=== PATIENT | female | born 1990 | race Caucasian/White ===

== ENCOUNTER 2016-10-30 08:34 | Inpatient (IN) ==
[2016-10-30] MEDS ORDERED: predniSONE 20 MG TABLET PO ONE (08:59)
[2016-10-30] MEDS ORDERED: 0.9 % Sodium Chloride 1,000 ML IVC ONE (09:00)
[2016-10-30] MEDS ORDERED: Ketorolac 15 MG/ML VIAL IVP ONE (09:00)
--- NOTE | 2016-10-30 09:17 | Emergency Department Note ---
START Narrative - START START: I examined this patient and my medical decision-making was reviewed with the FORGEMAN HELPER/PA/Advanced Practice Nurse/Resident Physician. I agree with the documented findings, disposition and treatment plan as described except to the extent set forth below. ED attending note: Patient seen with emergency medicine resident Dr. Salter. Please see a copy of his note for details of the H&P, evaluation, management and disposition of this patient. We independently had [id number] contact with the patient Briefly: 26 -year-old female presents with increasing shortness of breath and cough. 7 several days on Zithromax for upper respiratory tract infection/ bronchitis. Smoker no formal history of COPD but likely has a beginning of it. Patient will get repeat to oral steroids chest x-ray IV fluids. Disposition pending.
--- NOTE | 2016-10-30 09:20 | Emergency Department Note ---
Disposition Clinical Impression: Tobacco use, Necrotizing pneumonia Pneumonia Qualifiers: Pneumonia type: due to unspecified organism Laterality: right Lung location: lower lobe of lung Qualified Code(s): J18.1 - Lobar pneumonia, unspecified organism Leukocytosis Qualifiers: Leukocytosis type: unspecified Qualified Code(s): D72.829 - Elevated white blood cell count, unspecified Pulmonary abscess Qualifiers: Pulmonary abscess pneumonia presence: with pneumonia Laterality: right Lung location: lower lobe of lung Qualified Code(s): J85.1 - Abscess of lung with pneumonia Disposition: Admitted As Inpatient Condition: Good SOB HPI - General Chief Complaint: ED Shortness of Breath/Dyspnea Stated Complaint: pneumonia-worsening Time Seen by Provider: 10/30/16 08:43 Source: patient Mode of arrival: ambulatory Limitations: no limitations Nursing Notes Reviewed: Yes Vital Signs Reviewed: Yes - History of Present Illness 26-year-old female with a recent diagnosis of pneumonia presents for evaluation of pain and shortness of breath. Patient states that she was diagnosed with pneumonia by chest x-ray 2 days ago. Symptoms have started over the past 4 days. Notes to have a cough. Patient states that she has been taking her Zithromax as directed. States that she has 1 day left of pills. States it hurts symptoms have not improved. Patient has not taking any anti- inflammatories prior to arrival. Notes that she has right-sided chest pain. Patient denies history of PE or DVT. Patient denies any hemoptysis. Denies any recent long travel. No active cancers. Denies any oral contraceptive pills or exogenous estrogen. Denies any nausea or vomiting. No history of IV drug use - Related Data Previous Rx's Medication Instructions Recorded Azithromycin [Zithromax] 250 mg PO DAILY 4 Days 10/29/16 Allergies Allergy/AdvReac Type Severity Reaction Status Date / Time No Known Allergies Allergy Verified 10/29/16 03:52 All systems ED: reviewed and negative except as stated. Constitutional: Reports: as per HPI. Denies: fever Eyes: Reports: as per HPI ENT ED: Reports: as per HPI Cardiovascular: Reports: as per HPI, chest pain. Denies: palpitations Respiratory: Reports: as per HPI, dyspnea Gastrointestinal: Reports: as per HPI Genitourinary: Reports: as per HPI Musculoskeletal: Reports: as per HPI, back pain Integumentary: Reports: as per HPI Neurological: Reports: as per HPI Psychiatric: Reports: as per HPI Endocrine: Reports: as per HPI Hematological/Lymphatic: Reports: as per HPI Allergic/Immunologic: Reports: as per HPI Past Medical History - Past Medical History Medical history: Reports: no medical history Psychiatric history: Reports: anxiety, depression - Social History Smoking Status: Current every day smoker Alcohol use: Reports: none Drug use: Reports: none Physical Exam - General Limitations: no limitations General appearance: alert, in no apparent distress - Head Head exam: atraumatic, normocephalic - Eye Eye exam: Present: normal appearance, EOMI - ENT ENT exam: normal exam, mucous membranes moist - Neck Neck exam: Present: normal inspection, trachea midline - Chest Chest inspection: Present: normal inspection, symmetric chest wall rise - Respiratory Respiratory exam: Present: other (Decreased right-sided breath sounds). Absent : respiratory distress - Cardiovascular Cardiovascular exam: Present: regular rate, normal rhythm. Absent: systolic murmur - Abdominal Exam Abdominal exam: Present: soft, Non-Tender - Extremities Exam Extremities exam: Present: normal inspection. Absent: pedal edema - Back Exam Back exam: Present: normal inspection. Absent: CVA tenderness (R), CVA tenderness (L) - Neurological Exam Neurological exam: Present: alert, oriented X3 - Psychiatric Psychiatric exam: Present: normal affect, anxious - Skin Skin exam: Present: warm, dry, intact, normal color Course Course Narrative: Patient seen and examined upon arrival. Patient and later the treatment area. Patient does have recent sinus pneumonia. No recent auscultation. Likely community-acquired. Patient does not seem to be responding as expected to her outpatient therapy. Patient will get chest x-ray, EKG, lab work. Including a d -dimer as the patient does have a pruritic component to her chest pain. - Reevaluation(s) Reevaluation #1: Patient seen and examined. Patient subjectively feels short of breath. Patient 's vitals are stable. Patient is updated on plan of care. Time: 10:00 Reevaluation #2: Patient is updated on plan of care. Patient denies any needs at this time. Awaiting a CT of the chest to rule out pulmonary embolism. Time: 10:36 - Consultations Consultation #1: Spoke with pulmonary, Dr. Cruz who will evaluate the patient. Recommends that there is no abscess in the lung parenchyma no drainage is necessary. Time: 12:06 Vital Signs Temperature 97.6 F 10/30/16 08:38 Pulse Rate 89 10/30/16 08:38 Respiratory Rate 16 10/30/16 08:38 Blood Pressure 111/75 10/30/16 08:38 O2 Sat by Pulse Oximetry 97 10/30/16 08:38 Temperature 97.6 F 10/30/16 08:38 Pulse Rate 90 10/30/16 10:00 Respiratory Rate 16 10/30/16 10:00 Blood Pressure 109/54 10/30/16 10:00 O2 Sat by Pulse Oximetry 96 10/30/16 10:00 Oxygen Delivery Oxygen Delivery Room Air Shortness of Breath/Dyspnea - MDM Narrative Medical decision making narrative: 26-year-old female presents for evaluation of shortness of breath as well as pain. Patient was diagnosed with pneumonia 2 days ago by chest x-ray. Patient was taking azithromycin and had one day left. Patient noted symptoms of worsening. Reports subjective fever and chills. Patient does have a history of tobacco use but no diagnosis of reactive airway or COPD. Patient had a repeat chest x-ray which shows worsening pneumonia. Since the patient did fail azithromycin with worsening pneumonia. Patient will be treated with Levaquin. Patient also had a d-dimer which was elevated. Concerns of the patient's pain was pleuritic in nature and cannot completely rule out a pulmonary embolism without a scan. CT would allow better visualization of the pneumonia as well. Patient's lab work reviewed that show leukocytosis. Patient does not meet SIRS criteria with leukocytosis alone. Patient was treated with IV fluids as well as antibiotics. Patient received blood cultures. Patient does have a concerning CT finding. Patient does have necrotizing pneumonia with possible abscess formation. This was discussed with the patient as well as the engine generator assembler. Pulmonology recommends treatment with IV antibiotics. Formal consult initiated. Patient will be admitted to the hospital service for further evaluation and monitoring of her infectious pneumonia. Patient denies any history of IV drug abuse or states of immunocompromise. Patient is agreeable to plan of care. - Lab Data Lab results reviewed: Yes I reviewed the patient's lab results. Result diagrams: 10/30/16 09:28 10/30/16 09:28 Lab Results 10/30/16 10/30/16 10/30/16 Range/Units 09:28 09:28 09:28 WBC 18.8 H (4.3-11.1) K/mcL RBC 4.35 (3.82-4.97) M/mcL Hgb 12.6 (11.5-15.4) g/dL Hct 37.8 (35.3-44.9) % MCV 86.9 (83.0-100.0) fL MCH 29.0 (28.0-33.3) pg MCHC 33.3 (31.6-35.5) g/dL RDW 13.1 (11.5-14.5) % Plt Count 408 H (140-400) K/mcL MPV 9.3 L (9.4-12.4) fL Immature Gran % 0.6 (0-4) % Seg Neutrophils % 77.5 % Lymphocytes % 15.9 % Monocytes % 5.6 % Eosinophils % 0.3 % Basophils % 0.1 % Neutrophils # 14.6 H (1.6-8.9) K/mcL Lymphocytes # 3.0 (0.6-4.6) K/mcL Monocytes # 1.1 (0.0-1.3) K/mcL Eosinophils # 0.1 (0.0-0.6) K/mcL Basophils # 0.0 (0.0-0.2) K/mcL D-Dimer 1035 H (0-500) ng/mLFEU Sodium 139 (136-145) mEq/L Potassium 3.6 (3.5-4.5) mEq/L Chloride 106 (98-109) mEq/L Carbon Dioxide 22 (19-29) mEq/L BUN 14 (7-20) mg/dL Creatinine 0.88 (0.57-1.11) mg/dL Est GFR ( Amer) > 60 (> 60) Est GFR (Non-Af Amer) > 60 (> 60) BUN/Creatinine Ratio 16 (6-26) Glucose 93 (70-99) mg/dL Calculated Osmolality 288 (280-300) Calcium 9.6 (8.6-10.8) mg/dL Troponin I (0-0.03) ng/mL 10/30/16 Range/Units 10:31 WBC (4.3-11.1) K/mcL RBC (3.82-4.97) M/mcL Hgb (11.5-15.4) g/dL Hct (35.3-44.9) % MCV (83.0-100.0) fL MCH (28.0-33.3) pg MCHC (31.6-35.5) g/dL RDW (11.5-14.5) % Plt Count (140-400) K/mcL MPV (9.4-12.4) fL Immature Gran % (0-4) % Seg Neutrophils % % Lymphocytes % % Monocytes % % Eosinophils % % Basophils % % Neutrophils # (1.6-8.9) K/mcL Lymphocytes # (0.6-4.6) K/mcL Monocytes # (0.0-1.3) K/mcL Eosinophils # (0.0-0.6) K/mcL Basophils # (0.0-0.2) K/mcL D-Dimer (0-500) ng/mLFEU Sodium (136-145) mEq/L Potassium (3.5-4.5) mEq/L Chloride (98-109) mEq/L Carbon Dioxide (19-29) mEq/L BUN (7-20) mg/dL Creatinine (0.57-1.11) mg/dL Est GFR ( Amer) (> 60) Est GFR (Non-Af Amer) (> 60) BUN/Creatinine Ratio (6-26) Glucose (70-99) mg/dL Calculated Osmolality (280-300) Calcium (8.6-10.8) mg/dL Troponin I 0.00 (0-0.03) ng/mL - Radiology Data Radiology results reviewed: Yes I reviewed the patient's radiology results. Chest X-Ray 10/30/16 08:58 IMPRESSION: Worsening consolidative changes at the right lung base with small right pleural effusion. Findings are concerning for pneumonia. Follow-up recommended to assure resolution. D/ / 10/30/2016 09:34:33 Paul Murphy MD / [email or web address] Interpreting Provider: Paul Murphy MD Chest X-Ray 10/30/16 08:58 IMPRESSION: Worsening consolidative changes at the right lung base with small right pleural effusion. Findings are concerning for pneumonia. Follow-up recommended to assure resolution. D/ / 10/30/2016 09:34:33 Paul Murphy MD / [email or web address] Interpreting Provider: Paul Murphy MD Chest CTA 10/30/16 09:48 IMPRESSION: 1. No findings of pulmonary embolism. 2. 4.5 cm x 3.7 cm hypoenhancing area of collapsed right lower lobe with central cavitation, suspicious for necrotizing pneumonia with potential pulmonary abscess formation. 3. Trace right pleural effusion. 4. Minimal bronchial wall thickening with tracheal secretions, potentially related to bronchitis. 5. 0.5 cm x 0.3 cm solid nodule in the left upper lobe, most likely a sequela of an infectious or inflammatory process. Consider follow-up CT in 12 months per the Fleischner Society recommendations solid nodules as below. Of note, upper lobe location and indistinct margins are considered to be of increased risk. RECOMMENDATIONS: Fleischner Society guidelines for follow-up and management of incidentally detected pulmonary nodules: Single Solid Nodule: Nodule size less than 6 mm In a low-risk patient, no routine follow-up. In a high-risk patient, optional CT at 12 months. Radiology 2017 http://pubs.rsna.org/doi/full/10.1148/radiol.[email or web address] D/ / Abram Pretty MD / Abram Pretty MD Interpreting Provider: Abram Pretty MD - EKG Data EKG attestation: Yes I reviewed and interpreted this EKG. EKG shows normal: Reports: sinus rhythm Rate: Reports: normal Rhythm: Reports: NSR T wave inversions noted in: Reports: III (Flattening), v1, v2, v3 When compared to previous EKG there are: previous EKG unavailable Interpretation: Reports: nonspecific ST-T wave changes S.B.A.R. - S.B.A.RVaughn Situation: Demographics, MOA Background: Presenting Complaint Assessment: Vital Signs, Course and respsone to treatment, Patient/Family Expectation Recommendation: Barrier(s) to disposition, Recommendation based on pending studies, treatments, or consults S.B.AVaughnRVaughn Report Given to: Dr. Darren Ruiz Repor Time: 12:02
[2016-10-30] MEDS ORDERED: Ipratropium/Albuterol Neb 3 ML IH ONE (09:24)
[2016-10-30 09:35] LABS: Basophils % 0.1 %; Eosinophils # 0.1 K/mcL (0.0-0.6); Eosinophils % 0.3 %; Hematocrit 37.8 % (35.3-44.9); Hemoglobin 12.6 g/dL (11.5-15.4); Immature Granulocytes % 0.6 % (0-4); Lymphocytes % 15.9 %; Mean Corpuscular HGB Conc 33.3 g/dL (31.6-35.5); Mean Corpuscular Volume 86.9 fL (83.0-100.0); Mean Platelet Volume 9.3 fL (9.4-12.4); Monocytes # 1.1 K/mcL (0.0-1.3); Monocytes % 5.6 %; Neutrophils # 14.6 K/mcL (1.6-8.9); Platelet Count 408 K/mcL (140-400); Red Blood Count 4.35 M/mcL (3.82-4.97); Red Cell Distribution Width 13.1 % (11.5-14.5); Segmented Neutrophils % 77.5 %
[2016-10-30 09:47] LABS: BUN/Creatinine Ratio 16 (6-26); Blood Urea Nitrogen 14 mg/dL (7-20); Calcium 9.6 mg/dL (8.6-10.8); Carbon Dioxide 22 mEq/L (19-29); Chloride 106 mEq/L (98-109); Glucose 93 mg/dL (70-99); Osmolality,Calculated 288 (280-300); Potassium 3.6 mEq/L (3.5-4.5); Sodium 139 mEq/L (136-145); eGFR For African Americans > 60 (> 60); eGFR For Non-African Americans > 60 (> 60)
[2016-10-30] MEDS ORDERED: Levofloxacin 750 MG/150 ML 750 MG/150 ML BAG IVPB ONE (09:53)
[2016-10-30] MEDS ORDERED: Piperacillin/Tazobactam 4.5 GM in D5% in Water (Mini-Bag+) 100 ML IVPB ONE ×2 (11:56→12:45)
[2016-10-30] MEDS ORDERED: Vancomycin 1,750 MG in D5% in Water 250 ML IVPB ONE (11:56)
[2016-10-30] MEDS ORDERED: Vancomycin 1,750 MG in D5% in Water 500 ML IVPB ONE (12:09)
[2016-10-30] MEDS ORDERED: Naloxone 0.4 MG/ML INJ IVP PRN (12:15)
[2016-10-30] MEDS ORDERED: Piperacillin/Tazobactam 4.5 GM in D5% in Water (Mini-Bag+) 100 ML IVPB SCH (12:15)
--- NOTE | 2016-10-30 12:22 | Internal Med History&Physical ---
Date of Encounter: 10/30/16 Time of Encounter: 12:20 Assessment and Plan (1) Necrotizing pneumonia Current visit: Yes Status: Acute Right lower lobe necrotizing pneumonia with cavitation/pulmonary abscess Failed a Zithromax as outpatient Continue Zosyn IV, blood cultures, IV fluids Pulmonary consult Subcutaneous heparin for DVT prophylaxis. The patient will be admitted as inpatient. Full code. Time spent on this admission 40 minutes High risk due to necrotizing pneumonia (2) Leukocytosis Current visit: Yes Status: Acute Likely secondary to pneumonia Qualifiers: Leukocytosis type: unspecified Qualified Code(s): D72.829 - Elevated white blood cell count, unspecified (3) Tobacco use Current visit: Yes Status: Acute Smoking cessation counseling given for 5 min . Nicotine patch ordered (4) Pulmonary abscess Current visit: Yes Status: Acute No history of IV drug abuse Qualifiers: Pulmonary abscess pneumonia presence: with pneumonia Laterality: right Lung location: lower lobe of lung Qualified Code(s): J85.1 - Abscess of lung with pneumonia Internal Medicine - H&P: HPI Chief complaint: Failed outpatient treatment for pneumonia Admitted From: Emergency Dept History of present illness: Ms. Machado is a 26 year old female with past medical history of tobacco use who came to the emergency room complaining of shortness of breath. The patient was diagnosed with pneumonia a few days ago and was treated with Zithromax. Unfortunately her symptoms have not improved, she continues to have brownish phlegm in complaining of chest sharp pain 8 out of 10 intensity pleuritic type on the right base of the thorax. She says that she has been coughing for about 2 weeks and has been having chills at home. White blood cell count is 18.8 platelets 408 the d-dimer was elevated at 1035, chest x-ray showed worse right lower lobe infiltrates. CT angio the chest was performed and did not show any pulmonary emboli but showed a right lower lobe necrotizing possible pneumonia with abscess formation and cavitation. Trace pleural effusion, bronchitis in the left upper lobe nodule. The patient is very weak, somnolent. The pulmonary service was contacted by the ER physician and the recommendation to admit the patient on IV antibiotics was given. Down in the emergency room the patient was given vancomycin, Levaquin and Zosyn. Past Med Surg Social Fam HX - Past Medical History Medical history: no medical history, other (Tobacco use, depression and anxiety) Psychiatric history: anxiety, depression - Past Surgical History Surgical History: other (Tonsillectomy) - Social History Smoking Status: Current every day smoker Packs per day: Hospital pack per day Alcohol use: none Drug use: none - Additional Family History Additional family history: Father with hypertension Internal Medicine - H&P: Meds Azithromycin [Zithromax] 250 mg PO DAILY 4 Days 10/29/16 [Rx] Allergies No Known Allergies Allergy (Verified 10/29/16 03:52) All Systems PM: A 10-system review of systems was performed and is negative for pertinent findings except as documented above in the HPI. Review of systems: Right pleuritic pain, shortness of breath, weakness. Other systems out of the 10th reviewed were negative - Constitutional Vitals: Temp Pulse Resp BP Pulse Ox 97.6 F 90 16 109/54 96 10/30/16 08:38 10/30/16 10:00 10/30/16 10:00 10/30/16 10:00 10/30/16 10:00 General appearance: Present: A&O X 3, obese - Head Head exam: Present: atraumatic, normocephalic - Eye Eye exam: Present: PERRL, conjuntiva pink, sclera anicteric Pupils: Present: PERRL - Neck Neck exam general surgery: Present: supple, trachea midline. Absent: lymphadenopathy - Respiratory Respiratory exam: Present: decreased breath sounds (Blunted breath sounds on the right base), CTAB. Absent: accessory muscle use, rales, rhonchi, wheezes - Cardiovascular Cardiovascular exam: Present: RRR, +S1, +S2. Absent: diastolic murmur, gallop, rubs, systolic murmur - GI/Abdominal GI/Abdominal exam: Present: normal bowel sounds, soft, no peritoneal signs. Absent: distended, tenderness - Extremities Exam Extremities exam: Present: warm, radial pulses palpable and symetrical. Absent : calf tenderness, cyanotic, pedal edema - Neurological Exam Neurological exam: Present: CN II-XII intact, oriented X3, no focal deficits. Absent: pronater drift, facial droop, speech deficit - Skin Skin exam: Present: dry, intact Internal Med - H&P Results - Labs CBC & Chem 7: 10/30/16 09:28 10/30/16 09:28
[2016-10-30] MEDS: 0.9 % Sodium Chloride 1,000 ML IVC SCH ×2 (13:13→21:24)
--- NOTE | 2016-10-30 13:14 | Pre-Sedation Evaluation ---
Pre-sedation evaluation - Pre-sedation checklist Date of procedure: 10/30/16 Procedure: bronchoscopy Recent Vitals: Last Vital Signs Temp 98.3 F 10/30/16 12:53 Pulse 77 10/30/16 12:53 Resp 16 10/30/16 12:53 BP 106/69 10/30/16 12:53 Pulse Ox 98 10/30/16 12:53 H&P (including ROS) documented in medical record: Yes Previous reaction to sedatives/anesthetics: No Dietary Status: NPO after Midnight Airway Assessment: Patient can open mouth completely, TMJ function normal, Micrognathia (under-bite, receding chin) absent, Neck with adequate range of motion Dentition: No loose teeth or bridges Possible difficult airway: No ASA Classification *see protocol: CLASS II-Mild systemic disease
[2016-10-30] MEDS: Nicotine 21 MG PATCH.TD24 TD SCH (13:16)
[2016-10-30] MEDS: Ketorolac 30 MG/ML VIAL IVP PRN ×2 (13:17→19:57)
--- NOTE | 2016-10-30 13:20 | Pulmonology Consult Note ---
Date of Encounter: 10/30/16 Time of Encounter: 13:15 Assessment and Plan (1) Pneumonia Current Visit: No Status: Acute Right lower lobe cavitary pneumonia concerning for possible aspiration ( especially in light of recent IV drug abuse approximately one week ago). She is currently on broad-spectrum antibiotics with vancomycin and Zosyn. I have ordered MRSA nasal probe, Legionella and strep urinary antigens. Plan for bronchoscopy for further evaluation. Qualifiers: Pneumonia type: due to unspecified organism Laterality: right Lung location: lower lobe of lung Qualified Code(s): J18.1 - Lobar pneumonia, unspecified organism (2) Abnormal CT scan, chest Current Visit: Yes Status: Acute Right lower lobe cavitary lesion with a small associated pleural effusion. I suspect cavitary pneumonia and/or lung abscess. This is overall a unilateral process, which makes septic emboli unlikely. She does have a history of IV drug abuse and blood cultures are pending. Will need a prolonged course of antibiotics and serial imaging to ensure radiographic resolution. Radiologist notes a tiny left upper lobe nodule which is likely benign in etiology given her age and the appearance. (3) Pleuritic chest pain Current Visit: Yes Status: Acute Likely due to pleurisy from peripheral cavitary pneumonia. Small pleural effusion, which would be too small for chest tube placement or thoracentesis. This pain is typically inflammatory in etiology, and I have added a course of prednisone 40 mg by mouth for 5 days. This can also be helpful in the treatment of severe community acquired pneumonia. (4) Tobacco use Current Visit: Yes Status: Acute Discussed with patient, and recommended cessation. History of Present Illness Consult date: 10/30/16 Requesting physician: Michael Canchola Reason for consult: abnormal CXR/CT Chief complaint: Pneumonia History of present illness: 26-year-old obese female with a medical history significant for IV drug abuse and smoking who presented to the ER for further evaluation of shortness of breath and pleuritic chest pain. Recently been diagnosed with pneumonia and started on azithromycin as an outpatient. However, her symptoms of dyspnea, cough, and pleuritic chest pain worsened. She is brought to the emergency department for further evaluation. Workup revealed a cavitary lesion in the right lower lobe. Pulmonary was consult for further evaluation and management. Patient states that her symptoms initially started off with a cough approximately 4 days ago. She was given a "shot" for an antibiotic in [place]. Then she again sought medical care and received azithromycin approximate 3 days ago. The cough has been mostly nonproductive. She is developed pleuritic chest pain for the past 2 or 3 days. Nothing seems to make her symptoms better. She had an episode of nausea and vomiting about a week and a half ago, but denies any known aspiration event. She does admit to IV drug abuse approximately one week ago. She denies passing out or aspirating at the time. No sick contacts. She is an active smoker. Past Med Surg Social Fam HX - Past Medical History Medical history: no medical history Psychiatric history: anxiety, depression - Past Surgical History Surgical History: other - Social History Smoking Status: Current every day smoker Packs per day: 1 Smokeless Tobacco Status: No Alcohol use: none Drug use: none Medications and Allergies Azithromycin [Zithromax] 250 mg PO DAILY 4 Days 10/29/16 [Rx] Allergies No Known Allergies Allergy (Verified 10/29/16 03:52) All Systems: A 10-system review of systems was performed and is negative for pertinent findings except as documented above in the HPI. Physical Examination Vital Signs: Vital Signs, Last 4 Hours Temp Pulse Resp BP Pulse Ox 10/30/16 12:53 98.3 F 77 16 106/69 98 10/30/16 12:48 98 10/30/16 12:35 16 93/55 General: no acute distress Eyes: nonicteric ENT: oropharynx moist Neck: supple, no lymphadenopathy Lungs: Clear to auscultation bilaterally Cardiovascular: regular rate and rhythm Gastrointestinal: normoactive bowel sounds, soft, non-tender, non-distended Integumentary: normal Extremities: no cyanosis, no edema Musculoskeletal: no deformities Neuro: normal mental status, non-focal exam Psych: mood appropriate, affect normal Results - Laboratory Findings CBC and BMP: 10/30/16 09:28 10/30/16 09:28 PT/INR, D-dimer D-Dimer 1035 ng/mLFEU (0-500) H 10/30/16 09:28 Abnormal lab findings: Abnormal lab results WBC 18.8 K/mcL (4.3-11.1) H 10/30/16 09:28 Plt Count 408 K/mcL (140-400) H 10/30/16 09:28 MPV 9.3 fL (9.4-12.4) L 10/30/16 09:28 Neutrophils # 14.6 K/mcL (1.6-8.9) H 10/30/16 09:28 D-Dimer 1035 ng/mLFEU (0-500) H 10/30/16 09:28 - Clinical Findings Intake & Output: Intake & Output 10/29/16 10/30/16 10/30/16 23:59 07:59 15:59 Weight 114.759 kg Consult Discharge Plan - Plan Referrals: NO,PCP [Primary Care Provider] -
[2016-10-30] MEDS ORDERED: *HR* Midazolam HCl 5 MG/5 ML VIAL IVP ONE (13:31)
[2016-10-30] MEDS ORDERED: *HR* FentaNYL (PF) 100 MCG/2 ML VIAL ONE (13:32)
[2016-10-30] MEDS ORDERED: Lidocaine Viscous Oral Soln 15 ML SOLUTION MM ONE (13:34)
[2016-10-30] MEDS ORDERED: Tetracaine/Benzocaine/Butamben 200MG/SPRAY (100SPY/BOT) MM ONE (13:34)
[2016-10-30] MEDS ORDERED: Lidocaine Viscous Oral Soln 15 ML SOLUTION ONE (13:35)
[2016-10-30] MEDS: *HR* FentaNYL (PF) 100 MCG/2 ML VIAL IVP PRN ×3 (13:54→13:58)
[2016-10-30] MEDS: *HR* Midazolam HCl 5 MG/5 ML VIAL IVP PRN ×3 (13:54→13:58)
[2016-10-30] MEDS ORDERED: Albuterol 2.5 MG/3 ML NEBULIZER ONE (14:03)
[2016-10-30] MEDS: *HR* Heparin 5,000 UNIT/ML VIAL SQ SCH ×2 (14:59→22:43)
[2016-10-30] MEDS ORDERED: *HR* Heparin 5,000 UNIT/ML VIAL SQ SCH (16:00)
[2016-10-30] MEDS: Piperacillin/Tazobactam 3.375 GM in D5% in Water (Mini-Bag+) 100 ML IVPB SCH (18:21)
[2016-10-30] MEDS ORDERED: Piperacillin/Tazobactam 3.375 GM in D5% in Water (Mini-Bag+) 100 ML IVPB SCH (19:00)
[2016-10-31] MEDS: Piperacillin/Tazobactam 3.375 GM in D5% in Water (Mini-Bag+) 100 ML IVPB SCH ×4 (01:27→18:39)
[2016-10-31] MEDS: Ketorolac 30 MG/ML VIAL IVP PRN ×3 (03:27→18:39)
[2016-10-31] MEDS: 0.9 % Sodium Chloride 1,000 ML IVC SCH ×3 (03:53→22:21)
[2016-10-31 04:03] LABS: Basophils % 0.1 %; Eosinophils % 0.1 %; Hematocrit 28.5 % (35.3-44.9); Immature Granulocytes % 0.4 % (0-4); Lymphocytes # 2.5 K/mcL (0.6-4.6); Lymphocytes % 18.5 %; Mean Corpuscular HGB Conc 33.7 g/dL (31.6-35.5); Mean Corpuscular Hemoglobin 29.9 pg (28.0-33.3); Mean Corpuscular Volume 88.8 fL (83.0-100.0); Mean Platelet Volume 9.9 fL (9.4-12.4); Monocytes # 0.9 K/mcL (0.0-1.3); Monocytes % 6.3 %; Neutrophils # 10.2 K/mcL (1.6-8.9); Platelet Count 293 K/mcL (140-400); Red Blood Count 3.21 M/mcL (3.82-4.97); Red Cell Distribution Width 13.2 % (11.5-14.5); Segmented Neutrophils % 74.6 %
[2016-10-31 04:11] LABS: Hemoglobin 9.6 g/dL (11.5-15.4)
[2016-10-31 04:12] LABS: BUN/Creatinine Ratio 18 (6-26); Blood Urea Nitrogen 14 mg/dL (7-20); Calcium 8.6 mg/dL (8.6-10.8); Carbon Dioxide 21 mEq/L (19-29); Chloride 114 mEq/L (98-109); Glucose 94 mg/dL (70-99); Osmolality,Calculated 290 (280-300); Sodium 140 mEq/L (136-145); eGFR For African Americans > 60 (> 60); eGFR For Non-African Americans > 60 (> 60)
[2016-10-31] MEDS ORDERED: GuaiFENesin Liq 200 MG/10 ML UDC PO ONE (06:20)
[2016-10-31] MEDS: *HR* Heparin 5,000 UNIT/ML VIAL SQ SCH ×3 (06:40→22:21)
[2016-10-31] MEDS: predniSONE 20 MG TABLET PO SCH (08:19)
[2016-10-31] MEDS: Nicotine 21 MG PATCH.TD24 TD SCH (08:19)
[2016-10-31] MEDS: Acetaminophen 325 MG TABLET PO PRN (08:23)
--- NOTE | 2016-10-31 08:34 | Internal Med Progress Note ---
Date of Encounter: 11/09/16 Time of Encounter: 08:31 - Assessment and plan (1) Necrotizing pneumonia Current Visit: Yes Status: Acute Assessment and plan: background history of IV drug abuse. was recently treated with Azithromycin for CAP. She did not complete the course. she started getting worse inspite being on antibiotics. repeat Imaging suggestive of pulmonary abscess. started on broad spectrum after blood culture. pulmonary on board .underwent bronchoscopy. plan will get 2 D Echo to rule out IE cont abx. cont present treatment. (2) Leukocytosis Current Visit: Yes Status: Acute Assessment and plan: getting better. Qualifiers: Leukocytosis type: unspecified Qualified Code(s): D72.829 - Elevated white blood cell count, unspecified (3) Tobacco use Current Visit: Yes Status: Chronic - Subjective Interval history: Seen and examined. Chart reviewed. Patient is still complaining of occasional right-sided chest pain. Patient denies nausea, vomiting, diarrhea, dizziness and headache. - Constitutional Vitals: Temp Pulse Resp BP Pulse Ox 98.6 F 84 16 100/65 96 10/31/16 07:11 10/31/16 07:11 10/31/16 07:11 10/31/16 07:11 10/31/16 07:11 General appearance: Present: A&O X 3, obese - Head Head exam: Present: atraumatic, normocephalic - Eye Eye exam: Present: PERRL, conjuntiva pink, sclera anicteric Pupils: Present: PERRL - Neck Neck exam general surgery: Present: supple, trachea midline. Absent: lymphadenopathy - Respiratory Respiratory exam: Present: CTAB. Absent: accessory muscle use, rales, rhonchi, wheezes - Cardiovascular Cardiovascular exam: Present: RRR, +S1, +S2. Absent: diastolic murmur, gallop, rubs, systolic murmur - GI/Abdominal GI/Abdominal exam: Present: normal bowel sounds, soft, no peritoneal signs. Absent: distended, tenderness - Extremities Exam Extremities exam: Present: warm, radial pulses palpable and symetrical. Absent : calf tenderness, cyanotic, pedal edema - Neurological Exam Neurological exam: Present: CN II-XII intact, oriented X3, no focal deficits. Absent: pronater drift, facial droop, speech deficit - Skin Skin exam: Present: dry, intact Internal Medicine: Result - Labs CBC & Chem 7: 11/09/16 14:19 11/07/16 03:52 Labs: Short CBC 10/31/16 Range/Units 03:41 WBC 13.7 H (4.3-11.1) K/mcL Hgb 9.6 L D (11.5-15.4) g/dL Hct 28.5 L (35.3-44.9) % Plt Count 293 (140-400) K/mcL Neutrophils # 10.2 H (1.6-8.9) K/mcL BMP 10/31/16 03:41 Sodium 140 Potassium 4.0 Chloride 114 H Carbon Dioxide 21 BUN 14 Creatinine 0.79 Glucose 94 Calcium 8.6 - ABG Interpretation ABG results: PT/INR, D-dimer D-Dimer 1035 ng/mLFEU (0-500) H 10/30/16 09:28 Consult Discharge Plan - Plan Instructions: Oxycodone/Acetaminophen (By mouth), Cefazolin (Injection), Sepsis (DC), Pneumonia (DC), Cigarette Smoking and Your Health, Auto Body Repairer (GEN) Additional Instructions: Patient has been advised to quit smoking. Patient has been advised to discontinue IV drug use. Patient will need to strictly follow antibiotic regimen to allow recovery from pneumonia. Referrals: NO,PCP [Primary Care Provider] - Prescriptions: Cefazolin Sodium/D5w [Cefazolin 2 G/50 ml-D5w Bag] 2 gm IV Q8H #39 piggyback Oxycodone HCl/Acetaminophen [Percocet 5-325 mg Tablet] 1 each PO Q6H #30 tablet
--- NOTE | 2016-10-31 08:42 | Pulmonology Progress Note ---
Date of Encounter: 10/31/16 Time of Encounter: 08:39 Assessment and Plan (1) Pneumonia Current Visit: No Status: Acute Right lower lobe cavitary pneumonia concerning for possible aspiration ( especially in light of recent IV drug abuse approximately one week ago). She is currently on broad-spectrum antibiotics with Zosyn. I have ordered MRSA nasal probe, Legionella and strep urinary antigens. She is status post bronchoscopy on 10/30/2016, which revealed purulent secretions in the right lower lobe. Cultures from bronchoscopy are pending. Qualifiers: Pneumonia type: due to unspecified organism Laterality: right Lung location: lower lobe of lung Qualified Code(s): J18.1 - Lobar pneumonia, unspecified organism (2) Abnormal CT scan, chest Current Visit: Yes Status: Acute Right lower lobe cavitary lesion with a small associated pleural effusion. I suspect cavitary pneumonia and/or lung abscess. This is overall a unilateral process, which makes septic emboli unlikely. She does have a history of IV drug abuse and blood cultures are pending. Will need a prolonged course of antibiotics and serial imaging to ensure radiographic resolution. Radiologist notes a tiny left upper lobe nodule which is likely benign in etiology given her age and the appearance. (3) Pleuritic chest pain Current Visit: Yes Status: Acute Likely due to pleurisy from peripheral cavitary pneumonia. Small pleural effusion, which is too small for chest tube placement or thoracentesis. This pain is typically inflammatory in etiology, and I have added a course of prednisone 40 mg by mouth for 5 days. This can also be helpful in the treatment of severe community acquired pneumonia. (4) Tobacco use Current Visit: Yes Status: Acute Discussed with patient, and recommended cessation. Subjective Principal diagnosis: Pneumonia Interval history: Patient denies fever/chills. Nonproductive cough persists. No dyspnea at rest. No hemoptysis. Objective PUL Vital signs: Last Vital Signs Temp 98.6 F 10/31/16 07:11 Pulse 84 10/31/16 07:11 Resp 16 10/31/16 07:11 BP 100/65 10/31/16 07:11 Pulse Ox 96 10/31/16 07:11 General: Obese young female who is in no acute distress Eyes: nonicteric ENT: oropharynx moist Neck: supple, no lymphadenopathy Lungs: Clear to auscultation bilaterally Cardiovascular: regular rate and rhythm Gastrointestinal: normoactive bowel sounds, soft, non-tender, non-distended Integumentary: normal Extremities: no cyanosis, no edema Musculoskeletal: no deformities Neuro: normal mental status, non-focal exam Psych: mood appropriate, affect normal Results - Laboratory Findings CBC and BMP: 10/31/16 03:41 10/31/16 03:41 PT/INR, D-dimer D-Dimer 1035 ng/mLFEU (0-500) H 10/30/16 09:28 Abnormal lab findings: Abnormal lab results WBC 13.7 K/mcL (4.3-11.1) H 10/31/16 03:41 RBC 3.21 M/mcL (3.82-4.97) L 10/31/16 03:41 Hgb 9.6 g/dL (11.5-15.4) L D 10/31/16 03:41 Hct 28.5 % (35.3-44.9) L 10/31/16 03:41 Neutrophils # 10.2 K/mcL (1.6-8.9) H 10/31/16 03:41 D-Dimer 1035 ng/mLFEU (0-500) H 10/30/16 09:28 Chloride 114 mEq/L (98-109) H 10/31/16 03:41 - Microbiology Findings Microbiology Findings: Microbiology, Last 48 Hours 10/30/16 23:00 Legionella Antigen - Final Urine,Clean Catch Streptococcus pneumoniae Antigen (M - Final - Clinical Findings Intake & Output: Intake & Output 10/30/16 10/31/16 10/31/16 23:59 07:59 15:59 Intake Total 1340 / 1340 1100 / 1100 Balance 1340 / 1340 1100 / 1100 Weight 120.021 kg Consult Discharge Plan - Plan Referrals: NO,PCP [Primary Care Provider] -
[2016-10-31] MEDS: *HR* Morphine 2 MG/ML SYRINGE IVP PRN ×3 (11:51→20:45)
[2016-10-31] MEDS ORDERED: Vancomycin 2,000 MG in D5% in Water 500 ML IVPB ONE (13:00)
[2016-10-31] MEDS: Ipratropium/Albuterol Neb 3 ML IH PRN (22:07)
[2016-11-01] MEDS ORDERED: Vancomycin 1,500 MG in D5% in Water 500 ML IVPB SCH (01:00)
[2016-11-01] MEDS: *HR* Morphine 2 MG/ML SYRINGE IVP PRN ×5 (01:16→23:57)
[2016-11-01] MEDS: Piperacillin/Tazobactam 3.375 GM in D5% in Water (Mini-Bag+) 100 ML IVPB SCH ×4 (01:18→22:41)
[2016-11-01] MEDS: Vancomycin 1,500 MG in D5% in Water 250 ML IVPB SCH ×2 (01:27→15:00)
[2016-11-01] MEDS: Ketorolac 30 MG/ML VIAL IVP PRN ×3 (04:15→18:35)
[2016-11-01] MEDS: Ipratropium/Albuterol Neb 3 ML IH PRN ×4 (04:22→21:59)
[2016-11-01] MEDS: *HR* Heparin 5,000 UNIT/ML VIAL SQ SCH ×3 (06:43→21:55)
[2016-11-01] MEDS: Nicotine 21 MG PATCH.TD24 TD SCH (09:25)
[2016-11-01] MEDS: predniSONE 20 MG TABLET PO SCH (09:26)
[2016-11-01] MEDS: 0.9 % Sodium Chloride 1,000 ML IVC SCH ×4 (09:27→23:51)
--- NOTE | 2016-11-01 11:46 | Pulmonology Progress Note ---
Date of Encounter: 11/01/16 Time of Encounter: 11:42 Assessment and Plan (1) Pneumonia Current Visit: No Status: Acute Right lower lobe cavitary pneumonia concerning for possible aspiration ( especially in light of recent IV drug abuse approximately one week ago). She is currently on broad-spectrum antibiotics with Vancomycin & Zosyn. Legionella and strep urinary antigens are negative. She is status post bronchoscopy on , which revealed purulent secretions in the right lower lobe. Cultures from bronchoscopy are pending, but the Gram stain appears polymicrobial ( consistent with aspiration) and reveals gram-negative rods and gram-positive cocci. Qualifiers: Pneumonia type: due to unspecified organism Laterality: right Lung location: lower lobe of lung Qualified Code(s): J18.1 - Lobar pneumonia, unspecified organism (2) Abnormal CT scan, chest Current Visit: Yes Status: Acute Right lower lobe cavitary lesion with a small associated pleural effusion. I suspect cavitary pneumonia and/or lung abscess. This is overall a unilateral process, which makes septic emboli unlikely. She does have a history of IV drug abuse and blood cultures are NGTD. TTE without vegetations. Will need a prolonged course of antibiotics and serial imaging to ensure radiographic resolution. Radiologist notes a tiny left upper lobe nodule which is likely benign in etiology given her age and the appearance. (3) Pleuritic chest pain Current Visit: Yes Status: Acute Likely due to pleurisy from peripheral cavitary pneumonia. Small pleural effusion, which is too small for chest tube placement or thoracentesis. This pain is typically inflammatory in etiology, and I have added a course of prednisone 40 mg by mouth for 5 days. This can also be helpful in the treatment of severe community acquired pneumonia. (4) Tobacco use Current Visit: Yes Status: Acute Discussed with patient, and recommended cessation. We will continue to follow. Subjective Principal diagnosis: Pneumonia Interval history: Patient denies fever/chills. Patient reports mobilization of secretions and cough is now productive. No dyspnea at rest. No hemoptysis. Pleuritic chest pain persists. Of note, patient is sleepy and falling asleep during our interview. All other systems reviewed and otherwise negative. Objective PUL Vital signs: Last Vital Signs Temp 98.7 F 11/01/16 11:12 Pulse 108 11/01/16 11:12 Resp 16 11/01/16 11:12 BP 122/75 05/28/17 11:12 Pulse Ox 93 11/01/16 11:12 General: Obese young female who is in no acute distress Eyes: nonicteric ENT: oropharynx moist Neck: supple, no lymphadenopathy Lungs: Clear to auscultation bilaterally Cardiovascular: regular rate and rhythm Gastrointestinal: normoactive bowel sounds, soft, non-tender, non-distended Integumentary: normal Extremities: no cyanosis, no edema Musculoskeletal: no deformities Neuro: normal mental status, non-focal exam Psych: mood appropriate, affect normal Results - Laboratory Findings CBC and BMP: 10/31/16 03:41 10/31/16 03:41 PT/INR, D-dimer D-Dimer 1035 ng/mLFEU (0-500) H 10/30/16 09:28 Abnormal lab findings: Abnormal lab results WBC 13.7 K/mcL (4.3-11.1) H 10/31/16 03:41 RBC 3.21 M/mcL (3.82-4.97) L 10/31/16 03:41 Hgb 9.6 g/dL (11.5-15.4) L D 10/31/16 03:41 Hct 28.5 % (35.3-44.9) L 10/31/16 03:41 Neutrophils # 10.2 K/mcL (1.6-8.9) H 10/31/16 03:41 D-Dimer 1035 ng/mLFEU (0-500) H 10/30/16 09:28 Chloride 114 mEq/L (98-109) H 10/31/16 03:41 - Microbiology Findings Microbiology Findings: Microbiology, Last 48 Hours 10/30/16 15:26 Respiratory Culture - Preliminary Right Lower Lobe Lung Gram Negative Camacho Gram Positive Cocci 10/31/16 12:10 Sputum Culture - Preliminary Sputum 10/30/16 15:26 Acid Fast Stain - Final Right Lower Lobe Lung 10/30/16 23:00 Legionella Antigen - Final Urine,Clean Catch Streptococcus pneumoniae Antigen (M - Final - Clinical Findings Intake & Output: Intake & Output 10/31/16 11/01/16 11/01/16 23:59 07:59 15:59 Intake Total 1440 / 1440 1350 / 1350 120 / 120 Output Total 1650 / 1650 650 / 650 Balance -210 / -210 700 / 700 120 / 120 Weight 126.354 kg Consult Discharge Plan - Plan Referrals: NO,PCP [Primary Care Provider] -
--- NOTE | 2016-11-01 16:24 | Internal Med Progress Note ---
Date of Encounter: 11/09/16 Time of Encounter: 16:21 - Assessment and plan (1) Necrotizing pneumonia Current Visit: Yes Status: Acute Assessment and plan: 27/ background history of IV drug abuse. was recently treated with Azithromycin for CAP. She did not complete the course. she started getting worse inspite being on antibiotics. repeat Imaging suggestive of pulmonary abscess. started on broad spectrum after blood culture. pulmonary on board .underwent bronchoscopy. plan will get 2 D Echo to rule out IE cont abx. cont present treatment. 11/01/2016 Noted that patient's blood culture is negative so far. Respiratory culture is growing gram-positive cocci/gram-negative rods. This is likely a sample from bronchoalveolar lavage. Sputum culture is negative so far. Patient is presently on vancomycin/Zosyn. We will continue same treatment at this point (2) Leukocytosis Current Visit: Yes Status: Acute Assessment and plan: getting better. Qualifiers: Leukocytosis type: unspecified Qualified Code(s): D72.829 - Elevated white blood cell count, unspecified (3) Tobacco use Current Visit: Yes Status: Chronic - Subjective Interval history: Seen and examined. Chart reviewed. Patient is still complaining of occasional right-sided chest pain. Patient denies nausea, vomiting, diarrhea, dizziness and headache. 11/01/2016 Seen and examined. Next uncharted. Patient is still complaining of shortness of breath. Patient has sputum production which is purulent in nature. Patient denies chest pain, abdominal pain diarrhea or dizziness. - Constitutional Vitals: Temp Pulse Resp BP Pulse Ox 97.7 F 104 16 113/67 96 11/01/16 15:14 11/01/16 15:14 11/01/16 15:14 11/01/16 15:14 11/01/16 15:14 General appearance: Present: A&O X 3, obese - Head Head exam: Present: atraumatic, normocephalic - Eye Eye exam: Present: PERRL, conjuntiva pink, sclera anicteric Pupils: Present: PERRL - Neck Neck exam general surgery: Present: supple, trachea midline. Absent: lymphadenopathy - Respiratory Respiratory exam: Present: CTAB. Absent: accessory muscle use, rales, rhonchi, wheezes - Cardiovascular Cardiovascular exam: Present: RRR, +S1, +S2. Absent: diastolic murmur, gallop, rubs, systolic murmur - GI/Abdominal GI/Abdominal exam: Present: normal bowel sounds, soft, no peritoneal signs. Absent: distended, tenderness - Extremities Exam Extremities exam: Present: warm, radial pulses palpable and symetrical. Absent : calf tenderness, cyanotic, pedal edema - Neurological Exam Neurological exam: Present: CN II-XII intact, oriented X3, no focal deficits. Absent: pronater drift, facial droop, speech deficit - Skin Skin exam: Present: dry, intact Internal Medicine: Result - Labs CBC & Chem 7: 11/09/16 14:19 11/07/16 03:52 - ABG Interpretation ABG results: PT/INR, D-dimer D-Dimer 1035 ng/mLFEU (0-500) H 10/30/16 09:28 Consult Discharge Plan - Plan Instructions: Oxycodone/Acetaminophen (By mouth), Cefazolin (Injection), Sepsis (DC), Pneumonia (DC), Cigarette Smoking and Your Health, Assembly Inspector Helper (GEN) Additional Instructions: Patient has been advised to quit smoking. Patient has been advised to discontinue IV drug use. Patient will need to strictly follow antibiotic regimen to allow recovery from pneumonia. Referrals: NO,PCP [Primary Care Provider] - Prescriptions: Cefazolin Sodium/D5w [Cefazolin 2 G/50 ml-D5w Bag] 2 gm IV Q8H #39 piggyback Oxycodone HCl/Acetaminophen [Percocet 5-325 mg Tablet] 1 each PO Q6H #30 tablet
[2016-11-01 16:51] LABS: Basophils % 0.1 %; Eosinophils % 0.1 %; Hematocrit 30.9 % (35.3-44.9); Hemoglobin 10.1 g/dL (11.5-15.4); Immature Granulocytes % 0.7 % (0-4); Lymphocytes # 0.8 K/mcL (0.6-4.6); Lymphocytes % 6.3 %; Mean Corpuscular HGB Conc 32.7 g/dL (31.6-35.5); Mean Corpuscular Hemoglobin 28.9 pg (28.0-33.3); Mean Corpuscular Volume 88.3 fL (83.0-100.0); Mean Platelet Volume 9.8 fL (9.4-12.4); Monocytes # 0.4 K/mcL (0.0-1.3); Neutrophils # 10.9 K/mcL (1.6-8.9); Platelet Count 348 K/mcL (140-400); Segmented Neutrophils % 89.8 %
[2016-11-01 17:07] LABS: Alanine Aminotransferase 62 Units/L (0-55); Albumin 2.1 g/dL (3.5-5.0); Albumin/Globulin Ratio 0.5 (1.1-2.2); Alkaline Phosphatase 74 Units/L (38-126); Aspartate Amino Transferase 20 Units/L (5-34); BUN/Creatinine Ratio 9 (6-26); Bilirubin,Total 0.3 mg/dL (0.2-1.2); Blood Urea Nitrogen 8 mg/dL (7-20); Calcium 8.8 mg/dL (8.6-10.8); Carbon Dioxide 22 mEq/L (19-29); Chloride 108 mEq/L (98-109); Globulin 4.5 g/dL (2.4-3.5); Glucose 268 mg/dL (70-99); Osmolality,Calculated 292 (280-300); Potassium 3.5 mEq/L (3.5-4.5); Sodium 137 mEq/L (136-145); Total Protein 6.6 g/dL (6.0-8.3); eGFR For African Americans > 60 (> 60); eGFR For Non-African Americans > 60 (> 60)
[2016-11-02] MEDS: *HR* Morphine 2 MG/ML SYRINGE IVP PRN ×3 (02:20→10:19)
[2016-11-02] MEDS: Vancomycin 1,500 MG in D5% in Water 250 ML IVPB SCH ×3 (02:20→22:42)
[2016-11-02] MEDS: *HR* Heparin 5,000 UNIT/ML VIAL SQ SCH ×3 (05:29→22:44)
[2016-11-02] MEDS: Piperacillin/Tazobactam 3.375 GM in D5% in Water (Mini-Bag+) 100 ML IVPB SCH ×3 (05:30→22:42)
[2016-11-02] MEDS: predniSONE 20 MG TABLET PO SCH (08:14)
[2016-11-02] MEDS: Nicotine 21 MG PATCH.TD24 TD SCH (08:14)
[2016-11-02] MEDS: Ketorolac 30 MG/ML VIAL IVP PRN (08:14)
--- NOTE | 2016-11-02 09:16 | Internal Med Progress Note ---
Date of Encounter: 11/09/16 Time of Encounter: 09:11 - Assessment and plan (1) Necrotizing pneumonia Current Visit: Yes Status: Acute Assessment and plan: 27/ background history of IV drug abuse. was recently treated with Azithromycin for CAP. She did not complete the course. she started getting worse inspite being on antibiotics. repeat Imaging suggestive of pulmonary abscess. started on broad spectrum after blood culture. pulmonary on board .underwent bronchoscopy. plan will get 2 D Echo to rule out IE cont abx. cont present treatment. 11/01/2016 Noted that patient's blood culture is negative so far. Respiratory culture is growing gram-positive cocci/gram-negative rods. This is likely a sample from bronchoalveolar lavage. Sputum culture is negative so far. Patient is presently on vancomycin/Zosyn. We will continue same treatment at this point 11/02/2016 Bronchoalveolar lavage: Right lower lobe: Klebsiella pneumonia: Pansensitive organism Gram-positive cocci. Day 4: Zosyn Day 3: Vancomycin Blood cultures negative so far ( one set from 10/30 and another set from 10/31) Noted patient had a spike fever: MAXIMUM TEMPERATURE 100.5 Patient meets 3 minor criteria from modified [place] criteria for infective endocarditis. Possible septic emboli, fever more than 100.4, history of intravenous drug using in the recent past Plan: Will continue same treatment for now. Will order serum rheumatoid factor. We will get transesophageal echocardiogram. (2) Leukocytosis Current Visit: Yes Status: Acute Assessment and plan: getting better. Qualifiers: Leukocytosis type: unspecified Qualified Code(s): D72.829 - Elevated white blood cell count, unspecified (3) Tobacco use Current Visit: Yes Status: Chronic - Subjective Interval history: Seen and examined. Chart reviewed. Patient is still complaining of occasional right-sided chest pain. Patient denies nausea, vomiting, diarrhea, dizziness and headache. 11/01/2016 Seen and examined. Next uncharted. Patient is still complaining of shortness of breath. Patient has sputum production which is purulent in nature. Patient denies chest pain, abdominal pain diarrhea or dizziness. 11/02/2016 Patient seen and examined. Chart reviewed. Patient is seen coughing mucopurulent expectoration. She feels little better as compared to last couple of days. - Constitutional Vitals: Temp Pulse Resp BP Pulse Ox 98.2 F 91 17 120/75 94 11/02/16 07:49 11/02/16 07:49 11/02/16 07:49 11/02/16 07:49 11/02/16 07:49 General appearance: Present: A&O X 3, obese - Head Head exam: Present: atraumatic, normocephalic - Eye Eye exam: Present: PERRL, conjuntiva pink, sclera anicteric Pupils: Present: PERRL - Neck Neck exam general surgery: Present: supple, trachea midline. Absent: lymphadenopathy - Respiratory Respiratory exam: Present: CTAB. Absent: accessory muscle use, rales, rhonchi, wheezes - Cardiovascular Cardiovascular exam: Present: RRR, +S1, +S2. Absent: diastolic murmur, gallop, rubs, systolic murmur - GI/Abdominal GI/Abdominal exam: Present: normal bowel sounds, soft, no peritoneal signs. Absent: distended, tenderness - Extremities Exam Extremities exam: Present: warm, radial pulses palpable and symetrical. Absent : calf tenderness, cyanotic, pedal edema - Neurological Exam Neurological exam: Present: CN II-XII intact, oriented X3, no focal deficits. Absent: pronater drift, facial droop, speech deficit - Skin Skin exam: Present: dry, intact Internal Medicine: Result - Labs CBC & Chem 7: 11/09/16 14:19 11/07/16 03:52 Labs: Short CBC 11/01/16 Range/Units 16:27 WBC 12.1 H (4.3-11.1) K/mcL Hgb 10.1 L (11.5-15.4) g/dL Hct 30.9 L (35.3-44.9) % Plt Count 348 (140-400) K/mcL Neutrophils # 10.9 H (1.6-8.9) K/mcL BMP 11/01/16 16:27 Sodium 137 Potassium 3.5 Chloride 108 Carbon Dioxide 22 BUN 8 Creatinine 0.86 Glucose 268 H Calcium 8.8 Liver Function 11/01/16 Range/Units 16:27 Total Bilirubin 0.3 (0.2-1.2) mg/dL AST 20 (5-34) Units/L ALT 62 H (0-55) Units/L Alkaline Phosphatase 74 (38-126) Units/L Albumin 2.1 L (3.5-5.0) g/dL - ABG Interpretation ABG results: PT/INR, D-dimer D-Dimer 1035 ng/mLFEU (0-500) H 10/30/16 09:28 Consult Discharge Plan - Plan Instructions: Oxycodone/Acetaminophen (By mouth), Cefazolin (Injection), Sepsis (DC), Pneumonia (DC), Cigarette Smoking and Your Health, Manager Customs (GEN) Additional Instructions: Patient has been advised to quit smoking. Patient has been advised to discontinue IV drug use. Patient will need to strictly follow antibiotic regimen to allow recovery from pneumonia. Referrals: NO,PCP [Primary Care Provider] - Prescriptions: Cefazolin Sodium/D5w [Cefazolin 2 G/50 ml-D5w Bag] 2 gm IV Q8H #39 piggyback Oxycodone HCl/Acetaminophen [Percocet 5-325 mg Tablet] 1 each PO Q6H #30 tablet
[2016-11-02] MEDS: Ipratropium/Albuterol Neb 3 ML IH PRN ×2 (09:17→19:36)
[2016-11-02 09:47] LABS: Basophils % 0.2 %; Eosinophils # 0.1 K/mcL (0.0-0.6); Eosinophils % 0.9 %; Hematocrit 28.4 % (35.3-44.9); Hemoglobin 9.7 g/dL (11.5-15.4); Immature Granulocytes % 0.6 % (0-4); Lymphocytes # 2.6 K/mcL (0.6-4.6); Lymphocytes % 20.5 %; Mean Corpuscular HGB Conc 34.2 g/dL (31.6-35.5); Mean Corpuscular Hemoglobin 30.1 pg (28.0-33.3); Mean Corpuscular Volume 88.2 fL (83.0-100.0); Mean Platelet Volume 10.1 fL (9.4-12.4); Monocytes # 0.5 K/mcL (0.0-1.3); Monocytes % 4.2 %; Neutrophils # 9.3 K/mcL (1.6-8.9); Platelet Count 328 K/mcL (140-400); Red Blood Count 3.22 M/mcL (3.82-4.97); Segmented Neutrophils % 73.6 %
[2016-11-02 09:56] LABS: Alanine Aminotransferase 59 Units/L (0-55); Albumin/Globulin Ratio 0.5 (1.1-2.2); Alkaline Phosphatase 74 Units/L (38-126); Aspartate Amino Transferase 22 Units/L (5-34); BUN/Creatinine Ratio 8 (6-26); Bilirubin,Total 0.4 mg/dL (0.2-1.2); Blood Urea Nitrogen 6 mg/dL (7-20); Calcium 8.7 mg/dL (8.6-10.8); Carbon Dioxide 20 mEq/L (19-29); Chloride 107 mEq/L (98-109); Globulin 4.3 g/dL (2.4-3.5); Glucose 155 mg/dL (70-99); Osmolality,Calculated 289 (280-300); Potassium 2.8 mEq/L (3.5-4.5); Sodium 139 mEq/L (136-145); Total Protein 6.3 g/dL (6.0-8.3); eGFR For African Americans > 60 (> 60); eGFR For Non-African Americans > 60 (> 60)
--- NOTE | 2016-11-02 09:57 | Pulmonology Progress Note ---
Date of Encounter: 11/02/16 Time of Encounter: 08:50 Assessment and Plan (1) Klebsiella pneumoniae pneumonia Current Visit: Yes Status: Acute Patient is on appropriate antibiotics and when gram-positive cocci is finalized then antibiotics can be changed to be suitable for outpatient treatment such as Levaquin. I have explained to patient this process will take few weeks for the lungs to improve. Qualifiers: Laterality: right Lung location: lower lobe of lung Qualified Code(s): J15.0 - Pneumonia due to Klebsiella pneumoniae (2) Tobacco use Current Visit: Yes Status: Chronic Advised patient to quit smoking and continue bronchodilator since she feels some improvement (3) Pleuritic chest pain Current Visit: Yes Status: Acute This is inflammatory and patient on prednisone and antiinflammatory medication. Subjective Principal diagnosis: Pneumonia Interval history: Patient continued to have productive cough as well as right-sided pleuritic chest pain Objective PUL Vital signs: Last Vital Signs Temp 98.2 F 11/02/16 07:49 Pulse 91 11/02/16 07:49 Resp 17 11/02/16 07:49 BP 120/75 11/02/16 07:49 Pulse Ox 94 11/02/16 07:49 General appearance: appears uncomfortable Eyes: nonicteric ENT: oropharynx moist Neck: supple, no lymphadenopathy Effort: normal Auscultation: left: clear, right: diminished breath sounds Percussion: left: not dull, right: dull Cardiovascular: regular rate and rhythm Gastrointestinal: normoactive bowel sounds, non-distended Extremities: no cyanosis normal mental status, non-focal exam mood appropriate Results - Laboratory Findings CBC and BMP: 11/02/16 09:14 11/01/16 16:27 PT/INR, D-dimer D-Dimer 1035 ng/mLFEU (0-500) H 10/30/16 09:28 Abnormal lab findings: Abnormal lab results WBC 12.6 K/mcL (4.3-11.1) H 11/02/16 09:14 RBC 3.22 M/mcL (3.82-4.97) L 11/02/16 09:14 Hgb 9.7 g/dL (11.5-15.4) L 11/02/16 09:14 Hct 28.4 % (35.3-44.9) L 11/02/16 09:14 Neutrophils # 9.3 K/mcL (1.6-8.9) H 11/02/16 09:14 D-Dimer 1035 ng/mLFEU (0-500) H 10/30/16 09:28 Glucose 268 mg/dL (70-99) H 11/01/16 16:27 ALT 62 Units/L (0-55) H 11/01/16 16:27 Albumin 2.1 g/dL (3.5-5.0) L 11/01/16 16:27 Globulin 4.5 g/dL (2.4-3.5) H 11/01/16 16:27 Albumin/Globulin Ratio 0.5 (1.1-2.2) L 11/01/16 16:27 - Microbiology Findings Microbiology Findings: Microbiology, Last 48 Hours 10/31/16 17:08 Blood Culture - Preliminary Peripheral Venipuncture No growth. 10/31/16 17:08 Blood Culture - Preliminary Peripheral Venipuncture No growth. 10/30/16 15:26 Acid Fast Stain - Final Right Lower Lobe Lung 10/30/16 15:26 Respiratory Culture - Preliminary Right Lower Lobe Lung Klebsiella pneumoniae Gram Positive Cocci 10/31/16 12:10 Sputum Culture - Preliminary Sputum - Clinical Findings Intake & Output: Intake & Output 11/01/16 11/02/16 11/02/16 23:59 07:59 15:59 Intake Total 1750 / 1750 100 / 100 480 / 480 Output Total 1600 / 1600 400 / 400 Balance 150 / 150 -300 / -300 480 / 480 Weight 126.099 kg Consult Discharge Plan - Plan Referrals: NO,PCP [Primary Care Provider] -
[2016-11-02] MEDS: 0.9 % Sodium Chloride 1,000 ML IVC SCH (10:20)
[2016-11-02] MEDS: *HR* HYDROmorphone (PF) 1 MG/ML SYRINGE IVP PRN ×3 (14:00→20:36)
[2016-11-03] MEDS: *HR* HYDROmorphone (PF) 1 MG/ML SYRINGE IVP PRN ×9 (00:17→22:35)
[2016-11-03] MEDS: Ipratropium/Albuterol Neb 3 ML IH PRN ×4 (03:24→21:00)
[2016-11-03] MEDS: 0.9 % Sodium Chloride 1,000 ML IVC SCH ×3 (05:16→07:53)
[2016-11-03] MEDS: Piperacillin/Tazobactam 3.375 GM in D5% in Water (Mini-Bag+) 100 ML IVPB SCH ×3 (06:26→20:20)
[2016-11-03] MEDS: *HR* Heparin 5,000 UNIT/ML VIAL SQ SCH ×3 (06:26→20:20)
[2016-11-03] MEDS: Vancomycin 1,500 MG in D5% in Water 250 ML IVPB SCH ×3 (06:35→20:20)
[2016-11-03] MEDS: Nicotine 21 MG PATCH.TD24 TD SCH (08:02)
[2016-11-03] MEDS: Ketorolac 30 MG/ML VIAL IVP PRN ×2 (08:02→13:55)
[2016-11-03] MEDS: predniSONE 20 MG TABLET PO SCH (08:03)
[2016-11-03] MEDS ORDERED: Potassium Chloride 40 MEQ, Lidocaine 1% 2 ML in D5% in Water 500 ML IVPB ONE (08:13)
[2016-11-03 08:55] LABS: Basophils % 0.1 %; Eosinophils # 0.2 K/mcL (0.0-0.6); Eosinophils % 1.2 %; Hematocrit 29.3 % (35.3-44.9); Hemoglobin 9.6 g/dL (11.5-15.4); Immature Granulocytes % 0.7 % (0-4); Lymphocytes # 3.3 K/mcL (0.6-4.6); Lymphocytes % 23.8 %; Mean Corpuscular HGB Conc 32.8 g/dL (31.6-35.5); Mean Corpuscular Hemoglobin 29.4 pg (28.0-33.3); Mean Corpuscular Volume 89.6 fL (83.0-100.0); Mean Platelet Volume 9.3 fL (9.4-12.4); Monocytes # 0.9 K/mcL (0.0-1.3); Monocytes % 6.4 %; Neutrophils # 9.3 K/mcL (1.6-8.9); Platelet Count 352 K/mcL (140-400); Red Blood Count 3.27 M/mcL (3.82-4.97); Segmented Neutrophils % 67.8 %
[2016-11-03 09:08] LABS: BUN/Creatinine Ratio 7 (6-26); Blood Urea Nitrogen 5 mg/dL (7-20); Calcium 8.7 mg/dL (8.6-10.8); Carbon Dioxide 28 mEq/L (19-29); Chloride 105 mEq/L (98-109); Glucose 90 mg/dL (70-99); Magnesium 1.5 mg/dL (1.6-2.6); Osmolality,Calculated 289 (280-300); Potassium 3.4 mEq/L (3.5-4.5); Sodium 141 mEq/L (136-145); eGFR For African Americans > 60 (> 60); eGFR For Non-African Americans > 60 (> 60)
[2016-11-03] MEDS ORDERED: Tetracaine/Benzocaine/Butamben 200MG/SPRAY (100SPY/BOT) MM ONE (09:41)
[2016-11-03] MEDS ORDERED: 0.9 % Sodium Chloride 500 ML IVC ONE (09:41)
[2016-11-03] MEDS: *HR* Midazolam HCl 5 MG/5 ML VIAL IVP PRN ×2 (10:30→10:35)
[2016-11-03] MEDS: *HR* FentaNYL (PF) 100 MCG/2 ML VIAL IVP PRN ×2 (10:30→10:35)
[2016-11-03] MEDS: Magnesium Oxide 400 MG TABLET PO SCH ×2 (12:51→20:20)
--- NOTE | 2016-11-03 14:42 | Internal Med Progress Note ---
<Jaya Mazariegos - Last Filed: 11/03/16 16:27> Date of Encounter: 11/03/16 Time of Encounter: 14:40 - Assessment and plan (1) Necrotizing pneumonia Current Visit: Yes Status: Acute Assessment and plan: 26 F hx of IVD, tobacco abuse presented with cc of sob and right pleuritic CP. Patient was treated for CAP outpatient and was on azithromycin and did not complete the course. CXR shows left cavitary necrotizing pneumonia in RLL. Patient underwent broncoscopy. BAL resulted in klebsiella pneumonia and staph aureus. Sputum culture also grew staph aureus. Patient is on zosyn day 5 and vancomycin day 4. -wbc trending up to 13.7 from 12.6. will continue current antibiotic regimen. -will need IV abx outpatient: EPIV ON RIGHT UPPER ARM Requiring 2L O2 will trend down with SPO2 goal >90% Last day of prednisone. afebrile, continues to have decreased breath sounds in right lung and right pleuritic CP. (2) IVDU (intravenous drug user) Current Visit: Yes Status: Acute Assessment and plan: hx of IVD use with last use one week before admission. Patient met 3 dukes criteria: IVDU, fever, septic emboli, BEKA negative for endocarditis, Blood cultures negative. program services assistant consulted. (3) DVT prophylaxis Current Visit: Yes Status: Acute Assessment and plan: continue heparin (4) Tobacco use Current Visit: Yes Status: Chronic Assessment and plan: Patient is a current every day smoker. She understand the risks of smoking. - Subjective Interval history: Patient had no acute events over night. She is NPO this morning for BEKA. States she continues to have right pluretic cp and productive cough. - Constitutional Vitals: Temp Pulse Resp BP Pulse Ox 98.7 F 91 16 131/77 95 11/03/16 11:27 11/03/16 11:27 11/03/16 11:27 11/03/16 11:27 11/03/16 11:27 General appearance: Present: A&O X 3, obese - Respiratory Respiratory exam: Present: decreased breath sounds (on right upper and lower lobe. ). Absent: accessory muscle use, rales, rhonchi, wheezes - Cardiovascular Cardiovascular exam: Present: RRR, +S1, +S2. Absent: diastolic murmur, gallop, rubs, systolic murmur - GI/Abdominal GI/Abdominal exam: Present: normal bowel sounds, soft, no peritoneal signs. Absent: distended, tenderness - Extremities Exam Extremities exam: Present: warm, radial pulses palpable and symetrical. Absent : calf tenderness, cyanotic, pedal edema - Skin Skin exam: Present: dry, intact Internal Medicine: Result - Labs CBC & Chem 7: 11/03/16 08:48 11/03/16 08:48 Labs: Short CBC 11/03/16 Range/Units 08:48 WBC 13.7 H (4.3-11.1) K/mcL Hgb 9.6 L (11.5-15.4) g/dL Hct 29.3 L (35.3-44.9) % Plt Count 352 (140-400) K/mcL Neutrophils # 9.3 H (1.6-8.9) K/mcL BMP 11/03/16 08:48 Sodium 141 Potassium 3.4 L Chloride 105 Carbon Dioxide 28 BUN 5 L Creatinine 0.71 Glucose 90 Calcium 8.7 - ABG Interpretation ABG results: PT/INR, D-dimer D-Dimer 1035 ng/mLFEU (0-500) H 10/30/16 09:28 Consult Discharge Plan - Plan Referrals: NO,PCP [Primary Care Provider] - <Artis Rajput P - Last Filed: 11/03/16 17:14> Date of Encounter: 11/03/16 - Assessment and plan (1) Necrotizing pneumonia Current Visit: Yes Status: Acute (2) Leukocytosis Current Visit: Yes Status: Acute Qualifiers: Leukocytosis type: unspecified Qualified Code(s): D72.829 - Elevated white blood cell count, unspecified (3) Tobacco use Current Visit: Yes Status: Chronic - Constitutional Vitals: Temp Pulse Resp BP Pulse Ox 98 F 66 14 123/67 96 11/03/16 15:15 11/03/16 15:15 11/03/16 16:07 11/03/16 15:15 11/03/16 16:07 Internal Medicine: Result - Labs CBC & Chem 7: 11/03/16 08:48 11/03/16 08:48 Labs: Short CBC 11/03/16 Range/Units 08:48 WBC 13.7 H (4.3-11.1) K/mcL Hgb 9.6 L (11.5-15.4) g/dL Hct 29.3 L (35.3-44.9) % Plt Count 352 (140-400) K/mcL Neutrophils # 9.3 H (1.6-8.9) K/mcL BMP 11/03/16 08:48 Sodium 141 Potassium 3.4 L Chloride 105 Carbon Dioxide 28 BUN 5 L Creatinine 0.71 Glucose 90 Calcium 8.7 - ABG Interpretation ABG results: PT/INR, D-dimer D-Dimer 1035 ng/mLFEU (0-500) H 10/30/16 09:28 - Attending Attestation I examined this patient and my medical decision-making was reviewed with the MACHINE BUNCH MAKER/PA/Advanced Practice Nurse/Resident Physician. I agree with the documented findings, disposition and treatment plan as described except to the extent set forth below. ID opinion tomorrow reason for ID consult : 1. Appropriate choice of antibiotics which can cover both organisms isolated from bronchoalveolar lavage. 2. Route of antibiotics intravenous/oral: Possibility of development of empyema from lung abscess if we switch to oral.
--- NOTE | 2016-11-03 16:31 | Electrocardiograph Report ---
[place] [id number] Test Date: 2016-10-30 Pat Name: Marie Machado Department: 104 Room: [facility] Gender: F Houseperson: : 1990 Requested By: Romel Salter Order Number: [id number] Reading MD: Aicha Cruz Measurements Intervals [place] Rate: 85 P: 28 LA: 147 QRS: 37 QRSD: 85 T: 29 QT: 345 QTc: 388 Interpretive Statements SINUS RHYTHM NONSPECIFIC T-WAVE ABNORMALITY Electronically Signed On 11-03-2016 16:29:36 EDT by Aicha Cruz
[2016-11-04] MEDS: *HR* HYDROmorphone (PF) 1 MG/ML SYRINGE IVP PRN ×9 (01:43→22:22)
[2016-11-04] MEDS: Ketorolac 30 MG/ML VIAL IVP PRN (03:24)
[2016-11-04 03:40] LABS: Basophils % 0.2 %; Eosinophils # 0.2 K/mcL (0.0-0.6); Eosinophils % 0.9 %; Hematocrit 29.2 % (35.3-44.9); Hemoglobin 9.8 g/dL (11.5-15.4); Immature Granulocytes % 0.6 % (0-4); Immature Platelets 1.6 % (1.1-6.1); Lymphocytes # 3.4 K/mcL (0.6-4.6); Lymphocytes % 21.3 %; Mean Corpuscular HGB Conc 33.6 g/dL (31.6-35.5); Mean Corpuscular Hemoglobin 29.3 pg (28.0-33.3); Mean Corpuscular Volume 87.4 fL (83.0-100.0); Mean Platelet Volume 9.2 fL (9.4-12.4); Monocytes # 0.9 K/mcL (0.0-1.3); Monocytes % 5.8 %; Neutrophils # 11.2 K/mcL (1.6-8.9); Platelet Count 429 K/mcL (140-400); Red Blood Count 3.34 M/mcL (3.82-4.97); Red Cell Distribution Width 12.8 % (11.5-14.5); Segmented Neutrophils % 71.2 %
[2016-11-04 03:50] LABS: BUN/Creatinine Ratio 11 (6-26); Blood Urea Nitrogen 8 mg/dL (7-20); Calcium 8.9 mg/dL (8.6-10.8); Carbon Dioxide 27 mEq/L (19-29); Chloride 103 mEq/L (98-109); Glucose 83 mg/dL (70-99); Magnesium 1.7 mg/dL (1.6-2.6); Osmolality,Calculated 283 (280-300); Potassium 3.7 mEq/L (3.5-4.5); Sodium 138 mEq/L (136-145); eGFR For African Americans > 60 (> 60); eGFR For Non-African Americans > 60 (> 60)
[2016-11-04] MEDS: Ipratropium/Albuterol Neb 3 ML IH PRN ×3 (04:28→22:08)
[2016-11-04] MEDS: Piperacillin/Tazobactam 3.375 GM in D5% in Water (Mini-Bag+) 100 ML IVPB SCH ×2 (04:42→14:42)
[2016-11-04] MEDS: *HR* Heparin 5,000 UNIT/ML VIAL SQ SCH ×3 (04:43→20:19)
[2016-11-04] MEDS: Vancomycin 1,500 MG in D5% in Water 250 ML IVPB SCH ×2 (05:02→14:42)
[2016-11-04] MEDS: Menthol 9.1 MG LOZENGE PO PRN ×4 (06:40→20:22)
[2016-11-04] MEDS ORDERED: Aminoglycoside Consult 1 EACH MC ONE (07:08)
[2016-11-04] MEDS: Magnesium Oxide 400 MG TABLET PO SCH ×2 (08:49→20:19)
[2016-11-04] MEDS: Nicotine 21 MG PATCH.TD24 TD SCH (08:49)
[2016-11-04] MEDS: predniSONE 20 MG TABLET PO SCH (08:49)
--- NOTE | 2016-11-04 09:13 | Internal Med Progress Note ---
<Jaya Mazariegos - Last Filed: 11/04/16 17:24> Date of Encounter: 11/04/16 Time of Encounter: 17:24 - Assessment and plan (1) Necrotizing pneumonia Current Visit: Yes Status: Acute Assessment and plan: 26 F hx of IVD, tobacco abuse presented with cc of sob and right pleuritic CP. Patient was treated for CAP outpatient and was on azithromycin and did not complete the course. CXR shows left cavitary necrotizing pneumonia in RLL. Patient underwent broncoscopy. BAL resulted in klebsiella pneumonia and staph aureus. Sputum culture also grew staph aureus. Treated with zosyn 5 days and vancomycin four days. -ID consutled recommend 2 weeks IV antibiotics and 2 weeks oral thereafter -d/c vanc and zosyn and started on cefazolin and flagyl. -wbc trending up -will need IV abx outpatient: EPIV ON RIGHT UPPER ARM Requiring 2L O2 will trend down with SPO2 goal >90% Last day of prednisone. afebrile, continues to have decreased breath sounds in right lung, states right pleuritic CP resolved. (2) IVDU (intravenous drug user) Current Visit: Yes Status: Acute Assessment and plan: hx of IVD use, heroin, with last use one week before admission. Patient met 3 dukes criteria: IVDU, fever, septic emboli, EBKA negative for endocarditis, Blood cultures negative. environmental services supervisor consulted. (3) DVT prophylaxis Current Visit: Yes Status: Acute Assessment and plan: continue heparin (4) Tobacco use Current Visit: Yes Status: Chronic Assessment and plan: Patient is a current every day smoker. She understand the risks of smoking. - Subjective Interval history: Patient had no acute events over night. She is NPO this morning for BEKA. States she continues to have right pluretic cp and productive cough. - Constitutional Vitals: Temp Pulse Resp BP Pulse Ox 98.6 F 69 18 114/64 95 11/04/16 07:47 11/04/16 07:47 11/04/16 09:12 11/04/16 07:47 11/04/16 09:12 General appearance: Present: A&O X 3, obese - Respiratory Additional comments: decreased breath sounds on right with mild crackles on the RLL. LLL clear to auscultation. - Cardiovascular Cardiovascular exam: Present: RRR, +S1, +S2. Absent: diastolic murmur, gallop, rubs, systolic murmur - GI/Abdominal GI/Abdominal exam: Present: normal bowel sounds, soft, no peritoneal signs. Absent: distended, tenderness - Extremities Exam Extremities exam: Present: warm, radial pulses palpable and symetrical. Absent : calf tenderness, cyanotic, pedal edema Internal Medicine: Result - Labs CBC & Chem 7: 11/04/16 03:21 11/04/16 03:21 Labs: Short CBC 11/04/16 Range/Units 03:21 WBC 15.8 H (4.3-11.1) K/mcL Hgb 9.8 L (11.5-15.4) g/dL Hct 29.2 L (35.3-44.9) % Plt Count 429 H (140-400) K/mcL Neutrophils # 11.2 H (1.6-8.9) K/mcL BMP 11/04/16 03:21 Sodium 138 Potassium 3.7 Chloride 103 Carbon Dioxide 27 BUN 8 Creatinine 0.71 Glucose 83 Calcium 8.9 - ABG Interpretation ABG results: PT/INR, D-dimer D-Dimer 1035 ng/mLFEU (0-500) H 10/30/16 09:28 Consult Discharge Plan - Plan Referrals: NO,PCP [Primary Care Provider] - <Artis Rajput P - Last Filed: 11/04/16 17:34> Date of Encounter: 11/04/16 - Assessment and plan (1) Necrotizing pneumonia Current Visit: Yes Status: Acute (2) Leukocytosis Current Visit: Yes Status: Acute Qualifiers: Leukocytosis type: unspecified Qualified Code(s): D72.829 - Elevated white blood cell count, unspecified (3) Tobacco use Current Visit: Yes Status: Chronic - Constitutional Vitals: Temp Pulse Resp BP Pulse Ox 98.6 F 69 18 117/60 95 11/04/16 07:47 11/04/16 07:47 11/04/16 09:12 11/04/16 13:16 11/04/16 09:12 Internal Medicine: Result - Labs CBC & Chem 7: 11/04/16 03:21 11/04/16 03:21 Labs: Short CBC 11/04/16 Range/Units 03:21 WBC 15.8 H (4.3-11.1) K/mcL Hgb 9.8 L (11.5-15.4) g/dL Hct 29.2 L (35.3-44.9) % Plt Count 429 H (140-400) K/mcL Neutrophils # 11.2 H (1.6-8.9) K/mcL BMP 11/04/16 03:21 Sodium 138 Potassium 3.7 Chloride 103 Carbon Dioxide 27 BUN 8 Creatinine 0.71 Glucose 83 Calcium 8.9 - ABG Interpretation ABG results: PT/INR, D-dimer D-Dimer 1035 ng/mLFEU (0-500) H 10/30/16 09:28 - Attending Attestation I examined this patient and my medical decision-making was reviewed with the ONION TIER/PA/Advanced Practice Nurse/Resident Physician. I agree with the documented findings, disposition and treatment plan as described except to the extent set forth below. pulmonary input appreciated. await ID opinion regarding Abx management.
--- NOTE | 2016-11-04 11:45 | Pulmonology Progress Note ---
<Roman Simeon - Last Filed: 11/04/16 11:43> Date of Encounter: 11/04/16 Time of Encounter: 11:43 Assessment and Plan (1) Lung abscess Current Visit: Yes Status: Acute Patient appears to be improving clinically. She is on Room air and afebrile. However her Leukocytosis is trending up. BAL from 10/30/16 reveals Klebsiella and Staph Aureas resistant to Clindamycin. Sputum culture from 10/31/16 Is positive for GPC. I spoke with microbiology. Initial sensitivity was indeterminate for Vancomycin. They are running the sensitivities again. BEAK was negative for Endocarditis. Recommendations: Await final cultures. Clinically patient appears to be improving. However WBC trending up. Would recommend looking for other sources of infection. If clinically she worsens may consider changing to zyvox as Vacnomycin was indeterminate. May consider deescalating Zosyn to a less broad spectrum antibiotic as there has been no pseudomonas. Will need to eventually swithc to PO antibiotics. Will need follow up imaging. Duration will depend on clinical course. (2) Klebsiella pneumonia Current Visit: Yes Status: Acute as stated above. (3) Leukocytosis Current Visit: Yes Status: Acute trending up (4) IVDU (intravenous drug user) Current Visit: Yes Status: Acute (5) Tobacco abuse Current Visit: Yes Status: Acute advise cessation. continue nicotine patch Subjective Principal diagnosis: Pneumonia Interval history: No major events over [facility]. This AM patient states that she is feeling better. She states that She still has a productive cough that is "yellow with black flecks and sometimes clear". She states that her pleuritic chest pain is better.She denies any subjective fever of malaise. She denies wheeze and hemoptysis. She has no further complaints or concerns at this time. Objective PUL Vital signs: Last Vital Signs Temp 98.6 F 11/04/16 07:47 Pulse 69 11/04/16 07:47 Resp 18 11/04/16 09:12 BP 114/64 11/04/16 07:47 Pulse Ox 95 11/04/16 09:12 General appearance: no acute distress Eyes: nonicteric ENT: oropharynx moist Neck: supple, no lymphadenopathy, no JVD Auscultation: right: other (corse lung sounds at right base. otherwise clear. ) Cardiovascular: regular rate and rhythm Gastrointestinal: normoactive bowel sounds, soft, non-tender, other (obese) Integumentary: normal Extremities: no cyanosis, no edema, no clubbing Musculoskeletal: no deformities Results - Laboratory Findings CBC and BMP: 11/04/16 03:21 11/04/16 03:21 PT/INR, D-dimer D-Dimer 1035 ng/mLFEU (0-500) H 10/30/16 09:28 Abnormal lab findings: Abnormal lab results WBC 15.8 K/mcL (4.3-11.1) H 11/04/16 03:21 RBC 3.34 M/mcL (3.82-4.97) L 11/04/16 03:21 Hgb 9.8 g/dL (11.5-15.4) L 11/04/16 03:21 Hct 29.2 % (35.3-44.9) L 11/04/16 03:21 Plt Count 429 K/mcL (140-400) H 11/04/16 03:21 MPV 9.2 fL (9.4-12.4) L 11/04/16 03:21 Neutrophils # 11.2 K/mcL (1.6-8.9) H 11/04/16 03:21 D-Dimer 1035 ng/mLFEU (0-500) H 10/30/16 09:28 ALT 59 Units/L (0-55) H 11/02/16 09:14 Albumin 2.0 g/dL (3.5-5.0) L 11/02/16 09:14 Globulin 4.3 g/dL (2.4-3.5) H 11/02/16 09:14 Albumin/Globulin Ratio 0.5 (1.1-2.2) L 11/02/16 09:14 - Microbiology Findings Microbiology Findings: Microbiology, Last 48 Hours 10/31/16 12:10 Sputum Culture - Preliminary Sputum Gram Positive Cocci 10/30/16 15:26 Respiratory Culture - Final Right Lower Lobe Lung Klebsiella pneumoniae Staphylococcus aureus 10/31/16 17:08 Blood Culture - Preliminary Peripheral Venipuncture No growth. 10/31/16 17:08 Blood Culture - Preliminary Peripheral Venipuncture No growth. - Clinical Findings Intake & Output: Intake & Output 11/03/16 11/04/1617 23:59 07:59 15:59 Intake Total 2147 / 2147 500 / 500 240 / 240 Output Total 300 / 300 0 / 0 Balance 1847 / 1847 500 / 500 240 / 240 Weight 122.6 kg Consult Discharge Plan - Plan Referrals: NO,PCP [Primary Care Provider] - <Rodney House - Last Filed: 11/04/16 12:25> Date of Encounter: 11/04/16 Assessment and Plan (1) Klebsiella pneumoniae pneumonia Current Visit: Yes Status: Acute Qualifiers: Laterality: right Lung location: lower lobe of lung Qualified Code(s): J15.0 - Pneumonia due to Klebsiella pneumoniae (2) Tobacco use Current Visit: Yes Status: Chronic (3) Pleuritic chest pain Current Visit: Yes Status: Acute Objective PUL Vital signs: Last Vital Signs Temp 98.6 F 11/04/16 07:47 Pulse 69 11/04/16 07:47 Resp 18 11/04/16 09:12 BP 114/64 11/04/16 07:47 Pulse Ox 95 11/04/16 09:12 Results - Laboratory Findings CBC and BMP: 11/04/16 03:21 11/04/16 03:21 PT/INR, D-dimer D-Dimer 1035 ng/mLFEU (0-500) H 10/30/16 09:28 Abnormal lab findings: Abnormal lab results WBC 15.8 K/mcL (4.3-11.1) H 11/04/16 03:21 RBC 3.34 M/mcL (3.82-4.97) L 11/04/16 03:21 Hgb 9.8 g/dL (11.5-15.4) L 11/04/16 03:21 Hct 29.2 % (35.3-44.9) L 11/04/16 03:21 Plt Count 429 K/mcL (140-400) H 11/04/16 03:21 MPV 9.2 fL (9.4-12.4) L 11/04/16 03:21 Neutrophils # 11.2 K/mcL (1.6-8.9) H 11/04/16 03:21 D-Dimer 1035 ng/mLFEU (0-500) H 10/30/16 09:28 ALT 59 Units/L (0-55) H 11/02/16 09:14 Albumin 2.0 g/dL (3.5-5.0) L 11/02/16 09:14 Globulin 4.3 g/dL (2.4-3.5) H 11/02/16 09:14 Albumin/Globulin Ratio 0.5 (1.1-2.2) L 11/02/16 09:14 - Microbiology Findings Microbiology Findings: Microbiology, Last 48 Hours 10/31/16 12:10 Sputum Culture - Preliminary Sputum Gram Positive Cocci 10/30/16 15:26 Respiratory Culture - Final Right Lower Lobe Lung Klebsiella pneumoniae Staphylococcus aureus 10/31/16 17:08 Blood Culture - Preliminary Peripheral Venipuncture No growth. 10/31/16 17:08 Blood Culture - Preliminary Peripheral Venipuncture No growth. - Clinical Findings Intake & Output: Intake & Output 11/03/16 11/04/16 11/04/16 23:59 07:59 15:59 Intake Total 2147 / 2147 500 / 500 240 / 240 Output Total 300 / 300 0 / 0 Balance 1847 / 1847 500 / 500 240 / 240 Weight 122.6 kg - Attending Attestation I examined this patient and my medical decision-making was reviewed with the RAIL TRACTOR OPERATOR/PA/Advanced Practice Nurse/Resident Physician. I agree with the documented findings, disposition and treatment plan as described except to the extent set forth below. Patient seen and examined. Labs, radiology, chart personally reviewed. Agree with resident's history and physical, assessment, plan with following comments: GLASS BLOCK BENDER: Patient follows commands, Pulmonary: Acceptable oxygenation and ventilation Cardiovascular: stable GI: Nutrition per dietary and GI prophylaxis per routine Heme: DVT prophylaxis per routine ID: Continue antibiotics and plan to de-escalation. Since patient is improving clinically, continue current antibiotics, however if increased WBC in next 24 hours then will recommend to change to Zyvox.
[2016-11-04] MEDS ORDERED: *HR* OxyCODONE/APAP 10/325 TABLET PO PRN (14:27)
[2016-11-04] MEDS ORDERED: *HR* HYDROmorphone (PF) 1 MG/ML SYRINGE IVP PRN (14:28)
--- NOTE | 2016-11-04 14:43 | Infectious Disease Consult ---
Date of Encounter: 11/04/16 Time of Encounter: 14:14 Assessment and Plan (1) Sepsis Status: Acute Assessment and plan: The patient had fever, leukocytosis, and tachycardia. Likely secondary to cavitary pneumonia. Improved. The patient has been afebrile >24 hours. Tachycardia has resolved. The patient has persistent leukocytosis. Blood cultures drawn 10/30/16 x 2 sets are negative. Qualifiers: Sepsis type: methicillin susceptible Staphylococcus aureus Qualified Code(s ): A41.01 - Sepsis due to Methicillin susceptible Staphylococcus aureus (2) Leukocytosis Status: Acute Assessment and plan: WBC 18.8 on admission, but despite clinical improvement she has continued leukocytosis. Likely secondary to the patient being on 40mg of PO prednisone since admission. Prednisone discontinued today by the primary team. Qualifiers: Leukocytosis type: unspecified Qualified Code(s): D72.829 - Elevated white blood cell count, unspecified (3) Cavitary pneumonia Status: Acute Assessment and plan: Location: Right lower lobe. Causative organism: MSSA and K. pneumoniae. CXR completed 10/30/16 showed worsening consolidative changes in the right lung base. CTA of the chest completed 10/30/16 was negative for PE, but showed 4.5cm x 3.7cm hypoenhancing area of collapsed RLL with central cavitation suspicious for necrotizing PNA with potential pulmonary abscess. There were also findings consistent with bronchitis and a 0.5cm x 0.3cm VENESSA nodule. Pulmonology consulted and following. Status post bronchoscopy 10/30/16 that showed mucopurulent secretions in the RLL. Bronch washings sent for culture, AFB, and fungal. Culture came back positive for MSSA and K. pneumoniae. Clinically, the patient has improved. Discontinue Vanc and Zosyn. Start cefazolin 2 grams IV Q8H. Start flagyl 500mg PO TID. Duration of treatment depends on the clinical picture, but likely 2 weeks of IV antibiotics plus two weeks of orals. business services sales representative has been consulted and is following. I advised the patient that due to her history of IVDU, she will likely need placed in a rehab facility to complete her IV antibiotics if therapy is not complete prior to discharge. She verbalizes understanding and states she would like to be able to get back home to [place] and get placed somewhere there. EPIV placed to the RUE 11/03/16. Additionally, if the patient is placed somewhere in [place], she will also need to establish care with an infectious disease provider there so that they can manage her IV antibiotics and follow her throughout her course of treatment. If the patient does get placed somewhere here, we will be glad to follow up with the patient after discharge to manage her antibiotics. Monitor renal function and dose-adjust antibiotics. We will continue to follow. (4) IVDU (intravenous drug user) Status: Acute Assessment and plan: The patient reports IV heroin use several times per week prior to admission. Reports that she sometimes shares needles. Check HIV and Hepatitis profile. (5) Tobacco abuse Status: Acute Infectious Disease HPI - Data of Consult Patient: new to practice Consult date: 11/04/16 Requesting Physician: Robina Soto CNP Primary Care Provider: PCP NO - Consult Narrative Reason for consult: Cavitary pneumonia History of present illness: Ms. Machado is a 26 year old female with a past medical history of anxiety, depression, and bipolar disorder. The patient was admitted to the hospital October 30 for necrotizing pneumonia and pulmonary abscess. We are consulted November 04 for antibiotic recommendations regarding cavitary pneumonia. The patient's 26-year-old female with past medical history as stated above. The patient states that she began to have a cough approximately 2 weeks ago. She states her symptoms progressed and she started having right sided chest pain. She states she was seen at Urgent Care and given a prescription for medication, but her insurance would not cover it and she could not afford it. She states her symptoms progressed and she was seen in the ED. CXR showed PNA and she was started on oral Zithromax x 5 days and her symptoms continued to progress. She re-presented to the ED for further evaluation. On arrival, the patient was afebrile and hemodynamically stable. Labs revealed a leukocytosis. CXR showed worsening consolidative changes in the right lung base. CTA of the chest was negative for PE, but showed a 4.5cm x 3.7cm hypoenhancing area of collapsed RLL with central cavitation suspicious for necrotizing PNA with potential pulmonary abscess. There were also findings consistent with bronchitis and a 0.5cm x 0.3cm VENESSA nodule. The patient was started on empiric antibiotics and was admitted for further evaluation. On admission, pulmonary service was consulted and saw the patient. The patient underwent bronchoscopy that showed mucopurulent secretions in the RLL. BAL culture grew K. pneumoniae and MSSA. She has been on IV Vancomycin and Zosyn since admission, as well as oral steroids. TTE was completed that was negative for vegetations. BEKA was also completed that showed no evidence of valvular vegetations. The patient has continued to have leukocytosis, but clinically the patient has improved. Blood cultures drawn 10/30/16 are negative x 2 sets. The patient did have one episode of fever with a Tmax of 100.5, but has not had a fever since than. During my exam today, the patient endorses the history as stated above. She states that overall she feels improved since being here. She reports some subjective fevers prior to admission and states she continues to get "hot flashes." She denies any headache, neck pain or dizziness. She denies any congestion, earache, or nasal drainage. She does report that her throat is sore from coughing. She reports right sided chest and right upper back pain, reproducible and worse with movement or with deep inspiration/cough. She states the chest pain has improved, but she still has right upper back pain. She reports a persistent, dry cough prior to admission and states she is now coughing up yellow sputum with some black flecks in it. She reports dyspnea on exertion that improves with rest. She denies any nausea or vomiting or diarrhea or abdominal pain. She states her appetite comes and goes. She denies pain except as mentioned previously. She denies any oral thrush or skin lesions. The patient lives here in town with her girlfriend. She reports a history of IV heroine use 2-3 times per week with last use 2 weeks ago. She denies ETOH use, but does report that she smokes about a half a pack of cigarettes per day. She denies any recent illness prior to this episode. She denies any infections such as HIV or Hep C. CC: Robina Soto, EMILIA Past Med Surg Social Fam HX - Past Medical History Attestation: Yes The following information was validated with the patient. Source: patient, old records reviewed, nursing notes reviewed Medical history: no medical history Psychiatric history: no psych history, anxiety, depression - Past Surgical History Surgical History: other (Tonsillectomy/Adenoidectomy) - Social History Smoking Status: Current every day smoker Packs per day: 1 Smokeless Tobacco Status: No Alcohol use: none Drug use: IVDU (IV Heroin) Occupational status: unemployed Current living situation: Home - Independent Activity Level: Independent ambulation Recent Out of Country Travel Within the Last 8 Weeks: No Exposure or Possible Exposure to Illness During Travel: No Infectious Disease-CN:Meds Acetaminophen [Tylenol] 650 mg PO Q6HR PRN #0 tablet 11/05/16 [Rx] Cefazolin Sodium/D5w [Cefazolin 2 G/50 ml-D5w Bag] 2 gm IV Q8H #39 piggyback 06/23 [Rx] Ipratropium/Albuterol Neb [Duoneb] 3 ml IH [id number] PRN #0 inhsol 11/05/16 [Rx] Ketorolac [Toradol] 30 mg IVP Q6HR PRN #0 vial 11/05/16 [Rx] Magnesium Oxide [Mag-Ox] 400 mg PO BID tablet 11/05/16 [Rx] Nicotine Patch [Nicoderm] 21 mg TD DAILY #30 patch.td24 11/05/16 [Rx] Oxycodone HCl/Acetaminophen [Percocet 5-325 mg Tablet] 1 each PO Q6H #30 tablet 11/05/16 [Rx] metroNIDAZOLE [Flagyl] 500 mg PO TID #90 tablet 11/05/16 [Rx] Allergies No Known Allergies Allergy (Verified 10/29/16 03:52) All systems: reviewed and no additional remarkable complaints except as stated Exam - Constitutional Vitals: Temp Pulse Resp BP Pulse Ox 98.6 F 69 18 117/60 95 11/04/16 07:47 11/04/16 07:47 11/04/16 09:12 11/04/16 13:16 11/04/16 09:12 General appearance: cooperative, morbidly obese, no acute distress - Head Head exam: Present: atraumatic, normal inspection, normocephalic - Eye Eye exam: Present: EOMI, normal appearance, PERRL Pupils: Present: normal accommodation - ENT ENT exam: Present: mucous membranes moist - Neck Neck exam: Present: normal inspection - Respiratory Respiratory exam: Present: rales (Right posterior base). Absent: respiratory distress, rhonchi, wheezes - Cardiovascular Cardiovascular exam: Present: RRR, +S1, +S2 - GI/Abdominal GI/Abdominal exam: Present: distended (obese), normal bowel sounds, soft. Absent: tenderness - Extremities Exam Extremities exam: Present: normal capillary refill, normal inspection. Absent: pedal edema, tenderness Additional comments: No endocarditis stigmata noted on exam. - Back Exam Back exam: Present: normal inspection. Absent: paraspinal tenderness, vertebral tenderness - Neurological Exam Neurological exam: Present: alert, oriented X3, no focal deficits - Psychiatric Psychiatric exam: Present: normal affect, normal mood - Skin Skin exam: Present: dry, intact, normal color, warm Additional comments: No endocarditis stigmata noted. Infectious Disease CN: Results - Labs CBC & Chem 7: 11/05/16 03:47 11/04/16 03:21 Cultures: Cultures 10/31/16 12:10 Sputum Culture - Preliminary Sputum Gram Positive Cocci 10/30/16 15:26 Respiratory Culture - Final Right Lower Lobe Lung Klebsiella pneumoniae Staphylococcus aureus 10/31/16 17:08 Blood Culture - Preliminary Peripheral Venipuncture No growth. 10/31/16 17:08 Blood Culture - Preliminary Peripheral Venipuncture No growth. 10/30/16 15:26 Acid Fast Stain - Final Right Lower Lobe Lung 10/30/16 23:00 Legionella Antigen - Final Urine,Clean Catch Streptococcus pneumoniae Antigen (M - Final Serology: Serology 10/31/16 Range/Units 06:50 Nasal Screen MRSA (PCR) Negative (Negative) Consult Discharge Plan - Plan Additional Instructions: Patient has been advised to quit smoking. Patient has been advised to discontinue IV drug use. Patient will need to strictly follow antibiotic regimen to allow recovery from pneumonia. Referrals: NO,PCP [Primary Care Provider] - Prescriptions: Cefazolin Sodium/D5w [Cefazolin 2 G/50 ml-D5w Bag] 2 gm IV Q8H #39 piggyback Oxycodone HCl/Acetaminophen [Percocet 5-325 mg Tablet] 1 each PO Q6H #30 tablet - Attending Attestation I examined this patient and my medical decision-making was reviewed with the RETAIL CLIENT SOLUTIONS ANALYST/PA/Advanced Practice Nurse/Resident Physician. I agree with the documented findings, disposition and treatment plan as described except to the extent set forth below. An addendum to original report dictated by Zora Benson CNP. Please refer to Zora's note for full detail. Patient is a 26-year-old woman with history of IV drug use and morbid obesity with a BMI of 45 came in with chest pain shortness of breath and fever. Patient was worked up and was noted to have a cavitary lung lesion with surrounding consolidation on the right lower lung. Patient underwent a bronchoscopy and there was significant mucosal purulent drainage in the bronchial tree. Cultures grew Klebsiella pneumoniae and MSSA. We were asked to evaluate the patient's make further recommendations. Today patient still having some pleuritic chest pain and she is emotional and was crying earlier but otherwise she is hemodynamically stable. Patient does not appear toxic. Physical exam is unremarkable for endocarditis stigmata was or positive Forest criteria. At this point based on the culture results answers using cefazolin that should cover both the Klebsiella pneumoniae and the MSSA in the lung. Also check HIV and hepatitis status Duration of treatment probably 4 weeks based on clinical picture minute 2 weeks worth of IV followed by 2 weeks to orals. Monitor labs on for drug toxicity.
[2016-11-04] MEDS ORDERED: MOM Conc 10 ML UD.LIQ PO ONE (16:02)
[2016-11-04] MEDS: ceFAZolin 2,000 MG in D5% in Water 100 ML IVPB SCH (18:03)
[2016-11-05] MEDS: ceFAZolin 2,000 MG in D5% in Water 100 ML IVPB SCH ×3 (00:52→16:21)
[2016-11-05] MEDS: *HR* HYDROmorphone (PF) 1 MG/ML SYRINGE IVP PRN ×9 (00:53→21:26)
[2016-11-05 04:44] LABS: Basophils % 0.2 %; Eosinophils # 0.1 K/mcL (0.0-0.6); Hematocrit 31.4 % (35.3-44.9); Hemoglobin 10.3 g/dL (11.5-15.4); Immature Granulocytes % 1.5 % (0-4); Lymphocytes # 3.2 K/mcL (0.6-4.6); Lymphocytes % 21.9 %; Mean Corpuscular HGB Conc 32.8 g/dL (31.6-35.5); Mean Corpuscular Volume 88.5 fL (83.0-100.0); Mean Platelet Volume 9.4 fL (9.4-12.4); Monocytes # 0.9 K/mcL (0.0-1.3); Monocytes % 6.3 %; Neutrophils # 10.2 K/mcL (1.6-8.9); Platelet Count 452 K/mcL (140-400); Red Blood Count 3.55 M/mcL (3.82-4.97); Red Cell Distribution Width 12.8 % (11.5-14.5); Segmented Neutrophils % 69.1 %
[2016-11-05 05:16] LABS: HIV-1&2 Antibody & p24 Ag Nonreactive (Nonreactive); Hepatitis A Antibody IgM Nonreactive (Nonreactive); Hepatitis B Core IgM Nonreactive (Nonreactive); Hepatitis C Virus Antibody Nonreactive (Nonreactive)
[2016-11-05] MEDS: *HR* Heparin 5,000 UNIT/ML VIAL SQ SCH ×3 (05:30→21:18)
[2016-11-05 06:30] LABS: Hepatitis B Surface Antigen Reactive (Nonreactive)
[2016-11-05] MEDS: Ipratropium/Albuterol Neb 3 ML IH PRN ×3 (07:41→21:01)
[2016-11-05] MEDS: Magnesium Oxide 400 MG TABLET PO SCH ×2 (08:22→21:18)
[2016-11-05] MEDS: Nicotine 21 MG PATCH.TD24 TD SCH (08:22)
[2016-11-05] MEDS: Menthol 9.1 MG LOZENGE PO PRN ×3 (08:23→18:55)
--- NOTE | 2016-11-05 08:35 | Pulmonology Progress Note ---
<Roman Simeon - Last Filed: 11/05/16 08:41> Date of Encounter: 11/05/16 Time of Encounter: 08:34 Assessment and Plan (1) Lung abscess Current Visit: Yes Status: Acute Patient appears to be improving clinically. She is on Room air and afebrile. BAL from 10/30/16 reveals Klebsiella and Staph Aureas resistant to Clindamycin. Sputum culture from 10/31/16 Has staph aureas that is resistant to Erythromycin and I for vancomycin. WBC trending down. BEKA was negative for Endocarditis. Recommendations: Currently on Ancef which both Klebsiela and staph aureus species grown are sensitive to. Switch to PO Antibiotics in 2 weeks per ID. Will need follow up imaging. Duration will depend on clinical course. (2) Klebsiella pneumonia Current Visit: Yes Status: Acute as stated above. (3) Leukocytosis Current Visit: Yes Status: Acute trending down (4) IVDU (intravenous drug user) Current Visit: Yes Status: Acute (5) Pleuritic chest pain Current Visit: Yes Status: Acute secondary to pulmmnary issues. With history would recommend avoiding Narcotics if possible. I will add a lidoderm patch. (6) Tobacco abuse Current Visit: Yes Status: Acute advise cessation. continue nicotine patch Subjective Principal diagnosis: Pneumonia Interval history: No major events overnight. Patient states she is feeling better. She still has a productive cough. She denies she denies dyspnea, wheeze, hemoptysis. She denies diarrhea. Complains of constipation for 3 days. Was given MOM yesterday but not effective. she complains of continued pleuritic chest pain. However this is decreasing. She has no further complaints or concerns at this time. Objective PUL Vital signs: Last Vital Signs Temp 97.7 F 11/05/16 06:33 Pulse 86 11/05/16 06:33 Resp 16 11/05/16 07:41 BP 130/85 11/05/16 06:33 Pulse Ox 96 11/05/16 07:41 General appearance: no acute distress Eyes: nonicteric ENT: oropharynx moist Neck: supple Effort: normal Auscultation: bilateral: clear, other (mild course breath sounds RLL) Percussion: bilateral: not dull Tactile fremitus: bilateral: normal Cardiovascular: regular rate and rhythm Gastrointestinal: normoactive bowel sounds, non-distended Integumentary: normal Extremities: no cyanosis, no edema, no clubbing Musculoskeletal: no deformities, ROM normal normal mental status mood appropriate, affect normal Results - Laboratory Findings CBC and BMP: 11/05/16 03:47 11/04/16 03:21 PT/INR, D-dimer D-Dimer 1035 ng/mLFEU (0-500) H 10/30/16 09:28 Abnormal lab findings: Abnormal lab results WBC 14.7 K/mcL (4.3-11.1) H 11/05/16 03:47 RBC 3.55 M/mcL (3.82-4.97) L 11/05/16 03:47 Hgb 10.3 g/dL (11.5-15.4) L 11/05/16 03:47 Hct 31.4 % (35.3-44.9) L 11/05/16 03:47 Plt Count 452 K/mcL (140-400) H 11/05/16 03:47 Neutrophils # 10.2 K/mcL (1.6-8.9) H 11/05/16 03:47 D-Dimer 1035 ng/mLFEU (0-500) H 10/30/16 09:28 ALT 59 Units/L (0-55) H 11/02/16 09:14 Albumin 2.0 g/dL (3.5-5.0) L 11/02/16 09:14 Globulin 4.3 g/dL (2.4-3.5) H 11/02/16 09:14 Albumin/Globulin Ratio 0.5 (1.1-2.2) L 11/02/16 09:14 Hep Bs Antigen Reactive (Nonreactive) H 11/05/16 03:47 - Microbiology Findings Microbiology Findings: Microbiology, Last 48 Hours 10/31/16 12:10 Sputum Culture - Final Sputum Staphylococcus aureus 10/30/16 15:26 Respiratory Culture - Final Right Lower Lobe Lung Klebsiella pneumoniae Staphylococcus aureus - Clinical Findings Intake & Output: Intake & Output 11/04/16 11/05/16 11/05/16 23:59 07:59 15:59 Intake Total 340 / 340 100 / 100 Output Total 1250 / 1250 300 / 300 Balance -910 / -910 -200 / -200 Weight 122.5 kg Consult Discharge Plan - Plan Referrals: NO,PCP [Primary Care Provider] - <Rodney House M - Last Filed: 11/05/16 12:43> Date of Encounter: 11/05/16 Assessment and Plan (1) Klebsiella pneumoniae pneumonia Current Visit: Yes Status: Acute Qualifiers: Laterality: right Lung location: lower lobe of lung Qualified Code(s): J15.0 - Pneumonia due to Klebsiella pneumoniae (2) Tobacco use Current Visit: Yes Status: Chronic (3) Pleuritic chest pain Current Visit: Yes Status: Acute Objective PUL Vital signs: Last Vital Signs Temp 98.5 F 11/05/16 11:02 Pulse 53 11/05/16 11:02 Resp 16 11/05/16 11:02 BP 121/75 11/05/16 11:02 Pulse Ox 97 11/05/16 11:02 Results - Laboratory Findings CBC and BMP: 11/05/16 03:47 11/04/16 03:21 PT/INR, D-dimer D-Dimer 1035 ng/mLFEU (0-500) H 10/30/16 09:28 Abnormal lab findings: Abnormal lab results WBC 14.7 K/mcL (4.3-11.1) H 11/05/16 03:47 RBC 3.55 M/mcL (3.82-4.97) L 11/05/16 03:47 Hgb 10.3 g/dL (11.5-15.4) L 11/05/16 03:47 Hct 31.4 % (35.3-44.9) L 11/05/16 03:47 Plt Count 452 K/mcL (140-400) H 11/05/16 03:47 Neutrophils # 10.2 K/mcL (1.6-8.9) H 11/05/16 03:47 D-Dimer 1035 ng/mLFEU (0-500) H 10/30/16 09:28 ALT 59 Units/L (0-55) H 11/02/16 09:14 Albumin 2.0 g/dL (3.5-5.0) L 11/02/16 09:14 Globulin 4.3 g/dL (2.4-3.5) H 11/02/16 09:14 Albumin/Globulin Ratio 0.5 (1.1-2.2) L 11/02/16 09:14 Hep Bs Antigen Reactive (Nonreactive) H 11/05/16 03:47 - Microbiology Findings Microbiology Findings: Microbiology, Last 48 Hours 10/31/16 12:10 Sputum Culture - Final Sputum Staphylococcus aureus 10/30/16 15:26 Respiratory Culture - Final Right Lower Lobe Lung Klebsiella pneumoniae Staphylococcus aureus - Clinical Findings Intake & Output: Intake & Output 11/04/16 11/05/16 11/05/16 23:59 07:59 15:59 Intake Total 340 / 340 100 / 100 360 / 360 Output Total 1250 / 1250 300 / 300 Balance -910 / -910 -200 / -200 360 / 360 Weight 122.5 kg - Attending Attestation I examined this patient and my medical decision-making was reviewed with the EDUCATION ADMINISTRATOR/PA/Advanced Practice Nurse/Resident Physician. I agree with the documented findings, disposition and treatment plan as described except to the extent set forth below. Patient seen and examined. Labs, radiology, chart personally reviewed. Agree with resident's history and physical, assessment, plan with following comments: ENGINE HEAD REPAIRER: Patient follows commands, Pulmonary: Acceptable oxygenation and ventilation. Agree with the current antibiotic plan. Patient needs repeat CT chest as outpatient in 2-3 months and then she can follow up after the CT in the clinic. We will follow-up when necessary please call for any questions.
[2016-11-05] MEDS: Sennosides/Docusate Sodium TABLET PO SCH ×2 (09:24→21:18)
--- NOTE | 2016-11-05 10:29 | Discharge Summary ---
<Jaya Mazariegos - Last Filed: 11/05/16 15:18> Date of Encounter: 11/05/16 Time of Encounter: 14:56 - Discharge Diagnosis (1) Necrotizing pneumonia Priority: Primary Status: Acute (2) IVDU (intravenous drug user) Priority: Secondary Status: Acute (3) DVT prophylaxis Priority: Secondary Status: Acute (4) Tobacco use Priority: Secondary Status: Chronic - Discharge Medications Prescriptions: Cefazolin Sodium/D5w [Cefazolin 2 G/50 ml-D5w Bag] 2 gm IV Q8H #39 piggyback Oxycodone HCl/Acetaminophen [Percocet 5-325 mg Tablet] 1 each PO Q6H #30 tablet Home Medications: Acetaminophen [Tylenol] 650 mg PO Q6HR PRN #0 tablet 11/05/16 [Rx] Cefazolin Sodium/D5w [Cefazolin 2 G/50 ml-D5w Bag] 2 gm IV Q8H #39 piggyback 06/23 [Rx] Ipratropium/Albuterol Neb [Duoneb] 3 ml IH [id number] PRN #0 inhsol 11/05/16 [Rx] Ketorolac [Toradol] 30 mg IVP Q6HR PRN #0 vial 11/05/16 [Rx] Magnesium Oxide [Mag-Ox] 400 mg PO BID tablet 11/05/16 [Rx] Nicotine Patch [Nicoderm] 21 mg TD DAILY #30 patch.td24 11/05/16 [Rx] Oxycodone HCl/Acetaminophen [Percocet 5-325 mg Tablet] 1 each PO Q6H #30 tablet 11/05/16 [Rx] metroNIDAZOLE [Flagyl] 500 mg PO TID #90 tablet 11/05/16 [Rx] Allergies/Adverse Reactions: Allergies No Known Allergies Allergy (Verified 10/29/16 03:52) Procedures/tests Complete & Pending: Procedures Performed prior 72 hours Category Date Time Status EV BEKA transesophageal echo Routine Y 11/03/16 11:28 Completed Date of admission: 10/30/16 12:16 Primary care physician: PCP NO Consults: 11/03/16 08:15 Consult to Telecommunication Engineer [CONS] Routine Reason for SW Consult: discharge assistance, financial assistance 11/03/16 11:25 Consult to PICC team [Consult to Invasive Line Access Team] [CONS] Routine Reason for Consult: limited access/ need half-way ATB Line Type: EPIV 11/04/16 09:11 Consult to Infectious Diseases [CONS] Routine Consulting Provider: Infectious Disease Yolie Reason for Consult: antibiotic management. Call Completed: Yes Discharging clinician: Jaya Mazariegos Anticipated date of discharge: 11/05/16 - Patient Status Disposition: Transfer Inpatient Rehab Fac Condition: Good Functional capacity at discharge: independent ambulation Overall status at discharge: patient is progressing back to baseline - Discharge Instructions Follow Up With: NO,PCP [Primary Care Provider] - Additional Instructions: Patient has been advised to quit smoking. Patient has been advised to discontinue IV drug use. Patient will need to strictly follow antibiotic regimen to allow recovery from pneumonia. - Diet and Activity Activity: resume usual activities as tolerated Diet: advance to your usual diet Interval History: [age] by mouth history of IV drug use (heroin), and tobacco abuse presents with chief complaint of shortness of breath and right upper chest pain. Before presentation patient was treated for recurrent pneumonia with azithromycin and did not complete the course. Chest x-ray found left cavitary necrotizing pneumonia in right lower lobe. On admission her white blood cell count is 18 d- dimer is 1035. CT angios negative for PE and showed right lower lobe necrotizing pneumonia with abscess formation and cavitation. Furthermore there is trace pleural effusion and bronchitis in the left upper lobe. On presentation patient was weak and somnolent. She was started on Zosyn and vancomycin. Blood cultures were ordered and IV fluids were administered. Hospital course: Pulmonology was consulted and patient underwent bronchoscopy. BAL culture resulted in findings of Klebsiella pneumonia and staph aureus. Sputum culture also grew staph aureus. Initially patient was continued on Vanco and Zosyn and her vital signs, decreased to 12. Patient also stated her right pleuritic chest pain, chest congestion and shortness breath improved. Patient received 5 days of Zosyn and 4 days of vancomycin. On day 4 patient's white blood cell count was seen to be trending up. She had a temperature of 100.5. Due to this patient underwent TTE for evaluation of endocarditis as she has history of IV drug use. This was negative. Patient had 3 Flores's criteria: Fever, IV drug use , septic emboli to lungs. Patient underwent BEKA which was negative for vegetations. ID was consulted for further recommendations for antibiotics. ID recommended 2 weeks of IV antibiotics and started patient on Cefazolin 2 g every 8 H on. Patient was also started on Flagyl 500 mg 3 times a day. Patient had a PPI IV inserted and the right upper arm. After starting cefazolin and Flagyl patient' s white blood cell count started to trend down. Patient has complicated social situation. She is a resident of [facility] and [facility] her home. 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 Patient has a history of IV drug use, specifically heroin. HIV profile was negative. Patient's Route reactive to hepatitis B surface antigen. Currently heb B core, surface ab pending. Plan: Continue cefazolin for 2 weeks. Continue Flagyl for 4 weeks. Patient will need ID to follow up with at [facility]. An antibiotic course will depend on clinical picture. Patient is advised to quit smoking as this may help improve her currently. Pending labs: Hepatitis B core, surface antibody. Patient will need to follow up with PCP/ID for pending pathology results from BAL. - Time Spent with Patient Total time spent providing and/or coordinating discharge services: - Constitutional Vitals: Temp Pulse Resp BP Pulse Ox 97.7 F 86 16 130/85 96 11/05/16 06:33 11/05/16 06:33 11/05/16 07:41 11/05/16 06:33 11/05/16 07:41 General appearance: Present: A&O X 3, obese - Head Head exam: Present: atraumatic, normocephalic - Eye Eye exam: Present: PERRL, conjuntiva pink, sclera anicteric - Neck Neck exam general surgery: Present: supple, trachea midline. Absent: lymphadenopathy - Respiratory Respiratory exam: Present: CTAB. Absent: accessory muscle use, rales, rhonchi, wheezes - Cardiovascular Cardiovascular exam: Present: RRR, +S1, +S2. Absent: diastolic murmur, gallop, rubs, systolic murmur - GI/Abdominal GI/Abdominal exam: Present: normal bowel sounds, soft, no peritoneal signs. Absent: distended, tenderness - Extremities Exam Extremities exam: Present: warm, radial pulses palpable and symetrical. Absent : calf tenderness, cyanotic, pedal edema - Neurological Exam Neurological exam: Present: CN II-XII intact, oriented X3, no focal deficits. Absent: pronater drift, facial droop, speech deficit - Skin Skin exam: Present: dry, intact <Atiya,Artis P - Last Filed: 11/05/16 17:29> Date of Encounter: 11/05/16 - Discharge Diagnosis (1) Necrotizing pneumonia Status: Acute (2) Leukocytosis Status: Acute Qualifiers: Leukocytosis type: unspecified Qualified Code(s): D72.829 - Elevated white blood cell count, unspecified (3) Tobacco use Status: Chronic Procedures/tests Complete & Pending: Procedures Performed prior 72 hours Category Date Time Status EV BEKA transesophageal echo Routine Y 11/03/16 11:28 Completed Date of admission: 10/30/16 12:16 Primary care physician: PCP NO Consults: 11/03/16 08:15 Consult to Telecommunication Engineer [CONS] Routine Reason for SW Consult: discharge assistance, financial assistance 11/03/16 11:25 Consult to PICC team [Consult to Invasive Line Access Team] [CONS] Routine Reason for Consult: limited access/ need half-way ATB Line Type: EPIV 11/04/16 09:11 Consult to Infectious Diseases [CONS] Routine Consulting Provider: Infectious Disease [place] Reason for Consult: antibiotic management. Call Completed: Yes Hospital course: Ms. Machado is a 26 year old female - Time Spent with Patient Total time spent providing and/or coordinating discharge services: - Constitutional Vitals: Temp Pulse Resp BP Pulse Ox 98.7 F 104 16 132/79 98 11/05/16 15:22 11/05/16 15:22 11/05/16 15:22 11/05/16 15:22 11/05/16 15:22 - Attending Attestation I examined this patient and my medical decision-making was reviewed with the [employer]/PA/Advanced Practice Nurse/Resident Physician. I agree with the documented findings, disposition and treatment plan as described except to the extent set forth below. Patient is medically clear, awaiting placement
--- NOTE | 2016-11-05 11:49 | Infectious Disease Progress No ---
Date of Encounter: 11/05/16 Time of Encounter: 11:47 - Assessment and Plan (1) Sepsis Current Visit: Yes Status: Acute The patient had fever, leukocytosis, and tachycardia. Likely secondary to cavitary pneumonia. Improved. The patient has been afebrile >24 hours. Tachycardia has resolved. The patient has persistent leukocytosis, likely from steroids. Clinically, the patient is improved. Blood cultures drawn 10/30/16 x 2 sets are negative. Qualifiers: Sepsis type: methicillin susceptible Staphylococcus aureus Qualified Code(s ): A41.01 - Sepsis due to Methicillin susceptible Staphylococcus aureus (2) Leukocytosis Current Visit: Yes Status: Acute WBC 18.8 on admission, but despite clinical improvement she has continued leukocytosis. Likely secondary to the patient being on 40mg of PO prednisone since admission. Prednisone discontinued today by the primary team. WBC marginally improved this morning. Continue to trend. Qualifiers: Leukocytosis type: unspecified Qualified Code(s): D72.829 - Elevated white blood cell count, unspecified (3) Cavitary pneumonia Current Visit: Yes Status: Acute Location: Right lower lobe. Causative organism: MSSA and K. pneumoniae. CXR completed 10/30/16 showed worsening consolidative changes in the right lung base. CTA of the chest completed 10/30/16 was negative for PE, but showed 4.5cm x 3.7cm hypoenhancing area of collapsed RLL with central cavitation suspicious for necrotizing PNA with potential pulmonary abscess. There were also findings consistent with bronchitis and a 0.5cm x 0.3cm VENESSA nodule. Pulmonology consulted and following. Status post bronchoscopy 10/30/16 that showed mucopurulent secretions in the RLL. Bronch washings sent for culture, AFB, and fungal. Culture came back positive for MSSA and K. pneumoniae. Clinically, the patient has improved. Continue cefazolin 2 grams IV Q8H. Continue flagyl 500mg PO TID. Duration of treatment depends on the clinical picture, but likely 2 weeks of IV antibiotics plus two weeks of orals. health services information specialist has been consulted and is following. I advised the patient that due to her history of IVDU, she will likely need placed in a rehab facility to complete her IV antibiotics if therapy is not complete prior to discharge. She verbalizes understanding and states she would like to be able to get back home to [place] and get placed somewhere there. EPIV placed to the RUE 11/03/16. Additionally, if the patient is placed somewhere in [place], she will also need to establish care with an infectious disease provider there so that they can manage her IV antibiotics and follow her throughout her course of treatment. If the patient does get placed somewhere here, we will be glad to follow up with the patient after discharge to manage her antibiotics. Monitor renal function and dose-adjust antibiotics. (4) IVDU (intravenous drug user) Current Visit: Yes Status: Acute The patient reports IV heroin use several times per week prior to admission. Reports that she sometimes shares needles. HIV negative. hepatitis BsAg reactive. Check anti-HBc, IgM anti-HBc, and anti-HBs. (5) Tobacco abuse Current Visit: Yes Status: Acute - Subjective Interval history: Patient seen and examined. No acute events noted overnight. Patient states she feels okay today, but still has pain in her right upper back and side. Denies fevers, chills, or rigors. Continues to report some SANON and cough productive of yellow sputum. Denies nausea, vomiting, or diarrhea, but states he stomach is "rumbling" because they gave her something to help her have a BM. Reports only one BM since being admitted to the hospital. Denies urinary complaints. Denies oral thrush or skin lesions. Infect Dis PN-Objective Data - Labs CBC & Chem 7: 11/05/16 03:47 11/04/16 03:21 Labs: Laboratory Results - last 24 hr 11/05/16 11/05/16 03:47 03:47 WBC 14.7 H RBC 3.55 L Hgb 10.3 L Hct 31.4 L MCV 88.5 MCH 29.0 MCHC 32.8 RDW 12.8 Plt Count 452 H MPV 9.4 Immature Gran % 1.5 Seg Neutrophils % 69.1 Lymphocytes % 21.9 Monocytes % 6.3 Eosinophils % 1.0 Basophils % 0.2 Neutrophils # 10.2 H Lymphocytes # 3.2 Monocytes # 0.9 Eosinophils # 0.1 Basophils # 0.0 Hepatitis A IgM Ab Nonreactive Hep Bs Antigen Reactive H Hep B Core IgM Ab Nonreactive Hepatitis C Ab Screen Nonreactive HIV Ag/Ab Combo Qual Nonreactive Cultures: Cultures 10/31/16 12:10 Sputum Culture - Final Sputum Staphylococcus aureus 10/30/16 15:26 Respiratory Culture - Final Right Lower Lobe Lung Klebsiella pneumoniae Staphylococcus aureus 10/31/16 17:08 Blood Culture - Preliminary Peripheral Venipuncture No growth. 10/31/16 17:08 Blood Culture - Preliminary Peripheral Venipuncture No growth. 10/30/16 15:26 Acid Fast Stain - Final Right Lower Lobe Lung 10/30/16 23:00 Legionella Antigen - Final Urine,Clean Catch Streptococcus pneumoniae Antigen (M - Final Serology 11/05/16 10/31/16 Range/Units 03:47 06:50 Nasal Screen MRSA (PCR) Negative (Negative) Hepatitis A IgM Ab Nonreactive (Nonreactive) Hep Bs Antigen Reactive H (Nonreactive) Hep B Core IgM Ab Nonreactive (Nonreactive) Hepatitis C Ab Screen Nonreactive (Nonreactive) HIV Ag/Ab Combo Qual Nonreactive (Nonreactive) Exam - Constitutional Vitals: Temp Pulse Resp BP Pulse Ox 98.5 F 53 16 121/75 97 11/05/16 11:02 11/05/16 11:02 11/05/16 11:02 11/05/16 11:02 11/05/16 11:02 General appearance: cooperative, no acute distress, obese - Head Head exam: Present: atraumatic, normal inspection, normocephalic - Eye Eye exam: Present: EOMI, normal appearance, PERRL Pupils: Present: normal accommodation Additional comments: No subconjunctival hemorrhage noted. - ENT ENT exam: Present: mucous membranes moist - Neck Neck exam: Present: normal inspection - Respiratory Respiratory exam: Present: CTAB. Absent: rales, respiratory distress, rhonchi, wheezes - Cardiovascular Cardiovascular exam: Present: RRR, +S1, +S2 - GI/Abdominal GI/Abdominal exam: Present: distended (obese), normal bowel sounds, soft. Absent: tenderness - Extremities Exam Extremities exam: Present: normal inspection. Absent: joint swelling, pedal edema, tenderness Additional comments: No endocarditis stigmata noted. - Neurological Exam Neurological exam: Present: alert, oriented X3, no focal deficits - Psychiatric Psychiatric exam: Present: normal affect, normal mood - Skin Skin exam: Present: dry, intact, normal color, warm - Additional findings Additional findings: EPIV noted to the RUE with transparent dressing C/D/I. Consult Discharge Plan - Plan Additional Instructions: Patient has been advised to quit smoking. Patient has been advised to discontinue IV drug use. Patient will need to strictly follow antibiotic regimen to allow recovery from pneumonia. Referrals: NO,PCP [Primary Care Provider] - Prescriptions: Cefazolin Sodium/D5w [Cefazolin 2 G/50 ml-D5w Bag] 2 gm IV Q8H #39 piggyback Oxycodone HCl/Acetaminophen [Percocet 5-325 mg Tablet] 1 each PO Q6H #30 tablet - Attending Attestation I examined this patient and my medical decision-making was reviewed with the [employer]/PA/Advanced Practice Nurse/Resident Physician. I agree with the documented findings, disposition and treatment plan as described except to the extent set forth below.
[2016-11-05] MEDS: metroNIDAZOLE 500 MG TABLET PO SCH ×3 (12:08→21:18)
--- NOTE | 2016-11-05 15:21 | Physician Discharge Referral ---
<Jaya Mazariegos - Last Filed: 11/05/16 15:21> ExtendedCare Referral Info Transfer To: [facility] Provider in Charge: Dr. Rajput Provider in Charge after Transfer: PCP Institutional Level of Care: [facility] - Diagnosis (1) Necrotizing pneumonia Priority: Primary Status: Acute (2) IVDU (intravenous drug user) Priority: Secondary Status: Acute (3) DVT prophylaxis Priority: Secondary Status: Acute (4) Tobacco use Priority: Secondary Status: Chronic Expected Duration of Placement: 2 weeks Prognosis: Fair Aware of Diagnosis: Patient Aware of Prognosis: Patient - Transfer Medications Prescriptions: Cefazolin Sodium/D5w [Cefazolin 2 G/50 ml-D5w Bag] 2 gm IV Q8H #39 piggyback Oxycodone HCl/Acetaminophen [Percocet 5-325 mg Tablet] 1 each PO Q6H #30 tablet Home Medications: Acetaminophen [Tylenol] 650 mg PO Q6HR PRN #0 tablet 11/05/16 [Rx] Cefazolin Sodium/D5w [Cefazolin 2 G/50 ml-D5w Bag] 2 gm IV Q8H #39 piggyback 06/23 [Rx] Ipratropium/Albuterol Neb [Duoneb] 3 ml IH [id number] PRN #0 inhsol 11/05/16 [Rx] Ketorolac [Toradol] 30 mg IVP Q6HR PRN #0 vial 11/05/16 [Rx] Magnesium Oxide [Mag-Ox] 400 mg PO BID tablet 11/05/16 [Rx] Nicotine Patch [Nicoderm] 21 mg TD DAILY #30 patch.td24 11/05/16 [Rx] Oxycodone HCl/Acetaminophen [Percocet 5-325 mg Tablet] 1 each PO Q6H #30 tablet 11/05/16 [Rx] metroNIDAZOLE [Flagyl] 500 mg PO TID #90 tablet 11/05/16 [Rx] Allergies/Adverse Reactions: Allergies No Known Allergies Allergy (Verified 10/29/16 03:52) - Respiratory Orders Smoking Cessation: Smoking cessation has been advised. For more information, call the [place] Tobacco Quit Line at 1-236-EVVE-NOW. - Advance Directives Code Status: Full Code - Mobility Orders Ambulate - Rehabiliation Orders Rehab Potential: Good - Diet Orders Regular CERTIFICATION: I certify that the transfer of the above named patient to an Extended Care Facility is necessary for the continuing treatment of the diagnosis listed. The above information is true and accurate reflection of patient's current condition. Confidential - Redisclosure prohibited without a patient's written consent. <Artis Rajput P - Last Filed: 11/05/16 17:29> - Diagnosis (1) Necrotizing pneumonia Status: Acute (2) Leukocytosis Status: Acute (3) Tobacco use Status: Chronic - Respiratory Orders Smoking Cessation: Smoking cessation has been advised. For more information, call the [place] Tobacco Quit Line at 4-397-UZBRNOW. CERTIFICATION: I certify that the transfer of the above named patient to an Extended Care Facility is necessary for the continuing treatment of the diagnosis listed. The above information is true and accurate reflection of patient's current condition. Confidential - Redisclosure prohibited without a patient's written consent.
[2016-11-05] MEDS ORDERED: SODIUM CHLORIDE/NAHCO3/KCL/PEG 4,000 ML SOLN.RECON PO ONE (19:13)
[2016-11-05] MEDS: Ondansetron 4 MG/2 ML VIAL IVP PRN (22:52)
[2016-11-06] MEDS: ceFAZolin 2,000 MG in D5% in Water 100 ML IVPB SCH ×3 (02:50→15:57)
[2016-11-06] MEDS: *HR* Heparin 5,000 UNIT/ML VIAL SQ SCH ×3 (06:16→20:13)
[2016-11-06] MEDS: Sennosides/Docusate Sodium TABLET PO SCH ×2 (08:25→20:13)
[2016-11-06] MEDS: Ketorolac 30 MG/ML VIAL IVP PRN (08:25)
[2016-11-06] MEDS: Magnesium Oxide 400 MG TABLET PO SCH ×2 (08:25→20:13)
[2016-11-06] MEDS: metroNIDAZOLE 500 MG TABLET PO SCH ×3 (08:26→20:13)
[2016-11-06] MEDS: Nicotine 21 MG PATCH.TD24 TD SCH (08:27)
--- NOTE | 2016-11-06 09:07 | Event Note ---
<Jaya Mazariegos - Last Filed: 11/06/16 15:04> Date of Encounter: 11/06/16 Time of Encounter: 09:07 Patient had no problems overnight. Awaiting placement. As Per ID: Will need 6 days of IV antibiotics from today with repeat CT chest with contrast to assess improvement in penumonia. If patient has improvement can transition to 14 days oral antibiotics. If patient does not have improvement will need additional 14 days of IV antibiotics. Will need to be followed by ID closely. <Artis Rajput - Last Filed: 11/07/16 13:36> Date of Encounter: 11/07/16 I examined this patient and my medical decision-making was reviewed with the [employer]/PA/Advanced Practice Nurse/Resident Physician. I agree with the documented findings, disposition and treatment plan as described except to the extent set forth below.
--- NOTE | 2016-11-06 10:57 | Infectious Disease Progress No ---
Date of Encounter: 11/06/16 Time of Encounter: 10:55 - Assessment and Plan (1) Sepsis Current Visit: Yes Status: Acute The patient had fever, leukocytosis, and tachycardia. Likely secondary to cavitary pneumonia. Improved. The patient has been afebrile >24 hours. Tachycardia has resolved. The patient has persistent leukocytosis, likely from steroids. Clinically, the patient is improved. Repeat CBC in the AM. Blood cultures drawn 10/30/16 x 2 sets are negative. Qualifiers: Sepsis type: methicillin susceptible Staphylococcus aureus Qualified Code(s ): A41.01 - Sepsis due to Methicillin susceptible Staphylococcus aureus (2) Leukocytosis Current Visit: Yes Status: Acute WBC 18.8 on admission, but despite clinical improvement she has continued leukocytosis. Likely secondary to the patient being on 40mg of PO prednisone since admission. Prednisone discontinued Wednesday by the primary team. Repeat CBC in the AM. Qualifiers: Leukocytosis type: unspecified Qualified Code(s): D72.829 - Elevated white blood cell count, unspecified (3) Cavitary pneumonia Current Visit: Yes Status: Acute Location: Right lower lobe. Causative organism: MSSA and K. pneumoniae. CXR completed 10/30/16 showed worsening consolidative changes in the right lung base. CTA of the chest completed 10/30/16 was negative for PE, but showed 4.5cm x 3.7cm hypoenhancing area of collapsed RLL with central cavitation suspicious for necrotizing PNA with potential pulmonary abscess. There were also findings consistent with bronchitis and a 0.5cm x 0.3cm VENESSA nodule. Pulmonology consulted and following. Status post bronchoscopy 10/30/16 that showed mucopurulent secretions in the RLL. Bronch washings sent for culture, AFB, and fungal. Culture came back positive for MSSA and K. pneumoniae. Clinically, the patient has improved. Continue cefazolin 2 grams IV Q8H. Continue flagyl 500mg PO TID. Duration of treatment depends on the clinical picture, but likely 2 weeks of IV antibiotics plus two weeks of orals. veterans services specialist has been consulted and is following. I advised the patient that due to her history of IVDU, she will likely need placed in a rehab facility to complete her IV antibiotics if therapy is not complete prior to discharge. She verbalizes understanding and states she would like to be able to get back home to [place] and get placed somewhere there. EPIV placed to the RUE 11/03/16. Additionally, if the patient is placed somewhere in [place], she will also need to establish care with an infectious disease provider there so that they can manage her IV antibiotics and follow her throughout her course of treatment. If the patient does get placed somewhere here, we will be glad to follow up with the patient after discharge to manage her antibiotics. Monitor renal function and dose-adjust antibiotics. (4) IVDU (intravenous drug user) Current Visit: Yes Status: Acute The patient reports IV heroin use several times per week prior to admission. Reports that she sometimes shares needles. HIV negative. hepatitis BsAg reactive. Check anti-HBc, IgM anti-HBc, and anti-HBs.--> pending. (5) Tobacco abuse Current Visit: Yes Status: Acute (6) Hepatitis B antibody positive in blood Current Visit: Yes Status: Acute Further serologies pending. - Subjective Interval history: Patient seen and examined. No acute events noted overnight. Patient states she feels okay today, but still has pain in her right upper back and side. Denies fevers, chills, or rigors. States her breathing is okay, but she continues to report some cough productive of yellow sputum. Denies nausea, vomiting, or diarrhea, but reports abdominal discomfort from the laxative regimen she is receiving. Reports last BM three days ago. Denies urinary complaints. Denies oral thrush or skin lesions. Infect Dis PN-Objective Data - Labs CBC & Chem 7: 11/05/16 03:47 11/04/16 03:21 Cultures: Cultures 10/31/16 17:08 Blood Culture - Final Peripheral Venipuncture No growth. 10/31/16 17:08 Blood Culture - Final Peripheral Venipuncture No growth. 10/31/16 12:10 Sputum Culture - Final Sputum Staphylococcus aureus 10/30/16 15:26 Respiratory Culture - Final Right Lower Lobe Lung Klebsiella pneumoniae Staphylococcus aureus 10/30/16 15:26 Acid Fast Stain - Final Right Lower Lobe Lung 10/30/16 23:00 Legionella Antigen - Final Urine,Clean Catch Streptococcus pneumoniae Antigen (M - Final Serology 11/05/16 10/31/16 Range/Units 03:47 06:50 Nasal Screen MRSA (PCR) Negative (Negative) Hepatitis A IgM Ab Nonreactive (Nonreactive) Hep Bs Antigen Reactive H (Nonreactive) Hep B Core IgM Ab Nonreactive (Nonreactive) Hepatitis C Ab Screen Nonreactive (Nonreactive) HIV Ag/Ab Combo Qual Nonreactive (Nonreactive) Exam - Constitutional Vitals: Temp Pulse Resp BP Pulse Ox 97.6 F 88 16 110/66 97 11/06/16 07:00 11/06/16 07:00 11/06/16 07:00 11/06/16 07:00 11/06/16 07:00 General appearance: cooperative, no acute distress, obese - Head Head exam: Present: atraumatic, normal inspection, normocephalic - Eye Eye exam: Present: EOMI, normal appearance, PERRL Pupils: Present: normal accommodation - ENT ENT exam: Present: mucous membranes moist - Neck Neck exam: Present: normal inspection - Respiratory Respiratory exam: Present: CTAB. Absent: rales, respiratory distress, rhonchi, wheezes - Cardiovascular Cardiovascular exam: Present: RRR, +S1, +S2 - GI/Abdominal GI/Abdominal exam: Present: distended (obese), normal bowel sounds, soft. Absent: tenderness - Extremities Exam Extremities exam: Present: normal inspection. Absent: joint swelling, pedal edema, tenderness - Neurological Exam Neurological exam: Present: alert, oriented X3, no focal deficits - Psychiatric Psychiatric exam: Present: normal affect, normal mood - Skin Skin exam: Present: dry, intact, normal color, warm - Additional findings Additional findings: EPIV noted to the RUE with transparent dressing C/D/I. Consult Discharge Plan - Plan Instructions: Oxycodone/Acetaminophen (By mouth), Cefazolin (Injection), Sepsis (DC), Pneumonia (DC), Cigarette Smoking and Your Health, Us Administrative Law Judge (GEN) Additional Instructions: Patient has been advised to quit smoking. Patient has been advised to discontinue IV drug use. Patient will need to strictly follow antibiotic regimen to allow recovery from pneumonia. Referrals: NO,PCP [Primary Care Provider] - Prescriptions: Cefazolin Sodium/D5w [Cefazolin 2 G/50 ml-D5w Bag] 2 gm IV Q8H #39 piggyback Oxycodone HCl/Acetaminophen [Percocet 5-325 mg Tablet] 1 each PO Q6H #30 tablet
[2016-11-06 11:28] LABS: Hepatitis B Core IgM Nonreactive (Nonreactive)
[2016-11-06] MEDS: *HR* HYDROmorphone (PF) 1 MG/ML SYRINGE IVP PRN ×5 (13:31→22:31)
[2016-11-06] MEDS: Ipratropium/Albuterol Neb 3 ML IH PRN (17:01)
[2016-11-07] MEDS: ceFAZolin 2,000 MG in D5% in Water 100 ML IVPB SCH ×3 (00:32→18:09)
[2016-11-07] MEDS: *HR* HYDROmorphone (PF) 1 MG/ML SYRINGE IVP PRN ×8 (00:32→23:25)
[2016-11-07] MEDS: Ipratropium/Albuterol Neb 3 ML IH PRN ×4 (00:54→23:55)
[2016-11-07] MEDS: Menthol 9.1 MG LOZENGE PO PRN ×2 (02:42→05:15)
[2016-11-07 04:23] LABS: Basophils # 0.1 K/mcL (0.0-0.2); Basophils % 0.4 %; Eosinophils # 0.2 K/mcL (0.0-0.6); Eosinophils % 0.8 %; Hematocrit 35.2 % (35.3-44.9); Hemoglobin 11.6 g/dL (11.5-15.4); Immature Granulocytes % 3.7 % (0-4); Mean Corpuscular Hemoglobin 29.5 pg (28.0-33.3); Mean Corpuscular Volume 89.6 fL (83.0-100.0); Mean Platelet Volume 9.4 fL (9.4-12.4); Monocytes # 1.3 K/mcL (0.0-1.3); Monocytes % 6.2 %; Neutrophils # 14.5 K/mcL (1.6-8.9); Platelet Count 519 K/mcL (140-400); Red Blood Count 3.93 M/mcL (3.82-4.97); Red Cell Distribution Width 13.1 % (11.5-14.5); Segmented Neutrophils % 69.9 %
[2016-11-07 04:27] LABS: BUN/Creatinine Ratio 16 (6-26); Blood Urea Nitrogen 13 mg/dL (7-20); Calcium 9.1 mg/dL (8.6-10.8); Carbon Dioxide 26 mEq/L (19-29); Chloride 98 mEq/L (98-109); Glucose 98 mg/dL (70-99); Osmolality,Calculated 276 (280-300); Potassium 4.3 mEq/L (3.5-4.5); Sodium 133 mEq/L (136-145); eGFR For African Americans > 60 (> 60); eGFR For Non-African Americans > 60 (> 60)
[2016-11-07] MEDS: *HR* Heparin 5,000 UNIT/ML VIAL SQ SCH ×3 (05:09→22:09)
[2016-11-07] MEDS: metroNIDAZOLE 500 MG TABLET PO SCH ×3 (09:57→20:28)
[2016-11-07] MEDS: Sennosides/Docusate Sodium TABLET PO SCH ×2 (09:57→20:29)
[2016-11-07] MEDS: Magnesium Oxide 400 MG TABLET PO SCH ×2 (09:57→20:29)
[2016-11-07] MEDS: Nicotine 21 MG PATCH.TD24 TD SCH (09:57)
--- NOTE | 2016-11-07 11:37 | Event Note ---
<Jaya Mazariegos - Last Filed: 11/07/16 11:36> Date of Encounter: 11/07/16 Time of Encounter: 11:36 Patient is awaiting placement. Medically cleared. <Artis Rajput - Last Filed: 11/07/16 13:37> Date of Encounter: 11/07/16 I examined this patient and my medical decision-making was reviewed with the REGIONAL DRIVER/PA/Advanced Practice Nurse/Resident Physician. I agree with the documented findings, disposition and treatment plan as described except to the extent set forth below.
[2016-11-07] MEDS: Ketorolac 30 MG/ML VIAL IVP PRN (15:03)
[2016-11-07] MEDS: Acetaminophen 325 MG TABLET PO PRN (23:34)
[2016-11-08] MEDS: ceFAZolin 2,000 MG in D5% in Water 100 ML IVPB SCH ×4 (00:59→23:00)
[2016-11-08] MEDS: Ondansetron 4 MG/2 ML VIAL IVP PRN ×2 (01:45→17:39)
[2016-11-08] MEDS: *HR* HYDROmorphone (PF) 1 MG/ML SYRINGE IVP PRN ×9 (01:48→22:59)
[2016-11-08] MEDS: *HR* Heparin 5,000 UNIT/ML VIAL SQ SCH ×3 (05:22→20:10)
--- NOTE | 2016-11-08 08:15 | Event Note ---
<Jaya Mazariegos - Last Filed: 11/08/16 08:15> Date of Encounter: 11/08/16 Time of Encounter: 08:14 No acute events overnight. Medically cleared awaiting placement <Artis Rajput - Last Filed: 11/08/16 11:30> Date of Encounter: 11/08/16 I examined this patient and my medical decision-making was reviewed with the SALES PROJECT ADMINISTRATOR/PA/Advanced Practice Nurse/Resident Physician. I agree with the documented findings, disposition and treatment plan as described except to the extent set forth below.
[2016-11-08] MEDS: Magnesium Oxide 400 MG TABLET PO SCH ×2 (08:24→20:12)
[2016-11-08] MEDS: Sennosides/Docusate Sodium TABLET PO SCH ×2 (08:25→20:12)
[2016-11-08] MEDS: Nicotine 21 MG PATCH.TD24 TD SCH (08:25)
[2016-11-08] MEDS: metroNIDAZOLE 500 MG TABLET PO SCH ×3 (08:25→20:12)
[2016-11-08] MEDS: Ipratropium/Albuterol Neb 3 ML IH PRN ×2 (08:52→21:38)
[2016-11-08] MEDS: Ketorolac 30 MG/ML VIAL IVP PRN (11:51)
[2016-11-08] MEDS: Acetaminophen 325 MG TABLET PO PRN ×2 (17:42→23:00)
[2016-11-09] MEDS: *HR* HYDROmorphone (PF) 1 MG/ML SYRINGE IVP PRN ×8 (01:17→22:02)
[2016-11-09] MEDS: Menthol 9.1 MG LOZENGE PO PRN ×3 (03:36→11:27)
[2016-11-09] MEDS: Ondansetron 4 MG/2 ML VIAL IVP PRN (03:58)
[2016-11-09] MEDS: *HR* Heparin 5,000 UNIT/ML VIAL SQ SCH ×3 (06:40→21:17)
[2016-11-09] MEDS: Nicotine 21 MG PATCH.TD24 TD SCH (07:49)
[2016-11-09] MEDS: ceFAZolin 2,000 MG in D5% in Water 100 ML IVPB SCH ×2 (07:50→15:08)
[2016-11-09] MEDS: metroNIDAZOLE 500 MG TABLET PO SCH ×3 (07:50→21:09)
[2016-11-09] MEDS: Sennosides/Docusate Sodium TABLET PO SCH ×2 (07:50→21:09)
[2016-11-09] MEDS: Magnesium Oxide 400 MG TABLET PO SCH ×2 (07:50→21:09)
[2016-11-09] MEDS: Ipratropium/Albuterol Neb 3 ML IH PRN (09:59)
--- NOTE | 2016-11-09 10:24 | Event Note ---
<Keke Ovalles - Last Filed: 11/09/16 10:23> Date of Encounter: 11/09/16 Time of Encounter: 10:23 pt requiring pen[facility]iary IV abx therapy awaiting placement for D/c <Artis Rajput - Last Filed: 11/09/16 17:32> Date of Encounter: 11/09/16 I examined this patient and my medical decision-making was reviewed with the INVESTIGATIVE SHOPPER/PA/Advanced Practice Nurse/Resident Physician. I agree with the documented findings, disposition and treatment plan as described except to the extent set forth below.
--- NOTE | 2016-11-09 12:18 | Infectious Disease Progress No ---
Date of Encounter: 11/09/16 Time of Encounter: 12:12 - Assessment and Plan (1) Sepsis Current Visit: Yes Status: Acute The patient had fever, leukocytosis, and tachycardia. Likely secondary to cavitary pneumonia. Improved. The patient has been afebrile >24 hours. She did have a low-grade fever of 100.5 on 11/07/16. Tachycardia has resolved. The patient has persistent leukocytosis and her WBC is 20 today. Etiology unclear. Blood cultures drawn 10/30/16 x 2 sets are negative. Qualifiers: Sepsis type: methicillin susceptible Staphylococcus aureus Qualified Code(s ): A41.01 - Sepsis due to Methicillin susceptible Staphylococcus aureus (2) Leukocytosis Current Visit: Yes Status: Acute WBC 18.8 on admission, but despite clinical improvement she has continued leukocytosis. Repeat labs 11/07/16 show a WBC of 20.8. Differential normal. Etiology unclear. Steroids were stopped 5 days ago. Repeat CBC now. Qualifiers: Leukocytosis type: unspecified Qualified Code(s): D72.829 - Elevated white blood cell count, unspecified (3) Cavitary pneumonia Current Visit: Yes Status: Acute Location: Right lower lobe. Causative organism: MSSA and K. pneumoniae. CXR completed 10/30/16 showed worsening consolidative changes in the right lung base. CTA of the chest completed 10/30/16 was negative for PE, but showed 4.5cm x 3.7cm hypoenhancing area of collapsed RLL with central cavitation suspicious for necrotizing PNA with potential pulmonary abscess. There were also findings consistent with bronchitis and a 0.5cm x 0.3cm VENESSA nodule. Pulmonology consulted and following. Status post bronchoscopy 10/30/16 that showed mucopurulent secretions in the RLL. Bronch washings sent for culture, AFB, and fungal. Culture came back positive for MSSA and K. pneumoniae. Clinically, the patient has improved, but she continues to complain of right side/back pain and shortness of breath. Consider repeating imaging. Request pulmonary to re-evaluate and see if re- imaging would be yielding in this patient's case. The patient has been on IV antibiotics for 10 days since bronchoscopy. Continue cefazolin 2 grams IV Q8H. Continue flagyl 500mg PO TID. Duration of treatment depends on the clinical picture, but likely 2 weeks of IV antibiotics plus two weeks of orals. director of career services has been consulted and is working on placement for the patient on discharge. EPIV placed to the RUE 11/03/16. Monitor renal function and dose-adjust antibiotics. (4) IVDU (intravenous drug user) Current Visit: Yes Status: Acute The patient reports IV heroin use several times per week prior to admission. Reports that she sometimes shares needles. HIV negative. Hepatitis BsAg reactive. (5) Tobacco abuse Current Visit: Yes Status: Acute (6) Hepatitis B antibody positive in blood Current Visit: Yes Status: Acute Hep Bs antibody 0.00. Hep B core total antibody negative. Hep B core IgM antibody non-reactive. Unclear diagnosis given the lab results. Repeat labs in 4 weeks. (7) Pain of left calf Current Visit: Yes Status: Acute Etiology unclear. No warmth, tenderness, or nodule noted. Negative Hayley's sign. Given that the patient has been relatively immobile since admission, recommend doppler study to rule out DVT. - Subjective Interval history: Patient seen and examined. Weekend notes reviewed. No acute events noted overnight. Patient states she feels poorly today, but still has pain in her right upper back and side. Denies fevers, chills, or rigors. States her breathing is okay, but she continues to report some cough productive of white/ yellow sputum. Denies vomiting, or diarrhea, but does complain of some nausea. She reports positive results from laxative regimen over the weekend. Denies urinary complaints. Denies oral thrush or skin lesions. Reports new-onset of pain to the left calf. Infect Dis PN-Objective Data - Labs CBC & Chem 7: 11/07/16 03:52 11/07/16 03:52 Labs: Laboratory Results - last 24 hr 11/06/16 04:48 Hep B Core Total Ab NEGATIVE Cultures: Cultures 10/31/16 17:08 Blood Culture - Final Peripheral Venipuncture No growth. 10/31/16 17:08 Blood Culture - Final Peripheral Venipuncture No growth. 10/31/16 12:10 Sputum Culture - Final Sputum Staphylococcus aureus 10/30/16 15:26 Respiratory Culture - Final Right Lower Lobe Lung Klebsiella pneumoniae Staphylococcus aureus 10/30/16 15:26 Acid Fast Stain - Final Right Lower Lobe Lung 10/30/16 23:00 Legionella Antigen - Final Urine,Clean Catch Streptococcus pneumoniae Antigen (M - Final Serology 11/06/16 11/06/16 11/05/16 Range/Units 04:48 04:48 03:47 Nasal Screen MRSA (PCR) (Negative) Hepatitis A IgM Ab (Nonreactive) Hep Bs Antigen (Nonreactive) Hep Bs Ag Confirmation POSITIVE A (Non Confirmed) Hep Bs Antibody 0.00 mIU/mL Hep B Core Total Ab NEGATIVE (Negative) Hep B Core IgM Ab Nonreactive (Nonreactive) Hepatitis C Ab Screen (Nonreactive) HIV Ag/Ab Combo Qual (Nonreactive) 11/05/16 10/31/16 Range/Units 03:47 06:50 Nasal Screen MRSA (PCR) Negative (Negative) Hepatitis A IgM Ab Nonreactive (Nonreactive) Hep Bs Antigen Reactive H (Nonreactive) Hep Bs Ag Confirmation (Non Confirmed) Hep Bs Antibody mIU/mL Hep B Core Total Ab (Negative) Hep B Core IgM Ab Nonreactive (Nonreactive) Hepatitis C Ab Screen Nonreactive (Nonreactive) HIV Ag/Ab Combo Qual Nonreactive (Nonreactive) Exam - Constitutional Vitals: Temp Pulse Resp BP Pulse Ox 99.5 F 109 16 129/80 94 11/09/16 11:21 11/09/16 11:21 11/09/16 09:59 11/09/16 11:21 11/09/16 09:59 General appearance: cooperative, no acute distress, obese - Head Head exam: Present: atraumatic, normal inspection, normocephalic - Eye Eye exam: Present: EOMI, normal appearance, PERRL Pupils: Present: normal accommodation - ENT ENT exam: Present: mucous membranes moist - Neck Neck exam: Present: normal inspection - Respiratory Respiratory exam: Present: CTAB. Absent: rales, respiratory distress, rhonchi, wheezes - Cardiovascular Cardiovascular exam: Present: RRR, +S1, +S2 - GI/Abdominal GI/Abdominal exam: Present: distended (obese), normal bowel sounds, soft. Absent: tenderness - Extremities Exam Extremities exam: Present: normal inspection. Absent: calf tenderness (Left calf non-tender to palpation without warmth. Negative Hayley's sign.), joint swelling, pedal edema, tenderness - Neurological Exam Neurological exam: Present: alert, oriented X3, no focal deficits - Psychiatric Psychiatric exam: Present: normal affect, normal mood - Skin Skin exam: Present: dry, intact, normal color, warm Consult Discharge Plan - Plan Instructions: Oxycodone/Acetaminophen (By mouth), Cefazolin (Injection), Sepsis (DC), Pneumonia (DC), Cigarette Smoking and Your Health, Profiler (GEN) Additional Instructions: Patient has been advised to quit smoking. Patient has been advised to discontinue IV drug use. Patient will need to strictly follow antibiotic regimen to allow recovery from pneumonia. Referrals: NO,PCP [Primary Care Provider] - Prescriptions: Cefazolin Sodium/D5w [Cefazolin 2 G/50 ml-D5w Bag] 2 gm IV Q8H #39 piggyback Oxycodone HCl/Acetaminophen [Percocet 5-325 mg Tablet] 1 each PO Q6H #30 tablet - Attending Attestation I examined this patient and my medical decision-making was reviewed with the BARREL CUTTER/PA/Advanced Practice Nurse/Resident Physician. I agree with the documented findings, disposition and treatment plan as described except to the extent set forth below.
[2016-11-09 14:34] LABS: Basophils # 0.1 K/mcL (0.0-0.2); Basophils % 0.3 %; Eosinophils # 0.1 K/mcL (0.0-0.6); Eosinophils % 0.3 %; Hematocrit 31.5 % (35.3-44.9); Hemoglobin 10.2 g/dL (11.5-15.4); Immature Granulocytes % 2.3 % (0-4); Lymphocytes # 2.4 K/mcL (0.6-4.6); Lymphocytes % 12.1 %; Mean Corpuscular HGB Conc 32.4 g/dL (31.6-35.5); Mean Corpuscular Hemoglobin 29.1 pg (28.0-33.3); Mean Corpuscular Volume 89.7 fL (83.0-100.0); Mean Platelet Volume 8.8 fL (9.4-12.4); Monocytes % 5.2 %; Platelet Count 437 K/mcL (140-400); Red Blood Count 3.51 M/mcL (3.82-4.97); Red Cell Distribution Width 13.2 % (11.5-14.5); Segmented Neutrophils % 79.8 %
[2016-11-09] MEDS: Acetaminophen 325 MG TABLET PO PRN ×2 (15:09→21:22)
[2016-11-09] MEDS: traMADol 50 MG TABLET PO PRN (15:53)
[2016-11-10] MEDS: ceFAZolin 2,000 MG in D5% in Water 100 ML IVPB SCH ×3 (00:11→16:01)
[2016-11-10] MEDS: *HR* HYDROmorphone (PF) 1 MG/ML SYRINGE IVP PRN ×4 (02:12→21:12)
[2016-11-10] MEDS: Ipratropium/Albuterol Neb 3 ML IH PRN ×2 (02:15→09:35)
[2016-11-10] MEDS: Ondansetron 4 MG/2 ML VIAL IVP PRN ×2 (02:15→17:37)
[2016-11-10] MEDS: *HR* Heparin 5,000 UNIT/ML VIAL SQ SCH ×3 (06:33→21:12)
[2016-11-10] MEDS: Sennosides/Docusate Sodium TABLET PO SCH ×2 (08:05→21:11)
[2016-11-10] MEDS: metroNIDAZOLE 500 MG TABLET PO SCH ×2 (08:05→16:01)
[2016-11-10] MEDS: Nicotine 21 MG PATCH.TD24 TD SCH (08:05)
[2016-11-10] MEDS: Magnesium Oxide 400 MG TABLET PO SCH ×2 (08:11→21:11)
--- NOTE | 2016-11-10 09:03 | Event Note ---
Date of Encounter: 11/10/16 Time of Encounter: 09:01 day 12 abx of 14 IV, ID consulted for outpt abx therapy elevated WBC, last imaging on 10/30, repeat CXR
[2016-11-10] MEDS: traMADol 50 MG TABLET PO PRN ×2 (10:12→23:11)
--- NOTE | 2016-11-10 11:07 | Infectious Disease Progress No ---
Date of Encounter: 11/10/16 Time of Encounter: 11:05 - Assessment and Plan (1) Sepsis Current Visit: Yes Status: Acute The patient had fever, leukocytosis, and tachycardia. Likely secondary to cavitary pneumonia. The patient spiked a fever yesterday of 100.7. She continues to have some intermittent tachycardia. The patient has persistent leukocytosis and her WBC is 20 today. Etiology unclear. Blood cultures drawn 10/30/16 x 2 sets are negative. Qualifiers: Sepsis type: methicillin susceptible Staphylococcus aureus Qualified Code(s ): A41.01 - Sepsis due to Methicillin susceptible Staphylococcus aureus (2) Leukocytosis Current Visit: Yes Status: Acute WBC 18.8 on admission, but despite clinical improvement she has continued leukocytosis. Repeat labs 11/07/16 show a WBC of 20.8. Differential normal. Repeat WBC this morning again shows a WBC of 20. Etiology unclear. Steroids were stopped last Wednesday Repeat CBC in the AM. Qualifiers: Leukocytosis type: unspecified Qualified Code(s): D72.829 - Elevated white blood cell count, unspecified (3) Cavitary pneumonia Current Visit: Yes Status: Acute Location: Right lower lobe. Causative organism: MSSA and K. pneumoniae. CXR completed 10/30/16 showed worsening consolidative changes in the right lung base. CTA of the chest completed 10/30/16 was negative for PE, but showed 4.5cm x 3.7cm hypoenhancing area of collapsed RLL with central cavitation suspicious for necrotizing PNA with potential pulmonary abscess. There were also findings consistent with bronchitis and a 0.5cm x 0.3cm VENESSA nodule. Pulmonology consulted and following. Status post bronchoscopy 10/30/16 that showed mucopurulent secretions in the RLL. Bronch washings sent for culture, AFB, and fungal. Culture came back positive for MSSA and K. pneumoniae. The patient spiked another fever yesterday. Repeat blood cultures were obtained x 2 sets and are pending. Repeat CXR this morning shows persistent RLL pneumonia with an increased right effusion. The patient has been on IV antibiotics for 11 days since bronchoscopy. Continue cefazolin 2 grams IV Q8H. Continue flagyl 500mg PO TID. Duration of treatment depends on the clinical picture, but likely 2 weeks of IV antibiotics plus two weeks of orals, but given that the patient's clinical status has started to worsen, we may need to consider prolonging the course of IV antibiotics. family services specialist has been consulted and is working on placement for the patient on discharge. Monitor renal function and dose-adjust antibiotics. (4) IVDU (intravenous drug user) Current Visit: Yes Status: Acute The patient reports IV heroin use several times per week prior to admission. Reports that she sometimes shares needles. HIV negative. Hepatitis BsAg reactive. (5) Tobacco abuse Current Visit: Yes Status: Acute (6) Hepatitis B antibody positive in blood Current Visit: Yes Status: Acute Hep Bs antibody 0.00. Hep B core total antibody negative. Hep B core IgM antibody non-reactive. Unclear diagnosis given the lab results. Repeat labs in 4 weeks. (7) Pain of left calf Current Visit: Yes Status: Resolved Etiology unclear. No warmth, tenderness, or nodule noted. Negative Hayley's sign. Patient reports pain has resolved. (8) Pleural effusion Current Visit: Yes Status: Acute Repeat CXR 11/10/16 shows increased right effusion. Request pulmonary to see the patient again. Await their recommendations. - Subjective Interval history: Patient seen and examined. No acute events noted overnight. Patient had fever with Tmax 100.7 overnight. Patient states she still feels poorly today, but still has pain in her right upper back and side with new pain in her right breast region. Denies fevers, chills, or rigors. States she is no longer short of breath, but the pain makes it difficult to take a deep breath and she continues to report some cough productive of white/yellow sputum. Denies vomiting, or diarrhea, but does complain of some intermittent nausea. She reports she was able to eat breakfast. She reports positive results from laxative regimen over the weekend. Denies urinary complaints. Denies oral thrush or skin lesions. Reports left calf pain has resolved. Infect Dis PN-Objective Data - Labs CBC & Chem 7: 11/09/16 14:19 11/07/16 03:52 Labs: Laboratory Results - last 24 hr 11/09/16 14:19 WBC 20.0 H RBC 3.51 L Hgb 10.2 L Hct 31.5 L MCV 89.7 MCH 29.1 MCHC 32.4 RDW 13.2 Plt Count 437 H MPV 8.8 L Immature Gran % 2.3 Seg Neutrophils % 79.8 Lymphocytes % 12.1 Monocytes % 5.2 Eosinophils % 0.3 Basophils % 0.3 Neutrophils # 16.0 H Lymphocytes # 2.4 Monocytes # 1.0 Eosinophils # 0.1 Basophils # 0.1 Cultures: Cultures 10/31/16 17:08 Blood Culture - Final Peripheral Venipuncture No growth. 10/31/16 17:08 Blood Culture - Final Peripheral Venipuncture No growth. 10/31/16 12:10 Sputum Culture - Final Sputum Staphylococcus aureus 10/30/16 15:26 Respiratory Culture - Final Right Lower Lobe Lung Klebsiella pneumoniae Staphylococcus aureus 10/30/16 15:26 Acid Fast Stain - Final Right Lower Lobe Lung 10/30/16 23:00 Legionella Antigen - Final Urine,Clean Catch Streptococcus pneumoniae Antigen (M - Final Serology 11/06/16 11/06/16 11/05/16 Range/Units 04:48 04:48 03:47 Nasal Screen MRSA (PCR) (Negative) Hepatitis A IgM Ab (Nonreactive) Hep Bs Antigen (Nonreactive) Hep Bs Ag Confirmation POSITIVE A (Non Confirmed) Hep Bs Antibody 0.00 mIU/mL Hep B Core Total Ab NEGATIVE (Negative) Hep B Core IgM Ab Nonreactive (Nonreactive) Hepatitis C Ab Screen (Nonreactive) HIV Ag/Ab Combo Qual (Nonreactive) 11/05/16 10/31/16 Range/Units 03:47 06:50 Nasal Screen MRSA (PCR) Negative (Negative) Hepatitis A IgM Ab Nonreactive (Nonreactive) Hep Bs Antigen Reactive H (Nonreactive) Hep Bs Ag Confirmation (Non Confirmed) Hep Bs Antibody mIU/mL Hep B Core Total Ab (Negative) Hep B Core IgM Ab Nonreactive (Nonreactive) Hepatitis C Ab Screen Nonreactive (Nonreactive) HIV Ag/Ab Combo Qual Nonreactive (Nonreactive) - Impressions Impressions Chest X-Ray 11/10/16 09:07 IMPRESSION: Right lower lobe pneumonia with increased right effusion D/ / Clint Corbin MD / Clint Corbin MD Interpreting Provider: Clint Corbin MD Exam - Constitutional Vitals: Temp Pulse Resp BP Pulse Ox 98.8 F 103 16 116/77 97 11/10/16 07:20 11/10/16 07:20 11/10/16 09:36 11/10/16 07:20 11/10/16 09:36 General appearance: cooperative, morbidly obese, no acute distress - Head Head exam: Present: atraumatic, normal inspection, normocephalic - Eye Eye exam: Present: EOMI, normal appearance, PERRL Pupils: Present: normal accommodation - ENT ENT exam: Present: mucous membranes moist - Neck Neck exam: Present: normal inspection - Respiratory Respiratory exam: Present: CTAB. Absent: rales, respiratory distress, rhonchi, wheezes - Cardiovascular Cardiovascular exam: Present: RRR, +S1, +S2 - GI/Abdominal GI/Abdominal exam: Present: distended (obese), normal bowel sounds. Absent: tenderness - Extremities Exam Extremities exam: Present: normal inspection. Absent: joint swelling, pedal edema, tenderness - Neurological Exam Neurological exam: Present: alert, oriented X3, no focal deficits - Psychiatric Psychiatric exam: Present: normal affect, normal mood - Skin Skin exam: Present: dry, intact, normal color, warm Consult Discharge Plan - Plan Instructions: Oxycodone/Acetaminophen (By mouth), Cefazolin (Injection), Sepsis (DC), Pneumonia (DC), Cigarette Smoking and Your Health, Senior Accountant (GEN) Additional Instructions: Patient has been advised to quit smoking. Patient has been advised to discontinue IV drug use. Patient will need to strictly follow antibiotic regimen to allow recovery from pneumonia. Referrals: NO,PCP [Primary Care Provider] - Prescriptions: Cefazolin Sodium/D5w [Cefazolin 2 G/50 ml-D5w Bag] 2 gm IV Q8H #39 piggyback Oxycodone HCl/Acetaminophen [Percocet 5-325 mg Tablet] 1 each PO Q6H #30 tablet - Attending Attestation I examined this patient and my medical decision-making was reviewed with the RESEARCH CONTRACTS SUPERVISOR/PA/Advanced Practice Nurse/Resident Physician. I agree with the documented findings, disposition and treatment plan as described except to the extent set forth below. Spiked another fever last night instead. WBC continues to be elevated. There is concern for empyema. We'll ask pulmonary to reevaluate and see if they need to do a thoracotomy upper chest to or just aspirate. We'll discuss with them and follow the recommendations. In the meantime continue with the Unasyn
--- NOTE | 2016-11-10 13:56 | Internal Med Progress Note ---
<Keke Ovalles Priscila - Last Filed: 11/10/16 15:43> Date of Encounter: 11/10/16 Time of Encounter: 13:53 - Assessment and plan (1) Necrotizing pneumonia Current Visit: Yes Status: Acute Assessment and plan: 26/ background history of IV drug abuse. was recently treated with Azithromycin for CAP. She did not complete the course. she started getting worse inspite being on antibiotics. repeat Imaging suggestive of pulmonary abscess. started on broad spectrum after blood culture. pulmonary on board .underwent bronchoscopy. plan will get 2 D Echo to rule out IE cont abx. cont present treatment. 11/01/2016 Noted that patient's blood culture is negative so far. Respiratory culture is growing gram-positive cocci/gram-negative rods. This is likely a sample from bronchoalveolar lavage. Sputum culture is negative so far. Patient is presently on vancomycin/Zosyn. We will continue same treatment at this point 11/02/2016 Bronchoalveolar lavage: Right lower lobe: Klebsiella pneumonia: Pansensitive organism Gram-positive cocci. Day 4: Zosyn Day 3: Vancomycin Blood cultures negative so far ( one set from 10/30 and another set from 10/31) Noted patient had a spike fever: MAXIMUM TEMPERATURE 100.5 Patient meets 3 minor criteria from modified [place] criteria for infective endocarditis. Possible septic emboli, fever more than 100.4, history of intravenous drug using in the recent past Plan: Will continue same treatment for now. Will order serum rheumatoid factor. We will get transesophageal echocardiogram. 11/10 day 12 of 14 IV abx ID following, will follow their recommendations for abx therapy will need POoutpt abx therapy in addition to IV abx increased WBC count despite multiple days of antibiotics last chest imaging was 10/30, will repeat imaging with CXR and possibly follow up CT scan (2) Cavitary pneumonia Current Visit: Yes Status: Acute (3) IVDU (intravenous drug user) Current Visit: Yes Status: Acute Assessment and plan: hx of IVD use, heroin, with last use one week before admission. Patient met 3 dukes criteria: IVDU, fever, septic emboli, BEKA negative for endocarditis, Blood cultures negative. greeter guest services following (4) Klebsiella pneumoniae pneumonia Current Visit: Yes Status: Acute Qualifiers: Laterality: right Lung location: lower lobe of lung Qualified Code(s): J15.0 - Pneumonia due to Klebsiella pneumoniae (5) Pleural effusion Current Visit: Yes Status: Acute Assessment and plan: previous chest imaging with pleural effusion repeat CXR today with worsening pleural effusion further imaging with CT scan, rule out empyema continue abx (6) Sepsis Current Visit: Yes Status: Acute Assessment and plan: likely pulmonary origin leukocytosis worsening hypertension, tachycardia and low grade temp improving +MSSA + Klebsiella ctx continue cefazolin and flagell follow ID recommendation Qualifiers: Sepsis type: methicillin susceptible Staphylococcus aureus Qualified Code(s ): A41.01 - Sepsis due to Methicillin susceptible Staphylococcus aureus (7) DVT prophylaxis Current Visit: Yes Status: Acute Assessment and plan: SQ heparin scd - Subjective Interval history: 26 yo IVDU with necrotizing pneumonia, MSSA +, Klebsiella + on day 12 of 14 IV abx with cefazolin and PO flagell. Pt states she has severe pain all over her body, has had subjective fever sweating and diarrhea. She states her dyspnea and coughing has improved compared to admission, but is having worsened dyspnea with deep breathing and feels like her breath is being "cut off" and is having pain with deep inspiration. denies chest pain, LE edema - Constitutional Vitals: Temp Pulse Resp BP Pulse Ox 98.8 F 103 16 116/77 97 11/10/16 07:20 11/10/16 07:20 11/10/16 09:36 11/10/16 07:20 11/10/16 09:36 General appearance: Present: A&O X 3, obese - Head Head exam: Present: atraumatic, normocephalic - Eye Eye exam: Present: PERRL, conjuntiva pink, sclera anicteric Pupils: Present: PERRL - Neck Neck exam general surgery: Present: supple, trachea midline. Absent: lymphadenopathy - Respiratory Respiratory exam: Present: CTAB. Absent: accessory muscle use, rales, rhonchi, wheezes - Cardiovascular Cardiovascular exam: Present: RRR, +S1, +S2. Absent: diastolic murmur, gallop, rubs, systolic murmur - GI/Abdominal GI/Abdominal exam: Present: normal bowel sounds, soft, no peritoneal signs. Absent: distended, tenderness - Extremities Exam Extremities exam: Present: warm, radial pulses palpable and symetrical. Absent : calf tenderness, cyanotic, pedal edema, tenderness - Neurological Exam Neurological exam: Present: CN II-XII intact, oriented X3, no focal deficits. Absent: pronater drift, facial droop, speech deficit - Skin Skin exam: Present: dry, intact Internal Medicine: Result - Labs CBC & Chem 7: 11/09/16 14:19 11/07/16 03:52 Labs: Short CBC 11/09/16 Range/Units 14:19 WBC 20.0 H (4.3-11.1) K/mcL Hgb 10.2 L (11.5-15.4) g/dL Hct 31.5 L (35.3-44.9) % Plt Count 437 H (140-400) K/mcL Neutrophils # 16.0 H (1.6-8.9) K/mcL - ABG Interpretation ABG results: PT/INR, D-dimer D-Dimer 1035 ng/mLFEU (0-500) H 10/30/16 09:28 - Impressions Impressions Chest X-Ray 11/10/16 09:07 IMPRESSION: Right lower lobe pneumonia with increased right effusion D/ / Clint Corbin MD / Clint Corbin MD Interpreting Provider: Clint Corbin MD Consult Discharge Plan - Plan Instructions: Oxycodone/Acetaminophen (By mouth), Cefazolin (Injection), Sepsis (DC), Pneumonia (DC), Cigarette Smoking and Your Health, Palliative Care Physician (GEN) Additional Instructions: Patient has been advised to quit smoking. Patient has been advised to discontinue IV drug use. Patient will need to strictly follow antibiotic regimen to allow recovery from pneumonia. Referrals: NO,PCP [Primary Care Provider] - Prescriptions: Cefazolin Sodium/D5w [Cefazolin 2 G/50 ml-D5w Bag] 2 gm IV Q8H #39 piggyback Oxycodone HCl/Acetaminophen [Percocet 5-325 mg Tablet] 1 each PO Q6H #30 tablet <Arun De La Cruz - Last Filed: 11/10/16 19:02> Date of Encounter: 11/10/16 - Assessment and plan (1) Pulmonary abscess Current Visit: Yes Status: Acute Qualifiers: Pulmonary abscess pneumonia presence: with pneumonia Laterality: right Lung location: lower lobe of lung Qualified Code(s): J85.1 - Abscess of lung with pneumonia (2) Empyema lung Current Visit: Yes Status: Acute (3) IVDU (intravenous drug user) Current Visit: Yes Status: Acute (4) Tobacco use Current Visit: Yes Status: Chronic (5) Hepatitis B antibody positive in blood Current Visit: Yes Status: Acute (6) Pleuritic chest pain Current Visit: Yes Status: Acute (7) Cavitary pneumonia Current Visit: Yes Status: Acute - Constitutional Vitals: Temp Pulse Resp BP Pulse Ox 99.0 F 106 16 125/83 96 11/10/16 15:51 11/10/16 15:51 11/10/16 15:51 11/10/16 15:51 11/10/16 15:51 Internal Medicine: Result - Labs CBC & Chem 7: 11/09/16 14:19 11/07/16 03:52 - ABG Interpretation ABG results: PT/INR, D-dimer D-Dimer 1035 ng/mLFEU (0-500) H 10/30/16 09:28 - Impressions Impressions Chest X-Ray 11/10/16 09:07 IMPRESSION: Right lower lobe pneumonia with increased right effusion D/ / Clint Corbin MD / Clint Corbin MD Interpreting Provider: Clint Corbin MD Chest CT 11/10/16 13:30 IMPRESSION: Increased size of right pleural effusion as compared to prior exam dated 10/30/2016, now large in size and loculated. Right lower lobe collapse with 8 mm focus of peripheral hypodensity and air, suspicious for necrosis or intrapulmonary abscess. Partial atelectasis or pneumonia of the right middle and upper lobes. Patchy left lower lobe atelectasis with trace left pleural effusion. Enlarging mediastinal lymph nodes, likely reactive. D/ / Cornelius Ferrera MD / Cornelius Ferrera MD Interpreting Provider: Cornelius Ferrera MD - Attending Attestation I examined this patient and my medical decision-making was reviewed with the Resident Physician on 11/10/16. I agree with the documented findings, disposition and treatment plan as described except to the extent set forth below. Ms. Machado is currently admitted for acute R side pneumonia. She is high risk due to persistent symptoms and leukocytosis. Ms. Machado continues to have pain. No hypoxia or fever at this time. WBC remains elevated. CT shows presumptive empyema. Exam Alert. Tearful Heart tachy and regular Lungs diminished on R No edema I/P 1. Pneumona with presumed empyema - appreciate CT surg eval. For thoracotomy tomorrow 2. IVDU Further diagnoses and plan as above.
--- NOTE | 2016-11-10 16:31 | Cardiothoracic Consult Note ---
Date of Encounter: 11/10/16 Time of Encounter: 16:31 Assessment and Plan (1) Empyema lung Current Visit: Yes Status: Acute The patient has a right thoracic empyema which developed during the course of her right lower lobe pneumonia. The chest CT performed today shows a large, loculated right pleural effusion. The loculated pleural effusion will need to be drained by a right thoracotomy and decortication. Tentatively procedure is scheduled for tomorrow afternoon. The assessment and plan as outlined above was discussed with the patient and/or family members who expressed understanding and agreement. All questions were answered. - History of Present Illness Consult date: 11/10/16 Requesting physician: Keke Ovalles Consult reason: Right thoracic empyema. Chief complaint: Cough, right-sided chest pain History of present illness: Ms. Machado is a 26 year old lady with history of IV drug abuse who developed a nonproductive cough approximately 1 month ago. She had a cough for approximately 2 weeks prior to seeking echo evaluation at [facility]. At that time she was diagnosed pneumonia and given an intramuscular antibiotic injection. She had no improvement in her symptoms, and in fact the cough became productive. She also developed right lateral chest pain. She was evaluated at [facility] emergency department on October 30, 2016. A chest CT performed at that time showed a 4.5 cm x 3.7 cm hypoenhancing area of collapse in the right lower lobe consistent with necrotizing pneumonia with potential pulmonary abscess formation. A trace right pleural effusion was also noted. and admitted for IV antibiotic therapy. The patient was admitted for IV antibiotic therapy. During her hospitalization patient has had progression of her pulmonary complaints. She has a persistent productive cough and the cultures grown both Klebsiella pneumonia and methicillin sensitive Staphylococcus aureus. She has had persistent right lateral chest pain and an increasing white count. A chest CT performed today revealed a large loculated right pleural effusion. I have been asked to evaluate the patient for right thoracotomy and decortication. Past Med Surg Social Fam HX - Past Medical History Medical history: no medical history Psychiatric history: no psych history, anxiety, depression - Past Surgical History Surgical History: other (Tonsillectomy/Adenoidectomy) - Social History Smoking Status: Current every day smoker Packs per day: 1ppd X 10 years Smokeless Tobacco Status: No Alcohol use: none Drug use: IVDU (IV Heroin) Occupational status: unemployed Current living situation: Homeless Activity Level: Independent ambulation Recent Out of Country Travel Within the Last 8 Weeks: No Exposure or Possible Exposure to Illness During Travel: No Medications and Allergies Acetaminophen [Tylenol] 650 mg PO Q6HR PRN #0 tablet 11/05/16 [Rx] Cefazolin Sodium/D5w [Cefazolin 2 G/50 ml-D5w Bag] 2 gm IV Q8H #39 piggyback 06/23 [Rx] Ipratropium/Albuterol Neb [Duoneb] 3 ml IH [id number] PRN #0 inhsol 11/05/16 [Rx] Ketorolac [Toradol] 30 mg IVP Q6HR PRN #0 vial 11/05/16 [Rx] Magnesium Oxide [Mag-Ox] 400 mg PO BID tablet 11/05/16 [Rx] Nicotine Patch [Nicoderm] 21 mg TD DAILY #30 patch.td24 11/05/16 [Rx] Oxycodone HCl/Acetaminophen [Percocet 5-325 mg Tablet] 1 each PO Q6H #30 tablet 11/05/16 [Rx] metroNIDAZOLE [Flagyl] 500 mg PO TID #90 tablet 11/05/16 [Rx] Allergies No Known Allergies Allergy (Verified 10/29/16 03:52) All Systems Review: A 10-system review of systems was performed and is negative for pertinent findings except as documented above in the HPI. Physical Examination Vital Signs, Last 4 Hours Temp Pulse Resp BP Pulse Ox 11/10/16 15:51 99.0 F 106 16 125/83 96 General: Conversant, No Apparent Distress Neck: No JVD, Normal carotid pulses Cardiac: Reg Rate and Rhythm, Normal S1 and S2, No Murmur Lungs: Normal Breath Sounds (Left lung hidalgo.), Decreased breath sounds (Right lung hidalgo.) Neuro: Alert and responsive, No focal deficits noted, Motor nerves intact, Sensory nerves intact Vascular: Normal capillary refill Abdomen: Soft, Non-tender Skin: No rashes noted on visualized skin Extremities: No Clubbing, No Cyanosis, No Edema, Normal Pulses Results 11/09/16 14:19 11/07/16 03:52 - Imaging Chest Xray: image reviewed (Right lower lobe pneumonia. Increased right pleural effusion.) Consult Discharge Plan - Plan Instructions: Oxycodone/Acetaminophen (By mouth), Cefazolin (Injection), Sepsis (DC), Pneumonia (DC), Cigarette Smoking and Your Health, Flaking Roll Operator (GEN) Additional Instructions: Patient has been advised to quit smoking. Patient has been advised to discontinue IV drug use. Patient will need to strictly follow antibiotic regimen to allow recovery from pneumonia. Referrals: NO,PCP [Primary Care Provider] - Prescriptions: Cefazolin Sodium/D5w [Cefazolin 2 G/50 ml-D5w Bag] 2 gm IV Q8H #39 piggyback Oxycodone HCl/Acetaminophen [Percocet 5-325 mg Tablet] 1 each PO Q6H #30 tablet
[2016-11-10] MEDS ORDERED: Vancomycin 1,500 MG in D5% in Water 250 ML IVPB SCH (18:00)
[2016-11-10] MEDS ORDERED: Vancomycin 1,750 MG in D5% in Water 250 ML IVPB SCH (18:00)
[2016-11-10] MEDS: Piperacillin/Tazobactam 3.375 GM in D5% in Water (Mini-Bag+) 100 ML IVPB SCH (20:58)
[2016-11-10] MEDS: Vancomycin 1,500 MG in D5% in Water 250 ML IVPB SCH (20:59)
[2016-11-10] MEDS: Acetaminophen 325 MG TABLET PO PRN (22:56)
[2016-11-10] MEDS: *HR* LORazepam 2 MG/ML VIAL IVP PRN (22:57)
[2016-11-10] MEDS ORDERED: Acetaminophen 325 MG TABLET PO PRN (23:05)
[2016-11-11] MEDS: *HR* HYDROmorphone (PF) 1 MG/ML SYRINGE IVP PRN ×4 (03:16→20:56)
[2016-11-11] MEDS: Piperacillin/Tazobactam 3.375 GM in D5% in Water (Mini-Bag+) 100 ML IVPB SCH ×3 (03:17→20:34)
[2016-11-11] MEDS: Vancomycin 1,500 MG in D5% in Water 250 ML IVPB SCH (03:17)
[2016-11-11] MEDS: traMADol 50 MG TABLET PO PRN (05:38)
[2016-11-11] MEDS: *HR* LORazepam 2 MG/ML VIAL IVP PRN (05:42)
[2016-11-11] MEDS: *HR* Heparin 5,000 UNIT/ML VIAL SQ SCH ×3 (05:42→20:38)
[2016-11-11 06:13] LABS: Hematocrit 31.5 % (35.3-44.9); Hemoglobin 10.3 g/dL (11.5-15.4); Mean Corpuscular HGB Conc 32.7 g/dL (31.6-35.5); Mean Corpuscular Hemoglobin 28.9 pg (28.0-33.3); Mean Corpuscular Volume 88.5 fL (83.0-100.0); Platelet Count 429 K/mcL (140-400); Red Blood Count 3.56 M/mcL (3.82-4.97); Red Cell Distribution Width 13.2 % (11.5-14.5)
[2016-11-11 06:29] LABS: Alanine Aminotransferase 12 Units/L (0-55); Albumin 2.1 g/dL (3.5-5.0); Albumin/Globulin Ratio 0.4 (1.1-2.2); Alkaline Phosphatase 91 Units/L (38-126); Aspartate Amino Transferase 7 Units/L (5-34); BUN/Creatinine Ratio 9 (6-26); Bilirubin,Direct 0.2 mg/dL (0.0-0.5); Bilirubin,Indirect 0.1 mg/dL (0.0-1.2); Bilirubin,Total 0.3 mg/dL (0.2-1.2); Blood Urea Nitrogen 8 mg/dL (7-20); Calcium 9.1 mg/dL (8.6-10.8); Carbon Dioxide 26 mEq/L (19-29); Chloride 98 mEq/L (98-109); Globulin 5.2 g/dL (2.4-3.5); Glucose 137 mg/dL (70-99); Osmolality,Calculated 274 (280-300); Potassium 3.7 mEq/L (3.5-4.5); Sodium 132 mEq/L (136-145); Total Protein 7.3 g/dL (6.0-8.3); eGFR For African Americans > 60 (> 60); eGFR For Non-African Americans > 60 (> 60)
--- NOTE | 2016-11-11 08:42 | Anesthesia Evaluation PreOp ---
Date of Encounter: 11/11/16 Time of Encounter: 12:15 - Past History Planned Operation: right thoracotomy with decortication Cardiac History: Denies any Significant Hx Pulmonary History: Smoker, Pack/yr (1ppd x 10yrs) HEEL FINISHER History: Denies Any Significant HX Other Medical History: Other (iv drug abuse) Anesthesia History: No Prior Anesthetic Complications, Past Anesthesia (T&A) : No Test: Negative (on 11/02) Alcohol Use: none Drug use: IVDU (IV Heroin) Medications and Allergies Acetaminophen [Tylenol] 650 mg PO Q6HR PRN #0 tablet 11/05/16 [Rx] Cefazolin Sodium/D5w [Cefazolin 2 G/50 ml-D5w Bag] 2 gm IV Q8H #39 piggyback 06/23 [Rx] Ipratropium/Albuterol Neb [Duoneb] 3 ml IH [id number] PRN #0 inhsol 11/05/16 [Rx] Ketorolac [Toradol] 30 mg IVP Q6HR PRN #0 vial 11/05/16 [Rx] Magnesium Oxide [Mag-Ox] 400 mg PO BID tablet 11/05/16 [Rx] Nicotine Patch [Nicoderm] 21 mg TD DAILY #30 patch.td24 11/05/16 [Rx] Oxycodone HCl/Acetaminophen [Percocet 5-325 mg Tablet] 1 each PO Q6H #30 tablet 11/05/16 [Rx] metroNIDAZOLE [Flagyl] 500 mg PO TID #90 tablet 11/05/16 [Rx] Allergies No Known Allergies Allergy (Verified 10/29/16 03:52) - Meds/Allergy Pre-op Review Medications Reviewed: Yes Allergies Reviewed: Yes Beta Blockers on Current Med List: No Anesthesia Results - Labs 11/11/16 05:24 11/11/16 05:24 - Imaging Chest x-ray: report reviewed Anesthesia Exam Selected Entries 11/11/16 07:00 Temperature 97.8 F Pulse Rate 94 Respiratory Rate 17 Blood Pressure 107/68 O2 Sat by Pulse Oximetry 96 Weight: 121kg NPO (# of Hours): 8 - HEENT Pupil (Motor): EOMI Mallampati: II Teeth: Normal Oral Opening: Greater than 3 - HEEL FINISHER LOC: Oriented HEEL FINISHER Motor: Normal RUE, Normal LUE, Normal RLE, Normal LLE, Normal Face HEEL FINISHER Sensory: Normal: RUE, LUE, RLE, LLE, Face - Cardiac Rhythm: Regular Murmur: None - Pulmonary Breath Sounds: left Clear, right Rhonchi (decreased sounds) Respiratory Effort: Symmetrical Anesthesia Assess/Plan ASA Score: 3 Modified [place] Scale for Level of Consciousness: Cooperative, oriented, and tranquil Anesthetic Plan: General Monitoring Plan: Standard Monitors, A-Line Recovery Plan: ICU (discussed risks of GA and a-line. Will not do epidural due to infection and patient size. Agrees to proceed)
[2016-11-11] MEDS: Nicotine 21 MG PATCH.TD24 TD SCH (09:12)
[2016-11-11] MEDS: Sennosides/Docusate Sodium TABLET PO SCH ×2 (09:13→20:34)
[2016-11-11] MEDS: Magnesium Oxide 400 MG TABLET PO SCH ×2 (09:13→20:34)
--- NOTE | 2016-11-11 09:46 | Internal Med Progress Note ---
<Keke Ovalles Priscila - Last Filed: 11/11/16 09:43> Date of Encounter: 11/11/16 Time of Encounter: 09:44 - Assessment and plan (1) Necrotizing pneumonia Current Visit: Yes Status: Acute Assessment and plan: 26/ background history of IV drug abuse. was recently treated with Azithromycin for CAP. She did not complete the course. she started getting worse inspite being on antibiotics. repeat Imaging suggestive of pulmonary abscess. started on broad spectrum after blood culture. pulmonary on board .underwent bronchoscopy. plan will get 2 D Echo to rule out IE cont abx. cont present treatment. 11/01/2016 Noted that patient's blood culture is negative so far. Respiratory culture is growing gram-positive cocci/gram-negative rods. This is likely a sample from bronchoalveolar lavage. Sputum culture is negative so far. Patient is presently on vancomycin/Zosyn. We will continue same treatment at this point 11/02/2016 Bronchoalveolar lavage: Right lower lobe: Klebsiella pneumonia: Pansensitive organism Gram-positive cocci. Day 4: Zosyn Day 3: Vancomycin Blood cultures negative so far ( one set from 10/30 and another set from 10/31) Noted patient had a spike fever: MAXIMUM TEMPERATURE 100.5 Patient meets 3 minor criteria from modified [place] criteria for infective endocarditis. Possible septic emboli, fever more than 100.4, history of intravenous drug using in the recent past Plan: Will continue same treatment for now. Will order serum rheumatoid factor. We will get transesophageal echocardiogram. 11/10 day 12 of 14 IV abx ID following, will follow their recommendations for abx therapy will need POoutpt abx therapy in addition to IV abx increased WBC count despite multiple days of antibiotics last chest imaging was 10/30, will repeat imaging with CXR and possibly follow up CT scan 11/11/16 days 13 IV abx follow ID recommendation CT scan with large loculated effusion CTsurgery consulted plan for thoracotomy and decortication this afternoon (2) Cavitary pneumonia Current Visit: Yes Status: Acute (3) IVDU (intravenous drug user) Current Visit: Yes Status: Acute Assessment and plan: hx of IVD use, heroin, with last use one week before admission. Patient met 3 dukes criteria: IVDU, fever, septic emboli, BEKA negative for endocarditis, Blood cultures negative. application services manager following (4) Klebsiella pneumoniae pneumonia Current Visit: Yes Status: Acute Qualifiers: Laterality: right Lung location: lower lobe of lung Qualified Code(s): J15.0 - Pneumonia due to Klebsiella pneumoniae (5) Pleural effusion Current Visit: Yes Status: Acute Assessment and plan: previous chest imaging with pleural effusion repeat CXR today with worsening pleural effusion CT scan with worsened, large loculated effussion CT surgery plan for thoracotomy and decortication this afternoon (6) Sepsis Current Visit: Yes Status: Acute Assessment and plan: likely pulmonary origin leukocytosis worsening hypertension, tachycardia and low grade temp improving +MSSA + Klebsiella ctx continue cefazolin and flagell follow ID recommendation Qualifiers: Sepsis type: methicillin susceptible Staphylococcus aureus Qualified Code(s ): A41.01 - Sepsis due to Methicillin susceptible Staphylococcus aureus (7) DVT prophylaxis Current Visit: Yes Status: Acute Assessment and plan: SQ heparin scd (8) Empyema lung Current Visit: Yes Status: Acute Assessment and plan: CT scan with large loculated effusion CT surgery on board - Subjective Interval history: 26 yo IVDU with necrotizing pneumonia, MSSA +, Klebsiella + on day 12 of 14 IV abx with cefazolin and PO flagell. Pt states she has severe pain with deep breathing She states her dyspnea and coughing has improved compared to admission , but is having worsened dyspnea with deep breathing and feels like her breath is being "cut off" and is having pain with deep inspiration. denies chest pain, LE edema - Constitutional Vitals: Temp Pulse Resp BP Pulse Ox 97.8 F 94 17 107/68 96 11/11/16 07:00 11/11/16 07:00 11/11/16 07:00 11/11/16 07:00 11/11/16 07:00 General appearance: Present: A&O X 3, obese - Head Head exam: Present: atraumatic, normocephalic - Eye Eye exam: Present: PERRL, conjuntiva pink, sclera anicteric Pupils: Present: PERRL - Neck Neck exam general surgery: Present: supple, trachea midline. Absent: lymphadenopathy - Respiratory Respiratory exam: Present: decreased breath sounds (on right). Absent: accessory muscle use, rales, rhonchi, wheezes - Cardiovascular Cardiovascular exam: Present: RRR, +S1, +S2. Absent: diastolic murmur, gallop, rubs, systolic murmur - GI/Abdominal GI/Abdominal exam: Present: normal bowel sounds, soft, no peritoneal signs. Absent: distended, tenderness - Extremities Exam Extremities exam: Present: warm, radial pulses palpable and symetrical. Absent : calf tenderness, cyanotic, pedal edema - Neurological Exam Neurological exam: Present: CN II-XII intact, oriented X3, no focal deficits. Absent: pronater drift, facial droop, speech deficit - Skin Skin exam: Present: dry, intact Internal Medicine: Result - Labs CBC & Chem 7: 11/11/16 05:24 11/11/16 05:24 Labs: Short CBC 11/11/16 Range/Units 05:24 WBC 16.1 H (4.3-11.1) K/mcL Hgb 10.3 L (11.5-15.4) g/dL Hct 31.5 L (35.3-44.9) % Plt Count 429 H (140-400) K/mcL BMP 11/11/16 05:24 Sodium 132 L Potassium 3.7 Chloride 98 Carbon Dioxide 26 BUN 8 Creatinine 0.85 Glucose 137 H Calcium 9.1 Liver Function 11/11/16 Range/Units 05:24 Total Bilirubin 0.3 (0.2-1.2) mg/dL Direct Bilirubin 0.2 (0.0-0.5) mg/dL AST 7 (5-34) Units/L ALT 12 (0-55) Units/L Alkaline Phosphatase 91 (38-126) Units/L Albumin 2.1 L (3.5-5.0) g/dL - ABG Interpretation ABG results: PT/INR, D-dimer D-Dimer 1035 ng/mLFEU (0-500) H 10/30/16 09:28 - Impressions Impressions Chest X-Ray 11/10/16 09:07 IMPRESSION: Right lower lobe pneumonia with increased right effusion D/ / Clint Corbin MD / Clint Corbin MD Interpreting Provider: Clint Corbin MD Chest CT 11/10/16 13:30 IMPRESSION: Increased size of right pleural effusion as compared to prior exam dated 10/30/2016, now large in size and loculated. Right lower lobe collapse with 8 mm focus of peripheral hypodensity and air, suspicious for necrosis or intrapulmonary abscess. Partial atelectasis or pneumonia of the right middle and upper lobes. Patchy left lower lobe atelectasis with trace left pleural effusion. Enlarging mediastinal lymph nodes, likely reactive. D/ / Cornelius Ferrera MD / Cornelius Ferrera MD Interpreting Provider: Cornelius Ferrera MD Consult Discharge Plan - Plan Instructions: Oxycodone/Acetaminophen (By mouth), Cefazolin (Injection), Sepsis (DC), Pneumonia (DC), Cigarette Smoking and Your Health, Nuclear Control Operator (GEN) Additional Instructions: Patient has been advised to quit smoking. Patient has been advised to discontinue IV drug use. Patient will need to strictly follow antibiotic regimen to allow recovery from pneumonia. Referrals: NO,PCP [Primary Care Provider] - Prescriptions: Cefazolin Sodium/D5w [Cefazolin 2 G/50 ml-D5w Bag] 2 gm IV Q8H #39 piggyback Oxycodone HCl/Acetaminophen [Percocet 5-325 mg Tablet] 1 each PO Q6H #30 tablet <Arun De La Cruz - Last Filed: 11/11/16 17:43> Date of Encounter: 11/11/16 - Assessment and plan (1) Pulmonary abscess Current Visit: Yes Status: Acute Qualifiers: Pulmonary abscess pneumonia presence: with pneumonia Laterality: right Lung location: lower lobe of lung Qualified Code(s): J85.1 - Abscess of lung with pneumonia (2) Empyema lung Current Visit: Yes Status: Acute (3) IVDU (intravenous drug user) Current Visit: Yes Status: Acute (4) Tobacco use Current Visit: Yes Status: Chronic (5) Hepatitis B antibody positive in blood Current Visit: Yes Status: Acute (6) Pleuritic chest pain Current Visit: Yes Status: Acute (7) Cavitary pneumonia Current Visit: Yes Status: Acute - Constitutional Vitals: Temp Pulse Resp BP Pulse Ox 97.5 F L 116 9 115/66 92 11/11/16 16:30 11/11/16 16:30 11/11/16 17:09 11/11/16 16:30 11/11/16 17:09 Internal Medicine: Result - Labs CBC & Chem 7: 11/11/16 16:20 11/11/16 16:20 Labs: Short CBC 11/11/16 11/11/16 Range/Units 05:24 16:20 WBC 16.1 H 39.1 H* D (4.3-11.1) K/mcL Hgb 10.3 L 10.8 L (11.5-15.4) g/dL Hct 31.5 L 32.5 L (35.3-44.9) % Plt Count 429 H 569 H (140-400) K/mcL Neutrophils # 36.8 H (1.6-8.9) K/mcL BMP 11/11/16 11/11/16 05:24 16:20 Sodium 132 L 133 L Potassium 3.7 4.6 H Chloride 98 100 Carbon Dioxide 26 26 BUN 8 10 Creatinine 0.85 0.77 Glucose 137 H 150 H Calcium 9.1 8.6 Liver Function 11/11/16 Range/Units 05:24 Total Bilirubin 0.3 (0.2-1.2) mg/dL Direct Bilirubin 0.2 (0.0-0.5) mg/dL AST 7 (5-34) Units/L ALT 12 (0-55) Units/L Alkaline Phosphatase 91 (38-126) Units/L Albumin 2.1 L (3.5-5.0) g/dL - ABG Interpretation ABG results: PT/INR, D-dimer D-Dimer 1035 ng/mLFEU (0-500) H 10/30/16 09:28 - Impressions Impressions Chest X-Ray 11/11/16 15:43 IMPRESSION: Chest tube in good position. No pneumothorax. Significantly decreased right pleural effusion, [id number] residual appears present Diffuse right-sided airspace disease, atelectasis versus edema. D/ / Gamal Hooker MD / Gamal Hooker MD Interpreting Provider: Gamal Hooker MD - Attending Attestation I examined this patient and my medical decision-making was reviewed with the Resident Physician on 11/11/16. I agree with the documented findings, disposition and treatment plan as described except to the extent set forth below. Ms. Machado is currently admitted for acute pneumonia with associated empyema and abscess. She is high risk due to potential for worsening respiratory status. Ms. Machado is going to OR today. She is still having a lot of pain. No fever. No GI symptoms. Exam Alert. Moderate distress due to pain Heart reg Lungs diminished I/P 1. Pneumonia with empyema and abscess 2. IVDU For OR today and then to ICU.
--- NOTE | 2016-11-11 10:43 | Infectious Disease Progress No ---
Date of Encounter: 11/11/16 Time of Encounter: 10:41 - Assessment and Plan (1) Sepsis Current Visit: Yes Status: Acute The patient had fever, leukocytosis, and tachycardia. Likely secondary to cavitary pneumonia and empyema. The patient has been afebrile overnight. She continues to have some intermittent tachycardia. The patient has persistent leukocytosis. Blood cultures drawn 10/30/16 x 2 sets are negative. Additional blood cultures drawn 10/31/16 are negative x 2 sets. Repeat blood cultures drawn 11/09/16 are NGTD x 2 sets. Qualifiers: Sepsis type: methicillin susceptible Staphylococcus aureus Qualified Code(s ): A41.01 - Sepsis due to Methicillin susceptible Staphylococcus aureus (2) Leukocytosis Current Visit: Yes Status: Acute WBC 16 this morning. Likely secondary to empyema. Continue to trend. Qualifiers: Leukocytosis type: unspecified Qualified Code(s): D72.829 - Elevated white blood cell count, unspecified (3) Cavitary pneumonia Current Visit: Yes Status: Acute Location: Right lower lobe. Causative organism: MSSA and K. pneumoniae. CXR completed 10/30/16 showed worsening consolidative changes in the right lung base. CTA of the chest completed 10/30/16 was negative for PE, but showed 4.5cm x 3.7cm hypoenhancing area of collapsed RLL with central cavitation suspicious for necrotizing PNA with potential pulmonary abscess. There were also findings consistent with bronchitis and a 0.5cm x 0.3cm VENESSA nodule. Pulmonology consulted and following. Status post bronchoscopy 10/30/16 that showed mucopurulent secretions in the RLL. Bronch washings sent for culture, AFB, and fungal. Culture came back positive for MSSA and K. pneumoniae. Repeat CXR this morning shows persistent RLL pneumonia with an increased right effusion. CT scan of the chest shows a loculated pleural effusion. CTS consulted. The patient has been on IV antibiotics for 12 days since bronchoscopy. Continue cefazolin 2 grams IV Q8H. Continue flagyl 500mg PO TID. Duration of treatment depends on the clinical picture. business services analyst has been consulted and is working on placement for the patient on discharge. Monitor renal function and dose-adjust antibiotics. (4) IVDU (intravenous drug user) Current Visit: Yes Status: Acute The patient reports IV heroin use several times per week prior to admission. Reports that she sometimes shares needles. HIV negative. Hepatitis BsAg reactive. (5) Tobacco abuse Current Visit: Yes Status: Acute (6) Hepatitis B antibody positive in blood Current Visit: Yes Status: Acute Hep Bs antibody 0.00. Hep B core total antibody negative. Hep B core IgM antibody non-reactive. Unclear diagnosis given the lab results. Repeat labs in 4 weeks. (7) Pain of left calf Current Visit: Yes Status: Resolved Etiology unclear. No warmth, tenderness, or nodule noted. Negative Hayley's sign. Patient reports pain has resolved. (8) Pleural effusion Current Visit: Yes Status: Acute Repeat CXR 11/10/16 shows increased right effusion. CT scan shows increased size of the right pleural effusion as compared to prior exam dated 10/30/16, now large in size and loculated. There is also right lower lobe collapse with 8mm focus of peripheral hypodensity and air, suspicious for necrosis or intrapulmonary abscess. CTS consulted. Plan for thoracotomy today. - Subjective Interval history: Patient seen and examined. No acute events noted overnight. Patient states she still feels poorly today and continues to have pain in her right lateral, posterior, and anterior chest wall. Denies fevers, chills, or rigors. States she is no longer short of breath, but the pain makes it difficult to take a deep breath and she continues to report some cough productive of white/yellow sputum but states it is better. Denies vomiting, or diarrhea, but does complain of some intermittent nausea. She is NPO for surgery later today. Denies urinary complaints. Denies oral thrush or skin lesions. Infect Dis PN-Objective Data - Labs CBC & Chem 7: 11/11/16 05:24 11/11/16 05:24 Labs: Laboratory Results - last 24 hr 11/10/16 11/11/16 11/11/16 20:08 05:24 05:24 WBC 16.1 H RBC 3.56 L Hgb 10.3 L Hct 31.5 L MCV 88.5 MCH 28.9 MCHC 32.7 RDW 13.2 Plt Count 429 H MPV 9.0 L Sodium 132 L Potassium 3.7 Chloride 98 Carbon Dioxide 26 BUN 8 Creatinine 0.85 Est GFR ( Amer) > 60 Est GFR (Non-Af Amer) > 60 BUN/Creatinine Ratio 9 Glucose 137 H Calculated Osmolality 274 L Calcium 9.1 Total Bilirubin 0.3 Direct Bilirubin 0.2 Indirect Bilirubin 0.1 AST 7 ALT 12 Alkaline Phosphatase 91 Serum Total Protein 7.3 Albumin 2.1 L Globulin 5.2 H Albumin/Globulin Ratio 0.4 L Blood Type A POSITIVE Antibody Screen NEGATIVE Cultures: Cultures 11/09/16 15:45 Blood Culture - Preliminary Peripheral Venipuncture No growth. 11/09/16 15:40 Blood Culture - Preliminary Peripheral Venipuncture No growth. 10/31/16 17:08 Blood Culture - Final Peripheral Venipuncture No growth. 10/31/16 17:08 Blood Culture - Final Peripheral Venipuncture No growth. 10/31/16 12:10 Sputum Culture - Final Sputum Staphylococcus aureus 10/30/16 15:26 Respiratory Culture - Final Right Lower Lobe Lung Klebsiella pneumoniae Staphylococcus aureus 10/30/16 15:26 Acid Fast Stain - Final Right Lower Lobe Lung 10/30/16 23:00 Legionella Antigen - Final Urine,Clean Catch Streptococcus pneumoniae Antigen (M - Final Serology 11/06/16 11/06/16 11/05/16 Range/Units 04:48 04:48 03:47 Nasal Screen MRSA (PCR) (Negative) Hepatitis A IgM Ab (Nonreactive) Hep Bs Antigen (Nonreactive) Hep Bs Ag Confirmation POSITIVE A (Non Confirmed) Hep Bs Antibody 0.00 mIU/mL Hep B Core Total Ab NEGATIVE (Negative) Hep B Core IgM Ab Nonreactive (Nonreactive) Hepatitis C Ab Screen (Nonreactive) HIV Ag/Ab Combo Qual (Nonreactive) 11/05/16 10/31/16 Range/Units 03:47 06:50 Nasal Screen MRSA (PCR) Negative (Negative) Hepatitis A IgM Ab Nonreactive (Nonreactive) Hep Bs Antigen Reactive H (Nonreactive) Hep Bs Ag Confirmation (Non Confirmed) Hep Bs Antibody mIU/mL Hep B Core Total Ab (Negative) Hep B Core IgM Ab Nonreactive (Nonreactive) Hepatitis C Ab Screen Nonreactive (Nonreactive) HIV Ag/Ab Combo Qual Nonreactive (Nonreactive) - Impressions Impressions Chest CT 11/10/16 13:30 IMPRESSION: Increased size of right pleural effusion as compared to prior exam dated 10/30/2016, now large in size and loculated. Right lower lobe collapse with 8 mm focus of peripheral hypodensity and air, suspicious for necrosis or intrapulmonary abscess. Partial atelectasis or pneumonia of the right middle and upper lobes. Patchy left lower lobe atelectasis with trace left pleural effusion. Enlarging mediastinal lymph nodes, likely reactive. D/ / Cornelius Ferrera MD / Cornelius Ferrera MD Interpreting Provider: Cornelius Ferrera MD Exam - Constitutional Vitals: Temp Pulse Resp BP Pulse Ox 97.8 F 94 17 107/68 96 11/11/16 07:00 11/11/16 07:00 11/11/16 07:00 11/11/16 07:00 11/11/16 07:00 General appearance: cooperative, morbidly obese, no acute distress - Head Head exam: Present: atraumatic, normal inspection, normocephalic - Eye Eye exam: Present: EOMI, normal appearance, PERRL Pupils: Present: normal accommodation - ENT ENT exam: Present: mucous membranes moist - Neck Neck exam: Present: normal inspection - Respiratory Respiratory exam: Present: CTAB. Absent: rales, respiratory distress, rhonchi, wheezes - Cardiovascular Cardiovascular exam: Present: RRR, +S1, +S2 - GI/Abdominal GI/Abdominal exam: Present: distended (obese), normal bowel sounds, soft. Absent: tenderness - Extremities Exam Extremities exam: Present: normal inspection. Absent: joint swelling, pedal edema, tenderness - Neurological Exam Neurological exam: Present: alert, oriented X3, no focal deficits - Psychiatric Psychiatric exam: Present: normal affect, normal mood - Skin Skin exam: Present: dry, intact, normal color, warm Consult Discharge Plan - Plan Instructions: Oxycodone/Acetaminophen (By mouth), Cefazolin (Injection), Sepsis (DC), Pneumonia (DC), Cigarette Smoking and Your Health, Sock Turner (GEN) Additional Instructions: Patient has been advised to quit smoking. Patient has been advised to discontinue IV drug use. Patient will need to strictly follow antibiotic regimen to allow recovery from pneumonia. Referrals: NO,PCP [Primary Care Provider] - Prescriptions: Cefazolin Sodium/D5w [Cefazolin 2 G/50 ml-D5w Bag] 2 gm IV Q8H #39 piggyback Oxycodone HCl/Acetaminophen [Percocet 5-325 mg Tablet] 1 each PO Q6H #30 tablet - Attending Attestation I examined this patient and my medical decision-making was reviewed with the ZOO CARETAKER/PA/Advanced Practice Nurse/Resident Physician. I agree with the documented findings, disposition and treatment plan as described except to the extent set forth below.
[2016-11-11] MEDS ORDERED: ceFAZolin 2,000 MG in D5% in Water (Mini-Bag+) 100 ML IVPB ONE (12:00)
[2016-11-11] MEDS ORDERED: *HR* Phenylephrine 10 MG/ML VIAL ONE (12:13)
[2016-11-11] MEDS ORDERED: *HR* Rocuronium Bromide 50 MG/5 ML VIAL ONE ×4 (12:13→14:28)
[2016-11-11] MEDS ORDERED: *HR* Midazolam HCl 5 MG/5 ML VIAL IVP ONE (12:15)
[2016-11-11] MEDS ORDERED: *HR* FentaNYL (PF) 250 MCG/5 ML VIAL ONE (12:15)
[2016-11-11] MEDS ORDERED: *HR* Propofol 200 MG/20 ML VIAL IVP ONE (12:15)
[2016-11-11] MEDS ORDERED: Heparin 1,000 UNITS/500 mL NS 500 ML ONE (12:22)
[2016-11-11] MEDS ORDERED: *HR* Morphine 10 MG/ML VIAL ONE ×2 (13:54→14:42)
[2016-11-11] MEDS ORDERED: Ondansetron 4 MG/2 ML VIAL ONE (14:28)
[2016-11-11] MEDS ORDERED: Dexamethasone 4 MG/ML VIAL ONE (14:28)
[2016-11-11] MEDS ORDERED: *HR* OxyCODONE/APAP 5/325 TABLET PO PRN (15:42)
[2016-11-11] MEDS ORDERED: *HR* Morphine 2 MG/ML SYRINGE IVP PRN (15:42)
--- NOTE | 2016-11-11 15:42 | Operative Note ---
Date of procedure: 11/11/16 Pre-op diagnosis: Right thoracic empyema. Post-op diagnosis: same Procedure: 1. Right posterolateral thoracotomy. 2. Decortication, complete. Implants: None. Complications: None. Anesthesia: JASON Surgeon: Vandana Amaya [employer] Relay Tester: Sushant Lee Specimen: 1. Right pleural fluid (for culture) 2. Right pleural peel Condition: stable Disposition: ICU Procedure in Detail: INDICATIONS FOR OPERATION: The patient is a 26 year old lady with history of IV drug abuse who developed a nonproductive cough approximately 1 month ago. She had a cough for approximately 2 weeks prior to seeking echo evaluation at [facility]. At that time she was diagnosed pneumonia and given an intramuscular antibiotic injection. She had no improvement in her symptoms, and in fact the cough became productive. She also developed right lateral chest pain. She was evaluated at [facility] emergency department on October 30, 2016. A chest CT performed at that time showed a 4.5 cm x 3.7 cm hypoenhancing area of collapse in the right lower lobe consistent with necrotizing pneumonia with potential pulmonary abscess formation. A trace right pleural effusion was also noted. and admitted for IV antibiotic therapy. The patient was admitted for IV antibiotic therapy. During her hospitalization patient has had progression of her pulmonary complaints. She has a persistent productive cough and the cultures grown both Klebsiella pneumonia and methicillin sensitive Staphylococcus aureus. She has had persistent right lateral chest pain and an increasing white count. A chest CT performed today revealed a large loculated right pleural effusion. I have been asked to evaluate the patient for right thoracotomy and decortication. FINDINGS AT OPERATION: The patient had a 5-6 mm thick parietal peel. There were multiple loculated fluid and involving the right lower lobe and right middle lobe. The pleural fluid was yellow and turbid. An area of perforation from a pulmonary abscess was noted in the right lower lobe, lateral segment. DESCRIPTION OF OPERATION: After obtaining informed consent from the patient, she was taken to the operative versus satisfactory general endotracheal anesthetic was induced. Appropriate monitoring lines were placed, and a double-lumen endotracheal tube was inserted. The patient was turned in the left lateral decubitus position and her right lateral chest was prepped and draped in a sterile fashion. A posterior lateral thoracotomy incision was made through the skin and subcutaneous tissue. The latissimus dorsi muscle group was divided and the serratus anterior muscle group reflected medially. The fifth intercostal space was entered. The ribs were with difficulty due to the depth of the incision. At this point it was decided to divide the serratus anterior muscle group to facilitate general thoracic exploration. Upon entering the chest a large amount of yellow turbid loculated fluid was noted, prickly involving the right lower lobe and the right middle lobe. These loculations were taken down and the fluid removed. The pleural fluid was altered and sent for aerobic, anaerobic, fungal, and TB cultures. A 5-6 mm thick parietal peel was then removed from the chest wall and a thinner , 1-2 mm thick visceral peel was removed from the right lower lobe and right middle lobe. There was little involvement of the right upper lobe. An area of perforation was noted in the lateral portion of the right lower lobe, probably from a pulmonary abscess. The chest was then irrigated with 5 L of saline solution. Two 32 Albanian chest tubes were placed, one anteriorly and one posteriorly. The ribs reapproximated using #1 Vicryl suture. The serratus anterior muscle group, latissimus dorsi muscle group, subcutaneous tissue, and skin edges reapproximated using running Vicryl sutures. Sterile dressings were applied. The patient was transferred to the ICU in satisfactory postoperative condition. There were no intraoperative complications, and the instrument, needle, and sponge count were corrected and of operation.
[2016-11-11] MEDS ORDERED: 0.9 % Sodium Chloride w KCl 20 MEQ/1,000 ML MLS IVC SCH (15:45)
[2016-11-11] MEDS ORDERED: *HR* HYDROmorphone 20 MG/20 ML PCA IVC PRN (15:46)
[2016-11-11] MEDS: ceFAZolin 3,000 MG in D5% in Water 100 ML IVPB SCH ×2 (16:28→23:26)
[2016-11-11 16:48] LABS: Hemoglobin 10.8 g/dL (11.5-15.4); Red Cell Distribution Width 13.2 % (11.5-14.5)
[2016-11-11 16:49] LABS: Hematocrit 32.5 % (35.3-44.9); Mean Corpuscular HGB Conc 33.2 g/dL (31.6-35.5); Mean Corpuscular Hemoglobin 29.7 pg (28.0-33.3); Mean Corpuscular Volume 89.3 fL (83.0-100.0); Mean Platelet Volume 9.2 fL (9.4-12.4); Platelet Count 569 K/mcL (140-400); Red Blood Count 3.64 M/mcL (3.82-4.97)
[2016-11-11 16:59] LABS: BUN/Creatinine Ratio 13 (6-26); Blood Urea Nitrogen 10 mg/dL (7-20); Calcium 8.6 mg/dL (8.6-10.8); Carbon Dioxide 26 mEq/L (19-29); Chloride 100 mEq/L (98-109); Glucose 150 mg/dL (70-99); Osmolality,Calculated 278 (280-300); Potassium 4.6 mEq/L (3.5-4.5); Sodium 133 mEq/L (136-145); eGFR For African Americans > 60 (> 60); eGFR For Non-African Americans > 60 (> 60)
[2016-11-11] MEDS: Albuterol 2.5 MG/3 ML NEBULIZER IH SCH ×3 (17:08→23:48)
[2016-11-11] MEDS: Ketorolac 15 MG/ML VIAL IVP SCH ×2 (17:22→23:26)
[2016-11-11 17:33] LABS: Basophils # 0.8 K/mcL (0.0-0.2); Lymphocytes # 0.8 K/mcL (0.6-4.6); Monocytes # 0.8 K/mcL (0.0-1.3); Neutrophils # 36.8 K/mcL (1.6-8.9)
[2016-11-11 17:34] LABS: Platelet Estimate Increased (Normal)
[2016-11-11] MEDS: Vancomycin 2,000 MG in D5% in Water 500 ML IVPB SCH (18:57)
[2016-11-12] MEDS: *HR* LORazepam 2 MG/ML VIAL IVP PRN ×3 (00:39→14:06)
[2016-11-12] MEDS: Vancomycin 2,000 MG in D5% in Water 500 ML IVPB SCH ×2 (01:31→13:35)
[2016-11-12 03:38] LABS: Basophils % 0.2 %; Hematocrit 28.4 % (35.3-44.9); Hemoglobin 9.3 g/dL (11.5-15.4); Immature Granulocytes % 1.4 % (0-4); Lymphocytes # 1.4 K/mcL (0.6-4.6); Lymphocytes % 5.5 %; Mean Corpuscular HGB Conc 32.7 g/dL (31.6-35.5); Mean Corpuscular Hemoglobin 28.6 pg (28.0-33.3); Mean Corpuscular Volume 87.4 fL (83.0-100.0); Mean Platelet Volume 8.6 fL (9.4-12.4); Monocytes # 0.7 K/mcL (0.0-1.3); Monocytes % 2.7 %; Platelet Count 437 K/mcL (140-400); Red Blood Count 3.25 M/mcL (3.82-4.97); Red Cell Distribution Width 12.9 % (11.5-14.5); Segmented Neutrophils % 90.2 %
[2016-11-12] MEDS: Piperacillin/Tazobactam 3.375 GM in D5% in Water (Mini-Bag+) 100 ML IVPB SCH ×3 (03:38→18:22)
[2016-11-12 03:40] LABS: Basophils # 0.1 K/mcL (0.0-0.2); Neutrophils # 22.6 K/mcL (1.6-8.9)
[2016-11-12 03:53] LABS: BUN/Creatinine Ratio 12 (6-26); Blood Urea Nitrogen 10 mg/dL (7-20); Calcium 8.6 mg/dL (8.6-10.8); Carbon Dioxide 24 mEq/L (19-29); Chloride 97 mEq/L (98-109); Glucose 289 mg/dL (70-99); Osmolality,Calculated 278 (280-300); Potassium 4.5 mEq/L (3.5-4.5); Sodium 129 mEq/L (136-145); eGFR For African Americans > 60 (> 60); eGFR For Non-African Americans > 60 (> 60)
[2016-11-12] MEDS: Albuterol 2.5 MG/3 ML NEBULIZER IH SCH ×5 (03:54→19:44)
[2016-11-12 04:03] LABS: Platelet Estimate Increased (Normal)
[2016-11-12 04:39] LABS: ABG Base Excess 1.5 mEq/L (-2.0 to 3.0); ABG HCO3 25.9 mEQ/L (21-27); ABG Oxygen Saturation 94 % (95-98); ABG PCO2 39 mmHg (35-45); ABG PH 7.43 pH Units (7.32-7.45); ABG PO2 69 mmHg (85-104); ABG TCO2 27.1 mEq/L (20-26)
[2016-11-12 04:40] LABS: Blood Gas FiO2 28 %
[2016-11-12] MEDS: Ketorolac 15 MG/ML VIAL IVP SCH ×3 (05:30→17:44)
[2016-11-12] MEDS: *HR* Heparin 5,000 UNIT/ML VIAL SQ SCH ×3 (05:31→21:49)
--- NOTE | 2016-11-12 06:20 | Cardiothoracic Progress Note ---
Date of Encounter: 11/12/16 Time of Encounter: 06:18 - Assessment and plan (1) Empyema lung Current Visit: Yes Status: Acute The patient is recovering well from her right thoracotomy and decortication. She has remained hemodynamically stable. She is extubated and breathing comfortably. Her postoperative pain is well controlled with a Dilaudid GAS PIT WORKER. She will be transferred to the stepdown unit later today. The assessment and plan as outlined above was discussed with the patient and/or family members who expressed understanding and agreement. All questions were answered. - Subjective Procedure(s) Performed: POD#1 S/P Right thoracotomy with decortication Interval history: The patient remained hemodynamically stable overnight. She is extubated and sitting in a chair. Her postoperative pain is well controlled with the Dilaudid GAS PIT WORKER. Vital Signs, Last 4 Hours Temp Pulse Resp BP Pulse Ox 11/12/16 06:00 94 16 119/69 97 11/12/16 05:00 95 16 118/63 96 11/12/16 04:00 97.5 F L 85 16 117/62 97 11/12/16 03:55 16 96 11/12/16 03:45 86 11/12/16 03:00 88 16 108/62 98 Oxgyen Flow Rate Oxygen Flow Rate (LPM) 2 Clinical Data, last 8 Hours Output, Chest Tube Drainage 30 Amount [Right Lateral Chest #1 ] Output, Chest Tube Drainage 30 Amount [Right Lateral Chest #1 ] Output, Chest Tube Drainage 30 Amount [Right Lateral Chest #1 ] Output, Chest Tube Drainage 30 Amount [Right Lateral Chest #1 ] Output, Chest Tube Drainage 12 Amount [Right Mid-Axillary Chest #2] Output, Chest Tube Drainage 12 Amount [Right Mid-Axillary Chest #2] Output, Chest Tube Drainage 6 Amount [Right Mid-Axillary Chest #2] Output, Chest Tube Drainage 6 Amount [Right Mid-Axillary Chest #2] Output, Urine Amount 300 Weight 11/10/16 11/11/16 11/12/16 23:59 23:59 23:59 Weight 121.2 kg 117.9 kg - Physical Examination General: Conversant, No Apparent Distress Neck: No JVD, Normal carotid pulses Cardiac: Reg Rate and Rhythm, Normal S1 and S2, No Murmur Incision: No signs of infection, Dry/intact dressing Sternum: Stable Chest tubes: Minimal drainage, Other (No air leak.) Lungs: Normal Breath Sounds (Left lung hidalgo.), Decreased breath sounds (Right lung hidalgo, but improved from yesterday.) Neuro: Alert and responsive, No focal deficits noted Vascular: Normal capillary refill Extremities: No Clubbing, No Cyanosis, No Edema, Normal Pulses - Labs 11/12/16 03:30 11/12/16 03:30 Lab Results, Last 24 hours 11/11/16 11/11/16 11/11/16 05:24 16:20 16:20 WBC 39.1 H* D Hgb 10.8 L Hct 32.5 L Plt Count 569 H Sodium 132 L 133 L Potassium 3.7 4.6 H Chloride 98 100 Carbon Dioxide 26 26 BUN 8 10 Creatinine 0.85 0.77 Glucose 137 H 150 H Calcium 9.1 8.6 Total Bilirubin 0.3 AST 7 ALT 12 Alkaline Phosphatase 91 11/12/16 11/12/16 03:30 03:30 WBC 25.1 H Hgb 9.3 L D Hct 28.4 L Plt Count 437 H Sodium 129 L Potassium 4.5 Chloride 97 L Carbon Dioxide 24 BUN 10 Creatinine 0.84 Glucose 289 H Calcium 8.6 Total Bilirubin AST ALT Alkaline Phosphatase - Imaging Chest Xray: image reviewed (No pneumothorax. Improved aeration in the right lung hidalgo.) Consult Discharge Plan - Plan Instructions: Oxycodone/Acetaminophen (By mouth), Cefazolin (Injection), Sepsis (DC), Pneumonia (DC), Cigarette Smoking and Your Health, Supervisor Education (GEN) Additional Instructions: Patient has been advised to quit smoking. Patient has been advised to discontinue IV drug use. Patient will need to strictly follow antibiotic regimen to allow recovery from pneumonia. Referrals: NO,PCP [Primary Care Provider] - Prescriptions: Cefazolin Sodium/D5w [Cefazolin 2 G/50 ml-D5w Bag] 2 gm IV Q8H #39 piggyback Oxycodone HCl/Acetaminophen [Percocet 5-325 mg Tablet] 1 each PO Q6H #30 tablet
[2016-11-12] MEDS: Sennosides/Docusate Sodium TABLET PO SCH ×3 (07:25→21:50)
[2016-11-12] MEDS: Nicotine 21 MG PATCH.TD24 TD SCH ×2 (07:25→09:10)
[2016-11-12] MEDS: Magnesium Oxide 400 MG TABLET PO SCH ×3 (07:26→21:50)
[2016-11-12] MEDS: *HR* HYDROmorphone (PF) 1 MG/ML SYRINGE IVP PRN ×4 (07:26→23:00)
[2016-11-12] MEDS ORDERED: Ipratropium/Albuterol Neb 3 ML IH PRN (08:01)
[2016-11-12] MEDS ORDERED: Naloxone 0.4 MG/ML INJ IVP PRN (08:01)
[2016-11-12] MEDS ORDERED: Menthol 9.1 MG LOZENGE PO PRN (08:01)
[2016-11-12] MEDS: *HR* HYDROmorphone 20 MG/20 ML PCA IVC PRN ×2 (09:00→21:39)
[2016-11-12] MEDS ORDERED: Aminoglycoside Consult 1 EACH MC ONE (12:00)
[2016-11-12] MEDS: 0.9 % Sodium Chloride w KCl 20 MEQ/1,000 ML MLS IVC SCH (13:33)
--- NOTE | 2016-11-12 13:37 | Infectious Disease Progress No ---
Date of Encounter: 11/12/16 Time of Encounter: 13:35 - Assessment and Plan (1) Sepsis Current Visit: Yes Status: Acute The patient had fever, leukocytosis, and tachycardia. Likely secondary to cavitary pneumonia and empyema. The patient has been afebrile overnight. She continues to have some intermittent tachycardia. The patient has persistent leukocytosis. WBC 35 immediately after surgery, likely reactive. WBC down to 25 this morning. Blood cultures drawn 10/30/16 x 2 sets are negative. Additional blood cultures drawn 10/31/16 are negative x 2 sets. Repeat blood cultures drawn 11/09/16 are NGTD x 2 sets. Qualifiers: Sepsis type: methicillin susceptible Staphylococcus aureus Qualified Code(s ): A41.01 - Sepsis due to Methicillin susceptible Staphylococcus aureus (2) Leukocytosis Current Visit: Yes Status: Acute WBC 25 this morning. Likely secondary to empyema status post surgery. Continue to trend. Qualifiers: Leukocytosis type: unspecified Qualified Code(s): D72.829 - Elevated white blood cell count, unspecified (3) Pleural effusion Current Visit: Yes Status: Acute Repeat CXR 11/10/16 shows increased right effusion. CT scan shows increased size of the right pleural effusion as compared to prior exam dated 10/30/16, now large in size and loculated. There is also right lower lobe collapse with 8mm focus of peripheral hypodensity and air, suspicious for necrosis or intrapulmonary abscess. CTS consulted. Status post right thoracotomy with complete decortication 11/11/[address] Amaya. Operative note reviewed. Intra-operative cultures obtained and are pending. (4) Cavitary pneumonia Current Visit: Yes Status: Acute Location: Right lower lobe. Causative organism: MSSA and K. pneumoniae. CXR completed 10/30/16 showed worsening consolidative changes in the right lung base. CTA of the chest completed 10/30/16 was negative for PE, but showed 4.5cm x 3.7cm hypoenhancing area of collapsed RLL with central cavitation suspicious for necrotizing PNA with potential pulmonary abscess. There were also findings consistent with bronchitis and a 0.5cm x 0.3cm VENESSA nodule. Pulmonology consulted and following. Status post bronchoscopy 10/30/16 that showed mucopurulent secretions in the RLL. Bronch washings sent for culture, AFB, and fungal. Culture came back positive for MSSA and K. pneumoniae. Continue cefazolin 2 grams IV Q8H. Continue flagyl 500mg PO TID. Duration of treatment depends on the clinical picture. construction services technician has been consulted and is working on placement for the patient on discharge. Monitor renal function and dose-adjust antibiotics. 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 Reports that she sometimes shares needles. HIV negative. Hepatitis BsAg reactive. (6) Tobacco abuse Current Visit: Yes Status: Acute (7) Hepatitis B antibody positive in blood Current Visit: Yes Status: Acute Hep Bs antibody 0.00. Hep B core total antibody negative. Hep B core IgM antibody non-reactive. Unclear diagnosis given the lab results. Repeat labs in 4 weeks. (8) Pain of left calf Current Visit: Yes Status: Resolved Etiology unclear. No warmth, tenderness, or nodule noted. Negative Hayley's sign. Patient reports pain has resolved. - Subjective Interval history: Patient seen and examined. Status post thoracotomy with complete decortication by Dr. Amaya. Patient states she still has pain in the right upper back, but it is different pain and seems to be more tolerable. Denies fevers, chills, or rigors. States she is no longer short of breath, but the pain makes it difficult to take a deep breath and she continues to report some cough productive of white/yellow sputum but states it is better. Denies vomiting, or diarrhea, but does complain of some intermittent nausea. She was able to eat breakfast this morning. Denies urinary complaints. Denies oral thrush or skin lesions. Infect Dis PN-Objective Data - Labs CBC & Chem 7: 11/12/16 03:30 11/12/16 03:30 Labs: Laboratory Results - last 24 hr 11/11/16 11/11/16 11/12/16 16:20 16:20 03:30 WBC 39.1 H* D 25.1 H RBC 3.64 L 3.25 L Hgb 10.8 L 9.3 L D Hct 32.5 L 28.4 L MCV 89.3 87.4 MCH 29.7 28.6 MCHC 33.2 32.7 RDW 13.2 12.9 Plt Count 569 H 437 H MPV 9.2 L 8.6 L Immature Gran % 1.4 Seg Neutrophils % 88.0 90.2 Band Neutrophils % 6.0 H Lymphocytes % 2.0 5.5 Monocytes % 2.0 2.7 Eosinophils % 0.0 Basophils % 2.0 0.2 Neutrophils # 36.8 H 22.6 H Lymphocytes # 0.8 1.4 Monocytes # 0.8 0.7 Eosinophils # 0.0 Basophils # 0.8 H 0.1 Platelet Estimate Increased H Increased H ABG pH ABG pCO2 ABG pO2 ABG HCO3 ABG Total CO2 ABG O2 Saturation ABG Base Excess Blood Gas Modality Inspired O2 Sodium 133 L Potassium 4.6 H Chloride 100 Carbon Dioxide 26 BUN 10 Creatinine 0.77 Est GFR ( Amer) > 60 Est GFR (Non-Af Amer) > 60 BUN/Creatinine Ratio 13 Glucose 150 H Calculated Osmolality 278 L Calcium 8.6 11/12/16 11/12/16 03:30 04:32 WBC RBC Hgb Hct MCV MCH MCHC RDW Plt Count MPV Immature Gran % Seg Neutrophils % Band Neutrophils % Lymphocytes % Monocytes % Eosinophils % Basophils % Neutrophils # Lymphocytes # Monocytes # Eosinophils # Basophils # Platelet Estimate ABG pH 7.43 ABG pCO2 39 ABG pO2 69 L ABG HCO3 25.9 ABG Total CO2 27.1 H ABG O2 Saturation 94 L ABG Base Excess 1.5 Blood Gas Modality NC Inspired O2 28 Sodium 129 L Potassium 4.5 Chloride 97 L Carbon Dioxide 24 BUN 10 Creatinine 0.84 Est GFR ( Amer) > 60 Est GFR (Non-Af Amer) > 60 BUN/Creatinine Ratio 12 Glucose 289 H Calculated Osmolality 278 L Calcium 8.6 Cultures: Cultures 11/11/16 13:48 Acid Fast Stain - Final Pleural Fluid 11/11/16 13:48 Body Fluid Culture - Preliminary Pleural Fluid 11/09/16 15:45 Blood Culture - Preliminary Peripheral Venipuncture No growth. 11/09/16 15:40 Blood Culture - Preliminary Peripheral Venipuncture No growth. 10/31/16 17:08 Blood Culture - Final Peripheral Venipuncture No growth. 10/31/16 17:08 Blood Culture - Final Peripheral Venipuncture No growth. 10/31/16 12:10 Sputum Culture - Final Sputum Staphylococcus aureus 10/30/16 15:26 Respiratory Culture - Final Right Lower Lobe Lung Klebsiella pneumoniae Staphylococcus aureus 10/30/16 15:26 Acid Fast Stain - Final Right Lower Lobe Lung 10/30/16 23:00 Legionella Antigen - Final Urine,Clean Catch Streptococcus pneumoniae Antigen (M - Final Serology 11/06/16 11/06/16 11/05/16 Range/Units 04:48 04:48 03:47 Nasal Screen MRSA (PCR) (Negative) Hepatitis A IgM Ab (Nonreactive) Hep Bs Antigen (Nonreactive) Hep Bs Ag Confirmation POSITIVE A (Non Confirmed) Hep Bs Antibody 0.00 mIU/mL Hep B Core Total Ab NEGATIVE (Negative) Hep B Core IgM Ab Nonreactive (Nonreactive) Hepatitis C Ab Screen (Nonreactive) HIV Ag/Ab Combo Qual (Nonreactive) 11/05/16 10/31/16 Range/Units 03:47 06:50 Nasal Screen MRSA (PCR) Negative (Negative) Hepatitis A IgM Ab Nonreactive (Nonreactive) Hep Bs Antigen Reactive H (Nonreactive) Hep Bs Ag Confirmation (Non Confirmed) Hep Bs Antibody mIU/mL Hep B Core Total Ab (Negative) Hep B Core IgM Ab Nonreactive (Nonreactive) Hepatitis C Ab Screen Nonreactive (Nonreactive) HIV Ag/Ab Combo Qual Nonreactive (Nonreactive) - Impressions Impressions Chest X-Ray 11/11/16 15:43 IMPRESSION: Chest tube in good position. No pneumothorax. Significantly decreased right pleural effusion, [id number] residual appears present Diffuse right-sided airspace disease, atelectasis versus edema. D/ / Gamal Hooker MD / Gamal Hooker MD Interpreting Provider: Gamal Hooker MD Chest X-Ray 11/12/16 06:00 IMPRESSION: Grossly stable chest with persistent right airspace opacities and pleural effusion. No pneumothorax. D/ / Katerine Jimenez MD / Katerine Jimenez MD Interpreting Provider: Katerine Jimenez MD Exam - Constitutional Vitals: Temp Pulse Resp BP Pulse Ox 98.3 F 95 16 122/72 97 11/12/16 12:00 11/12/16 12:00 11/12/16 12:00 11/12/16 12:00 11/12/16 11:35 General appearance: cooperative, morbidly obese, no acute distress - Head Head exam: Present: atraumatic, normal inspection, normocephalic - Eye Eye exam: Present: EOMI, normal appearance, PERRL Pupils: Present: normal accommodation - ENT ENT exam: Present: mucous membranes moist - Neck Neck exam: Present: normal inspection - Respiratory Respiratory exam: Present: CTAB. Absent: rales, respiratory distress, rhonchi, wheezes Additional comments: CT x 2 noted to the right lateral chest wall with moderate amount of sero- sanguinous drainage noted. No crepitus noted. No air leak noted. - Cardiovascular Cardiovascular exam: Present: RRR, +S1, +S2 - GI/Abdominal GI/Abdominal exam: Present: distended (obese), normal bowel sounds, soft. Absent: tenderness - Extremities Exam Extremities exam: Present: normal inspection. Absent: joint swelling, pedal edema, tenderness - Neurological Exam Neurological exam: Present: alert, oriented X3, no focal deficits - Psychiatric Psychiatric exam: Present: normal affect, normal mood - Skin Skin exam: Present: dry, intact, normal color, warm Consult Discharge Plan - Plan Instructions: Oxycodone/Acetaminophen (By mouth), Cefazolin (Injection), Sepsis (DC), Pneumonia (DC), Cigarette Smoking and Your Health, Rubber And Plastics Worker (GEN) Additional Instructions: Patient has been advised to quit smoking. Patient has been advised to discontinue IV drug use. Patient will need to strictly follow antibiotic regimen to allow recovery from pneumonia. Referrals: NO,PCP [Primary Care Provider] - Prescriptions: Cefazolin Sodium/D5w [Cefazolin 2 G/50 ml-D5w Bag] 2 gm IV Q8H #39 piggyback Oxycodone HCl/Acetaminophen [Percocet 5-325 mg Tablet] 1 each PO Q6H #30 tablet - Attending Attestation I examined this patient and my medical decision-making was reviewed with the EMAIL OPERATIONS MANAGER/PA/Advanced Practice Nurse/Resident Physician. I agree with the documented findings, disposition and treatment plan as described except to the extent set forth below.
--- NOTE | 2016-11-12 13:51 | Anesthesia Evaluation Post Op ---
Date of Encounter: 11/12/16 Time of Encounter: 12:30 - Vital Signs Vital Signs: Selected Entries 11/12/16 11:35 11/12/16 12:00 Temperature 98.3 F Pulse Rate 95 Respiratory Rate 16 Blood Pressure 122/72 O2 Sat by Pulse Oximetry 97 Oxygen Flow Rate (LPM) 2 - Lungs Lungs: Clear Ascult./Percussion - Airway Airway: Non-obstructed - Cardiovascular Regular Rate - Mental Status Mental Status: Alert & Oriented, Answers Appropriately - Pain Pain Scale: 4 Pain Scale used: Numeric (1 - 10) - Nausea Vomiting Nausea Vomiting: Not Present - Hydration Hydration: Tolerates oral liquids, Able to void - Discharge PostOp Status: Transfer Patient to floor
[2016-11-13] MEDS: Ketorolac 15 MG/ML VIAL IVP SCH ×4 (00:33→17:25)
[2016-11-13] MEDS: *HR* LORazepam 2 MG/ML VIAL IVP PRN ×4 (00:34→23:30)
[2016-11-13] MEDS: Vancomycin 2,000 MG in D5% in Water 500 ML IVPB SCH (01:19)
[2016-11-13] MEDS: *HR* HYDROmorphone (PF) 1 MG/ML SYRINGE IVP PRN ×4 (03:10→23:30)
[2016-11-13 03:33] LABS: Basophils % 0.2 %; Eosinophils # 0.1 K/mcL (0.0-0.6); Eosinophils % 0.9 %; Hematocrit 22.6 % (35.3-44.9); Immature Granulocytes % 1.3 % (0-4); Lymphocytes # 2.4 K/mcL (0.6-4.6); Lymphocytes % 16.8 %; Mean Corpuscular HGB Conc 32.3 g/dL (31.6-35.5); Mean Corpuscular Volume 89.7 fL (83.0-100.0); Mean Platelet Volume 9.1 fL (9.4-12.4); Monocytes # 0.8 K/mcL (0.0-1.3); Monocytes % 5.6 %; Neutrophils # 10.6 K/mcL (1.6-8.9); Platelet Count 358 K/mcL (140-400); Red Blood Count 2.52 M/mcL (3.82-4.97); Red Cell Distribution Width 13.1 % (11.5-14.5); Segmented Neutrophils % 75.2 %
[2016-11-13 03:35] LABS: Hemoglobin 7.3 g/dL (11.5-15.4)
[2016-11-13 03:38] LABS: BUN/Creatinine Ratio 12 (6-26); Blood Urea Nitrogen 9 mg/dL (7-20); Calcium 8.3 mg/dL (8.6-10.8); Carbon Dioxide 28 mEq/L (19-29); Chloride 101 mEq/L (98-109); Glucose 153 mg/dL (70-99); Osmolality,Calculated 282 (280-300); Potassium 3.8 mEq/L (3.5-4.5); Sodium 135 mEq/L (136-145); eGFR For African Americans > 60 (> 60); eGFR For Non-African Americans > 60 (> 60)
[2016-11-13] MEDS: Albuterol 2.5 MG/3 ML NEBULIZER IH SCH ×6 (03:39→20:30)
[2016-11-13] MEDS: Piperacillin/Tazobactam 3.375 GM in D5% in Water (Mini-Bag+) 100 ML IVPB SCH ×2 (04:13→11:03)
[2016-11-13] MEDS: 0.9 % Sodium Chloride w KCl 20 MEQ/1,000 ML MLS IVC SCH ×2 (04:28→10:07)
[2016-11-13] MEDS: *HR* Heparin 5,000 UNIT/ML VIAL SQ SCH ×3 (05:32→20:02)
--- NOTE | 2016-11-13 07:54 | Cardiothoracic Progress Note ---
Date of Encounter: 11/13/16 Time of Encounter: 07:51 - Assessment and plan (1) Empyema lung Current Visit: Yes Status: Acute The patient is recovering well from her right thoracotomy and decortication. She has remained hemodynamically stable. She is breathing comfortably. Her postoperative pain is well controlled with a Dilaudid CREATIVE PERFUMER. She will be transferred to the stepdown unit later today. The assessment and plan as outlined above was discussed with the patient and/or family members who expressed understanding and agreement. All questions were answered. - Subjective Procedure(s) Performed: POD#2 S/P Right thoracotomy with decortication Interval history: The patient remained hemodynamically stable overnight. She is extubated and sitting in a chair. Her postoperative pain is well controlled with the Dilaudid CREATIVE PERFUMER. Vital Signs, Last 4 Hours Temp Pulse Resp BP Pulse Ox 11/13/16 06:00 96 12 113/66 98 11/13/16 04:48 98.0 F 11/13/16 04:00 98 F 99 13 90/56 100 Oxgyen Flow Rate Oxygen Flow Rate (LPM) 2 Clinical Data, last 8 Hours Output, Chest Tube Drainage 30 Amount [Right Lateral Chest #1 ] Output, Chest Tube Drainage 10 Amount [Right Lateral Chest #1 ] Output, Chest Tube Drainage 20 Amount [Right Mid-Axillary Chest #2] Output, Chest Tube Drainage 14 Amount [Right Mid-Axillary Chest #2] Output, Urine Amount 350 Output, Urine Amount 300 Weight 11/11/16 11/12/16 11/13/16 23:59 23:59 23:59 Weight 117.9 kg 122.4 kg - Physical Examination General: Conversant, No Apparent Distress Neck: No JVD, Normal carotid pulses Cardiac: Reg Rate and Rhythm, Normal S1 and S2, No Murmur Incision: No signs of infection, Dry/intact dressing Sternum: Stable Chest tubes: Minimal drainage, Other (No air leak.) Lungs: Normal Breath Sounds, No Wheeze, Rales, Rhonchi Neuro: Alert and responsive, No focal deficits noted Vascular: Normal capillary refill Extremities: No Clubbing, No Cyanosis, No Edema, Normal Pulses - Labs 11/13/16 03:14 11/13/16 03:14 Lab Results, Last 24 hours 11/13/16 11/13/16 03:14 03:14 WBC 14.1 H Hgb 7.3 L D Hct 22.6 L Plt Count 358 Sodium 135 L Potassium 3.8 Chloride 101 Carbon Dioxide 28 BUN 9 Creatinine 0.76 Glucose 153 H Calcium 8.3 L - Imaging Chest Xray: image reviewed (Trace right apical pneumothorax. Small right pleural effusion and right lower lobe atelectasis.) - VTE Documentation of Mechanical Device: Intermittent pneumatic compression device Consult Discharge Plan - Plan Instructions: Oxycodone/Acetaminophen (By mouth), Cefazolin (Injection), Sepsis (DC), Pneumonia (DC), Cigarette Smoking and Your Health, Founding Partner (GEN) Additional Instructions: Patient has been advised to quit smoking. Patient has been advised to discontinue IV drug use. Patient will need to strictly follow antibiotic regimen to allow recovery from pneumonia. Referrals: NO,PCP [Primary Care Provider] - Prescriptions: Cefazolin Sodium/D5w [Cefazolin 2 G/50 ml-D5w Bag] 2 gm IV Q8H #39 piggyback Oxycodone HCl/Acetaminophen [Percocet 5-325 mg Tablet] 1 each PO Q6H #30 tablet
[2016-11-13 08:06] LABS: Hepatitis Be Antibody NEGATIVE (Negative); Hepatitis Be Antigen NEGATIVE (Negative)
[2016-11-13] MEDS: Sennosides/Docusate Sodium TABLET PO SCH ×2 (08:17→20:02)
[2016-11-13] MEDS: Magnesium Oxide 400 MG TABLET PO SCH ×2 (08:17→20:02)
[2016-11-13] MEDS: Nicotine 21 MG PATCH.TD24 TD SCH (08:17)
--- NOTE | 2016-11-13 12:06 | Infectious Disease Progress No ---
Date of Encounter: 11/13/16 Time of Encounter: 12:05 - Assessment and Plan (1) Sepsis Current Visit: Yes Status: Acute The patient had fever, leukocytosis, and tachycardia. Likely secondary to cavitary pneumonia and empyema. The patient has been afebrile overnight. Tachycardia has resolved. The patient has persistent leukocytosis, but this improved. WBC 35 immediately after surgery , likely reactive. WBC down to 14 this morning. Blood cultures drawn 10/30/16 x 2 sets are negative. Additional blood cultures drawn 10/31/16 are negative x 2 sets. Repeat blood cultures drawn 11/09/16 are NGTD x 2 sets. Qualifiers: Sepsis type: methicillin susceptible Staphylococcus aureus Qualified Code(s ): A41.01 - Sepsis due to Methicillin susceptible Staphylococcus aureus (2) Leukocytosis Current Visit: Yes Status: Acute WBC 14 this morning. Likely secondary to empyema status post surgery. Continue to trend. Qualifiers: Leukocytosis type: unspecified Qualified Code(s): D72.829 - Elevated white blood cell count, unspecified (3) Pleural effusion Current Visit: Yes Status: Acute Repeat CXR 11/10/16 shows increased right effusion. CT scan shows increased size of the right pleural effusion as compared to prior exam dated 10/30/16, now large in size and loculated. There is also right lower lobe collapse with 8mm focus of peripheral hypodensity and air, suspicious for necrosis or intrapulmonary abscess. CTS consulted. Status post right thoracotomy with complete decortication 11/11/[address] Amaya. Operative note reviewed. Intra-operative cultures obtained and are negative. Antibiotics as below. (4) Cavitary pneumonia Current Visit: Yes Status: Acute Location: Right lower lobe. Causative organism: MSSA and K. pneumoniae. CXR completed 10/30/16 showed worsening consolidative changes in the right lung base. CTA of the chest completed 10/30/16 was negative for PE, but showed 4.5cm x 3.7cm hypoenhancing area of collapsed RLL with central cavitation suspicious for necrotizing PNA with potential pulmonary abscess. There were also findings consistent with bronchitis and a 0.5cm x 0.3cm VENESSA nodule. Pulmonology consulted and following. Status post bronchoscopy 10/30/16 that showed mucopurulent secretions in the RLL. Bronch washings sent for culture, AFB, and fungal. Culture came back positive for MSSA and K. pneumoniae. Continue cefazolin 2 grams IV Q8H. Continue flagyl 500mg PO TID. Duration of treatment depends on the clinical picture. visitor services assistant has been consulted and is working on placement for the patient on discharge. Monitor renal function and dose-adjust antibiotics. 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 Reports that she sometimes shares needles. HIV negative. Hepatitis BsAg reactive. (6) Tobacco abuse Current Visit: Yes Status: Acute (7) Hepatitis B antibody positive in blood Current Visit: Yes Status: Acute Hep Bs antibody 0.00. Hep B core total antibody negative. Hep B core IgM antibody non-reactive. Unclear diagnosis given the lab results. Repeat labs in 4 weeks. (8) Pain of left calf Current Visit: Yes Status: Resolved Etiology unclear. No warmth, tenderness, or nodule noted. Negative Hayley's sign. Patient reports pain has resolved. - Subjective Interval history: Patient seen and examined. Status post thoracotomy with complete decortication by Dr. Amaya. Patient very drowsy on exam. Patient states she still has pain in the right upper back, but it is a little better today. Denies fevers, chills, or rigors. States she is no longer short of breath, but the pain makes it difficult to take a deep breath and she continues to report some cough productive of white/yellow sputum but states it is better. Denies vomiting, or diarrhea, but does complain of some intermittent nausea. Denies urinary complaints. Denies oral thrush or skin lesions. Infect Dis PN-Objective Data - Labs CBC & Chem 7: 11/13/16 03:14 11/13/16 03:14 Labs: Laboratory Results - last 24 hr 11/10/16 11/13/16 11/13/16 20:08 03:14 03:14 WBC 14.1 H RBC 2.52 L Hgb 7.3 L D Hct 22.6 L MCV 89.7 MCH 29.0 MCHC 32.3 RDW 13.1 Plt Count 358 MPV 9.1 L Immature Gran % 1.3 Seg Neutrophils % 75.2 Lymphocytes % 16.8 Monocytes % 5.6 Eosinophils % 0.9 Basophils % 0.2 Neutrophils # 10.6 H Lymphocytes # 2.4 Monocytes # 0.8 Eosinophils # 0.1 Basophils # 0.0 Sodium 135 L Potassium 3.8 Chloride 101 Carbon Dioxide 28 BUN 9 Creatinine 0.76 Est GFR ( Amer) > 60 Est GFR (Non-Af Amer) > 60 BUN/Creatinine Ratio 12 Glucose 153 H Calculated Osmolality 282 Calcium 8.3 L Hepatitis Be Antibody NEGATIVE Hepatitis Be Antigen NEGATIVE Cultures: Cultures 11/11/16 13:48 Body Fluid Culture - Preliminary Pleural Fluid 11/11/16 13:48 Acid Fast Stain - Final Pleural Fluid 11/09/16 15:45 Blood Culture - Preliminary Peripheral Venipuncture No growth. 11/09/16 15:40 Blood Culture - Preliminary Peripheral Venipuncture No growth. 10/31/16 17:08 Blood Culture - Final Peripheral Venipuncture No growth. 10/31/16 17:08 Blood Culture - Final Peripheral Venipuncture No growth. 10/31/16 12:10 Sputum Culture - Final Sputum Staphylococcus aureus 10/30/16 15:26 Respiratory Culture - Final Right Lower Lobe Lung Klebsiella pneumoniae Staphylococcus aureus 10/30/16 15:26 Acid Fast Stain - Final Right Lower Lobe Lung 10/30/16 23:00 Legionella Antigen - Final Urine,Clean Catch Streptococcus pneumoniae Antigen (M - Final Serology 11/10/16 11/06/16 11/06/16 Range/Units 20:08 04:48 04:48 Nasal Screen MRSA (PCR) (Negative) Hepatitis A IgM Ab (Nonreactive) Hep Bs Antigen (Nonreactive) Hep Bs Ag Confirmation (Non Confirmed) Hep Bs Antibody 0.00 mIU/mL Hep B Core Total Ab NEGATIVE (Negative) Hep B Core IgM Ab Nonreactive (Nonreactive) Hepatitis Be Antibody NEGATIVE (Negative) Hepatitis Be Antigen NEGATIVE (Negative) Hepatitis C Ab Screen (Nonreactive) HIV Ag/Ab Combo Qual (Nonreactive) 11/05/16 11/05/16 10/31/16 Range/Units 03:47 03:47 06:50 Nasal Screen MRSA (PCR) Negative (Negative) Hepatitis A IgM Ab Nonreactive (Nonreactive) Hep Bs Antigen Reactive H (Nonreactive) Hep Bs Ag Confirmation POSITIVE A (Non Confirmed) Hep Bs Antibody mIU/mL Hep B Core Total Ab (Negative) Hep B Core IgM Ab Nonreactive (Nonreactive) Hepatitis Be Antibody (Negative) Hepatitis Be Antigen (Negative) Hepatitis C Ab Screen Nonreactive (Nonreactive) HIV Ag/Ab Combo Qual Nonreactive (Nonreactive) - Impressions Impressions Chest X-Ray 11/13/16 06:00 IMPRESSION: Trace right apical pneumothorax measuring 3 mm. Stable right chest tube. Small right pleural effusion with right basilar atelectasis and volume loss in the right hemithorax. D/ / 11/13/2016 09:08:25 Tamir Denny MD / grazyna Interpreting Provider: Tamir Denny MD Exam - Constitutional Vitals: Temp Pulse Resp BP Pulse Ox 98.2 F 93 14 106/63 98 11/13/16 07:59 11/13/16 11:00 11/13/16 11:00 11/13/16 09:10 11/13/16 11:00 General appearance: cooperative, morbidly obese, no acute distress - Head Head exam: Present: atraumatic, normal inspection, normocephalic - Eye Eye exam: Present: EOMI, normal appearance, PERRL Pupils: Present: normal accommodation - ENT ENT exam: Present: mucous membranes moist - Neck Neck exam: Present: normal inspection - Respiratory Respiratory exam: Present: CTAB. Absent: rales, respiratory distress, rhonchi, wheezes Additional comments: CT x 2 to the right lateral chest wall with dressing C/D/I. No crepitus noted. No air leak noted. - Cardiovascular Cardiovascular exam: Present: RRR, +S1, +S2 - GI/Abdominal GI/Abdominal exam: Present: distended (obese), normal bowel sounds, soft. Absent: tenderness - Extremities Exam Extremities exam: Present: normal inspection. Absent: joint swelling, pedal edema, tenderness - Neurological Exam Neurological exam: Present: alert, oriented X3, no focal deficits - Psychiatric Psychiatric exam: Present: normal affect, normal mood - Skin Skin exam: Present: dry, intact, normal color, warm - VTE Documentation of Mechanical Device: Intermittent pneumatic compression device Consult Discharge Plan - Plan Instructions: Oxycodone/Acetaminophen (By mouth), Cefazolin (Injection), Sepsis (DC), Pneumonia (DC), Cigarette Smoking and Your Health, Brine Tank Operator (GEN) Additional Instructions: Patient has been advised to quit smoking. Patient has been advised to discontinue IV drug use. Patient will need to strictly follow antibiotic regimen to allow recovery from pneumonia. Referrals: NO,PCP [Primary Care Provider] - Prescriptions: Cefazolin Sodium/D5w [Cefazolin 2 G/50 ml-D5w Bag] 2 gm IV Q8H #39 piggyback Oxycodone HCl/Acetaminophen [Percocet 5-325 mg Tablet] 1 each PO Q6H #30 tablet - Attending Attestation I examined this patient and my medical decision-making was reviewed with the IMAGING AIDE/PA/Advanced Practice Nurse/Resident Physician. I agree with the documented findings, disposition and treatment plan as described except to the extent set forth below.
[2016-11-13] MEDS: *HR* HYDROmorphone 20 MG/20 ML PCA IVC PRN ×2 (12:23→23:37)
[2016-11-13] MEDS: metroNIDAZOLE 500 MG TABLET PO SCH ×2 (14:16→20:02)
[2016-11-13] MEDS: ceFAZolin 2,000 MG in D5% in Water 100 ML IVPB SCH (16:01)
[2016-11-13] MEDS: Triamcinolone Acet Dentl Paste 5 GM TUBE TP SCH (20:21)
[2016-11-14] MEDS: 0.9 % Sodium Chloride w KCl 20 MEQ/1,000 ML MLS IVC SCH (00:06)
[2016-11-14] MEDS: Albuterol 2.5 MG/3 ML NEBULIZER IH SCH ×8 (00:09→23:47)
[2016-11-14 02:57] LABS: Basophils # 0.1 K/mcL (0.0-0.2); Basophils % 0.4 %; Eosinophils # 0.2 K/mcL (0.0-0.6); Eosinophils % 1.8 %; Hematocrit 28.5 % (35.3-44.9); Immature Granulocytes % 1.9 % (0-4); Lymphocytes # 2.3 K/mcL (0.6-4.6); Lymphocytes % 19.9 %; Mean Corpuscular HGB Conc 31.6 g/dL (31.6-35.5); Mean Corpuscular Hemoglobin 29.1 pg (28.0-33.3); Mean Corpuscular Volume 92.2 fL (83.0-100.0); Monocytes # 0.7 K/mcL (0.0-1.3); Monocytes % 5.8 %; Neutrophils # 8.2 K/mcL (1.6-8.9); Platelet Count 502 K/mcL (140-400); Red Blood Count 3.09 M/mcL (3.82-4.97); Red Cell Distribution Width 13.2 % (11.5-14.5); Segmented Neutrophils % 70.2 %
[2016-11-14 03:13] LABS: BUN/Creatinine Ratio 9 (6-26); Blood Urea Nitrogen 9 mg/dL (7-20); Calcium 9.5 mg/dL (8.6-10.8); Carbon Dioxide 27 mEq/L (19-29); Chloride 103 mEq/L (98-109); Glucose 93 mg/dL (70-99); Osmolality,Calculated 288 (280-300); Potassium 4.6 mEq/L (3.5-4.5); Sodium 140 mEq/L (136-145); eGFR For African Americans > 60 (> 60); eGFR For Non-African Americans > 60 (> 60)
[2016-11-14] MEDS: *HR* HYDROmorphone (PF) 1 MG/ML SYRINGE IVP PRN ×5 (04:19→23:02)
[2016-11-14] MEDS: *HR* Heparin 5,000 UNIT/ML VIAL SQ SCH ×3 (04:25→20:47)
[2016-11-14] MEDS: metroNIDAZOLE 500 MG TABLET PO SCH ×3 (09:08→20:46)
[2016-11-14] MEDS: Nicotine 21 MG PATCH.TD24 TD SCH (09:08)
[2016-11-14] MEDS: Sennosides/Docusate Sodium TABLET PO SCH ×2 (09:08→20:46)
[2016-11-14] MEDS: Magnesium Oxide 400 MG TABLET PO SCH ×2 (09:08→20:46)
[2016-11-14] MEDS: ceFAZolin 2,000 MG in D5% in Water 100 ML IVPB SCH ×3 (09:10→16:19)
[2016-11-14] MEDS: *HR* LORazepam 2 MG/ML VIAL IVP PRN ×2 (09:20→16:20)
[2016-11-14] MEDS: Triamcinolone Acet Dentl Paste 5 GM TUBE TP SCH (09:29)
--- NOTE | 2016-11-14 09:42 | Cardiothoracic Progress Note ---
Date of Encounter: 11/14/16 Time of Encounter: 09:40 - Assessment and plan (1) Pulmonary abscess Current Visit: Yes Status: Acute The assessment and plan as outlined above was discussed with the patient and/or family members who expressed understanding and agreement. All questions were answered. We will discontinue the chest tube suction and check a chest x-ray tomorrow morning. Hopefully, we can remove the chest tubes in 1-2 days. She has transfer orders and is awaiting a floor bed. Qualifiers: Pulmonary abscess pneumonia presence: with pneumonia Laterality: right Lung location: lower lobe of lung Qualified Code(s): J85.1 - Abscess of lung with pneumonia - Subjective Interval history: The patient is mildly sleepy. She has no complaints. Vital Signs, Last 4 Hours Temp Pulse Resp BP Pulse Ox 11/14/16 08:48 101 12 123/67 98 11/14/16 08:25 98.6 F 11/14/16 07:34 12 100 Oxgyen Flow Rate Oxygen Flow Rate (LPM) 2 Clinical Data, last 8 Hours Output, Chest Tube Drainage 0 Amount [Right Lateral Chest #1 ] Output, Chest Tube Drainage 0 Amount [Right Mid-Axillary Chest #2] Output, Urine Amount 1,000 Output, Urine Amount 200 Weight 11/12/16 11/13/16 11/14/16 23:59 23:59 23:59 Weight 117.9 kg 123.5 kg Lungs are clear to percussion and auscultation. Heart is in a normal sinus rhythm. Her incision is healing well without signs of infection. Chest tube drainage is minimal and there is no air leak. - Labs 11/14/16 02:33 11/14/16 02:33 Lab Results, Last 24 hours 11/14/16 11/14/16 02:33 02:33 WBC 11.7 H Hgb 9.0 L D Hct 28.5 L Plt Count 502 H Sodium 140 Potassium 4.6 H Chloride 103 Carbon Dioxide 27 BUN 9 Creatinine 0.99 Glucose 93 Calcium 9.5 - VTE Documentation of Mechanical Device: Intermittent pneumatic compression device Consult Discharge Plan - Plan Instructions: Oxycodone/Acetaminophen (By mouth), Cefazolin (Injection), Sepsis (DC), Pneumonia (DC), Cigarette Smoking and Your Health, Sports Broadcasting Internship (GEN) Additional Instructions: Patient has been advised to quit smoking. Patient has been advised to discontinue IV drug use. Patient will need to strictly follow antibiotic regimen to allow recovery from pneumonia. Referrals: NO,PCP [Primary Care Provider] - Prescriptions: Cefazolin Sodium/D5w [Cefazolin 2 G/50 ml-D5w Bag] 2 gm IV Q8H #39 piggyback Oxycodone HCl/Acetaminophen [Percocet 5-325 mg Tablet] 1 each PO Q6H #30 tablet
[2016-11-14] MEDS: *HR* HYDROmorphone 20 MG/20 ML PCA IVC PRN (16:51)
[2016-11-14] MEDS: Ondansetron 4 MG/2 ML VIAL IVP PRN (23:02)
[2016-11-15] MEDS: ceFAZolin 2,000 MG in D5% in Water 100 ML IVPB SCH ×4 (00:42→23:48)
[2016-11-15] MEDS: *HR* LORazepam 2 MG/ML VIAL IVP PRN ×4 (00:43→19:59)
[2016-11-15] MEDS: 0.9 % Sodium Chloride w KCl 20 MEQ/1,000 ML MLS IVC SCH ×3 (01:33→19:48)
[2016-11-15] MEDS: Triamcinolone Acet Dentl Paste 5 GM TUBE TP SCH ×3 (01:33→19:49)
[2016-11-15] MEDS: *HR* HYDROmorphone (PF) 1 MG/ML SYRINGE IVP PRN ×4 (04:35→22:08)
[2016-11-15] MEDS: Albuterol 2.5 MG/3 ML NEBULIZER IH SCH ×6 (04:44→23:25)
[2016-11-15] MEDS: *HR* Heparin 5,000 UNIT/ML VIAL SQ SCH ×3 (05:58→22:09)
[2016-11-15] MEDS: *HR* HYDROmorphone 20 MG/20 ML PCA IVC PRN ×2 (05:59→19:39)
[2016-11-15] MEDS: metroNIDAZOLE 500 MG TABLET PO SCH ×3 (08:45→19:38)
[2016-11-15] MEDS: Nicotine 21 MG PATCH.TD24 TD SCH (08:45)
[2016-11-15] MEDS: Sennosides/Docusate Sodium TABLET PO SCH ×2 (08:45→19:39)
[2016-11-15] MEDS: Magnesium Oxide 400 MG TABLET PO SCH ×2 (08:45→19:38)
--- NOTE | 2016-11-15 09:06 | Cardiothoracic Progress Note ---
Date of Encounter: 11/15/16 Time of Encounter: 09:05 - Assessment and plan (1) Pulmonary abscess Current Visit: Yes Status: Acute Hopefully, we can remove the chest tubes in 1-2 days. Qualifiers: Pulmonary abscess pneumonia presence: with pneumonia Laterality: right Lung location: lower lobe of lung Qualified Code(s): J85.1 - Abscess of lung with pneumonia - Subjective Interval history: The patient complains of mild postoperative pain. She is on a BUCKLE COVERER pump. Vital Signs, Last 4 Hours Temp Pulse Resp BP Pulse Ox 11/15/16 08:17 18 93 11/15/16 07:09 99.4 F 108 18 106/62 93 Oxgyen Flow Rate Oxygen Flow Rate (LPM) 2 Clinical Data, last 8 Hours Output, Urine Amount 900 Weight 11/13/16 11/14/16 11/15/16 23:59 23:59 23:59 Weight 123.5 kg 123.831 kg Lungs are clear to percussion and auscultation. Heart is in a normal sinus rhythm. Her incisions are healing well without signs of infection. Chest tubes are to water seal. There is minimal drainage and no air leak. Chest x-ray done on water seal reveals no pneumothorax. - Labs 11/14/16 02:33 11/14/16 02:33 - VTE Documentation of Mechanical Device: Intermittent pneumatic compression device Consult Discharge Plan - Plan Instructions: Oxycodone/Acetaminophen (By mouth), Cefazolin (Injection), Sepsis (DC), Pneumonia (DC), Cigarette Smoking and Your Health, Model Set Artist (GEN) Additional Instructions: Patient has been advised to quit smoking. Patient has been advised to discontinue IV drug use. Patient will need to strictly follow antibiotic regimen to allow recovery from pneumonia. Referrals: NO,PCP [Primary Care Provider] - Prescriptions: Cefazolin Sodium/D5w [Cefazolin 2 G/50 ml-D5w Bag] 2 gm IV Q8H #39 piggyback Oxycodone HCl/Acetaminophen [Percocet 5-325 mg Tablet] 1 each PO Q6H #30 tablet
--- NOTE | 2016-11-15 11:37 | Internal Med Progress Note ---
<Tai Borden - Last Filed: 11/15/16 12:35> Date of Encounter: 11/15/16 Time of Encounter: 08:45 - Assessment and plan (1) Sepsis Current Visit: Yes Status: Acute Assessment and plan: Patient's sepsis due to her cavitary pneumonia and empyema. Causative organism appears to be MSSA and Klebsiella pneumoniae. Patient underwent thoracotomy with decortication of empyema on 11/12/16, since then her white blood cell count has been improving daily and patient is afebrile. We will continue antibiotics of cefazolin and metronidazole Infectious disease following and appreciate recommendations for continued management/care Continue to monitor white blood cell count, telemetry, pulse oximetry Supplemental oxygen as needed, wean as tolerated Continue breathing treatments and cough suppression n Qualifiers: Sepsis type: methicillin susceptible Staphylococcus aureus Qualified Code(s ): A41.01 - Sepsis due to Methicillin susceptible Staphylococcus aureus (2) Empyema lung Current Visit: Yes Status: Acute Assessment and plan: Pulmonary abscess identified on CTA of patient chest. 3 sputum culture and bronchoscopy MSSA and Klebsiella pneumoniae were identified as causative organisms of the lesion seen. She underwent thoracotomy with decortication of the pulmonary abscess on 11/12/16. He had received both Zosyn (5 days) and vancomycin (4 days), These are both stopped on 11/04/16 and she was started on Cefazolin and and Flagyl. Infectious disease has been following and appreciate recommendations for continuing management/care Patient has bilateral chest tubes in place currently with likely removal early next week per cardiothoracic surgery Continue antibiotics Continue breathing treatment Continue pain control Encourage incentive spirometry (3) Cavitary pneumonia Current Visit: Yes Status: Acute Assessment and plan: Plan as above (4) IVDU (intravenous drug user) Current Visit: Yes Status: Acute Assessment and plan: hx of IVD use, heroin, with last use one week prior to admission. BEKA showed no endocarditis and blood cultures negative nursing services manager following (5) DVT prophylaxis Current Visit: Yes Status: Acute Assessment and plan: 5000 units heparin subcutaneous 3 times a day - Subjective Interval history: Patient reports having some numbness in the lateral aspect of her right breast, she reports tenderness in her right chest that is worsened with movement. She also reports some difficulty in using her right shoulder. She reports some occasional shortness of breath when speaking for extended periods of time. She is occasionally coughing up purulent appearing sputum. Overall she reports she feels improved from previously. - Constitutional Vitals: Temp Pulse Resp BP Pulse Ox 99.4 F 108 18 106/62 93 11/15/16 08:40 11/15/16 08:40 11/15/16 08:40 11/15/16 08:40 11/15/16 08:40 General appearance: Present: A&O X 3, obese Exam: General: Cooperative, pleasant, no acute distress, alert and oriented 3, answers questions appropriately HEENT: Normocephalic, atraumatic, neck supple, trachea midline, Conjunctiva pink , sclera anicteric Respiratory: No accessory muscle usage, slight bibasilar Rales auscultated, bilateral bandages/directions place posterior chest wall Cardiovascular: Regular rate and rhythm, S1 and S2 present, no murmurs/rubs/ gallops/clicks appreciated GI/abdominal: Nondistended, mild tenderness to palpation, soft, normal bowel sounds, no peritoneal signs Extremities: No calf tenderness, noncyanotic, slight pretibial edema appreciated , warm, lower extremity pulses palpable and symmetrical Neurological: Alert and oriented 3, no facial droop, no focal deficits Skin: Dry, intact, normal color Internal Medicine: Result - Labs CBC & Chem 7: 11/14/16 02:33 11/14/16 02:33 - ABG Interpretation ABG results: ABG ABG pH 7.43 pH Units (7.32-7.45) 11/12/16 04:32 ABG pCO2 39 mmHg (35-45) 11/12/16 04:32 ABG pO2 69 mmHg (85-104) L 11/12/16 04:32 ABG O2 Saturation 94 % (95-98) L 11/12/16 04:32 PT/INR, D-dimer D-Dimer 1035 ng/mLFEU (0-500) H 10/30/16 09:28 - Impressions Impressions Chest X-Ray 11/15/16 00:01 IMPRESSION: 1. Right-sided chest tube appears unchanged in position. 2. No convincing evidence of a pneumothorax. 3. There is a small right pleural effusion. 4. There is prominence of the pulmonary vasculature bilaterally with bibasilar atelectasis. D/ / Alfie Salazar MD / Alfie Salazar MD Interpreting Provider: Alfie Salazar MD - VTE Documentation of Mechanical Device: Intermittent pneumatic compression device Consult Discharge Plan - Plan Instructions: Oxycodone/Acetaminophen (By mouth), Cefazolin (Injection), Sepsis (DC), Pneumonia (DC), Cigarette Smoking and Your Health, Tank Car Loader (GEN) Additional Instructions: Patient has been advised to quit smoking. Patient has been advised to discontinue IV drug use. Patient will need to strictly follow antibiotic regimen to allow recovery from pneumonia. Referrals: NO,PCP [Primary Care Provider] - Prescriptions: Cefazolin Sodium/D5w [Cefazolin 2 G/50 ml-D5w Bag] 2 gm IV Q8H #39 piggyback Oxycodone HCl/Acetaminophen [Percocet 5-325 mg Tablet] 1 each PO Q6H #30 tablet <Selwyn Saravia - Last Filed: 11/15/16 13:36> Date of Encounter: 11/15/16 - Constitutional Vitals: Temp Pulse Resp BP Pulse Ox 99.3 F 93 16 106/66 95 11/15/16 12:45 11/15/16 12:45 11/15/16 12:45 11/15/16 12:45 11/15/16 12:45 Internal Medicine: Result - Labs CBC & Chem 7: 11/14/16 02:33 11/14/16 02:33 - ABG Interpretation ABG results: ABG ABG pH 7.43 pH Units (7.32-7.45) 11/12/16 04:32 ABG pCO2 39 mmHg (35-45) 11/12/16 04:32 ABG pO2 69 mmHg (85-104) L 11/12/16 04:32 ABG O2 Saturation 94 % (95-98) L 11/12/16 04:32 PT/INR, D-dimer D-Dimer 1035 ng/mLFEU (0-500) H 10/30/16 09:28 - Impressions Impressions Chest X-Ray 11/15/16 00:01 IMPRESSION: 1. Right-sided chest tube appears unchanged in position. 2. No convincing evidence of a pneumothorax. 3. There is a small right pleural effusion. 4. There is prominence of the pulmonary vasculature bilaterally with bibasilar atelectasis. D/ / Alfie Salazar MD / Alfie Salazar MD Interpreting Provider: Alfie Salazar MD - Attending Attestation I examined this patient and my medical decision-making was reviewed with the WATER TREATMENT TECHNICIAN/PA/Advanced Practice Nurse/Resident Physician. I agree with the documented findings, disposition and treatment plan as described except to the extent set forth below. Chest tubes management as per CTS. Continue with iv antibiotics.
[2016-11-16] MEDS: *HR* HYDROmorphone (PF) 1 MG/ML SYRINGE IVP PRN ×5 (02:01→21:37)
[2016-11-16] MEDS: *HR* LORazepam 2 MG/ML VIAL IVP PRN ×3 (02:01→21:38)
[2016-11-16] MEDS: Albuterol 2.5 MG/3 ML NEBULIZER IH SCH ×5 (04:46→20:08)
[2016-11-16 04:51] LABS: Basophils % 0.3 %; Eosinophils # 0.2 K/mcL (0.0-0.6); Hematocrit 27.4 % (35.3-44.9); Hemoglobin 8.6 g/dL (11.5-15.4); Immature Granulocytes % 1.9 % (0-4); Lymphocytes # 1.9 K/mcL (0.6-4.6); Lymphocytes % 19.8 %; Mean Corpuscular HGB Conc 31.4 g/dL (31.6-35.5); Mean Corpuscular Hemoglobin 28.5 pg (28.0-33.3); Mean Corpuscular Volume 90.7 fL (83.0-100.0); Mean Platelet Volume 8.4 fL (9.4-12.4); Monocytes # 0.6 K/mcL (0.0-1.3); Neutrophils # 6.8 K/mcL (1.6-8.9); Platelet Count 488 K/mcL (140-400); Red Blood Count 3.02 M/mcL (3.82-4.97); Red Cell Distribution Width 13.1 % (11.5-14.5)
[2016-11-16 05:12] LABS: BUN/Creatinine Ratio 12 (6-26); Blood Urea Nitrogen 11 mg/dL (7-20); Calcium 9.2 mg/dL (8.6-10.8); Carbon Dioxide 30 mEq/L (19-29); Chloride 100 mEq/L (98-109); Glucose 93 mg/dL (70-99); Osmolality,Calculated 281 (280-300); Potassium 4.5 mEq/L (3.5-4.5); Sodium 136 mEq/L (136-145); eGFR For African Americans > 60 (> 60); eGFR For Non-African Americans > 60 (> 60)
[2016-11-16] MEDS: *HR* Heparin 5,000 UNIT/ML VIAL SQ SCH ×3 (05:41→21:37)
[2016-11-16 08:06] LABS: HBV Quant Interpretation DETECTED (Not Detected); HBV Quant Log by PCR 4.3 log IU
[2016-11-16] MEDS: Acetaminophen 325 MG TABLET PO PRN (08:29)
[2016-11-16] MEDS: Triamcinolone Acet Dentl Paste 5 GM TUBE TP SCH ×2 (08:29→21:00)
[2016-11-16] MEDS: metroNIDAZOLE 500 MG TABLET PO SCH ×3 (08:29→21:37)
[2016-11-16] MEDS: Nicotine 21 MG PATCH.TD24 TD SCH (08:29)
[2016-11-16] MEDS: Sennosides/Docusate Sodium TABLET PO SCH ×2 (08:29→21:36)
[2016-11-16] MEDS: ceFAZolin 2,000 MG in D5% in Water 100 ML IVPB SCH ×2 (08:30→15:12)
[2016-11-16] MEDS: Magnesium Oxide 400 MG TABLET PO SCH ×2 (08:30→21:37)
--- NOTE | 2016-11-16 10:34 | Infectious Disease Progress No ---
Date of Encounter: 11/16/16 Time of Encounter: 10:31 - Assessment and Plan (1) Sepsis Current Visit: Yes Status: Acute The patient had fever, leukocytosis, and tachycardia. Likely secondary to cavitary pneumonia and empyema. The patient has been afebrile. She continues to have some intermittent tachycardia. WBC normal. Blood cultures drawn 10/30/16 x 2 sets are negative. Additional blood cultures drawn 10/31/16 are negative x 2 sets. Repeat blood cultures drawn 11/09/16 are negative x 2 sets. Qualifiers: Sepsis type: methicillin susceptible Staphylococcus aureus Qualified Code(s ): A41.01 - Sepsis due to Methicillin susceptible Staphylococcus aureus (2) Leukocytosis Current Visit: Yes Status: Resolved Resolved. Continue to trend. Qualifiers: Leukocytosis type: unspecified Qualified Code(s): D72.829 - Elevated white blood cell count, unspecified (3) Pleural effusion Current Visit: Yes Status: Acute Repeat CXR 11/10/16 shows increased right effusion. CT scan shows increased size of the right pleural effusion as compared to prior exam dated 10/30/16, now large in size and loculated. There is also right lower lobe collapse with 8mm focus of peripheral hypodensity and air, suspicious for necrosis or intrapulmonary abscess. CTS consulted. Status post right thoracotomy with complete decortication 11/11/[address] Amaya. Operative note reviewed. Intra-operative cultures obtained and are negative. Antibiotics as below. Repeat CXR 11/15/16 shows pneumothorax has resolved and a small right pleural effusion as well as bibasilar atelectasis. (4) Cavitary pneumonia Current Visit: Yes Status: Acute Location: Right lower lobe. Causative organism: MSSA and K. pneumoniae. CXR completed 10/30/16 showed worsening consolidative changes in the right lung base. CTA of the chest completed 10/30/16 was negative for PE, but showed 4.5cm x 3.7cm hypoenhancing area of collapsed RLL with central cavitation suspicious for necrotizing PNA with potential pulmonary abscess. There were also findings consistent with bronchitis and a 0.5cm x 0.3cm VENESSA nodule. Pulmonology consulted and following. Status post bronchoscopy 10/30/16 that showed mucopurulent secretions in the RLL. Bronch washings sent for culture, AFB, and fungal. Culture came back positive for MSSA and K. pneumoniae. Continue cefazolin 2 grams IV Q8H. Continue flagyl 500mg PO TID. Duration of treatment depends on the clinical picture, but would recommend 4 weeks from the patient's surgery date. manager social services has been consulted and is working on placement for the patient on discharge. Monitor renal function and dose-adjust antibiotics. 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 Reports that she sometimes shares needles. HIV negative. Hepatitis BsAg reactive. (6) Tobacco abuse Current Visit: Yes Status: Acute (7) Hepatitis B antibody positive in blood Current Visit: Yes Status: Acute Hep Bs antibody 0.00. Hep B core total antibody negative. Hep B core IgM antibody non-reactive. Unclear diagnosis given the lab results. Repeat labs in 4 weeks. (8) Pain of left calf Current Visit: Yes Status: Inactive Etiology unclear. No warmth, tenderness, or nodule noted. Negative Hayley's sign. Patient reports pain has resolved. - Subjective Interval history: Patient seen and examined. Weekend notes reviewed. No acute events noted. Status post thoracotomy with complete decortication 11/11/[address] Amaya. Patient states she feels better today. Patient states she still has pain in the right upper back and right lateral chest wall, but it is tolerable with the current medication regimen. Reports new pain to the midsternal area with cough or deep inspiration. Denies fevers, chills, or rigors. Denies shortness of breath or productive cough. Denies vomiting, or diarrhea, but does complain of some intermittent nausea. States she has not had a BM since surgery. Denies urinary complaints. Denies oral thrush or skin lesions. Infect Dis PN-Objective Data - Labs CBC & Chem 7: 11/16/16 04:41 11/16/16 04:41 Labs: Laboratory Results - last 24 hr 11/10/16 11/16/16 11/16/16 20:08 04:41 04:41 WBC 9.6 RBC 3.02 L Hgb 8.6 L Hct 27.4 L MCV 90.7 MCH 28.5 MCHC 31.4 L RDW 13.1 Plt Count 488 H MPV 8.4 L Immature Gran % 1.9 Seg Neutrophils % 70.0 Lymphocytes % 19.8 Monocytes % 6.0 Eosinophils % 2.0 Basophils % 0.3 Neutrophils # 6.8 Lymphocytes # 1.9 Monocytes # 0.6 Eosinophils # 0.2 Basophils # 0.0 Sodium 136 Potassium 4.5 Chloride 100 Carbon Dioxide 30 H BUN 11 Creatinine 0.95 Est GFR ( Amer) > 60 Est GFR (Non-Af Amer) > 60 BUN/Creatinine Ratio 12 Glucose 93 Calculated Osmolality 281 Calcium 9.2 Hep B DNA Quant (PCR) 18,000 Hep B DNA Qnt log IU/mL 4.3 Hepatitis B Interp DETECTED A Cultures: Cultures 11/09/16 15:45 Blood Culture - Final Peripheral Venipuncture No growth. 11/09/16 15:40 Blood Culture - Final Peripheral Venipuncture No growth. 11/11/16 13:48 Anaerobic Culture - Preliminary Pleural Fluid At this time, no anaerobic growth is present. The culture will be finalized after 5 days of incubation. 11/11/16 13:48 Body Fluid Culture - Final Pleural Fluid 11/11/16 13:48 Acid Fast Stain - Final Pleural Fluid 10/31/16 17:08 Blood Culture - Final Peripheral Venipuncture No growth. 10/31/16 17:08 Blood Culture - Final Peripheral Venipuncture No growth. 10/31/16 12:10 Sputum Culture - Final Sputum Staphylococcus aureus 10/30/16 15:26 Respiratory Culture - Final Right Lower Lobe Lung Klebsiella pneumoniae Staphylococcus aureus 10/30/16 15:26 Acid Fast Stain - Final Right Lower Lobe Lung 10/30/16 23:00 Legionella Antigen - Final Urine,Clean Catch Streptococcus pneumoniae Antigen (M - Final Serology 11/10/16 11/06/16 11/06/16 Range/Units 20:08 04:48 04:48 Nasal Screen MRSA (PCR) (Negative) Hepatitis A IgM Ab (Nonreactive) Hep Bs Antigen (Nonreactive) Hep Bs Ag Confirmation (Non Confirmed) Hep Bs Antibody 0.00 mIU/mL Hep B Core Total Ab NEGATIVE (Negative) Hep B Core IgM Ab Nonreactive (Nonreactive) Hep B DNA Quant (PCR) 18,000 IU/mL Hep B DNA Qnt log IU/mL 4.3 log IU Hepatitis Be Antibody NEGATIVE (Negative) Hepatitis Be Antigen NEGATIVE (Negative) Hepatitis B Interp DETECTED A (Not Detected) Hepatitis C Ab Screen (Nonreactive) HIV Ag/Ab Combo Qual (Nonreactive) 11/05/16 11/05/16 10/31/16 Range/Units 03:47 03:47 06:50 Nasal Screen MRSA (PCR) Negative (Negative) Hepatitis A IgM Ab Nonreactive (Nonreactive) Hep Bs Antigen Reactive H (Nonreactive) Hep Bs Ag Confirmation POSITIVE A (Non Confirmed) Hep Bs Antibody mIU/mL Hep B Core Total Ab (Negative) Hep B Core IgM Ab Nonreactive (Nonreactive) Hep B DNA Quant (PCR) IU/mL Hep B DNA Qnt log IU/mL log IU Hepatitis Be Antibody (Negative) Hepatitis Be Antigen (Negative) Hepatitis B Interp (Not Detected) Hepatitis C Ab Screen Nonreactive (Nonreactive) HIV Ag/Ab Combo Qual Nonreactive (Nonreactive) Exam - Constitutional Vitals: Temp Pulse Resp BP Pulse Ox 98.2 F 101 20 105/66 99 11/16/16 07:55 11/16/16 07:55 11/16/16 07:55 11/16/16 07:55 11/16/16 07:55 General appearance: cooperative, morbidly obese, no acute distress - Head Head exam: Present: atraumatic, normal inspection, normocephalic - Eye Eye exam: Present: EOMI, normal appearance, PERRL Pupils: Present: normal accommodation - ENT ENT exam: Present: mucous membranes moist - Neck Neck exam: Present: normal inspection - Respiratory Respiratory exam: Present: CTAB. Absent: rales, respiratory distress, rhonchi, wheezes Additional comments: Chest tubes x 2 to the right lateral chest wall with dressing intact. Dressing to the right posterior/lateral chest wall C/D/I. - Cardiovascular Cardiovascular exam: Present: RRR, +S1, +S2 - GI/Abdominal GI/Abdominal exam: Present: distended (obese), normal bowel sounds, soft. Absent: tenderness - Extremities Exam Extremities exam: Present: normal inspection. Absent: joint swelling, pedal edema, tenderness - Neurological Exam Neurological exam: Present: alert, oriented X3, no focal deficits - Psychiatric Psychiatric exam: Present: normal affect, normal mood - Skin Skin exam: Present: dry, intact, normal color, warm - VTE Documentation of Mechanical Device: Intermittent pneumatic compression device Consult Discharge Plan - Plan Instructions: Oxycodone/Acetaminophen (By mouth), Cefazolin (Injection), Sepsis (DC), Pneumonia (DC), Cigarette Smoking and Your Health, Legal Investigator (GEN) Additional Instructions: Patient has been advised to quit smoking. Patient has been advised to discontinue IV drug use. Patient will need to strictly follow antibiotic regimen to allow recovery from pneumonia. Referrals: Vandana Amaya MD [Partnered Physician] - 12/24/16 1:20 pm NO,PCP [Primary Care Provider] - (PATIENT IS GOING TO [facility] NO PCP APPOINTMENT NEEDED) Prescriptions: Cefazolin Sodium/D5w [Cefazolin 2 G/50 ml-D5w Bag] 2 gm IV Q8H #39 piggyback Oxycodone HCl/Acetaminophen [Percocet 5-325 mg Tablet] 1 each PO Q6H #30 tablet - Attending Attestation I examined this patient and my medical decision-making was reviewed with the POLE FRAMER/PA/Advanced Practice Nurse/Resident Physician. I agree with the documented findings, disposition and treatment plan as described except to the extent set forth below.
--- NOTE | 2016-11-16 10:52 | Internal Med Progress Note ---
<Tai Borden - Last Filed: 11/16/16 12:55> Date of Encounter: 11/16/16 Time of Encounter: 09:15 - Assessment and plan (1) Sepsis Current Visit: Yes Status: Acute Assessment and plan: Patient's sepsis due to her cavitary pneumonia and empyema. Causative organism appears to be MSSA and Klebsiella pneumoniae. Patient underwent thoracotomy with decortication of empyema on 11/12/16, since then her white blood cell count has been improving daily, with return to normal WBC today. Patient has been having a low grade fever with Tmax of 99.7. Increased temperature could be from atelectasis given recent surgery. We will continue antibiotics of cefazolin and metronidazole Infectious disease following and appreciate recommendations for continued management/care Continue to monitor white blood cell count, telemetry, pulse oximetry Supplemental oxygen as needed, wean as tolerated Continue breathing treatments and cough suppression Encourage incentive spirometry Qualifiers: Sepsis type: methicillin susceptible Staphylococcus aureus Qualified Code(s ): A41.01 - Sepsis due to Methicillin susceptible Staphylococcus aureus (2) Empyema lung Current Visit: Yes Status: Acute Assessment and plan: Pulmonary abscess identified on CTA of patient chest. 3 sputum culture and bronchoscopy MSSA and Klebsiella pneumoniae were identified as causative organisms. She underwent thoracotomy with decortication of the pulmonary abscess on 11/12/16. She had received both Zosyn (5 days) and vancomycin (4 days) , These are both stopped on 11/04/16 and she was started on Cefazolin and and Flagyl. Infectious disease has been following and appreciate recommendations for continuing management/care Patient has bilateral chest tubes in place currently with likely removal early next week per cardiothoracic surgery Continue antibiotics as above Continue breathing treatment Continue pain control Encourage incentive spirometry (3) Cavitary pneumonia Current Visit: Yes Status: Acute Assessment and plan: Plan as above (4) IVDU (intravenous drug user) Current Visit: Yes Status: Acute Assessment and plan: hx of IVD use, heroin, with last use one week prior to admission. BEKA showed no endocarditis and blood cultures negative ancillary services manager therapy following (5) DVT prophylaxis Current Visit: Yes Status: Acute Assessment and plan: 5000 units heparin subcutaneous 3 times a day - Subjective Interval history: Patient reports having some continued sharp pain in the center of her chest that she states is worse when she hiccups. The numbness in the lateral aspect of her right breast is improved, but she reports some pain there now instead. She also reports having some continued weakness in her right shoulder. She reports that she feels like she is having a subjective fever with diaphoresis periodically. She denies cough, shortness of breath, other chest pain. - Constitutional Vitals: Temp Pulse Resp BP Pulse Ox 98.2 F 101 20 105/66 99 11/16/16 07:55 11/16/16 07:55 11/16/16 07:55 11/16/16 07:55 11/16/16 07:55 General appearance: Present: A&O X 3, obese Exam: General: Cooperative, pleasant, no acute distress, alert and oriented 3, answers questions appropriately HEENT: Normocephalic, atraumatic, neck supple, trachea midline, Conjunctiva pink , sclera anicteric Respiratory: No accessory muscle usage, slight bibasilar Rales auscultated R>L, bilateral bandages/directions place posterior chest wall Cardiovascular: Regular rate and rhythm, S1 and S2 present, no murmurs/rubs/ gallops/clicks appreciated GI/abdominal: Nondistended, mild tenderness to palpation, soft, normal bowel sounds, no peritoneal signs Extremities: No calf tenderness, noncyanotic, slight pretibial edema appreciated , warm, lower extremity pulses palpable and symmetrical, limited range of motion of right shoulder Neurological: Alert and oriented 3, no facial droop, no focal deficits Skin: Dry, intact, normal color Internal Medicine: Result - Labs CBC & Chem 7: 11/16/16 04:41 11/16/16 04:41 Labs: Short CBC 11/16/16 Range/Units 04:41 WBC 9.6 (4.3-11.1) K/mcL Hgb 8.6 L (11.5-15.4) g/dL Hct 27.4 L (35.3-44.9) % Plt Count 488 H (140-400) K/mcL Neutrophils # 6.8 (1.6-8.9) K/mcL BMP 11/16/16 04:41 Sodium 136 Potassium 4.5 Chloride 100 Carbon Dioxide 30 H BUN 11 Creatinine 0.95 Glucose 93 Calcium 9.2 - ABG Interpretation ABG results: ABG ABG pH 7.43 pH Units (7.32-7.45) 11/12/16 04:32 ABG pCO2 39 mmHg (35-45) 11/12/16 04:32 ABG pO2 69 mmHg (85-104) L 11/12/16 04:32 ABG O2 Saturation 94 % (95-98) L 11/12/16 04:32 PT/INR, D-dimer D-Dimer 1035 ng/mLFEU (0-500) H 10/30/16 09:28 - VTE Documentation of Mechanical Device: Intermittent pneumatic compression device Consult Discharge Plan - Plan Instructions: Oxycodone/Acetaminophen (By mouth), Cefazolin (Injection), Sepsis (DC), Pneumonia (DC), Cigarette Smoking and Your Health, Insole Taper (GEN) Additional Instructions: Patient has been advised to quit smoking. Patient has been advised to discontinue IV drug use. Patient will need to strictly follow antibiotic regimen to allow recovery from pneumonia. Referrals: Vandana Amaya MD [Partnered Physician] - 12/24/16 1:20 pm NO,PCP [Primary Care Provider] - (PATIENT IS GOING TO [facility] NO PCP APPOINTMENT NEEDED) Prescriptions: Cefazolin Sodium/D5w [Cefazolin 2 G/50 ml-D5w Bag] 2 gm IV Q8H #39 piggyback Oxycodone HCl/Acetaminophen [Percocet 5-325 mg Tablet] 1 each PO Q6H #30 tablet <Selwyn Saravia - Last Filed: 11/16/16 14:49> Date of Encounter: 11/16/16 - Constitutional Vitals: Temp Pulse Resp BP Pulse Ox 98.1 F 87 18 99/52 95 11/16/16 11:54 11/16/16 11:54 11/16/16 11:54 11/16/16 11:54 11/16/16 11:54 Internal Medicine: Result - Labs CBC & Chem 7: 11/16/16 04:41 11/16/16 04:41 Labs: Short CBC 11/16/16 Range/Units 04:41 WBC 9.6 (4.3-11.1) K/mcL Hgb 8.6 L (11.5-15.4) g/dL Hct 27.4 L (35.3-44.9) % Plt Count 488 H (140-400) K/mcL Neutrophils # 6.8 (1.6-8.9) K/mcL BMP 11/16/16 04:41 Sodium 136 Potassium 4.5 Chloride 100 Carbon Dioxide 30 H BUN 11 Creatinine 0.95 Glucose 93 Calcium 9.2 - ABG Interpretation ABG results: ABG ABG pH 7.43 pH Units (7.32-7.45) 11/12/16 04:32 ABG pCO2 39 mmHg (35-45) 11/12/16 04:32 ABG pO2 69 mmHg (85-104) L 11/12/16 04:32 ABG O2 Saturation 94 % (95-98) L 11/12/16 04:32 PT/INR, D-dimer D-Dimer 1035 ng/mLFEU (0-500) H 10/30/16 09:28 - Attending Attestation I examined this patient and my medical decision-making was reviewed with the CRIMINALIST/PA/Advanced Practice Nurse/Resident Physician. I agree with the documented findings, disposition and treatment plan as described except to the extent set forth below. Continue with pain control medication. Currently on IV Ancef according to recommendations by infectious disease. Possible removal of chest tubes in 1-[address] surgery recommendations.
[2016-11-16] MEDS: *HR* HYDROmorphone 20 MG/20 ML PCA IVC PRN (12:47)
--- NOTE | 2016-11-16 14:27 | Cardiothoracic Progress Note ---
Date of Encounter: 11/16/16 Time of Encounter: 14:25 - Assessment and plan (1) Pulmonary abscess Current Visit: Yes Status: Acute Hopefully, the chest tubes can be removed in 1-2 days. Qualifiers: Pulmonary abscess pneumonia presence: with pneumonia Laterality: right Lung location: lower lobe of lung Qualified Code(s): J85.1 - Abscess of lung with pneumonia - Subjective Interval history: The patient complains of continued postoperative pain, which is being controlled by a PRODUCTION POTTER pump. Vital Signs, Last 4 Hours Temp Pulse Resp BP Pulse Ox 11/16/16 11:54 98.1 F 87 18 99/52 95 11/16/16 10:56 12 92 Oxgyen Flow Rate Oxygen Flow Rate (LPM) 0 Clinical Data, last 8 Hours Output, Chest Tube Drainage 10 Amount [Right Lateral Chest #1 ] Output, Chest Tube Drainage 10 Amount [Right Mid-Axillary Chest #2] Output, Chest Tube Drainage 20 Amount [Right Mid-Axillary Chest #2] Weight 11/14/16 11/15/16 11/16/16 23:59 23:59 23:59 Weight 123.831 kg Lungs are clear to percussion and auscultation. The heart is in a normal sinus rhythm. Her chest tubes had minimal drainage and no air leak. - Labs 11/16/16 04:41 11/16/16 04:41 Lab Results, Last 24 hours 11/16/16 11/16/16 04:41 04:41 WBC 9.6 Hgb 8.6 L Hct 27.4 L Plt Count 488 H Sodium 136 Potassium 4.5 Chloride 100 Carbon Dioxide 30 H BUN 11 Creatinine 0.95 Glucose 93 Calcium 9.2 - VTE Documentation of Mechanical Device: Intermittent pneumatic compression device Consult Discharge Plan - Plan Instructions: Oxycodone/Acetaminophen (By mouth), Cefazolin (Injection), Sepsis (DC), Pneumonia (DC), Cigarette Smoking and Your Health, Transmitter Engineer In Charge (GEN) Additional Instructions: Patient has been advised to quit smoking. Patient has been advised to discontinue IV drug use. Patient will need to strictly follow antibiotic regimen to allow recovery from pneumonia. Referrals: Vandana Amaya MD [Partnered Physician] - 12/24/16 1:20 pm NO,PCP [Primary Care Provider] - (PATIENT IS GOING TO [facility] NO PCP APPOINTMENT NEEDED) Prescriptions: Cefazolin Sodium/D5w [Cefazolin 2 G/50 ml-D5w Bag] 2 gm IV Q8H #39 piggyback Oxycodone HCl/Acetaminophen [Percocet 5-325 mg Tablet] 1 each PO Q6H #30 tablet
[2016-11-16] MEDS: Pantoprazole 40 MG VIAL IVP SCH (14:29)
[2016-11-16] MEDS: Ondansetron 4 MG/2 ML VIAL IVP PRN (14:29)
[2016-11-17] MEDS: Albuterol 2.5 MG/3 ML NEBULIZER IH SCH ×7 (00:06→23:51)
[2016-11-17] MEDS: *HR* HYDROmorphone 20 MG/20 ML PCA IVC PRN (00:19)
[2016-11-17] MEDS: ceFAZolin 2,000 MG in D5% in Water 100 ML IVPB SCH ×4 (00:24→23:19)
[2016-11-17] MEDS: 0.9 % Sodium Chloride w KCl 20 MEQ/1,000 ML MLS IVC SCH (03:20)
[2016-11-17] MEDS: *HR* HYDROmorphone (PF) 1 MG/ML SYRINGE IVP PRN (03:42)
[2016-11-17 04:39] LABS: Basophils % 0.4 %; Eosinophils # 0.3 K/mcL (0.0-0.6); Eosinophils % 2.3 %; Hemoglobin 9.2 g/dL (11.5-15.4); Immature Granulocytes % 2.4 % (0-4); Lymphocytes # 2.4 K/mcL (0.6-4.6); Lymphocytes % 21.9 %; Mean Corpuscular HGB Conc 31.7 g/dL (31.6-35.5); Mean Corpuscular Hemoglobin 28.4 pg (28.0-33.3); Mean Corpuscular Volume 89.5 fL (83.0-100.0); Mean Platelet Volume 8.5 fL (9.4-12.4); Monocytes # 0.6 K/mcL (0.0-1.3); Monocytes % 5.8 %; Neutrophils # 7.3 K/mcL (1.6-8.9); Platelet Count 573 K/mcL (140-400); Red Blood Count 3.24 M/mcL (3.82-4.97); Red Cell Distribution Width 13.2 % (11.5-14.5); Segmented Neutrophils % 67.2 %
[2016-11-17 04:49] LABS: BUN/Creatinine Ratio 11 (6-26); Blood Urea Nitrogen 11 mg/dL (7-20); Calcium 9.5 mg/dL (8.6-10.8); Carbon Dioxide 32 mEq/L (19-29); Chloride 98 mEq/L (98-109); Glucose 91 mg/dL (70-99); Osmolality,Calculated 281 (280-300); Potassium 4.5 mEq/L (3.5-4.5); Sodium 136 mEq/L (136-145); eGFR For African Americans > 60 (> 60); eGFR For Non-African Americans > 60 (> 60)
[2016-11-17] MEDS: *HR* Heparin 5,000 UNIT/ML VIAL SQ SCH ×3 (05:41→20:45)
--- NOTE | 2016-11-17 07:32 | Cardiothoracic Progress Note ---
Date of Encounter: 11/17/16 Time of Encounter: 07:31 - Assessment and plan (1) Pulmonary abscess Current Visit: Yes Status: Acute The chest tubes were removed. We will check a stat portable chest x-ray. We will discontinue the DIGITAL MEDIA REPRESENTATIVE pump and place her on by mouth narcotics. Qualifiers: Pulmonary abscess pneumonia presence: with pneumonia Laterality: right Lung location: lower lobe of lung Qualified Code(s): J85.1 - Abscess of lung with pneumonia - Subjective Interval history: The patient complains of continued postoperative pain. Vital Signs, Last 4 Hours Temp Pulse Resp BP Pulse Ox 11/17/16 03:58 98.5 F 102 18 108/61 89 11/17/16 03:44 20 92 Oxgyen Flow Rate Oxygen Flow Rate (LPM) 2 Clinical Data, last 8 Hours Output, Chest Tube Drainage 0 Amount [Right Lateral Chest #1 ] Output, Chest Tube Drainage 0 Amount [Right Lateral Chest #1 ] Output, Chest Tube Drainage 0 Amount [Right Mid-Axillary Chest #2] Output, Chest Tube Drainage 0 Amount [Right Mid-Axillary Chest #2] Output, Urine Amount 400 Output, Urine Amount 1,100 Output, Urine Amount 400 Weight 11/15/16 11/16/16 11/17/16 23:59 23:59 23:59 Weight 119.1 kg Lungs are clear to percussion and auscultation. Heart is in a normal sinus rhythm. All incisions are healing well without signs of infection. Chest tube drainage is minimal and there is no air leak. - Labs 11/17/16 03:50 11/17/16 03:50 Lab Results, Last 24 hours 11/17/16 11/17/16 03:50 03:50 WBC 10.8 Hgb 9.2 L Hct 29.0 L Plt Count 573 H Sodium 136 Potassium 4.5 Chloride 98 Carbon Dioxide 32 H BUN 11 Creatinine 1.00 Glucose 91 Calcium 9.5 - VTE Documentation of Mechanical Device: Intermittent pneumatic compression device Consult Discharge Plan - Plan Instructions: Oxycodone/Acetaminophen (By mouth), Cefazolin (Injection), Sepsis (DC), Pneumonia (DC), Cigarette Smoking and Your Health, Instructor Tap Dancing (GEN) Additional Instructions: Patient has been advised to quit smoking. Patient has been advised to discontinue IV drug use. Patient will need to strictly follow antibiotic regimen to allow recovery from pneumonia. Referrals: Vandana Amaya MD [Partnered Physician] - 12/24/16 1:20 pm NO,PCP [Primary Care Provider] - (PATIENT IS GOING TO [facility] NO PCP APPOINTMENT NEEDED) Prescriptions: Cefazolin Sodium/D5w [Cefazolin 2 G/50 ml-D5w Bag] 2 gm IV Q8H #39 piggyback Oxycodone HCl/Acetaminophen [Percocet 5-325 mg Tablet] 1 each PO Q6H #30 tablet
[2016-11-17] MEDS ORDERED: *HR* HYDROmorphone 2 MG/ML SYRINGE IVP PRN (07:34)
[2016-11-17] MEDS: Magnesium Oxide 400 MG TABLET PO SCH ×2 (08:01→20:45)
[2016-11-17] MEDS: Sennosides/Docusate Sodium TABLET PO SCH ×2 (08:01→20:45)
[2016-11-17] MEDS: *HR* OxyCODONE/APAP 10/325 TABLET PO PRN ×4 (08:02→23:18)
[2016-11-17] MEDS: Nicotine 21 MG PATCH.TD24 TD SCH (08:02)
[2016-11-17] MEDS: Pantoprazole 40 MG VIAL IVP SCH (08:03)
[2016-11-17] MEDS: metroNIDAZOLE 500 MG TABLET PO SCH (08:30)
--- NOTE | 2016-11-17 09:37 | Infectious Disease Progress No ---
Date of Encounter: 11/17/16 Time of Encounter: 09:35 - Assessment and Plan (1) Sepsis Current Visit: Yes Status: Acute The patient had fever, leukocytosis, and tachycardia. Likely secondary to cavitary pneumonia and empyema. The patient has been afebrile. She continues to have some intermittent tachycardia. WBC normal. Blood cultures drawn 10/30/16 x 2 sets are negative. Additional blood cultures drawn 10/31/16 are negative x 2 sets. Repeat blood cultures drawn 11/09/16 are negative x 2 sets. Qualifiers: Sepsis type: methicillin susceptible Staphylococcus aureus Qualified Code(s ): A41.01 - Sepsis due to Methicillin susceptible Staphylococcus aureus (2) Leukocytosis Current Visit: Yes Status: Resolved Resolved. Continue to trend. Qualifiers: Leukocytosis type: unspecified Qualified Code(s): D72.829 - Elevated white blood cell count, unspecified (3) Pleural effusion Current Visit: Yes Status: Acute Repeat CXR 11/10/16 shows increased right effusion. CT scan showed increased size of the right pleural effusion as compared to prior exam dated 10/30/16, now large in size and loculated. There was also right lower lobe collapse with 8mm focus of peripheral hypodensity and air, suspicious for necrosis or intrapulmonary abscess. CTS consulted. Status post right thoracotomy with complete decortication 11/11/[address] Amaya. Operative note reviewed. Intra-operative cultures obtained and are negative. Antibiotics as below. Repeat CXR 11/17/16 shows 3mm pneumothorax and a small right pleural effusion as well as bibasilar atelectasis. There is also increased focal atelectasis in the right lung. Discussed the importance of ambulation and aggressive pulmonary toileting/IS use with the patient. (4) Cavitary pneumonia Current Visit: Yes Status: Acute Location: Right lower lobe. Causative organism: MSSA and K. pneumoniae. CXR completed 10/30/16 showed worsening consolidative changes in the right lung base. CTA of the chest completed 10/30/16 was negative for PE, but showed 4.5cm x 3.7cm hypoenhancing area of collapsed RLL with central cavitation suspicious for necrotizing PNA with potential pulmonary abscess. There were also findings consistent with bronchitis and a 0.5cm x 0.3cm VENESSA nodule. Pulmonology consulted and following. Status post bronchoscopy 10/30/16 that showed mucopurulent secretions in the RLL. Bronch washings sent for culture, AFB, and fungal. Culture came back positive for MSSA and K. pneumoniae. Continue cefazolin 2 grams IV Q8H. Discontinue Flagyl. Duration of treatment depends on the clinical picture, but would recommend 2-4 weeks from the patient's surgery date. visitor services assistant has been consulted and is working on placement for the patient on discharge. Monitor renal function and dose-adjust antibiotics. The patient currently has no IV access. Consult EPIV placement. Discussed with nursing. 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 Reports that she sometimes shares needles. HIV negative. Hepatitis BsAg reactive. (6) Tobacco abuse Current Visit: Yes Status: Acute (7) Hepatitis B antibody positive in blood Current Visit: Yes Status: Acute Hep Bs antibody 0.00. Hep B core total antibody negative. Hep B core IgM antibody non-reactive. Unclear diagnosis given the lab results. Repeat labs in 4 weeks. - Subjective Interval history: Patient seen and examined. No acute events noted. Status post thoracotomy with complete decortication 11/11/[address] Amaya. Chest tubes removed this morning. Patient states she feels better today. Patient states she still has pain in the right upper back and right lateral chest wall, but it is tolerable with the current medication regimen. Reports pain to the midsternal area with cough or deep inspiration. Denies fevers, chills, or rigors. Denies shortness of breath or productive cough. Denies vomiting, or diarrhea, but does complain of some intermittent nausea. States she has not had a BM since surgery. Denies urinary complaints. Denies oral thrush or skin lesions. Infect Dis PN-Objective Data - Labs CBC & Chem 7: 11/17/16 03:50 11/17/16 03:50 Labs: Laboratory Results - last 24 hr 11/17/16 11/17/16 03:50 03:50 WBC 10.8 RBC 3.24 L Hgb 9.2 L Hct 29.0 L MCV 89.5 MCH 28.4 MCHC 31.7 RDW 13.2 Plt Count 573 H MPV 8.5 L Immature Gran % 2.4 Seg Neutrophils % 67.2 Lymphocytes % 21.9 Monocytes % 5.8 Eosinophils % 2.3 Basophils % 0.4 Neutrophils # 7.3 Lymphocytes # 2.4 Monocytes # 0.6 Eosinophils # 0.3 Basophils # 0.0 Sodium 136 Potassium 4.5 Chloride 98 Carbon Dioxide 32 H BUN 11 Creatinine 1.00 Est GFR ( Amer) > 60 Est GFR (Non-Af Amer) > 60 BUN/Creatinine Ratio 11 Glucose 91 Calculated Osmolality 281 Calcium 9.5 Cultures: Cultures 11/11/16 13:48 Anaerobic Culture - Final Pleural Fluid No anaerobes were recovered. 11/09/16 15:45 Blood Culture - Final Peripheral Venipuncture No growth. 11/09/16 15:40 Blood Culture - Final Peripheral Venipuncture No growth. 11/11/16 13:48 Body Fluid Culture - Final Pleural Fluid 11/11/16 13:48 Acid Fast Stain - Final Pleural Fluid 10/31/16 17:08 Blood Culture - Final Peripheral Venipuncture No growth. 10/31/16 17:08 Blood Culture - Final Peripheral Venipuncture No growth. 10/31/16 12:10 Sputum Culture - Final Sputum Staphylococcus aureus 10/30/16 15:26 Respiratory Culture - Final Right Lower Lobe Lung Klebsiella pneumoniae Staphylococcus aureus 10/30/16 15:26 Acid Fast Stain - Final Right Lower Lobe Lung 10/30/16 23:00 Legionella Antigen - Final Urine,Clean Catch Streptococcus pneumoniae Antigen (M - Final Serology 11/10/16 11/06/16 11/06/16 Range/Units 20:08 04:48 04:48 Nasal Screen MRSA (PCR) (Negative) Hepatitis A IgM Ab (Nonreactive) Hep Bs Antigen (Nonreactive) Hep Bs Ag Confirmation (Non Confirmed) Hep Bs Antibody 0.00 mIU/mL Hep B Core Total Ab NEGATIVE (Negative) Hep B Core IgM Ab Nonreactive (Nonreactive) Hep B DNA Quant (PCR) 18,000 IU/mL Hep B DNA Qnt log IU/mL 4.3 log IU Hepatitis Be Antibody NEGATIVE (Negative) Hepatitis Be Antigen NEGATIVE (Negative) Hepatitis B Interp DETECTED A (Not Detected) Hepatitis C Ab Screen (Nonreactive) HIV Ag/Ab Combo Qual (Nonreactive) 11/05/16 11/05/16 10/31/16 Range/Units 03:47 03:47 06:50 Nasal Screen MRSA (PCR) Negative (Negative) Hepatitis A IgM Ab Nonreactive (Nonreactive) Hep Bs Antigen Reactive H (Nonreactive) Hep Bs Ag Confirmation POSITIVE A (Non Confirmed) Hep Bs Antibody mIU/mL Hep B Core Total Ab (Negative) Hep B Core IgM Ab Nonreactive (Nonreactive) Hep B DNA Quant (PCR) IU/mL Hep B DNA Qnt log IU/mL log IU Hepatitis Be Antibody (Negative) Hepatitis Be Antigen (Negative) Hepatitis B Interp (Not Detected) Hepatitis C Ab Screen Nonreactive (Nonreactive) HIV Ag/Ab Combo Qual Nonreactive (Nonreactive) - Impressions Impressions Chest X-Ray 11/13/16 06:00 IMPRESSION: Trace right apical pneumothorax measuring 3 mm. Stable right chest tube. Small right pleural effusion with right basilar atelectasis and volume loss in the right hemithorax. D/ / 11/13/2016 09:08:25 Tamir Denny MD / grazyna Interpreting Provider: Tamir Denny MD Chest X-Ray 11/17/16 05:00 IMPRESSION: Increasing left basilar atelectasis or pneumonia. Otherwise stable chest. D/ / Alfa Cooley MD / Alfa Cooley MD Interpreting Provider: Alfa Cooley MD Chest X-Ray 11/17/16 07:34 IMPRESSION: There is a tiny pneumothorax seen in the right apical lateral chest measuring just under 3 mm. The large bore chest tubes have been removed. This was discussed with Dr. Sanchez at 8:01 a.m. on 11/17/2016. D/ / Paul Cardona MD / Paul Cardona MD Interpreting Provider: Paul Cardona MD Exam - Constitutional Vitals: Temp Pulse Resp BP Pulse Ox 98.5 F 102 18 108/61 89 11/17/16 03:58 11/17/16 03:58 11/17/16 08:29 11/17/16 03:58 11/17/16 08:29 General appearance: cooperative, morbidly obese, no acute distress - Head Head exam: Present: atraumatic, normal inspection, normocephalic - Eye Eye exam: Present: EOMI, normal appearance, PERRL Pupils: Present: normal accommodation - ENT ENT exam: Present: mucous membranes moist - Neck Neck exam: Present: normal inspection - Respiratory Respiratory exam: Present: CTAB. Absent: respiratory distress, rhonchi, wheezes Additional comments: Dressing to the right lateral chest wall C/D/I. Chest tubes have been removed. Dressing noted to the postero-lateral chest wall intact. - Cardiovascular Cardiovascular exam: Present: RRR, +S1, +S2 - GI/Abdominal GI/Abdominal exam: Present: distended (obese), normal bowel sounds, soft. Absent: tenderness - Extremities Exam Extremities exam: Present: normal inspection, pedal edema (Trace LLE). Absent: joint swelling, tenderness - Neurological Exam Neurological exam: Present: alert, oriented X3, no focal deficits - Psychiatric Psychiatric exam: Present: normal affect, normal mood - Skin Skin exam: Present: dry, intact, normal color, warm - VTE Documentation of Mechanical Device: Intermittent pneumatic compression device Consult Discharge Plan - Plan Instructions: Oxycodone/Acetaminophen (By mouth), Cefazolin (Injection), Sepsis (DC), Pneumonia (DC), Cigarette Smoking and Your Health, Wet Chemistry Analyst (GEN) Additional Instructions: Patient has been advised to quit smoking. Patient has been advised to discontinue IV drug use. Patient will need to strictly follow antibiotic regimen to allow recovery from pneumonia. Referrals: Vandana Amaya MD [Partnered Physician] - 12/24/16 1:20 pm NO,PCP [Primary Care Provider] - (PATIENT IS GOING TO [facility] NO PCP APPOINTMENT NEEDED) Prescriptions: Cefazolin Sodium in 0.9 % NaCl [Cefazolin-0.9% NaCl 2 G/50 ml] 2 gm IV Q8H 28 Days Oxycodone HCl/Acetaminophen [Percocet 5-325 mg Tablet] 1 each PO Q6H #30 tablet - Attending Attestation I examined this patient and my medical decision-making was reviewed with the FLORAL DEPARTMENT SPECIALIST/PA/Advanced Practice Nurse/Resident Physician. I agree with the documented findings, disposition and treatment plan as described except to the extent set forth below.
[2016-11-17] MEDS: Triamcinolone Acet Dentl Paste 5 GM TUBE TP SCH ×2 (10:18→20:46)
--- NOTE | 2016-11-17 10:26 | Internal Med Progress Note ---
Date of Encounter: 11/17/16 Time of Encounter: 10:25 - Assessment and plan (1) Cavitary pneumonia Current Visit: Yes Status: Acute Assessment and plan: Contrary to Klebsiella pneumoniae and MSSA. Chest x-ray and chest CT noted. Status post bronchoscopy with bronchial of March results noted. Negative for AFP and fungal infection. Continue cefazolin 2 g IV every 8 hours. Patient will be receiving IV antibiotics at the [facility] after discharge. (2) Empyema lung Current Visit: Yes Status: Acute Assessment and plan: Pulmonary abscess identified on CTA of patient chest. 3 sputum culture and bronchoscopy MSSA and Klebsiella pneumoniae were identified as causative organisms. She underwent thoracotomy with decortication of the pulmonary abscess on . She had received both Zosyn (5 days) and vancomycin (4 days), These are both stopped on 11/04/16 and she was started on Cefazolin and and Flagyl. Infectious disease has been following and appreciate recommendations for continuing management/care Chest tubes have been removed today, chest x-ray this morning with small pneumothorax. Continue to monitor chest x-ray serially. Encourage incentive spirometry (3) Hepatitis B antibody positive in blood Current Visit: Yes Status: Chronic Assessment and plan: LFTs is normal Hep Bs antibody 0.00. Hep B core total antibody negative. Hep B core IgM antibody non-reactive. Unclear diagnosis given the lab results. Repeat labs in 4 weeks. Follow-up with primary care physician as outpatient. (4) IVDU (intravenous drug user) Current Visit: Yes Status: Acute Assessment and plan: hx of IVD use, heroin, with last use one week prior to admission. BEKA showed no endocarditis and blood cultures negative director of employer services following (5) Klebsiella pneumoniae pneumonia Current Visit: Yes Status: Acute Assessment and plan: As in Management of cavitary pneumonia. Qualifiers: Laterality: right Lung location: lower lobe of lung Qualified Code(s): J15.0 - Pneumonia due to Klebsiella pneumoniae (6) Sepsis Current Visit: Yes Status: Acute Assessment and plan: Patient's sepsis due to her cavitary pneumonia and empyema.Mgt as in pneumonia Qualifiers: Sepsis type: methicillin susceptible Staphylococcus aureus Qualified Code(s ): A41.01 - Sepsis due to Methicillin susceptible Staphylococcus aureus (7) Tobacco abuse Current Visit: Yes Status: Chronic - Subjective Interval history: 26-year-old female with history of IV drug abuse shows admitted and managed for loculated pleural effusion and empyema (she is status post decortication and thoracotomy. Chest tubes were removed this morning. Culture is significant for staph aureus and Klebsiella pneumonia. Patient will require at least 4 weeks of antibiotics from the day of surgery. Infectious disease is following. leukocytosis has resolved and her hemoglobin is stable, her chemistries within normal limits. She is seen at bedside this morning she has no new complaints. Chest x-ray done this morning shows small right apical pneumothorax, patient denies difficulty breathing or chest pain. Blood cultures have remained negative since admission. - Constitutional Vitals: Temp Pulse Resp BP Pulse Ox 98.5 F 102 18 108/61 89 11/17/16 03:58 11/17/16 03:58 11/17/16 08:29 11/17/16 03:58 11/17/16 08:29 General appearance: Present: A&O X 3, no acute distress, obese - Head Head exam: Present: atraumatic, normocephalic - Eye Eye exam: Present: PERRL, conjuntiva pink, sclera anicteric Pupils: Present: PERRL - Neck Neck exam general surgery: Present: supple, trachea midline. Absent: lymphadenopathy - Respiratory Additional comments: Chest with reduced air entry right worse than left. Wound dressings on the posterior chest wall are clean and dry, there is no focal tenderness. - Cardiovascular Cardiovascular exam: Present: RRR, +S1, +S2. Absent: diastolic murmur, gallop, rubs, systolic murmur - GI/Abdominal GI/Abdominal exam: Present: normal bowel sounds, soft, no peritoneal signs. Absent: distended, tenderness - Extremities Exam Extremities exam: Present: warm, radial pulses palpable and symetrical. Absent : calf tenderness, cyanotic, pedal edema - Neurological Exam Neurological exam: Present: alert, CN II-XII intact, oriented X3, no focal deficits. Absent: pronater drift, facial droop, speech deficit - Skin Skin exam: Present: dry, intact Internal Medicine: Result - Labs CBC & Chem 7: 11/17/16 03:50 11/17/16 03:50 Labs: Short CBC 11/17/16 Range/Units 03:50 WBC 10.8 (4.3-11.1) K/mcL Hgb 9.2 L (11.5-15.4) g/dL Hct 29.0 L (35.3-44.9) % Plt Count 573 H (140-400) K/mcL Neutrophils # 7.3 (1.6-8.9) K/mcL BMP 11/17/16 03:50 Sodium 136 Potassium 4.5 Chloride 98 Carbon Dioxide 32 H BUN 11 Creatinine 1.00 Glucose 91 Calcium 9.5 - ABG Interpretation ABG results: ABG ABG pH 7.43 pH Units (7.32-7.45) 11/12/16 04:32 ABG pCO2 39 mmHg (35-45) 11/12/16 04:32 ABG pO2 69 mmHg (85-104) L 11/12/16 04:32 ABG O2 Saturation 94 % (95-98) L 11/12/16 04:32 PT/INR, D-dimer D-Dimer 1035 ng/mLFEU (0-500) H 10/30/16 09:28 - Impressions Impressions Chest X-Ray 11/13/16 06:00 IMPRESSION: Trace right apical pneumothorax measuring 3 mm. Stable right chest tube. Small right pleural effusion with right basilar atelectasis and volume loss in the right hemithorax. D/ / 11/13/2016 09:08:25 Tamir Denny MD / grazyna Interpreting Provider: Tamir Denny MD Chest X-Ray 11/17/16 05:00 IMPRESSION: Increasing left basilar atelectasis or pneumonia. Otherwise stable chest. D/ / Alfa Cooley MD / Alfa Cooley MD Interpreting Provider: Alfa Cooley MD Chest X-Ray 11/17/16 07:34 IMPRESSION: There is a tiny pneumothorax seen in the right apical lateral chest measuring just under 3 mm. The large bore chest tubes have been removed. This was discussed with Dr. Sanchez at 8:01 a.m. on 11/17/2016. D/ / Paul Cardona MD / Paul Cardona MD Interpreting Provider: Paul Cardona MD - VTE Documentation of Mechanical Device: Intermittent pneumatic compression device Consult Discharge Plan - Plan Instructions: Oxycodone/Acetaminophen (By mouth), Cefazolin (Injection), Sepsis (DC), Pneumonia (DC), Cigarette Smoking and Your Health, Steamtable Attendant Railroad (GEN) Additional Instructions: Patient has been advised to quit smoking. Patient has been advised to discontinue IV drug use. Patient will need to strictly follow antibiotic regimen to allow recovery from pneumonia. Referrals: Vandana Amaya MD [Partnered Physician] - 12/24/16 1:20 pm NO,PCP [Primary Care Provider] - (PATIENT IS GOING TO [facility] NO PCP APPOINTMENT NEEDED) Prescriptions: Cefazolin Sodium in 0.9 % NaCl [Cefazolin-0.9% NaCl 2 G/50 ml] 2 gm IV Q8H 28 Days Oxycodone HCl/Acetaminophen [Percocet 5-325 mg Tablet] 1 each PO Q6H #30 tablet
[2016-11-17] MEDS: *HR* LORazepam 0.5 MG TABLET PO PRN ×2 (11:26→20:54)
[2016-11-17] MEDS: Ondansetron 4 MG/2 ML VIAL IVP PRN (12:01)
[2016-11-18] MEDS: Albuterol 2.5 MG/3 ML NEBULIZER IH SCH ×6 (04:28→23:45)
[2016-11-18] MEDS: *HR* OxyCODONE/APAP 10/325 TABLET PO PRN ×5 (05:28→22:26)
[2016-11-18] MEDS: *HR* Heparin 5,000 UNIT/ML VIAL SQ SCH ×3 (05:28→21:43)
--- NOTE | 2016-11-18 07:22 | Cardiothoracic Progress Note ---
Date of Encounter: 11/18/16 Time of Encounter: 07:20 - Assessment and plan (1) Pulmonary abscess Current Visit: Yes Status: Acute The patient is okay to transfer to another floor from my standpoint. She is okay for discharge at any time. Dr. Amaya would need to see her in the office in 4 weeks for a check. I will sign off. Please call if needed. Qualifiers: Pulmonary abscess pneumonia presence: with pneumonia Laterality: right Lung location: lower lobe of lung Qualified Code(s): J85.1 - Abscess of lung with pneumonia - Subjective Interval history: The patient has continued postoperative pain. Vital Signs, Last 4 Hours Temp Pulse Resp BP Pulse Ox 11/18/16 06:21 98.2 F 85 16 100 11/18/16 04:29 16 100 11/18/16 04:14 85 16 100 11/18/16 04:03 98.2 F 83 16 113/70 95 Oxgyen Flow Rate Oxygen Flow Rate (LPM) 2 Clinical Data, last 8 Hours Output, Urine Amount 1,000 Weight 11/16/16 11/17/16 11/18/16 23:59 23:59 23:59 Weight 119.1 kg 119.4 kg Lungs are clear to percussion and auscultation. Heart is in a normal sinus rhythm. Her incision is healing well without signs of infection. Chest x-ray done this morning reveals no pneumothorax. - Labs 11/17/16 03:50 11/17/16 03:50 - VTE Documentation of Mechanical Device: Intermittent pneumatic compression device Consult Discharge Plan - Plan Instructions: Oxycodone/Acetaminophen (By mouth), Cefazolin (Injection), Sepsis (DC), Pneumonia (DC), Cigarette Smoking and Your Health, Certified Retinal Angiographer (GEN) Additional Instructions: Patient has been advised to quit smoking. Patient has been advised to discontinue IV drug use. Patient will need to strictly follow antibiotic regimen to allow recovery from pneumonia. Referrals: Vandana Amaya MD [Partnered Physician] - 12/24/16 1:20 pm NO,PCP [Primary Care Provider] - (PATIENT IS GOING TO [facility] NO PCP APPOINTMENT NEEDED) Prescriptions: Cefazolin Sodium in 0.9 % NaCl [Cefazolin-0.9% NaCl 2 G/50 ml] 2 gm IV Q8H 28 Days Oxycodone HCl/Acetaminophen [Percocet 5-325 mg Tablet] 1 each PO Q6H #30 tablet
[2016-11-18] MEDS: Magnesium Oxide 400 MG TABLET PO SCH ×2 (08:06→21:43)
[2016-11-18] MEDS: Sennosides/Docusate Sodium TABLET PO SCH ×2 (08:06→21:43)
[2016-11-18] MEDS: Nicotine 21 MG PATCH.TD24 TD SCH (08:06)
[2016-11-18] MEDS: ceFAZolin 2,000 MG in D5% in Water 100 ML IVPB SCH ×3 (08:06→23:47)
[2016-11-18] MEDS: Triamcinolone Acet Dentl Paste 5 GM TUBE TP SCH ×2 (08:07→23:00)
--- NOTE | 2016-11-18 11:08 | Internal Med Progress Note ---
Date of Encounter: 11/18/16 Time of Encounter: 11:06 - Assessment and plan (1) Cavitary pneumonia Current Visit: Yes Status: Acute Assessment and plan: Contrary to Klebsiella pneumoniae and MSSA. Chest x-ray and chest CT noted. Status post bronchoscopy with bronchial of March results noted. Negative for AFP and fungal infection. Continue cefazolin 2 g IV every 8 hours. Patient will be [facility] at [facility] after discharge. (2) Empyema lung Current Visit: Yes Status: Acute Assessment and plan: Pulmonary abscess identified on CTA of patient chest. 3 sputum culture and bronchoscopy MSSA and Klebsiella pneumoniae were identified as causative organisms. She underwent thoracotomy with decortication of the pulmonary abscess on . She had received both Zosyn (5 days) and vancomycin (4 days), These are both stopped on 11/04/16 and she was started on Cefazolin and and Flagyl. Infectious disease has been following and appreciate recommendations for continuing management/care Chest tubes have been removed today, chest x-ray this morning with small pneumothorax. Continue to monitor chest x-ray serially. Encourage incentive spirometry (3) Hepatitis B antibody positive in blood Current Visit: Yes Status: Chronic Assessment and plan: LFTs is normal Hep Bs antibody 0.00. Hep B core total antibody negative. Hep B core IgM antibody non-reactive. Unclear diagnosis given the lab results. Repeat labs in 4 weeks. Follow-up with primary care physician as outpatient. (4) IVDU (intravenous drug user) Current Visit: Yes Status: Acute Assessment and plan: hx of IVD use, heroin, with last use one week prior to admission. BEKA showed no endocarditis and blood cultures negative community services manager following (5) Klebsiella pneumoniae pneumonia Current Visit: Yes Status: Acute Assessment and plan: As in Management of cavitary pneumonia. Qualifiers: Laterality: right Lung location: lower lobe of lung Qualified Code(s): J15.0 - Pneumonia due to Klebsiella pneumoniae (6) Sepsis Current Visit: Yes Status: Resolved Assessment and plan: Patient's sepsis due to her cavitary pneumonia and empyema.Mgt as in pneumonia Qualifiers: Sepsis type: methicillin susceptible Staphylococcus aureus Qualified Code(s ): A41.01 - Sepsis due to Methicillin susceptible Staphylococcus aureus (7) Tobacco abuse Current Visit: Yes Status: Chronic - Subjective Interval history: 26-year-old female with history of IV drug abuse shows admitted and managed for loculated pleural effusion and empyema (she is status post decortication and thoracotomy. Chest tubes were removed this morning. Culture is significant for staph aureus and Klebsiella pneumonia. Patient will require at least 4 weeks of antibiotics from the day of surgery. Infectious disease is following. leukocytosis has resolved and her hemoglobin is stable, her chemistries within normal limits. She is seen at bedside this morning she has no new complaints. Rpt CX this morning with no pneumothorax Cardiothoracic surgery has signed off Blood cultures have remained negative since admission. Patient is awaiting placement and will be discharged when socially cleared She is clinically stable - Constitutional Vitals: Temp Pulse Resp BP Pulse Ox 97.9 F 82 14 107/62 96 11/18/16 07:20 11/18/16 08:00 11/18/16 07:20 11/18/16 07:20 11/18/16 07:20 General appearance: Present: A&O X 3, no acute distress, obese - Head Head exam: Present: atraumatic, normocephalic - Eye Eye exam: Present: PERRL, conjuntiva pink, sclera anicteric Pupils: Present: PERRL - Neck Neck exam general surgery: Present: supple, trachea midline. Absent: lymphadenopathy - Respiratory Additional comments: Chest with reduced air entry right worse than left. Wound dressings on the posterior chest wall are clean and dry, there is no focal tenderness. - Cardiovascular Cardiovascular exam: Present: RRR, +S1, +S2. Absent: diastolic murmur, gallop, rubs, systolic murmur - GI/Abdominal GI/Abdominal exam: Present: normal bowel sounds, soft, no peritoneal signs. Absent: distended, tenderness - Extremities Exam Extremities exam: Present: warm, radial pulses palpable and symetrical. Absent : calf tenderness, cyanotic, pedal edema - Neurological Exam Neurological exam: Present: alert, CN II-XII intact, oriented X3, no focal deficits. Absent: pronater drift, facial droop, speech deficit - Skin Skin exam: Present: dry, intact Internal Medicine: Result - Labs CBC & Chem 7: 11/17/16 03:50 11/17/16 03:50 - ABG Interpretation ABG results: ABG ABG pH 7.43 pH Units (7.32-7.45) 11/12/16 04:32 ABG pCO2 39 mmHg (35-45) 11/12/16 04:32 ABG pO2 69 mmHg (85-104) L 11/12/16 04:32 ABG O2 Saturation 94 % (95-98) L 11/12/16 04:32 PT/INR, D-dimer D-Dimer 1035 ng/mLFEU (0-500) H 10/30/16 09:28 - Impressions Impressions Chest X-Ray 11/18/16 00:01 IMPRESSION: 1. No discernible pneumothorax. 2. Grossly stable right-sided pleuroparenchymal disease. D/ / Alfa Cooley MD / Alfa Cooley MD Interpreting Provider: Alfa Cooley MD - VTE Documentation of Mechanical Device: Intermittent pneumatic compression device Consult Discharge Plan - Plan Instructions: Oxycodone/Acetaminophen (By mouth), Cefazolin (Injection), Sepsis (DC), Pneumonia (DC), Cigarette Smoking and Your Health, Road Crossing Guard (GEN) Additional Instructions: Patient has been advised to quit smoking. Patient has been advised to discontinue IV drug use. Patient will need to strictly follow antibiotic regimen to allow recovery from pneumonia. Referrals: Vandana Amaya MD [Partnered Physician] - 12/24/16 1:20 pm NO,PCP [Primary Care Provider] - (PATIENT IS GOING TO [facility] NO PCP APPOINTMENT NEEDED) Prescriptions: Cefazolin Sodium in 0.9 % NaCl [Cefazolin-0.9% NaCl 2 G/50 ml] 2 gm IV Q8H 28 Days Oxycodone HCl/Acetaminophen [Percocet 5-325 mg Tablet] 1 each PO Q6H #30 tablet
--- NOTE | 2016-11-18 14:26 | Infectious Disease Progress No ---
Date of Encounter: 11/18/16 Time of Encounter: 14:25 - Assessment and Plan (1) Sepsis Current Visit: Yes Status: Resolved The patient had fever, leukocytosis, and tachycardia. Likely secondary to cavitary pneumonia and empyema. The patient has been afebrile. She continues to have some intermittent tachycardia. WBC normal. Blood cultures drawn 10/30/16 x 2 sets are negative. Additional blood cultures drawn 10/31/16 are negative x 2 sets. Repeat blood cultures drawn 11/09/16 are negative x 2 sets. Qualifiers: Sepsis type: methicillin susceptible Staphylococcus aureus Qualified Code(s ): A41.01 - Sepsis due to Methicillin susceptible Staphylococcus aureus (2) Leukocytosis Current Visit: Yes Status: Resolved Resolved. Qualifiers: Leukocytosis type: unspecified Qualified Code(s): D72.829 - Elevated white blood cell count, unspecified (3) Pleural effusion Current Visit: Yes Status: Acute Repeat CXR 11/10/16 shows increased right effusion. CT scan showed increased size of the right pleural effusion as compared to prior exam dated 10/30/16, now large in size and loculated. There was also right lower lobe collapse with 8mm focus of peripheral hypodensity and air, suspicious for necrosis or intrapulmonary abscess. CTS consulted. Status post right thoracotomy with complete decortication 11/11/[address] Amaya. Operative note reviewed. Intra-operative cultures obtained and are negative. Antibiotics as below. Repeat CXR 11/17/16 shows 3mm pneumothorax and a small right pleural effusion as well as bibasilar atelectasis. There is also increased focal atelectasis in the right lung. Status post removal of chest tube on 11/17/2016 Repeat chest x-ray on 11/18/16 shows resolution of the pneumothorax (4) Cavitary pneumonia Current Visit: Yes Status: Acute Location: Right lower lobe. Causative organism: MSSA and K. pneumoniae. CXR completed 10/30/16 showed worsening consolidative changes in the right lung base. CTA of the chest completed 10/30/16 was negative for PE, but showed 4.5cm x 3.7cm hypoenhancing area of collapsed RLL with central cavitation suspicious for necrotizing PNA with potential pulmonary abscess. There were also findings consistent with bronchitis and a 0.5cm x 0.3cm VENESSA nodule. Pulmonology consulted and following. Status post bronchoscopy 10/30/16 that showed mucopurulent secretions in the RLL. Bronch washings sent for culture, AFB, and fungal. Culture came back positive for MSSA and K. pneumoniae. Continue cefazolin 2 grams IV Q8H. Discontinue Flagyl. Duration of treatment depends on the clinical picture, but would recommend 2-4 weeks from the patient's surgery date. resident services supervisor has been consulted and is working on placement for the patient on discharge. Monitor renal function and dose-adjust antibiotics. The patient currently has no IV access. Consult EPIV placement. Discussed with nursing. 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 Reports that she sometimes shares needles. HIV negative. Hepatitis BsAg reactive. (6) Tobacco abuse Current Visit: Yes Status: Chronic (7) Hepatitis B antibody positive in blood Current Visit: Yes Status: Chronic Hep Bs antibody 0.00. Hep B core total antibody negative. Hep B core IgM antibody non-reactive. Unclear diagnosis given the lab results. Repeat labs in 4 weeks. - Subjective Interval history: Patient seen and examined. Seems to be doing well today. Patient continues to be afebrile and hemodynamically stable. No labs done today. Chest tube removed yesterday. Infect Dis PN-Objective Data - Labs CBC & Chem 7: 11/17/16 03:50 11/17/16 03:50 Cultures: Cultures 11/11/16 13:48 Anaerobic Culture - Final Pleural Fluid No anaerobes were recovered. 11/09/16 15:45 Blood Culture - Final Peripheral Venipuncture No growth. 11/09/16 15:40 Blood Culture - Final Peripheral Venipuncture No growth. 11/11/16 13:48 Body Fluid Culture - Final Pleural Fluid 11/11/16 13:48 Acid Fast Stain - Final Pleural Fluid 10/31/16 17:08 Blood Culture - Final Peripheral Venipuncture No growth. 10/31/16 17:08 Blood Culture - Final Peripheral Venipuncture No growth. 10/31/16 12:10 Sputum Culture - Final Sputum Staphylococcus aureus 10/30/16 15:26 Respiratory Culture - Final Right Lower Lobe Lung Klebsiella pneumoniae Staphylococcus aureus 10/30/16 15:26 Acid Fast Stain - Final Right Lower Lobe Lung 10/30/16 23:00 Legionella Antigen - Final Urine,Clean Catch Streptococcus pneumoniae Antigen (M - Final Serology 11/10/16 11/06/16 11/06/16 Range/Units 20:08 04:48 04:48 Nasal Screen MRSA (PCR) (Negative) Hepatitis A IgM Ab (Nonreactive) Hep Bs Antigen (Nonreactive) Hep Bs Ag Confirmation (Non Confirmed) Hep Bs Antibody 0.00 mIU/mL Hep B Core Total Ab NEGATIVE (Negative) Hep B Core IgM Ab Nonreactive (Nonreactive) Hep B DNA Quant (PCR) 18,000 IU/mL Hep B DNA Qnt log IU/mL 4.3 log IU Hepatitis Be Antibody NEGATIVE (Negative) Hepatitis Be Antigen NEGATIVE (Negative) Hepatitis B Interp DETECTED A (Not Detected) Hepatitis C Ab Screen (Nonreactive) HIV Ag/Ab Combo Qual (Nonreactive) 11/05/16 11/05/16 10/31/16 Range/Units 03:47 03:47 06:50 Nasal Screen MRSA (PCR) Negative (Negative) Hepatitis A IgM Ab Nonreactive (Nonreactive) Hep Bs Antigen Reactive H (Nonreactive) Hep Bs Ag Confirmation POSITIVE A (Non Confirmed) Hep Bs Antibody mIU/mL Hep B Core Total Ab (Negative) Hep B Core IgM Ab Nonreactive (Nonreactive) Hep B DNA Quant (PCR) IU/mL Hep B DNA Qnt log IU/mL log IU Hepatitis Be Antibody (Negative) Hepatitis Be Antigen (Negative) Hepatitis B Interp (Not Detected) Hepatitis C Ab Screen Nonreactive (Nonreactive) HIV Ag/Ab Combo Qual Nonreactive (Nonreactive) - Impressions Impressions Chest X-Ray 11/18/16 00:01 IMPRESSION: 1. No discernible pneumothorax. 2. Grossly stable right-sided pleuroparenchymal disease. D/ / Alfa Cooley MD / Alfa Cooley MD Interpreting Provider: Alfa Cooley MD Exam - Constitutional Vitals: Temp Pulse Resp BP Pulse Ox 98.8 F 93 18 118/76 99 11/18/16 11:32 11/18/16 11:32 11/18/16 11:32 11/18/16 11:32 11/18/16 11:32 General appearance: no acute distress, no febrile - Neck Neck exam: Present: full ROM - Respiratory Respiratory exam: Present: CTAB. Absent: wheezes - Cardiovascular Cardiovascular exam: Present: RRR, +S1, +S2 - Extremities Exam Extremities exam: Present: full ROM. Absent: pedal edema - Skin Skin exam: Absent: rash - VTE Documentation of Mechanical Device: Intermittent pneumatic compression device Consult Discharge Plan - Plan Instructions: Oxycodone/Acetaminophen (By mouth), Cefazolin (Injection), Sepsis (DC), Pneumonia (DC), Cigarette Smoking and Your Health, Club Manager (GEN) Additional Instructions: Patient has been advised to quit smoking. Patient has been advised to discontinue IV drug use. Patient will need to strictly follow antibiotic regimen to allow recovery from pneumonia. Referrals: Vandana Amaya MD [Partnered Physician] - 12/24/16 1:20 pm NO,PCP [Primary Care Provider] - (PATIENT IS GOING TO [facility] NO PCP APPOINTMENT NEEDED) Prescriptions: Cefazolin Sodium in 0.9 % NaCl [Cefazolin-0.9% NaCl 2 G/50 ml] 2 gm IV Q8H 28 Days Oxycodone HCl/Acetaminophen [Percocet 5-325 mg Tablet] 1 each PO Q6H #30 tablet
[2016-11-18] MEDS: *HR* LORazepam 0.5 MG TABLET PO PRN ×2 (15:29→23:49)
[2016-11-19] MEDS ORDERED: *HR* HYDROmorphone (PF) 1 MG/ML SYRINGE IVP ONE (00:23)
[2016-11-19] MEDS: *HR* OxyCODONE/APAP 10/325 TABLET PO PRN ×5 (03:18→22:33)
[2016-11-19] MEDS: Albuterol 2.5 MG/3 ML NEBULIZER IH SCH ×5 (03:30→20:13)
[2016-11-19] MEDS: *HR* Heparin 5,000 UNIT/ML VIAL SQ SCH ×3 (06:28→20:26)
[2016-11-19] MEDS: Magnesium Oxide 400 MG TABLET PO SCH (08:44)
[2016-11-19] MEDS: Sennosides/Docusate Sodium TABLET PO SCH ×2 (08:44→20:47)
[2016-11-19] MEDS: Nicotine 21 MG PATCH.TD24 TD SCH (08:45)
[2016-11-19] MEDS: ceFAZolin 2,000 MG in D5% in Water 100 ML IVPB SCH ×2 (08:50→15:09)
[2016-11-19] MEDS: Triamcinolone Acet Dentl Paste 5 GM TUBE TP SCH ×2 (08:51→20:26)
[2016-11-19] MEDS: *HR* LORazepam 0.5 MG TABLET PO PRN ×2 (10:36→20:47)
--- NOTE | 2016-11-19 11:02 | Infectious Disease Progress No ---
Date of Encounter: 11/19/16 Time of Encounter: 11:00 - Assessment and Plan (1) Sepsis Current Visit: Yes Status: Resolved The patient had fever, leukocytosis, and tachycardia. Likely secondary to cavitary pneumonia and empyema. Resolved. The patient has been afebrile. Tachycardia has resolved. WBC normal. Blood cultures drawn 10/30/16 x 2 sets are negative. Additional blood cultures drawn 10/31/16 are negative x 2 sets. Repeat blood cultures drawn 11/09/16 are negative x 2 sets. Qualifiers: Sepsis type: methicillin susceptible Staphylococcus aureus Qualified Code(s ): A41.01 - Sepsis due to Methicillin susceptible Staphylococcus aureus (2) Leukocytosis Current Visit: Yes Status: Resolved Resolved. Qualifiers: Leukocytosis type: unspecified Qualified Code(s): D72.829 - Elevated white blood cell count, unspecified (3) Pleural effusion Current Visit: Yes Status: Acute Repeat CXR 11/10/16 shows increased right effusion. CT scan showed increased size of the right pleural effusion as compared to prior exam dated 10/30/16, now large in size and loculated. There was also right lower lobe collapse with 8mm focus of peripheral hypodensity and air, suspicious for necrosis or intrapulmonary abscess. CTS consulted. Status post right thoracotomy with complete decortication 11/11/[address] Amaya. Operative note reviewed. Intra-operative cultures obtained and are negative. Antibiotics as below. Repeat CXR 11/17/16 shows 3mm pneumothorax and a small right pleural effusion as well as bibasilar atelectasis. There is also increased focal atelectasis in the right lung. Status post removal of chest tube on 11/17/2016. Repeat chest x-ray on 11/18/16 shows resolution of the pneumothorax. (4) Cavitary pneumonia Current Visit: Yes Status: Acute Location: Right lower lobe. Causative organism: MSSA and K. pneumoniae. CXR completed 10/30/16 showed worsening consolidative changes in the right lung base. CTA of the chest completed 10/30/16 was negative for PE, but showed 4.5cm x 3.7cm hypoenhancing area of collapsed RLL with central cavitation suspicious for necrotizing PNA with potential pulmonary abscess. There were also findings consistent with bronchitis and a 0.5cm x 0.3cm VENESSA nodule. Pulmonology consulted and following. Status post bronchoscopy 10/30/16 that showed mucopurulent secretions in the RLL. Bronch washings sent for culture, AFB, and fungal. Culture came back positive for MSSA and K. pneumoniae. Continue cefazolin 2 grams IV Q8H. Duration of treatment depends on the clinical picture, but would recommend 2-4 weeks from the patient's surgery date. substance abuse services director has been consulted and is working on placement for the patient on discharge. Monitor renal function and dose-adjust antibiotics. EPIV placed 11/17/16. 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 Reports that she sometimes shares needles. HIV negative. Hepatitis BsAg reactive. (6) Tobacco abuse Current Visit: Yes Status: Chronic (7) Hepatitis B antibody positive in blood Current Visit: Yes Status: Chronic Hep Bs antibody 0.00. Hep B core total antibody negative. Hep B core IgM antibody non-reactive. Unclear diagnosis given the lab results. Repeat labs in 4 weeks. - Subjective Interval history: Patient seen and examined. No acute events noted overnight. Status post thoracotomy with complete decortication 11/11/[address] Amaya. Chest tubes removed this morning 11/17/16. Patient states she feels better today. Patient states she still has pain in the right upper back and right lateral chest wall. Denies fevers, chills, or rigors. Denies shortness of breath or productive cough. Denies nausea, vomiting, diarrhea or constipation.Denies urinary complaints. Denies oral thrush or skin lesions. Infect Dis PN-Objective Data - Labs CBC & Chem 7: 11/17/16 03:50 11/17/16 03:50 Cultures: Cultures 11/11/16 13:48 Anaerobic Culture - Final Pleural Fluid No anaerobes were recovered. 11/09/16 15:45 Blood Culture - Final Peripheral Venipuncture No growth. 11/09/16 15:40 Blood Culture - Final Peripheral Venipuncture No growth. 11/11/16 13:48 Body Fluid Culture - Final Pleural Fluid 11/11/16 13:48 Acid Fast Stain - Final Pleural Fluid 10/31/16 17:08 Blood Culture - Final Peripheral Venipuncture No growth. 10/31/16 17:08 Blood Culture - Final Peripheral Venipuncture No growth. 10/31/16 12:10 Sputum Culture - Final Sputum Staphylococcus aureus 10/30/16 15:26 Respiratory Culture - Final Right Lower Lobe Lung Klebsiella pneumoniae Staphylococcus aureus 10/30/16 15:26 Acid Fast Stain - Final Right Lower Lobe Lung 10/30/16 23:00 Legionella Antigen - Final Urine,Clean Catch Streptococcus pneumoniae Antigen (M - Final Serology 11/10/16 11/06/16 11/06/16 Range/Units 20:08 04:48 04:48 Nasal Screen MRSA (PCR) (Negative) Hepatitis A IgM Ab (Nonreactive) Hep Bs Antigen (Nonreactive) Hep Bs Ag Confirmation (Non Confirmed) Hep Bs Antibody 0.00 mIU/mL Hep B Core Total Ab NEGATIVE (Negative) Hep B Core IgM Ab Nonreactive (Nonreactive) Hep B DNA Quant (PCR) 18,000 IU/mL Hep B DNA Qnt log IU/mL 4.3 log IU Hepatitis Be Antibody NEGATIVE (Negative) Hepatitis Be Antigen NEGATIVE (Negative) Hepatitis B Interp DETECTED A (Not Detected) Hepatitis C Ab Screen (Nonreactive) HIV Ag/Ab Combo Qual (Nonreactive) 11/05/16 11/05/16 10/31/16 Range/Units 03:47 03:47 06:50 Nasal Screen MRSA (PCR) Negative (Negative) Hepatitis A IgM Ab Nonreactive (Nonreactive) Hep Bs Antigen Reactive H (Nonreactive) Hep Bs Ag Confirmation POSITIVE A (Non Confirmed) Hep Bs Antibody mIU/mL Hep B Core Total Ab (Negative) Hep B Core IgM Ab Nonreactive (Nonreactive) Hep B DNA Quant (PCR) IU/mL Hep B DNA Qnt log IU/mL log IU Hepatitis Be Antibody (Negative) Hepatitis Be Antigen (Negative) Hepatitis B Interp (Not Detected) Hepatitis C Ab Screen Nonreactive (Nonreactive) HIV Ag/Ab Combo Qual Nonreactive (Nonreactive) Exam - Constitutional Vitals: Temp Pulse Resp BP Pulse Ox 98.3 F 83 17 121/78 93 11/19/16 07:09 11/19/16 07:09 11/19/16 07:09 11/19/16 07:09 11/19/16 07:09 General appearance: cooperative, morbidly obese, no acute distress - Head Head exam: Present: atraumatic, normal inspection, normocephalic - Eye Eye exam: Present: EOMI, normal appearance, PERRL Pupils: Present: normal accommodation - ENT ENT exam: Present: mucous membranes moist - Neck Neck exam: Present: normal inspection - Respiratory Respiratory exam: Present: CTAB. Absent: rales, respiratory distress, rhonchi, wheezes - Cardiovascular Cardiovascular exam: Present: RRR, +S1, +S2 - GI/Abdominal GI/Abdominal exam: Present: distended (obese), normal bowel sounds, soft. Absent: tenderness - Extremities Exam Extremities exam: Present: normal inspection. Absent: joint swelling, pedal edema, tenderness - Back Exam Additional comments: Right posterior/lateral chest wall surgical incision C/D/I with wound edges well -approximated. Chest tube sites x 2 without erythema or drainage. - Neurological Exam Neurological exam: Present: alert, oriented X3, no focal deficits - Psychiatric Psychiatric exam: Present: normal affect, normal mood - Skin Skin exam: Present: dry, intact, normal color, warm - Additional findings Additional findings: EPIV noted to the LUE with transparent dressing C/D/I. - VTE Documentation of Mechanical Device: Intermittent pneumatic compression device Consult Discharge Plan - Plan Instructions: Oxycodone/Acetaminophen (By mouth), Cefazolin (Injection), Sepsis (DC), Pneumonia (DC), Cigarette Smoking and Your Health, Sales And Marketing Analyst (GEN) Additional Instructions: Patient has been advised to quit smoking. Patient has been advised to discontinue IV drug use. Patient will need to strictly follow antibiotic regimen to allow recovery from pneumonia. Referrals: Vandana Amaya MD [Partnered Physician] - 12/24/16 1:20 pm NO,PCP [Primary Care Provider] - (PATIENT IS GOING TO [facility] NO PCP APPOINTMENT NEEDED) Prescriptions: Cefazolin Sodium in 0.9 % NaCl [Cefazolin-0.9% NaCl 2 G/50 ml] 2 gm IV Q8H 28 Days Oxycodone HCl/Acetaminophen [Percocet 5-325 mg Tablet] 1 each PO Q6H #30 tablet - Attending Attestation I examined this patient and my medical decision-making was reviewed with the KENNEL SUPERVISOR/PA/Advanced Practice Nurse/Resident Physician. I agree with the documented findings, disposition and treatment plan as described except to the extent set forth below.
--- NOTE | 2016-11-19 11:46 | Internal Med Progress Note ---
Date of Encounter: 11/19/16 Time of Encounter: 11:46 - Assessment and plan (1) Cavitary pneumonia Current Visit: Yes Status: Acute Assessment and plan: Secondary to Klebsiella pneumoniae and MSSA. Chest x-ray and chest CT noted. Status post bronchoscopy with bronchial of March results noted. Negative for AFP and fungal infection. Continue cefazolin 2 g IV every 8 hours. Patient will be receiving IV antibiotics at the [facility] after discharge. (2) Empyema lung Current Visit: Yes Status: Acute Assessment and plan: Pulmonary abscess identified on CTA of patient chest. 3 sputum culture and bronchoscopy MSSA and Klebsiella pneumoniae were identified as causative organisms. She underwent thoracotomy with decortication of the pulmonary abscess on . She had received both Zosyn (5 days) and vancomycin (4 days), These are both stopped on 11/04/16 and she was started on Cefazolin and and Flagyl. Infectious disease has been following and appreciate recommendations for continuing management/care Stable post chest tube removal (3) Hepatitis B antibody positive in blood Current Visit: Yes Status: Chronic Assessment and plan: LFTs is normal Hep Bs antibody 0.00. Hep B core total antibody negative. Hep B core IgM antibody non-reactive. Unclear diagnosis given the lab results. Repeat labs in 4 weeks. Follow-up with primary care physician as outpatient. (4) IVDU (intravenous drug user) Current Visit: Yes Status: Acute Assessment and plan: hx of IVD use, heroin, with last use one week prior to admission. BEKA showed no endocarditis and blood cultures negative patient services assistant following (5) Klebsiella pneumoniae pneumonia Current Visit: Yes Status: Acute Assessment and plan: As in Management of cavitary pneumonia. Qualifiers: Laterality: right Lung location: lower lobe of lung Qualified Code(s): J15.0 - Pneumonia due to Klebsiella pneumoniae (6) Sepsis Current Visit: Yes Status: Resolved Assessment and plan: Resolved Patient's sepsis due to her cavitary pneumonia and empyema. Mgt as in pneumonia Qualifiers: Sepsis type: methicillin susceptible Staphylococcus aureus Qualified Code(s ): A41.01 - Sepsis due to Methicillin susceptible Staphylococcus aureus (7) Tobacco abuse Current Visit: Yes Status: Chronic Assessment and plan: Encouraged cessation - Subjective Interval history: 26-year-old female with history of IV drug abuse shows admitted and managed for loculated pleural effusion and empyema (she is status post decortication and thoracotomy. Chest tubes were removed this morning. Culture is significant for staph aureus and Klebsiella pneumonia. Patient will require at least 4 weeks of antibiotics from the day of surgery. Infectious disease is following. leukocytosis has resolved and her hemoglobin is stable, her chemistries within normal limits. She is seen at bedside this morning she has no new complaints. Chest tube removed 11/17, initial CXR with Pneumothorax 3mm, Rpt CX 11/19 with no pneumothorax Blood cultures have remained negative since admission. Patient is awaiting placement and will be discharged when socially cleared She is clinically stable - Constitutional Vitals: Temp Pulse Resp BP Pulse Ox 98.1 F 82 17 109/83 94 11/19/16 11:06 11/19/16 11:06 11/19/16 11:06 11/19/16 11:11/19/16 11:06 General appearance: Present: A&O X 3, morbidly obese, no acute distress, obese - Head Head exam: Present: atraumatic, normocephalic - Eye Eye exam: Present: PERRL, conjuntiva pink, sclera anicteric Pupils: Present: PERRL - Neck Neck exam general surgery: Present: supple, trachea midline. Absent: lymphadenopathy - Respiratory Respiratory exam: Present: CTAB. Absent: accessory muscle use, rales, rhonchi, wheezes - Cardiovascular Cardiovascular exam: Present: RRR, +S1, +S2. Absent: diastolic murmur, gallop, rubs, systolic murmur - GI/Abdominal GI/Abdominal exam: Present: normal bowel sounds, soft, no peritoneal signs. Absent: distended, tenderness - Extremities Exam Extremities exam: Present: warm, radial pulses palpable and symetrical. Absent : calf tenderness, cyanotic, pedal edema - Neurological Exam Neurological exam: Present: alert, CN II-XII intact, oriented X3, no focal deficits. Absent: pronater drift, facial droop, speech deficit - Skin Skin exam: Present: dry, intact Internal Medicine: Result - Labs CBC & Chem 7: 11/17/16 03:50 11/17/16 03:50 - ABG Interpretation ABG results: ABG ABG pH 7.43 pH Units (7.32-7.45) 11/12/16 04:32 ABG pCO2 39 mmHg (35-45) 11/12/16 04:32 ABG pO2 69 mmHg (85-104) L 11/12/16 04:32 ABG O2 Saturation 94 % (95-98) L 11/12/16 04:32 PT/INR, D-dimer D-Dimer 1035 ng/mLFEU (0-500) H 10/30/16 09:28 - VTE Documentation of Mechanical Device: Intermittent pneumatic compression device Consult Discharge Plan - Plan Instructions: Oxycodone/Acetaminophen (By mouth), Cefazolin (Injection), Sepsis (DC), Pneumonia (DC), Cigarette Smoking and Your Health, Ammonia Worker (GEN) Additional Instructions: Patient has been advised to quit smoking. Patient has been advised to discontinue IV drug use. Patient will need to strictly follow antibiotic regimen to allow recovery from pneumonia. Referrals: Vandana Amaya MD [Partnered Physician] - 12/24/16 1:20 pm NO,PCP [Primary Care Provider] - (PATIENT IS GOING TO [facility] NO PCP APPOINTMENT NEEDED) Prescriptions: Cefazolin Sodium in 0.9 % NaCl [Cefazolin-0.9% NaCl 2 G/50 ml] 2 gm IV Q8H 28 Days Oxycodone HCl/Acetaminophen [Percocet 5-325 mg Tablet] 1 each PO Q6H #30 tablet
[2016-11-19] MEDS: Nystatin POWDER 30 GM BOTTLE TP SCH ×2 (15:08→20:48)
[2016-11-19] MEDS: Ibuprofen 400 MG TABLET PO PRN ×2 (15:08→20:47)
[2016-11-20] MEDS: ceFAZolin 2,000 MG in D5% in Water 100 ML IVPB SCH ×3 (00:13→15:47)
[2016-11-20] MEDS: Albuterol 2.5 MG/3 ML NEBULIZER IH SCH ×7 (00:24→23:10)
[2016-11-20] MEDS ORDERED: traMADol 50 MG TABLET PO ONE (01:50)
[2016-11-20] MEDS: *HR* OxyCODONE/APAP 10/325 TABLET PO PRN ×5 (02:29→21:36)
[2016-11-20] MEDS: *HR* Heparin 5,000 UNIT/ML VIAL SQ SCH ×3 (06:19→21:38)
[2016-11-20] MEDS: *HR* LORazepam 0.5 MG TABLET PO PRN ×2 (06:33→16:01)
[2016-11-20] MEDS: Nicotine 21 MG PATCH.TD24 TD SCH (09:13)
[2016-11-20] MEDS: Nystatin POWDER 30 GM BOTTLE TP SCH ×2 (09:15→21:39)
[2016-11-20] MEDS: Triamcinolone Acet Dentl Paste 5 GM TUBE TP SCH ×2 (09:15→21:40)
[2016-11-20] MEDS: Sennosides/Docusate Sodium TABLET PO SCH ×2 (09:16→21:35)
[2016-11-20] MEDS: Ibuprofen 400 MG TABLET PO PRN ×2 (09:20→21:38)
--- NOTE | 2016-11-20 10:15 | Infectious Disease Progress No ---
Date of Encounter: 11/20/16 Time of Encounter: 10:12 - Assessment and Plan (1) Sepsis Current Visit: Yes Status: Resolved The patient had fever, leukocytosis, and tachycardia. Likely secondary to cavitary pneumonia and empyema. Resolved. The patient has been afebrile. Tachycardia has resolved. WBC normal. Blood cultures drawn 10/30/16 x 2 sets are negative. Additional blood cultures drawn 10/31/16 are negative x 2 sets. Repeat blood cultures drawn 11/09/16 are negative x 2 sets. Qualifiers: Sepsis type: methicillin susceptible Staphylococcus aureus Qualified Code(s ): A41.01 - Sepsis due to Methicillin susceptible Staphylococcus aureus (2) Leukocytosis Current Visit: Yes Status: Resolved Resolved. Qualifiers: Leukocytosis type: unspecified Qualified Code(s): D72.829 - Elevated white blood cell count, unspecified (3) Pleural effusion Current Visit: Yes Status: Acute Repeat CXR 11/10/16 shows increased right effusion. CT scan showed increased size of the right pleural effusion as compared to prior exam dated 10/30/16, now large in size and loculated. There was also right lower lobe collapse with 8mm focus of peripheral hypodensity and air, suspicious for necrosis or intrapulmonary abscess. CTS consulted. Status post right thoracotomy with complete decortication 11/11/[address] Amaya. Operative note reviewed. Intra-operative cultures obtained and are negative. Antibiotics as below.. Status post removal of chest tube on 11/17/2016. Repeat chest x-ray on 11/18/16 shows resolution of the pneumothorax. (4) Cavitary pneumonia Current Visit: Yes Status: Acute Location: Right lower lobe. Causative organism: MSSA and K. pneumoniae. CXR completed 10/30/16 showed worsening consolidative changes in the right lung base. CTA of the chest completed 10/30/16 was negative for PE, but showed 4.5cm x 3.7cm hypoenhancing area of collapsed RLL with central cavitation suspicious for necrotizing PNA with potential pulmonary abscess. There were also findings consistent with bronchitis and a 0.5cm x 0.3cm VENESSA nodule. Pulmonology consulted and following. Status post bronchoscopy 10/30/16 that showed mucopurulent secretions in the RLL. Bronch washings sent for culture, AFB, and fungal. Culture came back positive for MSSA and K. pneumoniae. Continue cefazolin 2 grams IV Q8H. Duration of treatment depends on the clinical picture, but would recommend 4 weeks from the patient's surgery date. Recommend treating through 12/09/16. mountain services manager has been consulted and is working on placement for the patient on discharge. Has been accepted at [facility] in [place]. Awaiting insurance authorization. Monitor renal function and dose-adjust antibiotics. EPIV placed 11/17/16. 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 Reports that she sometimes shares needles. HIV negative. Hepatitis BsAg reactive. (6) Tobacco abuse Current Visit: Yes Status: Chronic (7) Hepatitis B antibody positive in blood Current Visit: Yes Status: Chronic Hep Bs antibody 0.00. Hep B core total antibody negative. Hep B core IgM antibody non-reactive. Unclear diagnosis given the lab results. Repeat labs in 4 weeks. - Subjective Interval history: Patient seen and examined. No acute events noted overnight. Status post thoracotomy with complete decortication 11/11/[address] Amaya. Chest tubes removed 11/17/16. Patient states she feels okay today, but is having increased pain because she is increasing her activity. She states she got in the shower and washed her hair and has been ambulating in the hallway. Patient states she still has pain in the right upper back and right lateral chest wall. Denies fevers, chills, or rigors. Denies shortness of breath or productive cough. Denies nausea, vomiting, diarrhea or constipation. Denies urinary complaints. Denies oral thrush or skin lesions. Infect Dis PN-Objective Data - Labs CBC & Chem 7: 11/17/16 03:50 11/17/16 03:50 Cultures: Cultures 11/11/16 13:48 Anaerobic Culture - Final Pleural Fluid No anaerobes were recovered. 11/09/16 15:45 Blood Culture - Final Peripheral Venipuncture No growth. 11/09/16 15:40 Blood Culture - Final Peripheral Venipuncture No growth. 11/11/16 13:48 Body Fluid Culture - Final Pleural Fluid 11/11/16 13:48 Acid Fast Stain - Final Pleural Fluid 10/31/16 17:08 Blood Culture - Final Peripheral Venipuncture No growth. 10/31/16 17:08 Blood Culture - Final Peripheral Venipuncture No growth. 10/31/16 12:10 Sputum Culture - Final Sputum Staphylococcus aureus 10/30/16 15:26 Respiratory Culture - Final Right Lower Lobe Lung Klebsiella pneumoniae Staphylococcus aureus 10/30/16 15:26 Acid Fast Stain - Final Right Lower Lobe Lung 10/30/16 23:00 Legionella Antigen - Final Urine,Clean Catch Streptococcus pneumoniae Antigen (M - Final Serology 11/10/16 11/06/16 11/06/16 Range/Units 20:08 04:48 04:48 Nasal Screen MRSA (PCR) (Negative) Hepatitis A IgM Ab (Nonreactive) Hep Bs Antigen (Nonreactive) Hep Bs Ag Confirmation (Non Confirmed) Hep Bs Antibody 0.00 mIU/mL Hep B Core Total Ab NEGATIVE (Negative) Hep B Core IgM Ab Nonreactive (Nonreactive) Hep B DNA Quant (PCR) 18,000 IU/mL Hep B DNA Qnt log IU/mL 4.3 log IU Hepatitis Be Antibody NEGATIVE (Negative) Hepatitis Be Antigen NEGATIVE (Negative) Hepatitis B Interp DETECTED A (Not Detected) Hepatitis C Ab Screen (Nonreactive) HIV Ag/Ab Combo Qual (Nonreactive) 11/05/16 11/05/16 10/31/16 Range/Units 03:47 03:47 06:50 Nasal Screen MRSA (PCR) Negative (Negative) Hepatitis A IgM Ab Nonreactive (Nonreactive) Hep Bs Antigen Reactive H (Nonreactive) Hep Bs Ag Confirmation POSITIVE A (Non Confirmed) Hep Bs Antibody mIU/mL Hep B Core Total Ab (Negative) Hep B Core IgM Ab Nonreactive (Nonreactive) Hep B DNA Quant (PCR) IU/mL Hep B DNA Qnt log IU/mL log IU Hepatitis Be Antibody (Negative) Hepatitis Be Antigen (Negative) Hepatitis B Interp (Not Detected) Hepatitis C Ab Screen Nonreactive (Nonreactive) HIV Ag/Ab Combo Qual Nonreactive (Nonreactive) Exam - Constitutional Vitals: Temp Pulse Resp BP Pulse Ox 97.7 F 79 16 131/80 93 11/20/16 07:06 11/20/16 07:06 11/20/16 07:42 11/20/16 07:06 11/20/16 07:42 General appearance: cooperative, morbidly obese, no acute distress - Head Head exam: Present: atraumatic, normal inspection, normocephalic - Eye Eye exam: Present: EOMI, normal appearance, PERRL Pupils: Present: normal accommodation - ENT ENT exam: Present: mucous membranes moist - Neck Neck exam: Present: normal inspection - Respiratory Respiratory exam: Present: CTAB. Absent: rales, respiratory distress, rhonchi, wheezes Additional comments: Well-healed surgical wound noted to the right posterolateral chest wall without erythema, drainage, or tenderness. Chest tube sites x 2 noted to the lateral chest wall. Steri-strips noted to the most posterior site. No erythema, drainage , or tenderness noted. - Cardiovascular Cardiovascular exam: Present: RRR, +S1, +S2 - GI/Abdominal GI/Abdominal exam: Present: distended (obese), normal bowel sounds, soft. Absent: tenderness - Extremities Exam Extremities exam: Present: normal inspection. Absent: joint swelling, pedal edema, tenderness - Neurological Exam Neurological exam: Present: alert, oriented X3, no focal deficits - Psychiatric Psychiatric exam: Present: normal affect, normal mood - Skin Skin exam: Present: dry, intact, normal color, warm - Additional findings Additional findings: EPIV noted to the LUE with transparent dressing C/D/I. - VTE Documentation of Mechanical Device: Intermittent pneumatic compression device Consult Discharge Plan - Plan Instructions: Oxycodone/Acetaminophen (By mouth), Cefazolin (Injection), Sepsis (DC), Pneumonia (DC), Cigarette Smoking and Your Health, Operations Program Manager (GEN) Additional Instructions: Patient has been advised to quit smoking. Patient has been advised to discontinue IV drug use. Patient will need to strictly follow antibiotic regimen to allow recovery from pneumonia. Referrals: Vandana Amaya MD [Partnered Physician] - 12/24/16 1:20 pm NO,PCP [Primary Care Provider] - ([facility]POINTMENT NEEDED) Prescriptions: Cefazolin Sodium in 0.9 % NaCl [Cefazolin-0.9% NaCl 2 G/50 ml] 2 gm IV Q8H 28 Days Oxycodone HCl/Acetaminophen [Percocet 5-325 mg Tablet] 1 each PO Q6H #30 tablet
--- NOTE | 2016-11-20 12:32 | Internal Med Progress Note ---
Date of Encounter: 11/20/16 Time of Encounter: 10:35 - Assessment and plan (1) Cavitary pneumonia Current Visit: Yes Status: Acute Assessment and plan: Secondary to Klebsiella pneumoniae and MSSA. Chest x-ray and chest CT noted. Status post bronchoscopy with bronchial of March results noted. Negative for AFP and fungal infection. Continue cefazolin 2 g IV every 8 hours. Patient will be receiving IV antibiotics at the shelter after discharge. (2) Empyema lung Current Visit: Yes Status: Acute Assessment and plan: Pulmonary abscess identified on CTA of patient chest. 3 sputum culture and bronchoscopy MSSA and Klebsiella pneumoniae were identified as causative organisms. She underwent thoracotomy with decortication of the pulmonary abscess on . She had received both Zosyn (5 days) and vancomycin (4 days), These are both stopped on 11/04/16 and she was started on Cefazolin and and Flagyl. Infectious disease has been following and appreciate recommendations for continuing management/care Stable post chest tube removal (3) Hepatitis B antibody positive in blood Current Visit: Yes Status: Chronic Assessment and plan: LFTs is normal Hep Bs antibody 0.00. Hep B core total antibody negative. Hep B core IgM antibody non-reactive. Unclear diagnosis given the lab results. Repeat labs in 4 weeks. Follow-up with primary care physician as outpatient. (4) IVDU (intravenous drug user) Current Visit: Yes Status: Acute Assessment and plan: hx of IVD use, heroin, with last use one week prior to admission. BEKA showed no endocarditis and blood cultures negative director outpatient services following (5) Klebsiella pneumoniae pneumonia Current Visit: Yes Status: Acute Assessment and plan: As in Management of cavitary pneumonia. Qualifiers: Laterality: right Lung location: lower lobe of lung Qualified Code(s): J15.0 - Pneumonia due to Klebsiella pneumoniae (6) Sepsis Current Visit: Yes Status: Resolved Assessment and plan: Resolved Patient's sepsis due to her cavitary pneumonia and empyema. Mgt as in pneumonia Qualifiers: Sepsis type: methicillin susceptible Staphylococcus aureus Qualified Code(s ): A41.01 - Sepsis due to Methicillin susceptible Staphylococcus aureus (7) Tobacco abuse Current Visit: Yes Status: Chronic Assessment and plan: Encouraged cessation - Subjective Interval history: 26-year-old female with history of IV drug abuse shows admitted and managed for loculated pleural effusion and empyema (she is status post decortication and thoracotomy. Chest tubes were removed this morning. Culture is significant for staph aureus and Klebsiella pneumonia. Patient will require at least 4 weeks of antibiotics from the day of surgery. Day 9 post-op of anitbiotics today Awaiting placement ID has recommended 2-4 weeks of antibiotics from day of surgery-11/11/16 Patient is clinically stable for discharge awaiting pre-cert - Constitutional Vitals: Temp Pulse Resp BP Pulse Ox 98.2 F 95 18 137/83 98 11/20/16 10:46 11/20/16 10:46 11/20/16 11:13 11/20/16 10:46 11/20/16 11:13 General appearance: Present: A&O X 3, morbidly obese, no acute distress - Head Head exam: Present: atraumatic, normocephalic - Eye Eye exam: Present: PERRL, conjuntiva pink, sclera anicteric Pupils: Present: PERRL - Neck Neck exam general surgery: Present: supple, trachea midline. Absent: lymphadenopathy - Respiratory Respiratory exam: Present: CTAB. Absent: accessory muscle use, rales, rhonchi, wheezes - Cardiovascular Cardiovascular exam: Present: RRR, +S1, +S2. Absent: diastolic murmur, gallop, rubs, systolic murmur - GI/Abdominal GI/Abdominal exam: Present: normal bowel sounds, soft, no peritoneal signs. Absent: distended, tenderness - Extremities Exam Extremities exam: Present: warm, radial pulses palpable and symetrical. Absent : calf tenderness, cyanotic, pedal edema - Neurological Exam Neurological exam: Present: alert, CN II-XII intact, oriented X3, no focal deficits. Absent: pronater drift, facial droop, speech deficit - Skin Skin exam: Present: dry, intact Internal Medicine: Result - Labs CBC & Chem 7: 11/17/16 03:50 11/17/16 03:50 - ABG Interpretation ABG results: ABG ABG pH 7.43 pH Units (7.32-7.45) 11/12/16 04:32 ABG pCO2 39 mmHg (35-45) 11/12/16 04:32 ABG pO2 69 mmHg (85-104) L 11/12/16 04:32 ABG O2 Saturation 94 % (95-98) L 11/12/16 04:32 PT/INR, D-dimer D-Dimer 1035 ng/mLFEU (0-500) H 10/30/16 09:28 - VTE Documentation of Mechanical Device: Intermittent pneumatic compression device Consult Discharge Plan - Plan Instructions: Oxycodone/Acetaminophen (By mouth), Cefazolin (Injection), Sepsis (DC), Pneumonia (DC), Cigarette Smoking and Your Health, Network Security Officer (GEN) Additional Instructions: Patient has been advised to quit smoking. Patient has been advised to discontinue IV drug use. Patient will need to strictly follow antibiotic regimen to allow recovery from pneumonia. Referrals: Vandana Amaya MD [Partnered Physician] - 12/24/16 1:20 pm NO,PCP [Primary Care Provider] - (PATIENT IS GOING TO [facility] NO PCP APPOINTMENT NEEDED) Prescriptions: Cefazolin Sodium in 0.9 % NaCl [Cefazolin-0.9% NaCl 2 G/50 ml] 2 gm IV Q8H 28 Days Oxycodone HCl/Acetaminophen [Percocet 5-325 mg Tablet] 1 each PO Q6H #30 tablet
[2016-11-21] MEDS: *HR* LORazepam 0.5 MG TABLET PO PRN ×3 (01:59→22:11)
[2016-11-21] MEDS: *HR* OxyCODONE/APAP 10/325 TABLET PO PRN ×4 (02:00→20:00)
[2016-11-21] MEDS: Albuterol 2.5 MG/3 ML NEBULIZER IH SCH ×6 (03:56→23:27)
[2016-11-21] MEDS: Acetaminophen 325 MG TABLET PO PRN (04:38)
[2016-11-21] MEDS: Ibuprofen 400 MG TABLET PO PRN ×3 (04:38→22:10)
[2016-11-21] MEDS: *HR* Heparin 5,000 UNIT/ML VIAL SQ SCH ×2 (06:09→14:38)
[2016-11-21] MEDS: Nicotine 21 MG PATCH.TD24 TD SCH (08:38)
[2016-11-21] MEDS: Sennosides/Docusate Sodium TABLET PO SCH ×2 (08:38→20:00)
[2016-11-21] MEDS: ceFAZolin 2,000 MG in D5% in Water 100 ML IVPB SCH ×3 (08:46→17:02)
[2016-11-21] MEDS: Triamcinolone Acet Dentl Paste 5 GM TUBE TP SCH ×2 (08:47→19:59)
--- NOTE | 2016-11-21 09:53 | Internal Med Progress Note ---
Date of Encounter: 11/21/16 Time of Encounter: 09:53 - Assessment and plan (1) Cavitary pneumonia Current Visit: Yes Status: Acute Assessment and plan: Secondary to Klebsiella pneumoniae and MSSA. Chest x-ray and chest CT noted. Status post bronchoscopy with bronchial of March results noted. Negative for AFP and fungal infection. Continue cefazolin 2 g IV every 8 hours. Day 10 of antibiotic, post0-op Patient will be receiving IV antibiotics at the longterm after discharge. Rpt CXR today unremarkable for any new changes (2) Empyema lung Current Visit: Yes Status: Acute Assessment and plan: Pulmonary abscess identified on CTA of patient chest. 3 sputum culture and bronchoscopy MSSA and Klebsiella pneumoniae were identified as causative organisms. She underwent thoracotomy with decortication of the pulmonary abscess on . She had received both Zosyn (5 days) and vancomycin (4 days), These are both stopped on 11/04/16 and she was started on Cefazolin and and Flagyl. Infectious disease has been following and appreciate recommendations for continuing management/care Stable post chest tube removal (3) Hepatitis B antibody positive in blood Current Visit: Yes Status: Chronic Assessment and plan: LFTs is normal Hep Bs antibody 0.00. Hep B core total antibody negative. Hep B core IgM antibody non-reactive. Unclear diagnosis given the lab results. Repeat labs in 4 weeks. Follow-up with primary care physician as outpatient. (4) IVDU (intravenous drug user) Current Visit: Yes Status: Acute Assessment and plan: hx of IVD use, heroin, with last use one week prior to admission. BEKA showed no endocarditis and blood cultures negative patient financial services specialist following (5) Klebsiella pneumoniae pneumonia Current Visit: Yes Status: Acute Assessment and plan: As in Management of cavitary pneumonia. Qualifiers: Laterality: right Lung location: lower lobe of lung Qualified Code(s): J15.0 - Pneumonia due to Klebsiella pneumoniae (6) Sepsis Current Visit: Yes Status: Resolved Assessment and plan: Resolved Patient's sepsis due to her cavitary pneumonia and empyema. Mgt as in pneumonia Qualifiers: Sepsis type: methicillin susceptible Staphylococcus aureus Qualified Code(s ): A41.01 - Sepsis due to Methicillin susceptible Staphylococcus aureus (7) Tobacco abuse Current Visit: Yes Status: Chronic Assessment and plan: Encouraged cessation (8) DVT prophylaxis Current Visit: Yes Status: Acute Assessment and plan: D/C heparin, patient is ambulatory - Subjective Interval history: 26-year-old female with history of IV drug abuse shows admitted and managed for loculated pleural effusion and empyema (she is status post decortication and thoracotomy. Chest tubes were removed this morning. Culture is significant for staph aureus and Klebsiella pneumonia. Patient will require at least 4 weeks of antibiotics from the day of surgery. Day 10 post-op of anitbiotics today Awaiting placement ID has recommended 2-4 weeks of antibiotics from day of surgery-11/11/16 Patient is clinically stable for discharge awaiting pre-cert - Constitutional Vitals: Temp Pulse Resp BP Pulse Ox 98.2 F 80 19 116/78 96 11/21/16 06:52 11/21/16 06:52 11/21/16 08:34 11/21/16 06:52 11/21/16 08:34 General appearance: Present: A&O X 3, morbidly obese, no acute distress - Head Head exam: Present: atraumatic, normocephalic - Eye Eye exam: Present: PERRL, conjuntiva pink, sclera anicteric Pupils: Present: PERRL - Neck Neck exam general surgery: Present: supple, trachea midline. Absent: lymphadenopathy - Respiratory Respiratory exam: Present: CTAB. Absent: accessory muscle use, rales, rhonchi, wheezes - Cardiovascular Cardiovascular exam: Present: RRR, +S1, +S2. Absent: diastolic murmur, gallop, rubs, systolic murmur - GI/Abdominal GI/Abdominal exam: Present: normal bowel sounds, soft, no peritoneal signs. Absent: distended, tenderness - Extremities Exam Extremities exam: Present: warm, radial pulses palpable and symetrical. Absent : calf tenderness, cyanotic, pedal edema - Neurological Exam Neurological exam: Present: alert, CN II-XII intact, oriented X3, no focal deficits. Absent: pronater drift, facial droop, speech deficit - Skin Skin exam: Present: dry, intact Internal Medicine: Result - Labs CBC & Chem 7: 11/17/16 03:50 11/17/16 03:50 - ABG Interpretation ABG results: ABG ABG pH 7.43 pH Units (7.32-7.45) 11/12/16 04:32 ABG pCO2 39 mmHg (35-45) 11/12/16 04:32 ABG pO2 69 mmHg (85-104) L 11/12/16 04:32 ABG O2 Saturation 94 % (95-98) L 11/12/16 04:32 PT/INR, D-dimer D-Dimer 1035 ng/mLFEU (0-500) H 10/30/16 09:28 - VTE Documentation of Mechanical Device: Intermittent pneumatic compression device Consult Discharge Plan - Plan Instructions: Oxycodone/Acetaminophen (By mouth), Cefazolin (Injection), Sepsis (DC), Pneumonia (DC), Cigarette Smoking and Your Health, Drying Machine Tender (GEN) Additional Instructions: Patient has been advised to quit smoking. Patient has been advised to discontinue IV drug use. Patient will need to strictly follow antibiotic regimen to allow recovery from pneumonia. Referrals: Vandana Amaya MD [Partnered Physician] - 12/24/16 1:20 pm NO,PCP [Primary Care Provider] - (PATIENT IS GOING TO [facility] NO PCP APPOINTMENT NEEDED) Prescriptions: Cefazolin Sodium in 0.9 % NaCl [Cefazolin-0.9% NaCl 2 G/50 ml] 2 gm IV Q8H 28 Days Oxycodone HCl/Acetaminophen [Percocet 5-325 mg Tablet] 1 each PO Q6H #30 tablet
[2016-11-21] MEDS ORDERED: *HR* Morphine 2 MG/ML SYRINGE IVP ONE (10:56)
[2016-11-21] MEDS: Nystatin POWDER 30 GM BOTTLE TP SCH ×2 (10:59→20:00)
[2016-11-22] MEDS: ceFAZolin 2,000 MG in D5% in Water 100 ML IVPB SCH ×3 (00:16→16:50)
[2016-11-22] MEDS: *HR* OxyCODONE/APAP 10/325 TABLET PO PRN ×5 (00:20→20:33)
[2016-11-22] MEDS: Albuterol 2.5 MG/3 ML NEBULIZER IH SCH ×6 (04:13→23:59)
[2016-11-22] MEDS: Sennosides/Docusate Sodium TABLET PO SCH ×2 (08:13→20:34)
[2016-11-22] MEDS: Nicotine 21 MG PATCH.TD24 TD SCH (08:13)
--- NOTE | 2016-11-22 09:15 | Internal Med Progress Note ---
Date of Encounter: 11/22/16 Time of Encounter: 09:15 - Assessment and plan (1) Cavitary pneumonia Current Visit: Yes Status: Acute Assessment and plan: Secondary to Klebsiella pneumoniae and MSSA. Chest x-ray and chest CT noted. Status post bronchoscopy with bronchial of March results noted. Negative for AFP and fungal infection. Continue cefazolin 2 g IV every 8 hours. Day 11 of antibiotic, post0-op Patient will be receiving IV antibiotics at the residential after discharge. Rpt CXR done 11/22 for complains of pain unremarkable for any new changes (2) Empyema lung Current Visit: Yes Status: Acute Assessment and plan: Pulmonary abscess identified on CTA of patient chest. 3 sputum culture and bronchoscopy MSSA and Klebsiella pneumoniae were identified as causative organisms. She underwent thoracotomy with decortication of the pulmonary abscess on . She had received both Zosyn (5 days) and vancomycin (4 days), These are both stopped on 11/04/16 and she was started on Cefazolin and and Flagyl. Infectious disease has been following and appreciate recommendations for continuing management/care Stable post chest tube removal (3) Hepatitis B antibody positive in blood Current Visit: Yes Status: Chronic Assessment and plan: LFTs is normal Hep Bs antibody 0.00. Hep B core total antibody negative. Hep B core IgM antibody non-reactive. Unclear diagnosis given the lab results. Repeat labs in 4 weeks. Follow-up with primary care physician as outpatient. (4) IVDU (intravenous drug user) Current Visit: Yes Status: Acute Assessment and plan: hx of IVD use, heroin, with last use one week prior to admission. BEKA showed no endocarditis and blood cultures negative senior administrative services officer following (5) Klebsiella pneumoniae pneumonia Current Visit: Yes Status: Acute Assessment and plan: As in Management of cavitary pneumonia. Qualifiers: Laterality: right Lung location: lower lobe of lung Qualified Code(s): J15.0 - Pneumonia due to Klebsiella pneumoniae (6) Sepsis Current Visit: Yes Status: Resolved Assessment and plan: Resolved Patient's sepsis due to her cavitary pneumonia and empyema. Mgt as in pneumonia Qualifiers: Sepsis type: methicillin susceptible Staphylococcus aureus Qualified Code(s ): A41.01 - Sepsis due to Methicillin susceptible Staphylococcus aureus (7) Tobacco abuse Current Visit: Yes Status: Chronic Assessment and plan: Encouraged cessation (8) DVT prophylaxis Current Visit: Yes Status: Acute Assessment and plan: D/C heparin, patient is ambulatory - Subjective Interval history: 26-year-old female with history of IV drug abuse shows admitted and managed for loculated pleural effusion and empyema (she is status post decortication and thoracotomy. Chest tubes were removed this morning. Culture is significant for staph aureus and Klebsiella pneumonia. Patient will require at least 4 weeks of antibiotics from the day of surgery. Day 11 post-op of antibiotics today Awaiting placement ID has recommended 2-4 weeks of antibiotics from day of surgery-11/11/16 Patient is clinically stable for discharge awaiting pre-cert - Constitutional Vitals: Temp Pulse Resp BP Pulse Ox 98.3 F 78 16 104/70 97 11/22/16 07:31 11/22/16 07:31 11/22/16 07:31 11/22/16 07:31 11/22/16 07:31 General appearance: Present: A&O X 3, morbidly obese, no acute distress - Head Head exam: Present: atraumatic, normocephalic - Eye Eye exam: Present: PERRL, conjuntiva pink, sclera anicteric Pupils: Present: PERRL - Neck Neck exam general surgery: Present: supple, trachea midline. Absent: lymphadenopathy - Respiratory Respiratory exam: Present: CTAB. Absent: accessory muscle use, rales, rhonchi, wheezes - Cardiovascular Cardiovascular exam: Present: RRR, +S1, +S2. Absent: diastolic murmur, gallop, rubs, systolic murmur - GI/Abdominal GI/Abdominal exam: Present: normal bowel sounds, soft, no peritoneal signs. Absent: distended, tenderness - Extremities Exam Extremities exam: Present: warm, radial pulses palpable and symetrical. Absent : calf tenderness, cyanotic, pedal edema - Neurological Exam Neurological exam: Present: alert, CN II-XII intact, oriented X3, no focal deficits. Absent: pronater drift, facial droop, speech deficit - Skin Skin exam: Present: dry, intact Internal Medicine: Result - Labs CBC & Chem 7: 11/17/16 03:50 11/17/16 03:50 - ABG Interpretation ABG results: ABG ABG pH 7.43 pH Units (7.32-7.45) 11/12/16 04:32 ABG pCO2 39 mmHg (35-45) 11/12/16 04:32 ABG pO2 69 mmHg (85-104) L 11/12/16 04:32 ABG O2 Saturation 94 % (95-98) L 11/12/16 04:32 PT/INR, D-dimer D-Dimer 1035 ng/mLFEU (0-500) H 10/30/16 09:28 - Impressions Impressions Chest X-Ray 11/21/16 10:57 IMPRESSION: 1. No significant interval change since exam of November 18, 2016 with persistent right lower lobe airspace opacity and small right pleural effusion. D/ / Steven Field MD / Steven Field MD Interpreting Provider: Steven Field MD - VTE Documentation of Mechanical Device: Intermittent pneumatic compression device Consult Discharge Plan - Plan Instructions: Oxycodone/Acetaminophen (By mouth), Cefazolin (Injection), Viral Hepatitis B (GEN), Sepsis (DC), Pneumonia (DC), Cigarette Smoking and Your Health, Landscaping Supervisor (GEN), COPD Exacerbation, Landscaping Supervisor (GEN) Additional Instructions: Patient has been advised to quit smoking. Patient has been advised to discontinue IV drug use. Patient will need to strictly follow antibiotic regimen to allow recovery from pneumonia. Referrals: Vandana Amaya MD [Partnered Physician] - 12/24/16 1:20 pm NO,PCP [Primary Care Provider] - (PATIENT IS GOING TO [facility] NO PCP APPOINTMENT NEEDED) Prescriptions: Cefazolin Sodium in 0.9 % NaCl [Cefazolin-0.9% NaCl 2 G/50 ml] 2 gm IV Q8H 28 Days Oxycodone HCl/Acetaminophen [Percocet 5-325 mg Tablet] 1 each PO Q6H #30 tablet
[2016-11-22] MEDS: Acetaminophen 325 MG TABLET PO PRN (09:16)
[2016-11-22] MEDS: Triamcinolone Acet Dentl Paste 5 GM TUBE TP SCH ×2 (09:35→20:34)
[2016-11-22] MEDS: *HR* LORazepam 0.5 MG TABLET PO PRN (13:27)
[2016-11-22] MEDS: Nystatin POWDER 30 GM BOTTLE TP SCH ×3 (13:33→23:13)
[2016-11-22] MEDS: Ibuprofen 400 MG TABLET PO PRN ×2 (13:34→22:29)
[2016-11-23] MEDS: *HR* OxyCODONE/APAP 10/325 TABLET PO PRN ×3 (01:11→11:24)
[2016-11-23] MEDS: ceFAZolin 2,000 MG in D5% in Water 100 ML IVPB SCH ×2 (01:11→11:25)
[2016-11-23] MEDS: Albuterol 2.5 MG/3 ML NEBULIZER IH SCH ×3 (03:51→11:20)
[2016-11-23] MEDS: Triamcinolone Acet Dentl Paste 5 GM TUBE TP SCH (09:08)
[2016-11-23] MEDS: Ibuprofen 400 MG TABLET PO PRN ×2 (09:09→14:47)
[2016-11-23] MEDS: Sennosides/Docusate Sodium TABLET PO SCH (09:09)
[2016-11-23] MEDS: Nicotine 21 MG PATCH.TD24 TD SCH (09:10)
[2016-11-23] MEDS: Nystatin POWDER 30 GM BOTTLE TP SCH (09:15)
--- NOTE | 2016-11-23 10:49 | Discharge Summary ---
Date of Encounter: 11/23/16 Time of Encounter: 10:49 - Discharge Diagnosis (1) Cavitary pneumonia Priority: Primary Status: Acute (2) Empyema lung Priority: Primary Status: Resolved (3) Hepatitis B antibody positive in blood Priority: Secondary Status: Chronic (4) IVDU (intravenous drug user) Priority: Secondary Status: Chronic (5) Klebsiella pneumoniae pneumonia Priority: Primary Status: Acute Qualifiers: Laterality: right Lung location: lower lobe of lung Qualified Code(s): J15.0 - Pneumonia due to Klebsiella pneumoniae (6) Sepsis Priority: Primary Status: Resolved Qualifiers: Sepsis type: methicillin susceptible Staphylococcus aureus Qualified Code(s ): A41.01 - Sepsis due to Methicillin susceptible Staphylococcus aureus (7) Tobacco abuse Priority: Secondary Status: Chronic (8) DVT prophylaxis Priority: Primary Status: Acute (9) Morbid obesity Priority: Secondary Status: Chronic Qualifiers: Obesity type: unspecified obesity type Qualified Code(s): E66.01 - Morbid ( severe) obesity due to excess calories - Discharge Medications Prescriptions: OxyCODONE/APAP 10/325 [Percocet 10/325 MG] 1 each PO Q4HR PRN #15 tablet PRN Reason: Moderate to Severe Pain (4-10) Amoxicillin/Clavulanate [Augmentin] 875 mg PO BIDWM #28 tablet LORazepam [Ativan] 0.5 mg PO BID PRN #8 tablet PRN Reason: Anxiety Oxycodone HCl/Acetaminophen [Percocet 5-325 mg Tablet] 1 each PO Q6H #30 tablet Home Medications: Acetaminophen [Tylenol] 650 mg PO Q6HR PRN #0 tablet 11/05/16 [Rx] Nicotine Patch [Nicoderm] 21 mg TD DAILY #30 patch.td24 11/05/16 [Rx] Oxycodone HCl/Acetaminophen [Percocet 5-325 mg Tablet] 1 each PO Q6H #30 tablet 11/05/16 [Rx] Acetaminophen [Tylenol] 650 mg PO Q6HR PRN #0 tablet 11/23/16 [Rx] Amoxicillin/Clavulanate [Augmentin] 875 mg PO BIDWM #28 tablet 11/23/16 [Rx] Ibuprofen [Motrin] 400 mg PO Q6HR PRN #0 tablet 11/23/16 [Rx] LORazepam [Ativan] 0.5 mg PO BID PRN #8 tablet 11/23/16 [Rx] Omeprazole [PriLOSEC] 40 mg PO DAILY@0630 capsule. 11/23/16 [Rx] OxyCODONE/APAP 10/325 [Percocet 10/325 MG] 1 each PO Q4HR PRN #15 tablet [Rx] Sennosides/Docusate Sodium [Senna Plus] 2 each PO BID tablet 11/23/16 [Rx] Allergies/Adverse Reactions: Allergies No Known Allergies Allergy (Verified 10/29/16 03:52) Date of admission: 10/30/16 12:16 Primary care physician: PCP NO Consults: 11/03/16 08:15 Consult to Associate School Psychologist [CONS] Routine Reason for SW Consult: discharge assistance, financial assistance 11/03/16 11:25 Consult to PICC team [Consult to Invasive Line Access Team] [CONS] Routine Reason for Consult: limited access/ need senior care ATB Line Type: EPIV 11/04/16 09:11 Consult to Infectious Diseases [CONS] Routine Consulting Provider: Infectious Disease [place] Reason for Consult: antibiotic management. Call Completed: Yes 11/10/16 15:24 Consult to Cardiothoracic Surgery [CONS] Routine Consulting Provider: Cardiothoracic Surgery Yolie Reason for Consult: R large loculated pleural effussion, RLL 8mm peripheral hypodensity Call Completed: Yes 11/17/16 09:13 Consult to Invasive Line Access Team [CONS] Routine Reason for Consult: long-term antibiotics/limited access Line Type: EPIV 11/23/16 09:05 Consult to PICC team [Consult to Invasive Line Access Team] [CONS] Routine Reason for Consult: senior care antibiotic need, old powerwand leaking Line Type: EPIV PICC line indications: operations analyst Med/Antibiotic Discharging clinician: Shantanu Costa Anticipated date of discharge: 11/23/16 - Patient Status Disposition: Home, Self-Care Condition: Good Functional capacity at discharge: independent ambulation Overall status at discharge: patient is back to baseline - Discharge Instructions Instructions: Oxycodone/Acetaminophen (By mouth), Cefazolin (Injection), Viral Hepatitis B (GEN), Sepsis (DC), Pneumonia (DC), Cigarette Smoking and Your Health, Divorce Attorney (GEN), COPD Exacerbation, Divorce Attorney (GEN) Follow Up With: Vandana Amaya MD [Partnered Physician] - 12/24/16 1:20 pm Zora Benson CNP [Advanced Practice Nurse] - NO,PCP [Primary Care Provider] - (PATIENT IS GOING TO [facility] NO PCP APPOINTMENT NEEDED) Additional Instructions: Patient has been advised to quit smoking. Patient has been advised to discontinue IV drug use. Patient will need to strictly follow antibiotic regimen to allow recovery from pneumonia. - Diet and Activity Diet: low fat, low cholesterol Interval History: See below Hospital course: Ms. Machado is a 26 year old female with past medical history of tobacco use, Morbid Obesity, who came to the emergency room complaining of shortness of breath. The patient was diagnosed with pneumonia a few days prior to presentation and was treated with Zithromax. Her symptoms did not improve, she continued to have brownish phlegm in complaining of chest sharp pain 8 out of 10 intensity pleuritic type on the right base of the thorax. She had been coughing for about 2 weeks and has been having chills at home prior to presentation. White blood cell count on admission was 18.8, platelets 408 the d-dimer was elevated at 1035, chest x-ray showed worse right lower lobe infiltrates. CT angio the chest was performed and did not show any pulmonary emboli but showed a right lower lobe necrotizing possible pneumonia with abscess formation and cavitation. Trace pleural effusion, bronchitis in the left upper lobe nodule. Causative organism: MSSA and K. pneumoniae. She was admitted and started on empiric broad spectrum antibiotics CXR completed 10/30/16 showed worsening consolidative changes in the right lung base. CTA of the chest completed 10/30/16 was negative for PE, but showed 4.5cm x 3.7cm hypoenhancing area of collapsed RLL with central cavitation suspicious for necrotizing PNA with potential pulmonary abscess. There were also findings consistent with bronchitis and a 0.5cm x 0.3cm VENESSA nodule. Pulmonology and thoracic surgery were consulted, patient was reviewed. She had bronchoscopy 10/30/16 that showed mucopurulent secretions in the RLL. Bronchial washings sent for culture, AFB, and fungal. Culture came back positive for MSSA and K. pneumoniae. She was switched to appropriate antibiotics based on sensitivity She eventually developed empyema thoracis and had thoracotomy with chest tube placement done 11/11/16 She also has hepatitis B, with hepatitis panel showing hep B Ab positive, Hep B core total antibody negative, Hep B core IgM antibody non-reactive. Since her thoracotomy, she was stable; chest tube successfully removed 11/17 She has been on antibiotics since admission and Infectious disease recommendation is for a total 4 weeks of antibiotics post-op since 11/11 She has received a total of 22 days of antibiotic in-patient. Attempts to place patient in SNF for IV antibiotics proved abortive due to insurance issues She is discharged on po antibiotics-Augmentin, for 14 more days She is to follow up with Infectious disease Patient is an IVD&U, several counselling done while in-patient She has morbid Obesity, lifestyle modification encouraged Tobacco cessation counselling done for 3 minutes - Time Spent with Patient Total time spent providing and/or coordinating discharge services: Greater than 30 minutes (50 minutes spent on chart review, patient encounter, arranging discharge with SW, consultation with Infectious disease, medication prescription and reconciliation, and patient educations, also documentation) - Constitutional Vitals: Temp Pulse Resp BP Pulse Ox 98.0 F 79 15 111/66 96 11/23/16 07:27 11/23/16 07:27 11/23/16 07:27 11/23/16 07:27 11/23/16 07:27 General appearance: Present: A&O X 3, morbidly obese, no acute distress - Head Head exam: Present: atraumatic, normocephalic - Eye Eye exam: Present: PERRL, conjuntiva pink, sclera anicteric Pupils: Present: PERRL - Neck Neck exam general surgery: Present: supple, trachea midline. Absent: lymphadenopathy - Respiratory Respiratory exam: Present: CTAB. Absent: accessory muscle use, rales, rhonchi, wheezes - Cardiovascular Cardiovascular exam: Present: RRR, +S1, +S2. Absent: diastolic murmur, gallop, rubs, systolic murmur - GI/Abdominal GI/Abdominal exam: Present: normal bowel sounds, soft, no peritoneal signs. Absent: distended, tenderness - Extremities Exam Extremities exam: Present: warm, radial pulses palpable and symetrical. Absent : calf tenderness, cyanotic, pedal edema - Neurological Exam Neurological exam: Present: alert, CN II-XII intact, normal gait, oriented X3, no focal deficits. Absent: pronater drift, facial droop, speech deficit - Skin Skin exam: Present: dry, intact - VTE Documentation of Mechanical Device: Intermittent pneumatic compression device
--- NOTE | 2016-11-23 11:12 | Infectious Disease Progress No ---
Date of Encounter: 11/23/16 Time of Encounter: 10:00 - Assessment and Plan (1) Sepsis Current Visit: Yes Status: Resolved The patient had fever, leukocytosis, and tachycardia. Likely secondary to cavitary pneumonia and empyema. Resolved. The patient has been afebrile. Tachycardia has resolved. WBC normal. Blood cultures drawn 10/30/16 x 2 sets are negative. Additional blood cultures drawn 10/31/16 are negative x 2 sets. Repeat blood cultures drawn 11/09/16 are negative x 2 sets. Qualifiers: Sepsis type: methicillin susceptible Staphylococcus aureus Qualified Code(s ): A41.01 - Sepsis due to Methicillin susceptible Staphylococcus aureus (2) Leukocytosis Current Visit: Yes Status: Resolved Resolved. Qualifiers: Leukocytosis type: unspecified Qualified Code(s): D72.829 - Elevated white blood cell count, unspecified (3) Pleural effusion Current Visit: Yes Status: Acute Repeat CXR 11/10/16 shows increased right effusion. CT scan showed increased size of the right pleural effusion as compared to prior exam dated 10/30/16, now large in size and loculated. There was also right lower lobe collapse with 8mm focus of peripheral hypodensity and air, suspicious for necrosis or intrapulmonary abscess. CTS consulted. Status post right thoracotomy with complete decortication 11/11/[address] Amaya. Operative note reviewed. Intra-operative cultures obtained and are negative. Antibiotics as below. Status post removal of chest tube on 11/17/2016. Repeat chest x-ray on 11/18/16 shows resolution of the pneumothorax. (4) Cavitary pneumonia Current Visit: Yes Status: Acute Location: Right lower lobe. Causative organism: MSSA and K. pneumoniae. CXR completed 10/30/16 showed worsening consolidative changes in the right lung base. CTA of the chest completed 10/30/16 was negative for PE, but showed 4.5cm x 3.7cm hypoenhancing area of collapsed RLL with central cavitation suspicious for necrotizing PNA with potential pulmonary abscess. There were also findings consistent with bronchitis and a 0.5cm x 0.3cm VENESSA nodule. Pulmonology consulted and following. Status post bronchoscopy 10/30/16 that showed mucopurulent secretions in the RLL. Bronch washings sent for culture, AFB, and fungal. Culture came back positive for MSSA and K. pneumoniae. Continue cefazolin 2 grams IV Q8H. Duration of treatment depends on the clinical picture, but would recommend 4 weeks from the patient's surgery date. Recommend treating through 12/09/16. financial services representative has been consulted and is working on placement for the patient on discharge. Has been accepted at [facility] in [place]. Awaiting insurance authorization. Monitor renal function and dose-adjust antibiotics. EPIV placed 11/17/16. 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 Reports that she sometimes shares needles. HIV negative. Hepatitis BsAg reactive. (6) Tobacco abuse Current Visit: Yes Status: Chronic (7) Hepatitis B antibody positive in blood Current Visit: Yes Status: Chronic Hep Bs antibody 0.00. Hep B core total antibody negative. Hep B core IgM antibody non-reactive. Unclear diagnosis given the lab results. Repeat labs in 4 weeks per PCP. - Subjective Interval history: Patient seen and examined. Weekend notes reviewed. No acute events noted. Status post thoracotomy with complete decortication 11/11/[address] Amaya. Chest tubes removed 11/17/16. Patient states she feels better today, and has been ambulating back and forth between her room and her girlfriend's room over on [address]. She does report intermittent right back, side, and chest discomfort, but states her pain medication has been helping. Denies fevers, chills, or rigors. Denies shortness of breath or productive cough. Denies nausea, vomiting, diarrhea or constipation. Denies urinary complaints. Denies oral thrush or skin lesions. Infect Dis PN-Objective Data - Labs CBC & Chem 7: 11/17/16 03:50 11/17/16 03:50 Cultures: Cultures 11/11/16 13:48 Anaerobic Culture - Final Pleural Fluid No anaerobes were recovered. 11/09/16 15:45 Blood Culture - Final Peripheral Venipuncture No growth. 11/09/16 15:40 Blood Culture - Final Peripheral Venipuncture No growth. 11/11/16 13:48 Body Fluid Culture - Final Pleural Fluid 11/11/16 13:48 Acid Fast Stain - Final Pleural Fluid 10/31/16 17:08 Blood Culture - Final Peripheral Venipuncture No growth. 10/31/16 17:08 Blood Culture - Final Peripheral Venipuncture No growth. 10/31/16 12:10 Sputum Culture - Final Sputum Staphylococcus aureus 10/30/16 15:26 Respiratory Culture - Final Right Lower Lobe Lung Klebsiella pneumoniae Staphylococcus aureus 10/30/16 15:26 Acid Fast Stain - Final Right Lower Lobe Lung 10/30/16 23:00 Legionella Antigen - Final Urine,Clean Catch Streptococcus pneumoniae Antigen (M - Final Serology 11/10/16 11/06/16 11/06/16 Range/Units 20:08 04:48 04:48 Nasal Screen MRSA (PCR) (Negative) Hepatitis A IgM Ab (Nonreactive) Hep Bs Antigen (Nonreactive) Hep Bs Ag Confirmation (Non Confirmed) Hep Bs Antibody 0.00 mIU/mL Hep B Core Total Ab NEGATIVE (Negative) Hep B Core IgM Ab Nonreactive (Nonreactive) Hep B DNA Quant (PCR) 18,000 IU/mL Hep B DNA Qnt log IU/mL 4.3 log IU Hepatitis Be Antibody NEGATIVE (Negative) Hepatitis Be Antigen NEGATIVE (Negative) Hepatitis B Interp DETECTED A (Not Detected) Hepatitis C Ab Screen (Nonreactive) HIV Ag/Ab Combo Qual (Nonreactive) 11/05/16 11/05/16 10/31/16 Range/Units 03:47 03:47 06:50 Nasal Screen MRSA (PCR) Negative (Negative) Hepatitis A IgM Ab Nonreactive (Nonreactive) Hep Bs Antigen Reactive H (Nonreactive) Hep Bs Ag Confirmation POSITIVE A (Non Confirmed) Hep Bs Antibody mIU/mL Hep B Core Total Ab (Negative) Hep B Core IgM Ab Nonreactive (Nonreactive) Hep B DNA Quant (PCR) IU/mL Hep B DNA Qnt log IU/mL log IU Hepatitis Be Antibody (Negative) Hepatitis Be Antigen (Negative) Hepatitis B Interp (Not Detected) Hepatitis C Ab Screen Nonreactive (Nonreactive) HIV Ag/Ab Combo Qual Nonreactive (Nonreactive) Exam - Constitutional Vitals: Temp Pulse Resp BP Pulse Ox 98.0 F 79 15 111/66 96 11/23/16 07:27 11/23/16 07:27 11/23/16 07:27 11/23/16 07:27 11/23/16 07:27 General appearance: cooperative, morbidly obese, no acute distress - Head Head exam: Present: atraumatic, normal inspection, normocephalic - Eye Eye exam: Present: EOMI, normal appearance, PERRL Pupils: Present: normal accommodation - ENT ENT exam: Present: mucous membranes moist - Neck Neck exam: Present: normal inspection - Respiratory Respiratory exam: Present: CTAB. Absent: rales, respiratory distress, rhonchi, wheezes Additional comments: Right posterolateral chest wall surgical incision noted LÓPEZ with wound edges well-approximated. No redness, erythema, or drainage noted. Chest tube sites x 2 noted to the right lateral chest wall LÓPEZ without erythema , warmth, or drainage. - Cardiovascular Cardiovascular exam: Present: RRR, +S1, +S2 - GI/Abdominal GI/Abdominal exam: Present: distended (obese), normal bowel sounds, soft. Absent: tenderness - Extremities Exam Extremities exam: Present: normal inspection. Absent: joint swelling, pedal edema, tenderness - Neurological Exam Neurological exam: Present: alert, oriented X3, no focal deficits - Psychiatric Psychiatric exam: Present: normal affect, normal mood - Skin Skin exam: Present: dry, intact, normal color, warm - Additional findings Additional findings: EPIV noted to the LUE with transparent dressing C/D/I. - VTE Documentation of Mechanical Device: Intermittent pneumatic compression device Consult Discharge Plan - Plan Instructions: Oxycodone/Acetaminophen (By mouth), Cefazolin (Injection), Viral Hepatitis B (GEN), Sepsis (DC), Pneumonia (DC), Cigarette Smoking and Your Health, Transitional Care Liaison (GEN), COPD Exacerbation, Transitional Care Liaison (GEN) Additional Instructions: Patient has been advised to quit smoking. Patient has been advised to discontinue IV drug use. Patient will need to strictly follow antibiotic regimen to allow recovery from pneumonia. Referrals: Vandana Amaya MD [Partnered Physician] - 12/24/16 1:20 pm NO,PCP [Primary Care Provider] - (PATIENT IS GOING TO [facility] NO PCP APPOINTMENT NEEDED) Prescriptions: OxyCODONE/APAP 10/325 [Percocet 10/325 MG] 1 each PO Q4HR PRN #15 tablet PRN Reason: Moderate to Severe Pain (4-10) Cefazolin Sodium in 0.9 % NaCl [Cefazolin-0.9% NaCl 2 G/50 ml] 2 gm IV Q8H 28 Days LORazepam [Ativan] 0.5 mg PO BID PRN #8 tablet PRN Reason: Anxiety Oxycodone HCl/Acetaminophen [Percocet 5-325 mg Tablet] 1 each PO Q6H #30 tablet - Attending Attestation I examined this patient and my medical decision-making was reviewed with the EDGE STAINER MACHINE/PA/Advanced Practice Nurse/Resident Physician. I agree with the documented findings, disposition and treatment plan as described except to the extent set forth below. Patient seen and examined, doing great clinically. Just came out of the shower. Asymptomatic. They were having trouble placing the patient. Patient's necrotizing pneumonia was diagnosed on 10/30/16 and antibiotics were started then. She has received 3-1/2 weeks of IV antibiotics. The thoracotomy was done and it showed no keyshawn empyema, cultures at that time were negative and the fluid was straw-colored as per Dr. Amaya. I believe we can switch the patient to oral antibiotics and follow-up as an outpatient. I will do Augmentin 807 5 mg by mouth twice a day 14 days Patient follow-up with me in clinic on and at that time we will likely repeat chest x-ray to see if there is resolution. If no resolution we might extend antibiotics Patient advised antibiotics and cause diarrhea and yeast infection. Patient advised to either take probiotics or eat yogurt. We'll get stat labs now since patient hasn't had labs since 11/17/16. If labs did not show major abnormality, okay to discharge Discussed with hospitalist and with the comp field case manager. I ordered CBC and a BMP stat.
[2016-11-23 11:24] VITALS: BP 121/71
[2016-11-23] MEDS: *HR* LORazepam 0.5 MG TABLET PO PRN (11:24)
[2016-11-23 14:05] LABS: Basophils # 0.1 K/mcL (0.0-0.2); Basophils % 0.5 %; Eosinophils # 0.1 K/mcL (0.0-0.6); Eosinophils % 0.6 %; Hematocrit 31.9 % (35.3-44.9); Hemoglobin 10.3 g/dL (11.5-15.4); Immature Granulocytes % 0.8 % (0-4); Lymphocytes # 2.4 K/mcL (0.6-4.6); Lymphocytes % 18.4 %; Mean Corpuscular HGB Conc 32.3 g/dL (31.6-35.5); Mean Corpuscular Hemoglobin 28.3 pg (28.0-33.3); Mean Corpuscular Volume 87.6 fL (83.0-100.0); Mean Platelet Volume 8.5 fL (9.4-12.4); Monocytes # 0.4 K/mcL (0.0-1.3); Monocytes % 3.2 %; Platelet Count 614 K/mcL (140-400); Red Blood Count 3.64 M/mcL (3.82-4.97); Red Cell Distribution Width 13.9 % (11.5-14.5); Segmented Neutrophils % 76.5 %
[2016-11-23 14:17] LABS: BUN/Creatinine Ratio 13 (6-26); Blood Urea Nitrogen 13 mg/dL (7-20); Calcium 9.6 mg/dL (8.6-10.8); Carbon Dioxide 21 mEq/L (19-29); Chloride 106 mEq/L (98-109); Glucose 121 mg/dL (70-99); Osmolality,Calculated 287 (280-300); Potassium 4.3 mEq/L (3.5-4.5); Sodium 138 mEq/L (136-145); eGFR For African Americans > 60 (> 60); eGFR For Non-African Americans > 60 (> 60)
== END 2016-11-23 15:56 | disposition home or self-care (01) | DRG 853 ==
LOC: EMEROO 08:34 → 3BNU 08:34 → SUATTDRO 12:16 → 3BNU 12:56 → 2NENU 11-02 15:08 → ICNU 11-11 14:50 → 2NNU 11-14 18:39 → 2ANU 11-18 20:08
PROVIDERS: ADMIT Internal Medicine; ATTEND Internal Medicine